=== PATIENT | female | born 1960 | race Caucasian/White ===

== ENCOUNTER → 2018-01-30 | Outpatient (CLI) | payer OTHER ==
--- NOTE | 2018-01-30 14:47 | US ---
EXAMINATION TYPE: US abdomen complete DATE OF EXAM: 01/30/2018 COMPARISON: NONE CLINICAL HISTORY: R10.84 Abd pain. Abdominal pain for 2 days EXAM MEASUREMENTS: Liver Length: 19.5 cm Gallbladder Wall: 0.2 cm CBD: 0.3 cm Spleen: 8.2 cm Right Kidney: 10.9 x 3.8 x 4.0 cm Left Kidney: 10.7 x 5.8 x 4.1 cm Technical limitations due to large amount of overlying bowel content Pancreas: Obscured by bowel gas Liver: enlarged, attenuating Gallbladder: no evidence of stones Evidence for sonographic Fermin's sign: no CBD: appears wnl as visualized Spleen: wnl Right Kidney: no evidence of hydronephrosis Left Kidney: no evidence of hydronephrosis Upper IVC: limited evaluation Abd Aorta: limited evaluation due to overlying bowel content, portions obscured, calcifications note d IMPRESSION: 1. No acute ultrasound abnormality abdomen ultrasound. 2. Hepatomegaly with mild fatty infiltration.
== END | disposition home or self-care (01) ==
LOC: RADUSWWP 14:00
PROVIDERS: ATTEND Family Medicine
DX: K76.0 Fatty (change of) liver, not elsewhere classified (principal)
CPT/HCPCS: 76700

== ENCOUNTER 2018-02-03 07:55 | Inpatient (IN) | payer OTHER ==
[2018-02-03 08:56] LABS: Appearance,Urine Turbid (Clear); Bacteria,Urine Rare /hpf; Bilirubin,Urine Negative (Negative); Blood,Urine Negative (Negative); Color,Urine Yellow; Glucose,Urine (UA) Negative (Negative); Ketones,Urine Negative (Negative); Leukocyte Esterase,Urine Negative (Negative); Nitrite,Urine Negative (Negative); PH, Urine 5.5 (5.0-8.0); Protein,Urine Trace (Negative); RBC,Urine 1 /hpf (0-5); Specific Gravity,Urine 1.021 (1.001-1.035); Squamous Epithelial Cell,Urine 2 /hpf (0-4); Uric Acid Crystals,Urine Occasional /hpf; WBC,Urine 2 /hpf (0-5)
[2018-02-03] MEDS ORDERED: ONDANSETRON 4 MG/2 ML VIAL IVP STA (09:18)
[2018-02-03] MEDS ORDERED: SODIUM CHLORIDE 0.9% 1,000 ML IV STA ×2 (09:18)
[2018-02-03] MEDS ORDERED: ACETAMINOPHEN IV (For NPO) 1,000 MG in EMPTY BAG 1 BAG IVPB STA (09:19)
[2018-02-03] MEDS ORDERED: RX INFO: IV CONTRAST WAS GIVEN 1 EACH MISC MISCELLANE PRN (09:20)
--- NOTE | 2018-02-03 09:20 | ED ---
General Adult HPI <Lei Christiansen - Last Filed: 02/03/18 11:33> - General Source: patient, EMS, RN notes reviewed Mode of arrival: EMS Limitations: no limitations <Enoch Restrepo - Last Filed: 02/03/18 11:36> - General Chief complaint: Abdominal Pain Stated complaint: Abdominal pain Time Seen by Provider: 02/03/18 08:49 - History of Present Illness Initial comments: Patient's a 57-year-old female presents into the emergency room today by EMS, the chief complaint of lower abdominal pain over the last week. She doesn't that she's felt nauseated as well. She states that she was diagnosed with urinary tract infection currently on antibiotics. She does admit that she has had pain with urination. She states that pain is in the left side wrapping around to the right. Patient describes it as a constant pain currently rating at 10/10. Denies any other complaints currently. Patient denies any recent shortness of breath, chest pain, numbness or tingling, dysuria or hematuria, constipation or diarrhea, headaches or visual changes, or any other complaints. (Enoch Restrepo) - Related Data Home Medications Medication Instructions Recorded Confirmed Venlafaxine HCl [Venlafaxine HCl 150 mg PO DAILY 08/26/14 02/03/18 ER] Albuterol Inhaler [Ventolin Hfa 1 - 2 puff INHALATION RT-Q4H PRN 02/03/18 Inhaler] Fluticasone Nasal [place] [Flonase 1 spray EA NOSTRIL BID 02/03/18 02/03/18 Nasal [place]] Sulfamethox-Tmp 800-160Mg [Bactrim 1 tab PO Q12HR 02/03/18 02/03/18 DS 800-160 mg] Venlafaxine HCl ER [Effexor Xr] 75 mg PO DAILY 02/03/18 02/03/18 Allergies Allergy/AdvReac Type Severity Reaction Status Date / Time No Known Allergies Allergy Verified 02/03/18 09:07 Review of Systems ROS Other: All systems not noted in ROS Statement are negative. <Lei Christiansen - Last Filed: 02/03/18 11:33> ROS Other: All systems not noted in ROS Statement are negative. <Enoch Restrepo - Last Filed: 02/03/18 11:36> ROS Statement: Those systems with pertinent positive or pertinent negative responses have been documented in the HPI. Past Medical History Past Medical History: COPD Additional Past Medical History / Comment(s): seasonal allergies History of Any Multi-Drug Resistant Organisms: None Reported Additional Past Surgical History / Comment(s): biopsy on left breast, laser eye surgery liz Past Psychological History: Depression Smoking Status: Current every day smoker Past Alcohol Use History: None Reported, Daily Past Drug Use History: None Reported, Marijuana <Enoch Restrepo - Last Filed: 02/03/18 11:36> General Exam <Lei Christiansen - Last Filed: 02/03/18 11:33> Limitations: no limitations <Enoch Restrepo - Last Filed: 02/03/18 11:36> - General Exam Comments Initial Comments: General: The patient is awake and alert, in moderate distress. Eye: Pupils are equal, round and reactive to light, extra-ocular movements are intact. No nystagmus. There is normal conjunctiva bilaterally. No signs of icterus. Ears, nose, mouth and throat: There are moist mucous membranes and no oral lesions. Neck: The neck is supple, there is no tenderness or JVD. Cardiovascular: There is a regular rate and rhythm. No murmur, rub or gallop is appreciated. Respiratory: Lungs are clear to auscultation, respirations are non-labored, breath sounds are equal. No wheezes, stridor, rales, or rhonchi. Gastrointestinal: Abdomen soft on palpation. Patient does have tenderness both left and right lower quadrants. Mildly tender in the upper quadrants. No rebound, guarding, CVA tenderness. Musculoskeletal: Normal ROM, no tenderness. Strength 5/5. Sensation intact. Pulses equal bilaterally 2+. Neurological: A&O x 3. CN II-XII intact, There are no obvious motor or sensory deficits. Coordination appears grossly intact. Speech is normal. Skin: Skin is warm and dry and no rashes or lesions are noted. Psychiatric: Cooperative, appropriate mood & affect, normal judgment. (Enoch Restrepo) Course <Lei Christiansen - Last Filed: 02/03/18 11:33> <Enoch Restrepo - Last Filed: 02/03/18 11:36> Vital Signs 02/03/18 02/03/18 08:05 10:31 Temperature 100.7 F H Pulse Rate 107 H 98 Respiratory 18 18 Rate Blood Pressure 149/67 142/65 O2 Sat by Pulse 93 L 97 Oximetry - Reevaluation(s) Reevaluation #1: 02/03/18 11:33 The patient was examined by me and [id number] evaluation she still has abdominal pain and tenderness palpation. I did discuss the findings with her including the fact she had a ruptured diverticula. I did discuss the case with Dr. Goldsmith. The patient will be admitted. Antibiotics will be started. (Lei Christiansen) Medical Decision Making - Lab Data Result diagrams: 02/03/18 08:50 02/03/18 08:50 <Lei Christiansen - Last Filed: 02/03/18 11:33> - Lab Data Result diagrams: 02/03/18 08:50 02/03/18 08:50 <Enoch Restrepo - Last Filed: 02/03/18 11:36> - Lab Data Lab Results 02/03/18 02/03/18 02/03/18 Range/Units 08:39 08:50 08:50 WBC (3.8-10.6) k/uL RBC (3.80-5.40) m/uL Hgb (11.4-16.0) gm/dL Hct (34.0-46.0) % MCV (80.0-100.0) fL MCH (25.0-35.0) pg MCHC (31.0-37.0) g/dL RDW (11.5-15.5) % Plt Count (150-450) k/uL Neutrophils % % Lymphocytes % % Monocytes % % Eosinophils % % Basophils % % Neutrophils # (1.3-7.7) k/uL Lymphocytes # (1.0-4.8) k/uL Monocytes # (0-1.0) k/uL Eosinophils # (0-0.7) k/uL Basophils # (0-0.2) k/uL Sodium 138 (137-145) mmol/L Potassium 4.1 (3.5-5.1) mmol/L Chloride 103 (98-107) mmol/L Carbon Dioxide 20 L (22-30) mmol/L Anion Gap 15 mmol/L BUN 13 (7-17) mg/dL Creatinine 0.72 (0.52-1.04) mg/dL Est GFR (CKD-EPI)AfAm >90 (>60 ml/min/1.73 sqM) Est GFR (CKD-EPI)NonAf >90 (>60 ml/min/1.73 sqM) Glucose 155 H (74-99) mg/dL Plasma Lactic Acid Miguel (0.7-2.0) mmol/L Calcium 9.9 (8.4-10.2) mg/dL Total Bilirubin 1.1 (0.2-1.3) mg/dL AST 36 (14-36) U/L ALT 47 (9-52) U/L Alkaline Phosphatase 97 (38-126) U/L Total Creatine Kinase 71 (30-135) U/L CK-MB (CK-2) 0.8 (0.0-2.4) ng/mL CK-MB (CK-2) Rel Index 1.1 Total Protein 6.6 (6.3-8.2) g/dL Albumin 4.1 (3.5-5.0) g/dL Amylase 42 (30-110) U/L Lipase 31 (23-300) U/L Urine Color Yellow Urine Appearance Turbid H (Clear) Urine pH 5.5 (5.0-8.0) Ur Specific [place] 1.021 (1.001-1.035) Urine Protein Trace H (Negative) Urine Glucose (UA) Negative (Negative) Urine Ketones Negative (Negative) Urine Blood Negative (Negative) Urine Nitrite Negative (Negative) Urine Bilirubin Negative (Negative) Urine Urobilinogen 2.0 (<2.0) mg/dL Ur Leukocyte Esterase Negative (Negative) Urine RBC 1 (0-5) /hpf Urine WBC 2 (0-5) /hpf Ur Squamous Epith Cells 2 (0-4) /hpf Uric Acid Crystals Occasional H (None) /hpf Urine Bacteria Rare H (None) /hpf 02/03/18 02/03/18 Range/Units 08:50 08:50 WBC 13.5 H (3.8-10.6) k/uL RBC 4.42 (3.80-5.40) m/uL Hgb 14.4 (11.4-16.0) gm/dL Hct 41.5 (34.0-46.0) % MCV 93.8 (80.0-100.0) fL MCH 32.7 (25.0-35.0) pg MCHC 34.8 (31.0-37.0) g/dL RDW 13.0 (11.5-15.5) % Plt Count 242 (150-450) k/uL Neutrophils % 89 % Lymphocytes % 5 % Monocytes % 5 % Eosinophils % 1 % Basophils % 0 % Neutrophils # 11.9 H (1.3-7.7) k/uL Lymphocytes # 0.7 L (1.0-4.8) k/uL Monocytes # 0.6 (0-1.0) k/uL Eosinophils # 0.1 (0-0.7) k/uL Basophils # 0.0 (0-0.2) k/uL Sodium (137-145) mmol/L Potassium (3.5-5.1) mmol/L Chloride (98-107) mmol/L Carbon Dioxide (22-30) mmol/L Anion Gap mmol/L BUN (7-17) mg/dL Creatinine (0.52-1.04) mg/dL Est GFR (CKD-EPI)AfAm (>60 ml/min/1.73 sqM) Est GFR (CKD-EPI)NonAf (>60 ml/min/1.73 sqM) Glucose (74-99) mg/dL Plasma Lactic Acid Miguel 1.4 (0.7-2.0) mmol/L Calcium (8.4-10.2) mg/dL Total Bilirubin (0.2-1.3) mg/dL AST (14-36) U/L ALT (9-52) U/L Alkaline Phosphatase (38-126) U/L Total Creatine Kinase (30-135) U/L CK-MB (CK-2) (0.0-2.4) ng/mL CK-MB (CK-2) Rel Index Total Protein (6.3-8.2) g/dL Albumin (3.5-5.0) g/dL Amylase (30-110) U/L Lipase (23-300) U/L Urine Color Urine Appearance (Clear) Urine pH (5.0-8.0) Ur Specific [place] (1.001-1.035) Urine Protein (Negative) Urine Glucose (UA) (Negative) Urine Ketones (Negative) Urine Blood (Negative) Urine Nitrite (Negative) Urine Bilirubin (Negative) Urine Urobilinogen (<2.0) mg/dL Ur Leukocyte Esterase (Negative) Urine RBC (0-5) /hpf Urine WBC (0-5) /hpf Ur Squamous Epith Cells (0-4) /hpf Uric Acid Crystals (None) /hpf Urine Bacteria (None) /hpf Disposition <Lei Christiansen - Last Filed: 02/03/18 11:33> Is patient prescribed a controlled substance at d/c from ED?: No Time of Disposition: 11:36 <Enoch Restrepo - Last Filed: 02/03/18 11:36> Clinical Impression: Diverticulitis of intestine with perforation Disposition: ADMITTED IP TO THIS HOSP Condition: Stable Referrals: Sarah Mendez MD [Primary Care Provider] - 1-2 days
[2018-02-03 09:21] LABS: ALT 47 U/L (9-52); AST 36 U/L (14-36); Albumin 4.1 g/dL (3.5-5.0); Alkaline Phosphatase 97 U/L (38-126); Amylase 42 U/L (30-110); Anion Gap 15 mmol/L; Blood Urea Nitrogen 13 mg/dL (7-17); Calcium 9.9 mg/dL (8.4-10.2); Carbon Dioxide 20 mmol/L (22-30); Chloride 103 mmol/L (98-107); Glucose 155 mg/dL (74-99); Lipase 31 U/L (23-300); Potassium 4.1 mmol/L (3.5-5.1); Sodium 138 mmol/L (137-145); Total Bilirubin 1.1 mg/dL (0.2-1.3); Total Protein 6.6 g/dL (6.3-8.2)
[2018-02-03 09:24] LABS: Basophils % (A) 0 %; Eosinophils # (A) 0.1 k/uL (0-0.7); Eosinophils % (A) 1 %; HCT 41.5 % (34.0-46.0); HGB 14.4 gm/dL (11.4-16.0); Lymphocytes # (A) 0.7 k/uL (1.0-4.8); Lymphocytes % (A) 5 %; MCH 32.7 pg (25.0-35.0); MCHC 34.8 g/dL (31.0-37.0); MCV 93.8 fL (80.0-100.0); Mean Platelet Volume 7.5; Monocytes # (A) 0.6 k/uL (0-1.0); Monocytes % (A) 5 %; Neutrophils # (A) 11.9 k/uL (1.3-7.7); Neutrophils % (A) 89 %; Platelet Count 242 k/uL (150-450); RBC 4.42 m/uL (3.80-5.40); WBC 13.5 k/uL (3.8-10.6)
[2018-02-03 09:51] LABS: Creatine Kinase MB 0.8 ng/mL (0.0-2.4)
[2018-02-03] MEDS ORDERED: MORPHINE SULFATE 4 MG/ML SYRINGE IVP STA (11:03)
[2018-02-03] MEDS ORDERED: PIPERACILLIN-TAZOBACTAM 3.375 GM in DEXTROSE/WATER 1 50ML.BAG IVPB STA (11:03)
--- NOTE | 2018-02-03 11:06 | CT ---
EXAMINATION TYPE: CT abdomen pelvis w con DATE OF EXAM: 02/03/2018 COMPARISON: Ultrasound abdomen 01/30/2018 HISTORY: Patient complains of epigastric to periumbilical pain. CT DLP: 888.5 mGycm Automated exposure control for dose reduction was used. TECHNIQUE: Helical acquisition of images from the lung bases through the pelvis have been completed. CONTRAST: Performed without Oral Contrast and with IV Contrast, patient injected with 100 mL of Isovue 300. FINDINGS: There is a small hiatal hernia present. LUNG BASES: No significant abnormality is appreciated. AORTA: No significant abnormality is appreciated. LIVER/GB: Liver is enlarged and shows low attenuation compatible with hepatic steatosis. PANCREAS: No significant abnormality is seen. SPLEEN: No significant abnormality is seen. ADRENALS: Small adrenal nodule on the left shows low attenuation and may represent adenoma KIDNEYS: No significant abnormality is seen. REPRODUCTIVE ORGANS: Calcified exophytic left adnexal mass is suspected, could be exophytic fibroid o r ovarian mass measuring 4.4 cm. Uterus and right ovary otherwise normal. BOWEL: There is extensive diverticular change in the sigmoid colon. Small foci of extraluminal air ar e present within the abdomen. Inflammatory changes are present adjacent to the sigmoid colon and with in the pelvis. Fluid-filled loops of bowel are present, some inflammatory change is suspected about t he ascending colon. The appendix does not show inflammatory change but is slightly dilated. FREE AIR: There is free air present. ASCITES: None visible. PELVIC ADENOPATHY: None visualized. RETROPERITONEAL ADENOPATHY: No Retroperitoneal Adenopathy visible. URINARY BLADDER: No significant abnormality is seen. OSSEOUS STRUCTURES: Degenerative disc changes are noted in the visualized spine. There is some assoc iated facet arthropathy IMPRESSION: DIVERTICULITIS WITH BOWEL PERFORATION, EXTRALUMINAL AIR AND INFLAMMATORY CHANGES, REPORT RELAYED TO Jayy CHRISTIANSEN TELEPHONICALLY AT THE TIME OF INTERPRETATION. APPENDIX IS DILATED BUT SHOWS NO INFLAMMATORY C HANGE. THERE IS LIKELY AN ASSOCIATED ILEUS. CALCIFIED PELVIC MASS DESCRIBED, CONSIDER FOLLOW-UP. A Document Only message has been documented for Lei Christiansen in the [employer] Critical Result system on 02/03/2018 11:03 AM, Message ID [id number].
[2018-02-03] MEDS ORDERED: SODIUM CHLORIDE 0.9% 1,000 ML IV ONE (11:33)
[2018-02-03] MEDS ORDERED: NALOXONE 0.4 MG/ML 1 ML VIAL IV PRN ×2 (11:33→15:32)
[2018-02-03] MEDS ORDERED: MORPHINE SULFATE 4 MG/ML SYRINGE IV PRN (11:33)
[2018-02-03] MEDS ORDERED: ONDANSETRON 4 MG/2 ML VIAL IVP PRN (11:33)
--- NOTE | 2018-02-03 12:42 | P.GSHP ---
History of Present Illness H&P Date: 02/03/18 Chief Complaint: Abdominal pain This a 57-year-old female who presented to the emergency room with complaints of acute abdominal pain. She was worked up and found have evidence of free air with possible perforated sigmoid diverticulum. Past Medical History Past Medical History: COPD, Eye Disorder Additional Past Medical History / Comment(s): Current UTI on antibiotics, glaucoma bilaterally, enlarged liver, frequent bronchitis, seasonal allergies History of Any Multi-Drug Resistant Organisms: None Reported Past Surgical History: Tonsillectomy Additional Past Surgical History / Comment(s): benign biopsy on left breast, laser R eye surgery for glaucomal Past Anesthesia/Blood Transfusion Reactions: No Reported Reaction Smoking Status: Current every day smoker - Past Family History Father Family Medical History: Coronary Artery Disease (CAD), Diabetes Mellitus Additional Family Medical History / Comment(s): Father in his 60s from diabetic complications. Mother Family Medical History: Coronary Artery Disease (CAD), Myocardial Infarction ([place] ) Additional Family Medical History / Comment(s): Mother from a [place] at the age of 62 yrs. Medications and Allergies Home Medications Medication Instructions Recorded Confirmed Type Venlafaxine HCl [Venlafaxine HCl 150 mg PO DAILY 08/26/14 02/03/18 History ER] Albuterol Inhaler [Ventolin Hfa 1 - 2 puff INHALATION RT-Q4H PRN 02/03/18 History Inhaler] Fluticasone Nasal [place] [Flonase 1 spray EA NOSTRIL BID 02/03/18 02/03/18 History Nasal [place]] Sulfamethox-Tmp 800-160Mg [Bactrim 1 tab PO Q12HR 02/03/18 02/03/18 History DS 800-160 mg] Venlafaxine HCl ER [Effexor Xr] 75 mg PO DAILY 02/03/18 02/03/18 History Allergies Allergy/AdvReac Type Severity Reaction Status Date / Time No Known Allergies Allergy Verified 02/03/18 09:07 Surgical - Exam Vital Signs Temp Pulse Resp BP Pulse Ox 100.7 F H 107 H 18 149/67 93 L 02/03/18 08:05 02/03/18 08:05 02/03/18 08:05 02/03/18 08:05 02/03/18 08:05 - General well developed, moderate distress - Eyes PERRL - ENT normal pinna - Neck no masses - Respiratory normal expansion - Cardiovascular Rhythm: regular - Abdomen Moderate diffuse abdominal pain with significant left lower quadrant pain Abdomen: soft Results - Labs 02/03/18 08:50 02/03/18 08:50 Abnormal Lab Results - Last 24 Hours (Table) 02/03/18 02/03/18 02/03/18 Range/Units 08:39 08:50 08:50 WBC 13.5 H (3.8-10.6) k/uL Neutrophils # 11.9 H (1.3-7.7) k/uL Lymphocytes # 0.7 L (1.0-4.8) k/uL Carbon Dioxide 20 L (22-30) mmol/L Glucose 155 H (74-99) mg/dL Urine Appearance Turbid H (Clear) Urine Protein Trace H (Negative) Uric Acid Crystals Occasional H (None) /hpf Urine Bacteria Rare H (None) /hpf Diabetes panel 02/03/18 Range/Units 08:50 Sodium 138 (137-145) mmol/L Potassium 4.1 (3.5-5.1) mmol/L Chloride 103 (98-107) mmol/L Carbon Dioxide 20 L (22-30) mmol/L BUN 13 (7-17) mg/dL Creatinine 0.72 (0.52-1.04) mg/dL Glucose 155 H (74-99) mg/dL Calcium 9.9 (8.4-10.2) mg/dL AST 36 (14-36) U/L ALT 47 (9-52) U/L Alkaline Phosphatase 97 (38-126) U/L Total Protein 6.6 (6.3-8.2) g/dL Albumin 4.1 (3.5-5.0) g/dL Calcium panel 02/03/18 Range/Units 08:50 Calcium 9.9 (8.4-10.2) mg/dL Albumin 4.1 (3.5-5.0) g/dL Pituitary panel 02/03/18 Range/Units 08:50 Sodium 138 (137-145) mmol/L Potassium 4.1 (3.5-5.1) mmol/L Chloride 103 (98-107) mmol/L Carbon Dioxide 20 L (22-30) mmol/L BUN 13 (7-17) mg/dL Creatinine 0.72 (0.52-1.04) mg/dL Glucose 155 H (74-99) mg/dL Calcium 9.9 (8.4-10.2) mg/dL Adrenal panel 02/03/18 Range/Units 08:50 Sodium 138 (137-145) mmol/L Potassium 4.1 (3.5-5.1) mmol/L Chloride 103 (98-107) mmol/L Carbon Dioxide 20 L (22-30) mmol/L BUN 13 (7-17) mg/dL Creatinine 0.72 (0.52-1.04) mg/dL Glucose 155 H (74-99) mg/dL Calcium 9.9 (8.4-10.2) mg/dL Total Bilirubin 1.1 (0.2-1.3) mg/dL AST 36 (14-36) U/L ALT 47 (9-52) U/L Alkaline Phosphatase 97 (38-126) U/L Total Protein 6.6 (6.3-8.2) g/dL Albumin 4.1 (3.5-5.0) g/dL Assessment and Plan Assessment: Perforated diverticulitis. Patient will undergo exploratory laparotomy and end colostomy today.
[2018-02-03] MEDS ORDERED: IV FLUID CONTINUATION 1,000 ML IV ONE (13:07)
[2018-02-03] MEDS ORDERED: ROCURONIUM BROMIDE 10 MG/ML 10 ML VIAL IV ONE (13:18)
[2018-02-03] MEDS ORDERED: MIDAZOLAM 2 MG/2 ML VIAL ONE (13:18)
[2018-02-03] MEDS ORDERED: NEOSTIGMINE 1 MG/ML 10 ML VIAL ONE (13:18)
[2018-02-03] MEDS ORDERED: MORPHINE SULFATE 10 MG/ML SYRINGE ONE (13:18)
[2018-02-03] MEDS ORDERED: fentaNYL (PF) 50 MCG/ML 2 ML AMP ONE (13:18)
[2018-02-03] MEDS ORDERED: GLYCOPYRROLATE 0.2 MG/ML 2 ML VIAL ONE (13:18)
[2018-02-03] MEDS ORDERED: SUCCINYLCHOLINE CHLORIDE 100 MG/5 ML SYR IV ONE (13:18)
[2018-02-03] MEDS ORDERED: PROPOFOL 10 MG/ML 20 ML VIAL IV ONE (13:18)
[2018-02-03] MEDS ORDERED: LIDOCAINE 1% INJ 10MG/ML (20 ML MDV) ONE (13:18)
[2018-02-03] MEDS ORDERED: LACTATED RINGERS 1,000 ML IV ONE ×2 (13:18→15:05)
[2018-02-03] MEDS ORDERED: fentaNYL (PF) 50 MCG/ML 2 ML AMP IVP ONE (15:04)
[2018-02-03] MEDS ORDERED: NALBUPHINE 10 MG/ML AMPUL IV PRN (15:32)
[2018-02-03 16:28] LABS: Anion Gap 13 mmol/L; Blood Urea Nitrogen 12 mg/dL (7-17); Calcium 8.6 mg/dL (8.4-10.2); Carbon Dioxide 19 mmol/L (22-30); Chloride 106 mmol/L (98-107); Glucose 110 mg/dL (74-99); Sodium 138 mmol/L (137-145)
[2018-02-03] MEDS: ROPIVACAINE 250 MG, HYDROMORPHONE (PF) 5 MG in SODIUM CHLORIDE 0.9% 200 ML EPIDURAL PRN (16:35)
[2018-02-03 16:42] LABS: HCT 39.3 % (34.0-46.0); HGB 13.1 gm/dL (11.4-16.0); MCH 32.3 pg (25.0-35.0); MCHC 33.2 g/dL (31.0-37.0); MCV 97.1 fL (80.0-100.0); Mean Platelet Volume 7.4; Platelet Count 241 k/uL (150-450); RBC 4.05 m/uL (3.80-5.40); RDW 13.2 % (11.5-15.5); WBC 7.2 k/uL (3.8-10.6)
[2018-02-03 17:26] LABS: Band Neutrophils % 25 %; Lymphocytes # (M) 0.65 k/uL (1.0-4.8); Monocytes # (M) 0.43 k/uL (0-1.0); Neutrophils % (M) 61 %; Nucleated Red Blood Cells 0 /100 WBC (0-0); Total Cells Counted 200
[2018-02-03] MEDS: D5-0.45% NACL WITH KCL 20MEQ/L 1,000 ML IV SCH (17:46)
[2018-02-03] MEDS: HEPARIN SODIUM,PORCINE 5,000 UNIT/ML 1 ML VIAL SQ SCH (17:49)
[2018-02-03] MEDS: IPRATROPIUM-ALBUTEROL 3 ML NEB INHALATION PRN (19:14)
[2018-02-03] MEDS: PIPERACILLIN-TAZOBACTAM 3.375 GM in DEXTROSE/WATER 1 50ML.BAG IVPB SCH (22:11)
[2018-02-04] MEDS: D5-0.45% NACL WITH KCL 20MEQ/L 1,000 ML IV SCH ×2 (00:10→07:53)
[2018-02-04] MEDS: ONDANSETRON 4 MG/2 ML VIAL IVP PRN ×2 (00:10→06:02)
[2018-02-04] MEDS: HEPARIN SODIUM,PORCINE 5,000 UNIT/ML 1 ML VIAL SQ SCH ×4 (00:12→23:53)
[2018-02-04] MEDS: diphenhydrAMINE 50 MG/ML 1 ML VIAL IVP PRN (00:18)
[2018-02-04] MEDS: PIPERACILLIN-TAZOBACTAM 3.375 GM in DEXTROSE/WATER 1 50ML.BAG IVPB SCH ×3 (04:19→21:02)
--- NOTE | 2018-02-04 05:52 | P.PN ---
Progress Note - Text Progress Note Date: 02/04/18 57 yo female s/p Sigmoid colectomy. Post-op day #1. Patient received thoracic epidural in PACU for post-op pain control. Ropivacaine 0.1% + Dilaudid 20 mcg/ cc at a rate of 8 cc/hr. Patient was seen today, sitting up in bed no complaints , pain VAS score 2/10, no headache, no itching, no motor or sensory deficit, no nausea and vomiting. Dressing intact. No redness. Assessment and plan: Doing well in general no complications from anesthesia. Keep epidural at same rate.
[2018-02-04] MEDS: HYDROmorphone 0.5 MG/0.5 ML SYRINGE IVP PRN (06:02)
[2018-02-04] MEDS: IPRATROPIUM-ALBUTEROL 3 ML NEB INHALATION PRN ×4 (06:50→19:12)
[2018-02-04] MEDS ORDERED: SODIUM CHLORIDE 0.9% 1,000 ML IV ONE (09:30)
[2018-02-04 09:44] LABS: Basophils % (A) 0 %; Eosinophils # (A) 0.1 k/uL (0-0.7); Eosinophils % (A) 1 %; HCT 39.5 % (34.0-46.0); HGB 12.5 gm/dL (11.4-16.0); Lymphocytes # (A) 1.3 k/uL (1.0-4.8); Lymphocytes % (A) 11 %; MCH 31.4 pg (25.0-35.0); MCHC 31.6 g/dL (31.0-37.0); MCV 99.3 fL (80.0-100.0); Mean Platelet Volume 7.3; Monocytes # (A) 0.5 k/uL (0-1.0); Monocytes % (A) 4 %; Neutrophils # (A) 9.2 k/uL (1.3-7.7); Neutrophils % (A) 82 %; Platelet Count 254 k/uL (150-450); RBC 3.97 m/uL (3.80-5.40); RDW 13.4 % (11.5-15.5); WBC 11.2 k/uL (3.8-10.6)
[2018-02-04] MEDS: VENLAFAXINE HCL ER 150 MG CAP PO SCH (09:44)
[2018-02-04 09:52] LABS: ALT 37 U/L (9-52); AST 26 U/L (14-36); Albumin 3.3 g/dL (3.5-5.0); Alkaline Phosphatase 74 U/L (38-126); Anion Gap 9 mmol/L; Blood Urea Nitrogen 14 mg/dL (7-17); Calcium 8.8 mg/dL (8.4-10.2); Carbon Dioxide 27 mmol/L (22-30); Chloride 103 mmol/L (98-107); Glucose 159 mg/dL (74-99); Potassium 4.3 mmol/L (3.5-5.1); Sodium 139 mmol/L (137-145); Total Bilirubin 1.4 mg/dL (0.2-1.3); Total Protein 5.5 g/dL (6.3-8.2)
[2018-02-04] MEDS: PANTOPRAZOLE 40 MG/10 ML VIAL IVP SCH ×2 (10:33→22:34)
--- NOTE | 2018-02-04 15:36 | P.CONS ---
History of Present Illness - Reason for Consult Consult date: 02/04/18 Medical management - Chief Complaint Abdominal pain - History of Present Illness This is a 57-year-old female with past medical history noted below who presented to the emergency room with worsening abdominal pain. Patient said that her pain started initially few days ago and is being getting progressively worse. She described her pain as generalized. She rates her pain as 10 out of 10. She was evaluated in the emergency room and computed tomography scan of the abdomen showed evidence of acute diverticulitis with bowel perforation. Patient was seen and evaluated by general surgery and was taken to the OR and underwent urgent exploratory laparotomy with partial colectomy and colostomy placement. She is postoperative day #1. Her pain is relatively well- controlled. She still has an NG tube in place. No output in the ostomy bag as of yet. Review of Systems Review of system: 14 points review of systems were obtained and were negative except to what were mentioned in the HPI. Past Medical History Past Medical History: COPD, Eye Disorder Additional Past Medical History / Comment(s): Current UTI on antibiotics, glaucoma bilaterally, enlarged liver, frequent bronchitis, seasonal allergies History of Any Multi-Drug Resistant Organisms: None Reported Past Surgical History: Tonsillectomy Additional Past Surgical History / Comment(s): benign biopsy on left breast, laser R eye surgery for glaucomal Past Anesthesia/Blood Transfusion Reactions: No Reported Reaction Smoking Status: Current every day smoker - Past Family History Father Family Medical History: Coronary Artery Disease (CAD), Diabetes Mellitus Additional Family Medical History / Comment(s): Father in his 60s from diabetic complications. Mother Family Medical History: Coronary Artery Disease (CAD), Myocardial Infarction ([place] ) Additional Family Medical History / Comment(s): Mother from a [place] at the age of 62 yrs. Medications and Allergies Home Medications Medication Instructions Recorded Confirmed Type Venlafaxine HCl [Venlafaxine HCl 150 mg PO DAILY 08/26/14 02/03/18 History ER] Albuterol Inhaler [Ventolin Hfa 1 - 2 puff INHALATION RT-Q4H PRN 02/03/18 History Inhaler] Fluticasone Nasal [place] [Flonase 1 spray EA NOSTRIL BID 02/03/18 02/03/18 History Nasal [place]] Sulfamethox-Tmp 800-160Mg [Bactrim 1 tab PO Q12HR 02/03/18 02/03/18 History DS 800-160 mg] Venlafaxine HCl ER [Effexor Xr] 75 mg PO DAILY 02/03/18 02/03/18 History Allergies Allergy/AdvReac Type Severity Reaction Status Date / Time No Known Allergies Allergy Verified 02/03/18 09:07 Physical Exam Vitals: Vital Signs Temp Pulse Pulse Pulse Resp BP BP 02/04/18 14:52 96 116/67 02/04/18 14:48 96 116/67 02/04/18 13:49 97.7 F 103 H 18 118/95 02/04/18 11:07 92 02/04/18 10:57 90 02/04/18 07:00 94 02/04/18 06:50 92 02/04/18 06:00 99.4 F 101 H 20 133/67 02/04/18 02:20 98.2 F 02/04/18 00:40 100 F H 97 20 112/70 02/03/18 19:25 100 02/03/18 19:18 100 02/03/18 18:15 93 02/03/18 18:05 91 02/03/18 18:00 92 02/03/18 17:50 88 02/03/18 17:35 91 02/03/18 17:20 87 02/03/18 17:15 98.2 F 88 18 02/03/18 16:15 90 18 02/03/18 16:00 93 16 02/03/18 15:45 92 18 BP Pulse Ox 02/04/18 14:52 02/04/18 14:48 02/04/18 13:49 90 L 02/04/18 11:07 02/04/18 10:57 02/04/18 07:00 02/04/18 06:50 02/04/18 06:00 91 L 02/04/18 02:20 02/04/18 00:40 96 02/03/18 19:25 02/03/18 19:18 02/03/18 18:15 116/57 93 L 02/03/18 18:05 112/63 94 L 02/03/18 18:00 105/56 95 02/03/18 17:50 112/62 95 02/03/18 17:35 113/63 95 05/29/18 17:20 106/59 96 02/03/18 17:15 107/55 95 02/03/18 16:15 97/53 99 02/03/18 16:00 102/52 98 02/03/18 15:45 99/54 97 Intake and Output 02/04/18 02/04/18 02/04/18 06:59 14:59 22:59 Output Total 1115 130 Balance -1115 -130 Output: Gastric Drainage 20 Drainage 95 5 Abdomen 20 5 Right NARES 75 0 Urine 1000 125 Uretheral (Sheikh) 500 Other: Voiding Method Indwelling Catheter General: The patient is awake and alert, in no distress. NG tube in place. Eye: there is normal conjunctiva bilaterally. Neck: The neck is supple, there is no JVD. Cardiovascular: Normal S1-S2, no S3-S4, no murmurs. Respiratory: Lungs clear to auscultation bilaterally Gastrointestinal: Abdomen is soft, there is moderate tenderness to palpation throughout the abdomen. Colostomy bag in place. Musculoskeletal: There is no pedal edema. Neurological:. Speech is normal. Skin: Skin is warm and dry Results CBC & Chem 7: 02/04/18 09:23 02/04/18 09:23 Labs: Abnormal Lab Results - Last 24 Hours (Table) 02/03/18 02/03/18 02/04/18 Range/Units 15:51 15:51 09:23 WBC 11.2 H (3.8-10.6) k/uL Neutrophils # 9.2 H (1.3-7.7) k/uL Lymphocytes # (Manual) 0.65 L (1.0-4.8) k/uL Carbon Dioxide 19 L (22-30) mmol/L Glucose 110 H (74-99) mg/dL Total Bilirubin (0.2-1.3) mg/dL Total Protein (6.3-8.2) g/dL Albumin (3.5-5.0) g/dL 02/04/18 Range/Units 09:23 WBC (3.8-10.6) k/uL Neutrophils # (1.3-7.7) k/uL Lymphocytes # (Manual) (1.0-4.8) k/uL Carbon Dioxide (22-30) mmol/L Glucose 159 H (74-99) mg/dL Total Bilirubin 1.4 H (0.2-1.3) mg/dL Total Protein 5.5 L (6.3-8.2) g/dL Albumin 3.3 L (3.5-5.0) g/dL Microbiology - Last 24 Hours (Table) 02/03/18 08:50 Blood Culture - Preliminary Blood No Growth after 24 hours Assessment and Plan Assessment: 1. Acute diverticulitis with bowel perforation status post exploratory laparotomy with colostomy placement. Continue postoperative care. Gen. surgery following closely. Pain control and antiemetic as needed. NG tube in place. 2. Peritonitis secondary to bowel perforation, currently on Zosyn. May finish antibiotic course with Augmentin for total of 7 days. Blood culture negative to date. 3. Generalized anxiety disorder on Effexor 4. DVT prophylaxis with subcu heparin Today, I reviewed her medication list and lab work results. Continue current regimen. Thank you very much for the consultation. I will continue to follow up on the patient closely.
[2018-02-04] MEDS: LACTATED RINGERS 1,000 ML IV SCH ×7 (15:49→23:53)
[2018-02-04] MEDS: ROPIVACAINE 250 MG, HYDROMORPHONE (PF) 5 MG in SODIUM CHLORIDE 0.9% 200 ML EPIDURAL PRN (23:29)
[2018-02-05] MEDS: IPRATROPIUM-ALBUTEROL 3 ML NEB INHALATION PRN ×3 (06:12→20:47)
[2018-02-05] MEDS: LACTATED RINGERS 1,000 ML IV SCH ×12 (06:16→16:59)
[2018-02-05] MEDS ORDERED: FUROSEMIDE 10 MG/ML 2 ML VIAL IV ONE (06:47)
[2018-02-05] MEDS ORDERED: ACETAMINOPHEN IV (For NPO) 1,000 MG in EMPTY BAG 1 BAG IVPB ONE (06:50)
--- NOTE | 2018-02-05 07:22 | XR ---
EXAMINATION TYPE: XR chest 1V portable DATE OF EXAM: 02/05/2018 COMPARISON: 08/26/2014 HISTORY: Shortness of breath TECHNIQUE: Single frontal view of the chest is obtained. FINDINGS: There is no focal air space opacity, pleural effusion, or pulmonary vascular congestion se en. Trace pleural effusions are noted at the costophrenic angles. The cardiac silhouette size is with in normal limits. The osseous structures are intact. Enteric tube courses beyond the distal field-o f-view and appears appropriately placed. IMPRESSION: Trace pleural effusions otherwise no acute cardiopulmonary process. Partially visualized enteric tube appears appropriately placed.
[2018-02-05 07:49] LABS: Basophils % (A) 0 %; Eosinophils # (A) 0.1 k/uL (0-0.7); Eosinophils % (A) 1 %; HGB 11.8 gm/dL (11.4-16.0); Lymphocytes % (A) 9 %; MCH 32.3 pg (25.0-35.0); MCHC 32.8 g/dL (31.0-37.0); MCV 98.3 fL (80.0-100.0); Mean Platelet Volume 7.7; Monocytes # (A) 0.4 k/uL (0-1.0); Monocytes % (A) 4 %; Neutrophils # (A) 9.8 k/uL (1.3-7.7); Neutrophils % (A) 86 %; Platelet Count 256 k/uL (150-450); RBC 3.67 m/uL (3.80-5.40); RDW 13.4 % (11.5-15.5); WBC 11.4 k/uL (3.8-10.6)
[2018-02-05 08:05] LABS: ALT 36 U/L (9-52); AST 30 U/L (14-36); Albumin 3.1 g/dL (3.5-5.0); Alkaline Phosphatase 78 U/L (38-126); Anion Gap 11 mmol/L; Blood Urea Nitrogen 11 mg/dL (7-17); Calcium 8.9 mg/dL (8.4-10.2); Carbon Dioxide 23 mmol/L (22-30); Chloride 104 mmol/L (98-107); Glucose 118 mg/dL (74-99); Potassium 3.9 mmol/L (3.5-5.1); Sodium 138 mmol/L (137-145); Total Bilirubin 0.9 mg/dL (0.2-1.3); Total Protein 5.4 g/dL (6.3-8.2)
[2018-02-05] MEDS: PIPERACILLIN-TAZOBACTAM 3.375 GM in DEXTROSE/WATER 1 50ML.BAG IVPB SCH ×2 (09:29→12:01)
[2018-02-05] MEDS: VENLAFAXINE HCL ER 150 MG CAP PO SCH (09:33)
[2018-02-05] MEDS: HEPARIN SODIUM,PORCINE 5,000 UNIT/ML 1 ML VIAL SQ SCH ×2 (09:43→16:58)
[2018-02-05] MEDS: PANTOPRAZOLE 40 MG/10 ML VIAL IVP SCH ×2 (09:44→19:59)
[2018-02-05] MEDS: HYDROmorphone 0.5 MG/0.5 ML SYRINGE IVP PRN ×4 (10:02→22:42)
[2018-02-05] MEDS: ONDANSETRON 4 MG/2 ML VIAL IVP PRN (10:36)
[2018-02-05] MEDS: diphenhydrAMINE 50 MG/ML 1 ML VIAL IVP PRN (10:36)
[2018-02-05] MEDS: METOCLOPRAMIDE 5 MG/ML 2 ML VIAL IVP PRN (14:39)
--- NOTE | 2018-02-05 15:10 | P.PN ---
Subjective Progress Note Date: 02/05/18 This is a 57-year-old female with past medical history noted below who presented to the emergency room with worsening abdominal pain. Patient said that her pain started initially few days ago and is being getting progressively worse. She described her pain as generalized. She rates her pain as 10 out of 10. She was evaluated in the emergency room and computed tomography scan of the abdomen showed evidence of acute diverticulitis with bowel perforation. Patient was seen and evaluated by general surgery and was taken to the OR and underwent urgent exploratory laparotomy with partial colectomy and colostomy placement. She is postoperative day #1. Her pain is relatively well- controlled. She still has an NG tube in place. No output in the ostomy bag as of yet. 02/05/2018 patient had low urine output yesterday she received IV fluid boluses and Lasix. Urine output has shown some improvement. She remains on lactated Ringer's at 150 mL an hour. She has NG tube in place. She has not passed gas or had bowel movement yet. Denies any nausea. Pain is controlled. She had a low-grade temp of 100.5 and white count 11.4 she is on IV Zosyn. Objective - Vital Signs Vital signs: Vital Signs Temp 100.5 F H 02/05/18 06:05 Pulse 104 H 02/05/18 11:43 Resp 2 L 02/05/18 07:26 BP 130/62 02/05/18 06:05 Pulse Ox 93 L 02/05/18 07:26 Intake & Output 02/04/18 02/05/18 02/05/18 18:59 06:59 18:59 Intake Total 20 Output Total 330 1140 30 Balance -330 -1140 -10 Weight 78.018 kg Intake: Oral 20 Output: Gastric Drainage 450 Drainage 5 240 30 Abdomen 5 40 30 Right NARES 0 200 Urine 325 450 Other: Voiding Method Indwelling Catheter Indwelling Catheter Indwelling Catheter # Voids 125 - Exam Head normocephalic Neck supple Lungs clear to auscultation bilaterally no wheezing or crackles Heart regular rate and rhythm S1-S2, no rub or gallop Abdomen is soft nontender nondistended positive bowel sounds no hepatosplenomegaly Extremities no edema Neuro alert and orientated to 3 - Labs CBC & Chem 7: 02/05/18 07:37 02/05/18 07:37 Labs: Abnormal Lab Results - Last 24 Hours (Table) 02/05/18 02/05/18 Range/Units 07:37 07:37 WBC 11.4 H (3.8-10.6) k/uL RBC 3.67 L (3.80-5.40) m/uL Neutrophils # 9.8 H (1.3-7.7) k/uL Glucose 118 H (74-99) mg/dL Total Protein 5.4 L (6.3-8.2) g/dL Albumin 3.1 L (3.5-5.0) g/dL Microbiology - Last 24 Hours (Table) 02/03/18 08:50 Blood Culture - Preliminary Blood No Growth after 48 hours Assessment and Plan Assessment: 1. Acute diverticulitis with bowel perforation status post exploratory laparotomy with colostomy placement. Continue postoperative care. Gen. surgery following closely. Pain control and antiemetic as needed. NG tube in place. 2. Peritonitis secondary to bowel perforation, currently on Zosyn. May finish antibiotic course with Augmentin for total of 7 days. Blood culture negative to date. 3. Generalized anxiety disorder on Effexor 4. DVT prophylaxis with subcu heparin 5. Low urine output: Slowly improving. Continue with IV fluid hydration 6. Low-grade temp and white count. Check urinalysis with culture. Chest x- ray no acute cardiopulmonary process. Trace pleural effusions bilaterally I performed an examination of the patient and discussed their management with the physician [employer] Manager. I have reviewed the Physician [employer] Manager's notes and agree with the documented findings and plan of care
--- NOTE | 2018-02-05 15:45 | P.PN ---
Subjective Progress Note Date: 02/05/18 57-year-old female sitting up on the edge of the bed states pain medication effective for pain control. Apparently the epidural was removed yesterday patient continues to have a nasal gastric tube down states is not passing gas no stool with an indwelling Sheikh catheter in place. Surgical dressing site dry old bloody drainage noted. Vitals were reviewed temp 100.5 white count 11.4 J-P drain in place Postop 04 of February sigmoid colectomy with colostomy for perforated diverticulitis Objective - Vital Signs Vital signs: Vital Signs Temp 99.2 F 02/05/18 14:50 Pulse 85 02/05/18 14:55 Resp 16 02/05/18 14:50 BP 120/62 02/05/18 14:50 Pulse Ox 95 02/05/18 14:55 Intake & Output 02/04/18 02/05/18 02/05/18 18:59 06:59 18:59 Intake Total 20 Output Total 330 1140 30 Balance -330 -1140 -10 Weight 78.018 kg Intake: Oral 20 Output: Gastric Drainage 450 Drainage 5 240 30 Abdomen 5 40 30 Right NARES 0 200 Urine 325 450 Other: Voiding Method Indwelling Catheter Indwelling Catheter Indwelling Catheter # Voids 125 - Exam Physical exam 57-year-old female sitting up on the edge of the bed pleasant oriented 3 Lungs diminished at the bases poor air entry no wheezing no cough no shortness of breath Heart S1-S2 audible regular denying chest pain heart rate 100 slightly tachycardic Abdomen few hypoactive bowel tones. Nasal gastric tube to suction 500 out for the last 12 hours MILO drain in place serous drainage indwelling Sheikh catheter in place urine output improving states passing gas no stool no nausea no vomiting Extremities Venodyne's on to the bilateral lower extremities - Labs CBC & Chem 7: 02/05/18 07:37 02/05/18 07:37 Labs: Abnormal Lab Results - Last 24 Hours (Table) 02/05/18 02/05/18 Range/Units 07:37 07:37 WBC 11.4 H (3.8-10.6) k/uL RBC 3.67 L (3.80-5.40) m/uL Neutrophils # 9.8 H (1.3-7.7) k/uL Glucose 118 H (74-99) mg/dL Total Protein 5.4 L (6.3-8.2) g/dL Albumin 3.1 L (3.5-5.0) g/dL Microbiology - Last 24 Hours (Table) 02/03/18 08:50 Blood Culture - Preliminary Blood No Growth after 48 hours Assessment and Plan Assessment: Impression Present on admission abdominal pain with nausea vomiting suspect due to acute diverticulitis Status post exploratory laparotomy with colostomy for acute diverticulitis with bowel perforation Peritonitis secondary to bowel perforation Anxiety depressive disorder Postop tachycardia Present on admission febrile tachycardic hypotensive sepsis suspect due to acute diverticulitis with perforation with peritonitis Current every day smoker Plan Continue postop surgical care Monitor intake and output Increase activity Respiratory treatments as ordered Titrate the O2 keep sats greater than 90 DVT and GI prophylaxis Repeat labs in the morning IV antibiotics as ordered The above impression and plan of care have been discussed and directed by signing physician. Romelia Dominguez nurse practitioner acting as scribe for signing physician.
[2018-02-05] MEDS: AMPICILLIN-SULBACTAM 3 GM in SODIUM CHLORIDE 0.9% 100 ML IVPB SCH (16:59)
[2018-02-05] MEDS ORDERED: ACETAMINOPHEN TAB 325 MG TAB PO PRN (21:59)
[2018-02-05] MEDS ORDERED: FUROSEMIDE 10 MG/ML 2 ML VIAL IV STA (21:59)
[2018-02-05] MEDS ORDERED: ACETAMINOPHEN IV (For NPO) 1,000 MG in EMPTY BAG 1 BAG IVPB STA (22:32)
--- NOTE | 2018-02-06 00:01 | XR ---
EXAMINATION TYPE: XR chest 1V portable DATE OF EXAM: 02/05/2018 COMPARISON: Today HISTORY: Short of breath TECHNIQUE: Single frontal view of the chest is obtained. FINDINGS: There is blunting of costophrenic angles. There is mild pulmonary congestion. There is fran ogastric tube. Mediastinum appears normal. Bony thorax appears intact. IMPRESSION: There is evidence for mild heart failure that is worse than exam earlier today at 7:00 A M. Increased pleural effusions.
[2018-02-06] MEDS: AMPICILLIN-SULBACTAM 3 GM in SODIUM CHLORIDE 0.9% 100 ML IVPB SCH ×3 (00:03→12:44)
[2018-02-06] MEDS: HEPARIN SODIUM,PORCINE 5,000 UNIT/ML 1 ML VIAL SQ SCH ×4 (00:04→23:11)
--- NOTE | 2018-02-06 03:52 | CONS ---
CONSULTATION DATE OF SERVICE: 02/05/2018. REASON FOR CONSULTATION: Secondary peritonitis. HISTORY OF PRESENT ILLNESS: The patient is a 57-year-old female presenting to the ER at [facility] with chief complaints of abdominal pain. Apparently pain has been going off and on for almost a month and has been treated in outpatient setting for possible UTI with 2 different antibiotics. Last one has been Bactrim DS. The patient continued to have worsening pain for the last 3-4 days prior to being admitted to the hospital. Pain has been mostly in the lower abdominal area, described to be more of a sharp in nature, almost 10/10, and difficulty for her to walk because of the pain. The patient has felt nauseated but no vomiting. Did have constipation. No diarrhea. With these symptoms, the patient presented to the hospital. The patient was evaluated by the ER physician. The patient did have a CT of abdomen and pelvis which did show diverticulitis with bowel perforation. The patient subsequently has been evaluated by General surgery, Dr. Goldsmith. The patient has been taken to the OR and is status post laparotomy. She was noticed to have a purulent secondary peritonitis. Unfortunately no culture. The patient is status post diverting colostomy. She has been treated with Zosyn. Infectious Disease was consulted for further recommendation regarding antibiotic therapy. The patient did have fever of 100.7 on admission with 100.5 this morning. The patient did have a white count of 13.5 on admission down to 11.4 and urine has been negative. Blood culture so far negative. REVIEW OF SYSTEMS: CONSTITUTIONAL: Positive for weakness along with the fever. Eyes no complaint. ENT no complaint. Respiratory no complaint. Cardiovascular no complaint. Genitourinary as per HPI. GASTROINTESTINAL: As per HPI. Musculoskeletal no complaint. Integumentary: No complaint. PSYCHOLOGICAL: No complaint. Endocrine: No complaint. Neurologic no complaint. PAST MEDICAL HISTORY: Significant for COPD, urinary tract infection, bronchitis and seasonal allergies. PAST SURGICAL HISTORY: Tonsillectomy, left breast biopsy, laser surgery on the right eye for glaucoma. SOCIAL HISTORY: Current everyday smoker. No drinking or drug use. FAMILY HISTORY: Father has history of coronary artery disease and diabetes. Mother with history of coronary artery disease and MO. Mother from an MO at age of 62. ALLERGIES: No known drug allergies. MEDICATION: Medications include the patient is currently on Tylenol, DuoNeb, Zosyn, Benadryl, heparin, Dilaudid, lactated Ringer's, Reglan, morphine sulfate, Nubain, Narcan, Zofran, Protonix, Effexor. EXAMINATION: Blood pressure is 120/52 with a pulse of 92, temperature 99.2, . She is 95% on 3 L nasal cannula. General description is a middle-aged female up in the bed in no distress. No tachypnea or accessory muscles of respiration use. HEENT examination: No pallor or scleral icterus. Oral mucosa is dry. No pharyngeal erythema or thrush. Neck: Trachea central. No thyromegaly. Lungs unlabored breathing. Clear to auscultation anteriorly. No wheeze or crackles. Heart S1, S2. Regular rate and rhythm. ABDOMEN: Soft, mild tenderness to touch. No guarding or rigidity. No organomegaly. EXTREMITIES: No edema of feet. Skin examination: No rash or mass palpable. Neurological: Patient is awake, alert, oriented times three. Mood and affect normal. LABS: Hemoglobin is 11.8, white count 11.4, BUN of 11, creatinine 0.52, Electrolytes have been normal. Liver enzymes are normal. Blood cultures remain to be negative. DIAGNOSTIC IMPRESSION AND PLAN: Patient admitted to the hospital with sepsis in a patient who did have fever, tachycardia, elevated white count, source is abdominal. Patient did have a perforated diverticulitis with purulent peritonitis status post laparotomy with diverting colostomy. The likely organism to cover with enteric gram-negative both aerobes and anaerobes. PLAN: 1. Discontinue the Zosyn. 2. Start the patient on Unasyn 3 g every 6 hours. 3. Gentle IV fluids. 4. Incentive spirometry. 5. Depending upon the clinical response, we will adjust her medications further if needed and determine discharge antibiotic. Thank you for this consultation. Will follow this patient along with you. MMODL / IJN: [id number] /
[2018-02-06] MEDS: HYDROmorphone 0.5 MG/0.5 ML SYRINGE IVP PRN ×3 (04:34→23:33)
[2018-02-06] MEDS ORDERED: FUROSEMIDE 10 MG/ML 4 ML VIAL ONE (04:36)
[2018-02-06] MEDS: IPRATROPIUM-ALBUTEROL 3 ML NEB INHALATION PRN ×2 (04:50→08:17)
[2018-02-06 05:07] LABS: ALT 37 U/L (9-52); AST 28 U/L (14-36); Albumin 3.3 g/dL (3.5-5.0); Alkaline Phosphatase 88 U/L (38-126); Anion Gap 12 mmol/L; Blood Urea Nitrogen 9 mg/dL (7-17); Calcium 9.2 mg/dL (8.4-10.2); Carbon Dioxide 28 mmol/L (22-30); Chloride 100 mmol/L (98-107); Glucose 109 mg/dL (74-99); Magnesium 1.8 mg/dL (1.6-2.3); Potassium 3.5 mmol/L (3.5-5.1); Sodium 140 mmol/L (137-145); Total Bilirubin 0.8 mg/dL (0.2-1.3); Total Protein 5.7 g/dL (6.3-8.2)
[2018-02-06 05:13] LABS: Basophils % (A) 0 %; Eosinophils # (A) 0.1 k/uL (0-0.7); Eosinophils % (A) 1 %; HCT 35.9 % (34.0-46.0); HGB 11.9 gm/dL (11.4-16.0); Lymphocytes # (A) 1.5 k/uL (1.0-4.8); Lymphocytes % (A) 13 %; MCHC 33.1 g/dL (31.0-37.0); MCV 96.8 fL (80.0-100.0); Mean Platelet Volume 7.1; Monocytes # (A) 0.5 k/uL (0-1.0); Monocytes % (A) 5 %; Neutrophils # (A) 9.7 k/uL (1.3-7.7); Neutrophils % (A) 80 %; Platelet Count 350 k/uL (150-450); RDW 13.5 % (11.5-15.5); WBC 12.1 k/uL (3.8-10.6)
--- NOTE | 2018-02-06 05:22 | XR ---
EXAM: XR Chest, 1 View CLINICAL HISTORY: fluid overload TECHNIQUE: Frontal view of the chest. COMPARISON: 02/05/18 FINDINGS: NG tube remains in good position. Persistent prominence of interstitial markings and pulmonary vascular markings bilaterally. No real change from prior study. IMPRESSION: Persistent prominence of pulmonary vascular markings and interstitial markings with no significant interval change compared to prior study
[2018-02-06] MEDS: LACTATED RINGERS 1,000 ML IV SCH ×2 (07:06→08:01)
[2018-02-06] MEDS: VENLAFAXINE HCL ER 75 MG CAP PO SCH (08:50)
[2018-02-06] MEDS: PANTOPRAZOLE 40 MG/10 ML VIAL IVP SCH ×2 (08:51→20:26)
--- NOTE | 2018-02-06 09:21 | P.PN ---
Subjective Progress Note Date: 02/06/18 57-year-old female seen and examined events noted during the night at 4 AM A team was called for increased shortness of breath patient was given Lasix and transferred to [facility] for closer observation currently this morning patient is sitting upright in bed is able to cough up clear secretions. Nasal gastric tube to suction brown secretions noted patient reports no nausea sensation. Indwelling Sheikh catheter in place heart rate 90-100. Hemoglobin 11. MILO drain serous drainage. Surgical dressing site dry. A few hypoactive bowel tones noted. Patient will use the incentive spirometer with coaching can achieve 1000 no movement from the ostomy brownish liquid noted in the bag Postop 04 of February sigmoid colectomy with colostomy for perforated diverticulitis Objective - Vital Signs Vital signs: Vital Signs Temp 98.1 F 02/06/18 05:25 Pulse 106 H 02/06/18 08:30 Resp 18 02/06/18 05:25 BP 150/79 02/06/18 05:25 Pulse Ox 92 L 02/06/18 05:25 Intake & Output 02/05/18 02/06/18 02/06/18 18:59 06:59 18:59 Intake Total 20 20 Output Total 450 1450 Balance -430 -1430 Weight 78.018 kg Intake: Oral 20 20 Output: Drainage 200 Abdomen 50 Right NARES 150 Urine 250 1450 Other: Voiding Method Indwelling Catheter Indwelling Catheter # Voids 0 # Bowel Movements 0 - Exam Physical exam 57-year-old female sitting up in bed alert oriented 3 stated "got short of breath last night started coughing couldn't catch my breath Lungs diminished at the bases upper airways no wheezing nasal cannula at 4 L sats 92% coughed up clear secretions incentive spirometer can achieve thousand Heart S1-S2 audible regular monitor sinus tach heart rate 100 no murmur denying chest pain Abdomen few hypoactive bowel tones MILO drain in place serous drainage noted surgical dressing distal dry old bloody drainage nasal gastric tube to suction brownish secretions reports no nausea sensation no emesis indwelling Sheikh catheter in place dark artie urine Extremities Venodyne's on to the bilateral lower extremities. - Labs CBC & Chem 7: 02/06/18 04:43 02/06/18 04:43 Labs: Abnormal Lab Results - Last 24 Hours (Table) 02/06/18 02/06/18 Range/Units 04:43 04:43 WBC 12.1 H (3.8-10.6) k/uL RBC 3.70 L (3.80-5.40) m/uL Neutrophils # 9.7 H (1.3-7.7) k/uL Glucose 109 H (74-99) mg/dL Total Protein 5.7 L (6.3-8.2) g/dL Albumin 3.3 L (3.5-5.0) g/dL Microbiology - Last 24 Hours (Table) 02/05/18 10:45 Urine Culture - Preliminary Urine,Clean Catch 02/03/18 08:50 Blood Culture - Preliminary Blood No Growth after 48 hours Assessment and Plan Assessment: Impression Present on admission abdominal pain with nausea vomiting suspect due to acute diverticulitis Status post exploratory laparotomy with colostomy for acute diverticulitis with bowel perforation Peritonitis secondary to bowel perforation Anxiety depressive disorder Postop tachycardia Present on admission febrile tachycardic hypotensive sepsis suspect due to acute diverticulitis with perforation with peritonitis Current every day smoker COPD Leukocytosis Chest x-ray obtained on February 05 possible early heart failure atelectasis Plan Order an echocardiogram Consult cardiology service Continue postop surgical care Monitor intake and output Increase activity Respiratory treatments as ordered Titrate the O2 keep sats greater than 90 DVT and GI prophylaxis Repeat labs in the morning IV antibiotics as ordered Unasyn The above impression and plan of care have been discussed and directed by signing physician. Romelia Dominguez nurse practitioner acting as scribe for signing physician.
[2018-02-06] MEDS: MORPHINE SULFATE 2 MG/ML SYRINGE IV PRN ×2 (11:21→15:09)
[2018-02-06] MEDS: ONDANSETRON 4 MG/2 ML VIAL IVP PRN (11:26)
[2018-02-06] MEDS: IPRATROPIUM-ALBUTEROL 3 ML NEB INHALATION SCH ×3 (11:42→21:05)
--- NOTE | 2018-02-06 12:37 | ECHOF ---
Referral Reason:Evaluate LV function MEASUREMENTS -------- HEIGHT: 167.6 cm WEIGHT: 78.0 kg BP: 150/79 RVIDd: 1.8 cm (< 3.3) IVSd: 0.9 cm (0.6 - 1.1) LVIDd: 4.2 cm (3.9 - 5.3) LVPWd: 0.9 cm (0.6 - 1.1) IVSs: 1.2 cm LVIDs: 2.3 cm LVPWs: 1.2 cm LAESV Index (A-L): 16.10 ml/m Ao Diam: 3.0 cm (2.0 - 3.7) AV Cusp: 1.3 cm (1.5 - 2.6) LA Diam: 3.9 cm (2.7 - 3.8) MV E Marquez: 1.21 m/s MV DecT: 319 ms MV A Marquez: 1.25 m/s MV E/A Ratio: 0.97 RAP: 5.00 mmHg RVSP: 12.30 mmHg FINDINGS -------- Sinus rhythm. This was a technically adequate study. No subcostals due to surgery The left ventricular size is normal. Left ventricular wall thickness is normal. Overall left vent ricular systolic function is normal with, an EF between 65 - 70 %. The right ventricle is normal in size and function. Normal LA size by volume 22+/-6 ml/m2. The right atrium is normal in size. There is mild aortic valve sclerosis. There is no evidence of aortic regurgitation. There is no e vidence of aortic stenosis. The mitral valve leaflets are mildly thickened. There is trace to mild mitral regurgitation. Trace tricuspid regurgitation present. Right ventricular systolic pressure is normal at < 35 mmHg. There is no evidence of pulmonary hypertension. The pulmonic valve was not well visualized. The aortic root size is normal. IVC Not well visulized. There is no pericardial effusion. CONCLUSIONS -------- 1. Sinus rhythm. 2. This was a technically adequate study. 3. No subcostals due to surgery 4. The left ventricular size is normal. 5. Left ventricular wall thickness is normal. 6. Overall left ventricular systolic function is normal with, an EF between 65 - 70 %. 7. Normal LA size by volume 22+/-6 ml/m2. 8. There is mild aortic valve sclerosis. 9. The mitral valve leaflets are mildly thickened. 10. There is trace to mild mitral regurgitation. 11. Trace tricuspid regurgitation present. 12. Right ventricular systolic pressure is normal at < 35 mmHg. 13. There is no evidence of pulmonary hypertension. 14. The pulmonic valve was not well visualized. 15. The aortic root size is normal. 16. IVC Not well visulized. 17. There is no pericardial effusion. HAIR OR BEAUTY SALON ASSISTANT: Israel Eduardo RDCS
[2018-02-06] MEDS ORDERED: ACETAMINOPHEN IV (For NPO) 1,000 MG in EMPTY BAG 1 BAG IVPB ONE (13:00)
--- NOTE | 2018-02-06 13:57 | PN ---
PROGRESS NOTE DATE OF SERVICE: 02/06/2018 REASON FOR FOLLOWUP: Perforated diverticulitis with abdominal abscess. INTERVAL HISTORY: The patient has been transferred to the cardiac unit because of the patient complaining of feeling short of breath and she though she was almost drawn out. Chest x-ray has been suggestive of features of congestive heart failure. Patient complaining of shortness of breath. She did have a cough and bringing up some dark sputum. Pain in the left lower abdominal area but no worsening, no nausea, no vomiting. She is still has the NG in. PHYSICAL EXAMINATION: Blood pressure 150/79 with a pulse of 107, temperature of 98.1. She is 92% on 5 L nasal cannula. General description is a middle-aged female up in the bed, in no distress. RESPIRATORY SYSTEM: Unlabored breathing, clear to auscultation anteriorly. HEART: S1, S2. Regular rate and rhythm. ABDOMEN: Soft, minimally tenderness. No guarding, no rigidity. LABS: Hemoglobin 11.1, white count is 12.1 with a BUN of 9, creatinine 0.53. DIAGNOSTIC IMPRESSION AND PLAN: Patient with secondary peritonitis from perforated sigmoid diverticulitis, status post diverting colostomy in a patient with features of congestive heart failure. The patient did spike a low-grade fever of 100.7 this afternoon. Noted white count is slightly elevated from yesterday. We will repeat blood cultures and adjust antibiotics to Zosyn 3.75 g q.8. Discontinue Unasyn, watching her clinical course closely. Continue supportive care. MMODL / IJN: [id number] /
[2018-02-06] MEDS ORDERED: THIAMINE 100 MG/ML 2 ML VIAL IM STA (14:03)
[2018-02-06] MEDS ORDERED: LORazepam 2 MG/ML INJ IV PRN ×3 (14:03)
--- NOTE | 2018-02-06 14:13 | P.PN ---
Subjective Progress Note Date: 02/06/18 This is a 57-year-old female with past medical history noted below who presented to the emergency room with worsening abdominal pain. Patient said that her pain started initially few days ago and is being getting progressively worse. She described her pain as generalized. She rates her pain as 10 out of 10. She was evaluated in the emergency room and computed tomography scan of the abdomen showed evidence of acute diverticulitis with bowel perforation. Patient was seen and evaluated by general surgery and was taken to the OR and underwent urgent exploratory laparotomy with partial colectomy and colostomy placement. She is postoperative day #1. Her pain is relatively well- controlled. She still has an NG tube in place. No output in the ostomy bag as of yet. 02/05/2018 patient had low urine output yesterday she received IV fluid boluses and Lasix. Urine output has shown some improvement. She remains on lactated Ringer's at 150 mL an hour. She has NG tube in place. She has not passed gas or had bowel movement yet. Denies any nausea. Pain is controlled. She had a low-grade temp of 100.5 and white count 11.4 she is on IV Zosyn. 02/06/2018 patient was sent up to the sixth floor early this morning due to fluid overload. Chest x-ray had shown evidence of congestive heart failure she was given 2 doses of IV Lasix. She stills been having some low-grade temps and white count was 12.1 she is on IV Zosyn and has been seen by infectious disease. Pulmonary service has been consulted as well. Patient reports improvement in her shortness of breath. She also reports heavy alcohol use she states her last alcoholic beverage was 2 weeks ago. She will be placed on the CIWA protocol. She still has not passed gas or had bowel movement yet. Objective - Vital Signs Vital signs: Vital Signs Temp 98.1 F 02/06/18 05:25 Pulse 103 H 02/06/18 11:55 Resp 18 02/06/18 05:25 BP 150/79 02/06/18 05:25 Pulse Ox 92 L 02/06/18 05:25 Intake & Output 02/05/18 02/06/18 02/06/18 18:59 06:59 18:59 Intake Total 20 20 100 Output Total 450 1450 650 Balance -430 -1430 -550 Weight 78.018 kg Intake: Oral 20 20 100 Output: Drainage 200 Abdomen 50 Right NARES 150 Urine 250 1450 650 Other: Voiding Method Indwelling Catheter Indwelling Catheter # Voids 0 # Bowel Movements 0 - Exam Head normocephalic Neck supple Lungs clear to auscultation bilaterally no wheezing or crackles Heart regular rate and rhythm S1-S2, no rub or gallop Abdomen is soft nontender nondistended positive bowel sounds no hepatosplenomegaly Extremities no edema Neuro alert and orientated to 3 - Labs CBC & Chem 7: 02/06/18 04:43 02/06/18 04:43 Labs: Abnormal Lab Results - Last 24 Hours (Table) 02/06/18 02/06/18 Range/Units 04:43 04:43 WBC 12.1 H (3.8-10.6) k/uL RBC 3.70 L (3.80-5.40) m/uL Neutrophils # 9.7 H (1.3-7.7) k/uL Glucose 109 H (74-99) mg/dL Total Protein 5.7 L (6.3-8.2) g/dL Albumin 3.3 L (3.5-5.0) g/dL Microbiology - Last 24 Hours (Table) 02/05/18 10:45 Urine Culture - Final Urine,Clean Catch 02/03/18 08:50 Blood Culture - Preliminary Blood No Growth after 72 hours Assessment and Plan Assessment: 1. Acute diverticulitis with bowel perforation status post exploratory laparotomy with colostomy placement. Continue postoperative care. Gen. surgery following closely. Pain control and antiemetic as needed. NG tube in place. 2. Peritonitis secondary to bowel perforation, currently on Zosyn. Infectious disease is following. Patient still having some low-grade temps and white count 12. Awaiting repeat blood cultures. Urine culture pending. Continue with IV Tylenol 3. Generalized anxiety disorder on Effexor 4. DVT prophylaxis with subcu heparin 5. Low urine output: Slowly improving. Continue with IV fluid hydration 6. History of alcohol abuse: Patient's last alcoholic beverage [address] patient on the CIWA protocol. Add thiamine and folic acid and multivitamin 7. Fluid overload: Patient receiving IV Lasix. Cardiology consult pending. Echocardiogram ordered. I performed an examination of the patient and discussed their management with the physician Credit Risk Modeler. I have reviewed the Physician Credit Risk Modeler's notes and agree with the documented findings and plan of care
--- NOTE | 2018-02-06 14:27 | P.CNPUL ---
History of Present Illness Consult date: 02/06/18 Reason for consult: dyspnea History of present illness: A pleasant 57-year-old female patient, who developed acute respiratory distress and acute hypoxic respiratory failure yesterday on a medical surgical floor and for that reason the pulmonary consultation was requested. This patient is a chronic smoker in she has COPD and she is smoking around 2 pack of cigarettes a day. She also has excessive alcohol ingestion, alcoholism. The patient came into the hospital because of abdominal pain and the patient was progressively getting worse and further CAT scan imaging of the abdomen and pelvis showed that the patient an acute diverticulitis with bowel perforation. She was started on antibiotics and further surgical consultation was obtained and the patient was taken to the operating room for urgent expose laparotomy and she underwent partial colectomy and colostomy placement. Today she is postop day # 3. Immediately postop, an NG tube was placed and the patient was sent to the medical floor. Over the next day, the patient was doing well till yesterday evening when she started getting increased shortness of breath. I was informed that the patient was hypoxic and at one point she was placed up to 10 L of oxygen nasal cannula. She was receiving IV fluids and she was in a positive fluid balance. Immediately, chest x-ray was done that showed prominence of the pulmonary vascular marking and interstitial marking suggestive of pulmonary vessel congestion. She is not known to have any history of cardiac disease or congestion heart failure. No reported aspiration. NG tube was still in place. Colostomy site is not showing any significant output yet. Bowel sounds remain hypoactive. The patient is a MILO drain in the right lower quadrant area. There was concern that she may be going into delirium tremens. She reported heavy alcohol ingestion and are lasting was more than 2 weeks ago. She was placed on the CIWA protocol yet there was no indication that the patient was going into delirium tremens and the patient remains alert and awake. Overnight , the patient received 2 doses of Lasix and she put out a good amount of urine output. The follow-up chest x-ray from early this morning at 5:00 showed persistent pulmonary vascular congestion unchanged compared to the last chest x- ray. She remains chest pain-free. The white cell count is not elevated at 12.1. Renal function is stable with a creatinine of 0.5. The patient is on DuoNeb the [facility] treatments around the clock. The patient is also on IV Zosyn as antibiotic coverage for complicated diverticulitis with bowel perforation. No previous history of DVT and pulmonary embolism. The patient has been maintained on subcu heparin for DVT prophylaxis. Review of Systems Constitutional: Reports fatigue, Reports poor appetite, Reports weakness Eyes: denies blurred vision, denies bulging eye, denies decreased vision Ears: deny: decreased hearing, ear discharge, earache Ears, nose, mouth and throat: Denies headache, Denies sore throat Cardiovascular: Reports shortness of breath Respiratory: Reports dyspnea Gastrointestinal: Reports abdominal pain, Reports change in bowel habits Genitourinary: Denies dysuria, Denies hematuria Musculoskeletal: Denies myalgias Musculoskeletal: absent: ankle pain, ankle stiffness, ankle swelling Integumentary: Denies pruritus, Denies rash Neurological: Denies numbness, Denies weakness Psychiatric: Reports as per HPI Endocrine: Denies fatigue, Denies weight change Hematologic/Lymphatic: Reports as per HPI Allergic/Immunologic: Reports as per HPI Past Medical History Past Medical History: COPD, Eye Disorder Additional Past Medical History / Comment(s): COPD, smoker, alcoholism, glaucoma , hepatomegaly, seasonal rhinitis History of Any Multi-Drug Resistant Organisms: None Reported Past Surgical History: Tonsillectomy Additional Past Surgical History / Comment(s): benign biopsy on left breast, laser R eye surgery for glaucomal Past Anesthesia/Blood Transfusion Reactions: No Reported Reaction Smoking Status: Current every day smoker - Past Family History Father Family Medical History: Coronary Artery Disease (CAD), Diabetes Mellitus Additional Family Medical History / Comment(s): Father in his 60s from diabetic complications. Mother Family Medical History: Coronary Artery Disease (CAD), Myocardial Infarction ([place] ) Additional Family Medical History / Comment(s): Mother from a [place] at the age of 62 yrs. Medications and Allergies Home Medications Medication Instructions Recorded Confirmed Type Venlafaxine HCl [Venlafaxine HCl 150 mg PO DAILY 08/26/14 02/03/18 History ER] Albuterol Inhaler [Ventolin Hfa 1 - 2 puff INHALATION RT-Q4H PRN 02/03/18 History Inhaler] Fluticasone Nasal [place] [Flonase 1 spray EA NOSTRIL BID 02/03/18 02/03/18 History Nasal [place]] Sulfamethox-Tmp 800-160Mg [Bactrim 1 tab PO Q12HR 02/03/18 02/03/18 History DS 800-160 mg] Venlafaxine HCl ER [Effexor Xr] 75 mg PO DAILY 02/03/18 02/03/18 History Allergies Allergy/AdvReac Type Severity Reaction Status Date / Time No Known Allergies Allergy Verified 02/03/18 09:07 Physical Exam Vitals: Vital Signs Temp Pulse Pulse Pulse Resp BP Pulse Ox 02/06/18 12:50 100.6 F H 95 18 155/80 94 L 02/06/18 11:55 103 H 02/06/18 11:42 104 H 02/06/18 08:30 106 H 02/06/18 08:18 105 H 02/06/18 08:15 98.4 F 104 H 18 153/72 96 02/06/18 05:25 98.1 F 107 H 18 150/79 92 L 02/06/18 04:58 95 02/06/18 04:51 96 02/05/18 22:45 99.1 F 103 H 20 134/90 92 L 02/05/18 21:19 95 02/05/18 21:14 100 02/05/18 20:50 100 02/05/18 14:55 85 95 02/05/18 14:50 99.2 F 92 16 120/62 87 L Intake and Output 02/05/18 02/06/18 02/06/18 22:59 06:59 14:59 Intake Total 20 100 Output Total 420 1450 650 Balance -400 -1450 -550 Intake: Oral 20 100 Output: Drainage 170 Abdomen 20 Right NARES 150 Urine 250 1450 650 Other: Voiding Method Indwelling Catheter Indwelling Catheter Indwelling Catheter # Voids 0 # Bowel Movements 0 0 Gen. appearance the patient is calm comfortable likely distress. The patient has an NG tube in place. No labored breathing. No use of accessory muscles of breathing at this point in time. Head exam was generally normal. There was no scleral icterus or corneal arcus. Mucous membranes were moist. Neck was supple and without jugular venous distension, thyromegaly, or carotid bruits. Carotids were easily palpable bilaterally. There was no adenopathy. NG tube is in place Lung sounds are diminished bilaterally along with some few bibasilar crackles. No wheezes or rhonchi. Cardiac exam revealed the PMI to be normally situated and sized. The rhythm was regular and no extrasystoles were noted during several minutes of auscultation. The first and second heart sounds were normal and physiologic splitting of the second heart sound was noted. There were no murmurs, rubs, clicks, or gallops. Abdominal exam revealed diminished bowel sounds and the patient has a MILO drain in the right lower quadrant area. The mid incision was dry clean and intact. No direct tenderness rebound tensile guarding. Colostomy site is viable and there is no output in the colostomy bag. Organs cannot be accurately evaluated and palpated on today's evaluation. Examination of the extremities revealed easily palpable radial, femoral and pedal pulses. There was no cyanosis, clubbing or edema. Examination of the skin revealed no evidence of significant rashes, suspicious appearing nevi or other concerning lesions. Neurologically the patient is awake and alert and there is no focal neurological deficits. Results - Laboratory Findings CBC and BMP: 02/06/18 04:43 02/06/18 04:43 Abnormal lab findings: Abnormal Labs 02/03/18 02/03/18 02/03/18 08:39 08:50 08:50 WBC 13.5 H RBC Neutrophils # 11.9 H Lymphocytes # 0.7 L Lymphocytes # (Manual) Carbon Dioxide 20 L Glucose 155 H Total Bilirubin Total Protein Albumin Urine Appearance Turbid H Urine Protein Trace H Uric Acid Crystals Occasional H Urine Bacteria Rare H 02/03/18 02/03/18 02/04/18 15:51 15:51 09:23 WBC 11.2 H RBC Neutrophils # 9.2 H Lymphocytes # Lymphocytes # (Manual) 0.65 L Carbon Dioxide 19 L Glucose 110 H Total Bilirubin Total Protein Albumin Urine Appearance Urine Protein Uric Acid Crystals Urine Bacteria 02/04/18 02/05/18 02/05/18 09:23 07:37 07:37 WBC 11.4 H RBC 3.67 L Neutrophils # 9.8 H Lymphocytes # Lymphocytes # (Manual) Carbon Dioxide Glucose 159 H 118 H Total Bilirubin 1.4 H Total Protein 5.5 L 5.4 L Albumin 3.3 L 3.1 L Urine Appearance Urine Protein Uric Acid Crystals Urine Bacteria 02/06/18 02/06/18 04:43 04:43 WBC 12.1 H RBC 3.70 L Neutrophils # 9.7 H Lymphocytes # Lymphocytes # (Manual) Carbon Dioxide Glucose 109 H Total Bilirubin Total Protein 5.7 L Albumin 3.3 L Urine Appearance Urine Protein Uric Acid Crystals Urine Bacteria - Diagnostic Findings Chest x-ray: image reviewed Assessment and Plan Plan: Assessment 1 acute hypoxic history failure. The patient is known to have COPD. The patient postop developed a component of fluid overload with increased pulmonary vascular markings and she had high oxygen requirements overnight which was as high as 10 L/m nasal cannula along with that she had increased bronchospasm and wheezing. She was treated with accommodation bronchodilators and diuretics. She improved and she is currently down to 40s about 2 by nasal cannula. Chest x -ray shows prominent interstitial pulmonary markings bilaterally consistent with CHF. Echocardiogram will be needed to assess his LV function. IV fluids have been cut down to KVO. Patient remains nothing by mouth. NG tube is in place. 2 acute perforated diverticulitis, post expected laparotomy, and diverting colostomy and the patient is postop day #3. NG tube remains in place 3 peritonitis secondary to above perforation, currently on IV Zosyn. 4 COPD 5 smoker 6 alcoholism 7 glaucoma Plan Cut down the IV fluids to KVO. Wean down the FiO2 as tolerated to maintain a saturation above 90%. Continue using incentive spirometer and the DuoNeb the last treatment [id number]. Patient is unable to be adequate pain control with a combination of epidural bupivacaine with Dilaudid. Heparin subcu for DVT prophylaxis. Echocardiogram. IV Zosyn regarding perforated diverticulitis and peritonitis. Increased mobility as tolerated. We'll continue to follow and make further recommendations based on her progress. For now there is no itch output in the colostomy bag an NG tube will be kept in place. Surgeries on the case. We'll follow.
[2018-02-06] MEDS ORDERED: SODIUM CHLORIDE 0.9% 1,000 ML with MVI, ADULT NO.4 WITH VIT K 10 ML, THIAMINE 100 MG, F... IV ONE ×4 (14:30)
[2018-02-06] MEDS: PIPERACILLIN-TAZOBACTAM 3.375 GM in DEXTROSE/WATER 1 50ML.BAG IVPB SCH ×2 (16:18→23:11)
[2018-02-06] MEDS: MULTIVITAMINS, THERA 1 EACH TAB PO SCH (16:19)
[2018-02-06] MEDS: THIAMINE 100 MG TAB PO SCH (16:19)
[2018-02-06] MEDS: FOLIC ACID 1 MG TAB PO SCH (16:19)
[2018-02-06] MEDS: METOCLOPRAMIDE 5 MG/ML 2 ML VIAL IVP PRN (20:26)
[2018-02-07] MEDS: MORPHINE SULFATE 2 MG/ML SYRINGE IV PRN ×3 (03:53→21:05)
[2018-02-07 06:32] LABS: Basophils % (A) 0 %; Eosinophils # (A) 0.1 k/uL (0-0.7); Eosinophils % (A) 1 %; HCT 38.7 % (34.0-46.0); HGB 12.6 gm/dL (11.4-16.0); Lymphocytes # (A) 1.3 k/uL (1.0-4.8); Lymphocytes % (A) 14 %; MCH 31.3 pg (25.0-35.0); MCHC 32.5 g/dL (31.0-37.0); MCV 96.3 fL (80.0-100.0); Mean Platelet Volume 7.3; Monocytes # (A) 0.6 k/uL (0-1.0); Monocytes % (A) 6 %; Neutrophils # (A) 7.4 k/uL (1.3-7.7); Neutrophils % (A) 76 %; Platelet Count 406 k/uL (150-450); RBC 4.01 m/uL (3.80-5.40); RDW 13.6 % (11.5-15.5); WBC 9.8 k/uL (3.8-10.6)
[2018-02-07 06:45] LABS: ALT 28 U/L (9-52); AST 20 U/L (14-36); Albumin 2.8 g/dL (3.5-5.0); Alkaline Phosphatase 74 U/L (38-126); Anion Gap 12 mmol/L; Blood Urea Nitrogen 12 mg/dL (7-17); Carbon Dioxide 29 mmol/L (22-30); Chloride 99 mmol/L (98-107); Glucose 101 mg/dL (74-99); Potassium 3.3 mmol/L (3.5-5.1); Sodium 140 mmol/L (137-145); Total Bilirubin 0.6 mg/dL (0.2-1.3); Total Protein 4.8 g/dL (6.3-8.2)
[2018-02-07] MEDS: IPRATROPIUM-ALBUTEROL 3 ML NEB INHALATION SCH ×5 (08:31→21:01)
[2018-02-07] MEDS: HEPARIN SODIUM,PORCINE 5,000 UNIT/ML 1 ML VIAL SQ SCH ×3 (08:58→23:33)
[2018-02-07] MEDS: PANTOPRAZOLE 40 MG/10 ML VIAL IVP SCH ×2 (08:58→20:27)
[2018-02-07] MEDS: PIPERACILLIN-TAZOBACTAM 3.375 GM in DEXTROSE/WATER 1 50ML.BAG IVPB SCH ×3 (08:58→23:33)
[2018-02-07] MEDS: VENLAFAXINE HCL ER 75 MG CAP PO SCH (09:41)
[2018-02-07] MEDS ORDERED: Potassium Replacement Protocol 1 EACH MISC MISCELLANE PRN (09:47)
--- NOTE | 2018-02-07 10:12 | P.PN ---
Subjective Progress Note Date: 02/07/18 Patient is status post exploratory laparotomy and Soler's procedure. Family is at bedside. Patient reports feeling fairly bloated. No output through her ostomy. No fevers. Patient has a recent echocardiogram. Results are pending. Objective - Vital Signs Vital signs: Vital Signs Temp 97.8 F 02/07/18 08:00 Pulse 88 02/07/18 08:00 Resp 16 02/07/18 08:00 BP 155/72 02/07/18 08:00 Pulse Ox 94 L 02/07/18 08:31 Intake & Output 02/06/18 02/07/18 02/07/18 18:59 06:59 18:59 Intake Total 350 50 Output Total 650 440 80 Balance -300 -390 -80 Weight 94 kg Intake: IV 50 Piperacillin-Tazobactam 3 50 .375 gm In Dextrose/Water 1 50ml.bag @ 12.5 mls/hr IVPB Q8HR [facility] Rx#: [id number] Oral 350 Output: Drainage 90 80 Abdomen 90 80 Urine 650 350 Uretheral (Sheikh) 200 Other: Voiding Method Indwelling Catheter Indwelling Catheter Indwelling Catheter - Exam GENERAL: Well developed and appears lethargic. HEENT: No sclera icterus. Extraocular movements grossly intact. Moist buccal mucosa. Head is atraumatic, normocephalic. Hears conversational speech. No nasal drainage. Nasogastric tube plugged and was flushed at bedside by me. NECK: Supple without lymphadenopathy. CHEST: Non-labored respirations and equal bilateral excursions. CARDIOVASCULAR: Regular rate and rhythm. Palpable 2+ radial pulses. ABDOMEN: Soft, distended. Serosanguineous drainage lower midline. MUSCULOSKELETAL: No clubbing, cyanosis. Extremities warm. NEUROLOGIC: No focal or lateralizing signs. PSYCH: Appropriate affect. Alert and oriented to person, place and time. SKIN: Good skin turgor. Well perfused. - Labs CBC & Chem 7: 02/07/18 05:51 02/07/18 05:51 Labs: Abnormal Lab Results - Last 24 Hours (Table) 02/07/18 Range/Units 05:51 Potassium 3.3 L (3.5-5.1) mmol/L Creatinine 0.50 L (0.52-1.04) mg/dL Glucose 101 H (74-99) mg/dL Total Protein 4.8 L (6.3-8.2) g/dL Albumin 2.8 L (3.5-5.0) g/dL Microbiology - Last 24 Hours (Table) 02/05/18 10:45 Urine Culture - Final Urine,Clean Catch 02/03/18 08:50 Blood Culture - Preliminary Blood No Growth after 72 hours Assessment and Plan (1) Colostomy status Current Visit: Yes Status: Acute Code(s): Z93.3 - COLOSTOMY STATUS SNOMED Code(s): 294436179 (2) Hypertensive cardiomyopathy Current Visit: Yes Status: Acute Code(s): I11.9 - HYPERTENSIVE HEART DISEASE WITHOUT HEART FAILURE; I43 - CARDIOMYOPATHY IN DISEASES CLASSIFIED ELSEWHERE SNOMED Code(s): 942857655688702 (3) Diverticulitis of intestine with perforation Current Visit: Yes Status: Acute Code(s): K57.80 - DVTRCLI OF INTEST, PART UNSP, W PERF AND ABSCESS W/O BLEED SNOMED Code(s): 670217088 Plan: 1. Recommend nasogastric tube flushings every shift. 2. Abdominal x-ray to check positioning of the nasogastric tube. 3. Change dressings with antibacterial surgical dressing. 4. Cardiology for ischemic cardiomyopathy
--- NOTE | 2018-02-07 10:46 | XR ---
EXAMINATION TYPE: XR abdomen 1V DATE OF EXAM: 02/07/2018 COMPARISON: NONE HISTORY: Pain TECHNIQUE: Single supine KUB image of the abdomen is obtained FINDINGS: NG tube is seen coursing into the stomach. Small bowel demonstrates no evidence for dilatation or air fluid levels. Gas and fecal material is seen in non-distended colon. No convincing evidence for pneumoperitoneum. No unusual calcifications. The lung bases are clear. The osseous structures are intact. IMPRESSION: 1. Overall nonobstructive bowel gas pattern.
[2018-02-07] MEDS: HYDROmorphone 0.5 MG/0.5 ML SYRINGE IVP PRN ×2 (10:48→17:25)
[2018-02-07] MEDS ORDERED: METOPROLOL TARTRATE 5 MG/5 ML VIAL IVP PRN (11:12)
--- NOTE | 2018-02-07 11:57 | P.PN ---
Subjective Progress Note Date: 02/07/18 Principal diagnosis: Acute hypoxic respiratory failure secondary to fluid volume overload A pleasant 57-year-old female patient, who developed acute respiratory distress and acute hypoxic respiratory failure yesterday on a medical surgical floor and for that reason the pulmonary consultation was requested. This patient is a chronic smoker in she has COPD and she is smoking around 2 pack of cigarettes a day. She also has excessive alcohol ingestion, alcoholism. The patient came into the hospital because of abdominal pain and the patient was progressively getting worse and further CAT scan imaging of the abdomen and pelvis showed that the patient an acute diverticulitis with bowel perforation. She was started on antibiotics and further surgical consultation was obtained and the patient was taken to the operating room for urgent expose laparotomy and she underwent partial colectomy and colostomy placement. Today she is postop day # 3. Immediately postop, an NG tube was placed and the patient was sent to the medical floor. Over the next day, the patient was doing well till yesterday evening when she started getting increased shortness of breath. I was informed that the patient was hypoxic and at one point she was placed up to 10 L of oxygen nasal cannula. She was receiving IV fluids and she was in a positive fluid balance. Immediately, chest x-ray was done that showed prominence of the pulmonary vascular marking and interstitial marking suggestive of pulmonary vessel congestion. She is not known to have any history of cardiac disease or congestion heart failure. No reported aspiration. NG tube was still in place. Colostomy site is not showing any significant output yet. Bowel sounds remain hypoactive. The patient is a MILO drain in the right lower quadrant area. There was concern that she may be going into delirium tremens. She reported heavy alcohol ingestion and are lasting was more than 2 weeks ago. She was placed on the CIWA protocol yet there was no indication that the patient was going into delirium tremens and the patient remains alert and awake. Overnight , the patient received 2 doses of Lasix and she put out a good amount of urine output. The follow-up chest x-ray from early this morning at 5:00 showed persistent pulmonary vascular congestion unchanged compared to the last chest x- ray. She remains chest pain-free. The white cell count is not elevated at 12.1. Renal function is stable with a creatinine of 0.5. The patient is on DuoNeb the [facility] treatments around the clock. The patient is also on IV Zosyn as antibiotic coverage for complicated diverticulitis with bowel perforation. No previous history of DVT and pulmonary embolism. The patient has been maintained on subcu heparin for DVT prophylaxis. The patient is seen again today 02/07/2018 in follow-up on the selective care unit. She is currently resting comfortably in bed. She is awake and alert in no acute distress. He is having ongoing abdominal discomfort. Abdominal x-ray reveals nonobstructive bowel gas pattern. Pain control with Dilaudid. She denies any worsening shortness of breath, cough or congestion. She is working with the incentive spirometer. She is maintaining good O2 saturations in the 90s on 2 L/m per nasal cannula. She's currently afebrile. Hemodynamically stable. Blood and urine cultures reveal no growth. White count 9.8. Hemoglobin 12.6. Creatinine 0.50. Objective - Vital Signs Vital signs: Vital Signs Temp 98.1 F 02/07/18 11:29 Pulse 89 02/07/18 11:29 Resp 18 02/07/18 11:29 BP 151/80 02/07/18 11:29 Pulse Ox 94 L 02/07/18 11:29 Intake & Output 02/06/18 02/07/18 02/07/18 18:59 06:59 18:59 Intake Total 350 50 Output Total 650 440 80 Balance -300 -390 -80 Weight 94 kg Intake: IV 50 Piperacillin-Tazobactam 3 50 .375 gm In Dextrose/Water 1 50ml.bag @ 12.5 mls/hr IVPB Q8HR [facility] Rx#: [id number] Oral 350 Output: Drainage 90 80 Abdomen 90 80 Urine 650 350 Uretheral (Sheikh) 200 Other: Voiding Method Indwelling Catheter Indwelling Catheter Indwelling Catheter - Exam Gen. appearance the patient is calm comfortable likely distress. No labored breathing. No use of accessory muscles of breathing at this point in time. Head exam was generally normal. There was no scleral icterus or corneal arcus. Mucous membranes were moist. Neck was supple and without jugular venous distension, thyromegaly, or carotid bruits. Carotids were easily palpable bilaterally. There was no adenopathy. Lung sounds are diminished bilaterally along with some few bibasilar crackles. No wheezes or rhonchi. Cardiac exam revealed the PMI to be normally situated and sized. The rhythm was regular and no extrasystoles were noted during several minutes of auscultation. The first and second heart sounds were normal and physiologic splitting of the second heart sound was noted. There were no murmurs, rubs, clicks, or gallops. Abdominal exam revealed diminished bowel sounds and the patient has a MILO drain in the right lower quadrant area. The mid incision was dry clean and intact. No direct tenderness rebound tensile guarding. Colostomy site is viable and there is no output in the colostomy bag. Organs cannot be accurately evaluated and palpated on today's evaluation. Examination of the extremities revealed easily palpable radial, femoral and pedal pulses. There was no cyanosis, clubbing or edema. Examination of the skin revealed no evidence of significant rashes, suspicious appearing nevi or other concerning lesions. Neurologically the patient is awake and alert and there is no focal neurological deficits. - Labs CBC & Chem 7: 02/07/18 05:51 02/07/18 05:51 Labs: Abnormal Lab Results - Last 24 Hours (Table) 02/07/18 Range/Units 05:51 Potassium 3.3 L (3.5-5.1) mmol/L Creatinine 0.50 L (0.52-1.04) mg/dL Glucose 101 H (74-99) mg/dL Total Protein 4.8 L (6.3-8.2) g/dL Albumin 2.8 L (3.5-5.0) g/dL Microbiology - Last 24 Hours (Table) 02/03/18 08:50 Blood Culture - Preliminary Blood No Growth after 96 hours 02/05/18 10:45 Urine Culture - Final Urine,Clean Catch Assessment and Plan Assessment: Assessment 1 acute hypoxic respiratory failure. The patient is known to have COPD. The patient postop developed a component of fluid overload with increased pulmonary vascular markings and she had high oxygen requirements overnight which was as high as 10 L/m nasal cannula along with that she had increased bronchospasm and wheezing. She was treated with a combination of bronchodilators and diuretics. She improved and she is currently down to 2L by nasal cannula. Chest x-ray shows prominent interstitial pulmonary markings bilaterally consistent with volume overload. Echocardiogram revealed preserved left ventricular systolic function. IV fluids have been cut down to KVO. Patient remains nothing by mouth. 2 acute perforated diverticulitis, post expected laparotomy, and diverting colostomy and the patient is postop day #4. 3 peritonitis secondary to above perforation, currently on IV Zosyn. 4 COPD 5 smoker 6 alcoholism 7 glaucoma Plan The patient was seen and evaluated by Dr. Buchanan. Abdominal x-ray reviewed. No obstruction noted. Lung bases are clear. She remains in a negative balance. Her oxygen requirements have improved and she is down to 2 L/m per nasal cannula. Continue bronchodilators. She remains on Zosyn. Echocardiogram revealed preserved left ventricular systolic function. She remains on heparin for DVT prophylaxis. Adequate pain control. CIWA protocol is in place. Continue the to encourage increased use of incentive spirometer and cough and deep aching exercises. Increase her activity as tolerated. We' ll continue to follow. I, the cosigning physician, performed a history & physical examination of the patient. Lungs sounds are clear. Diminished. Maintaining good O2 saturations in the 90s on 2 L/m per nasal cannula. I discussed the assessment and plan of care with my nurse practitioner, Kristyn Palacios. I attest to the above note as dictated by her.
[2018-02-07] MEDS: POTASSIUM CHLORIDE 10 MEQ in WATER FOR INJECTION 1 100ML.BAG IVPB SCH ×2 (12:44→14:02)
--- NOTE | 2018-02-07 13:36 | P.PN ---
Subjective Progress Note Date: 02/07/18 This is a 57-year-old female with past medical history noted below who presented to the emergency room with worsening abdominal pain. Patient said that her pain started initially few days ago and is being getting progressively worse. She described her pain as generalized. She rates her pain as 10 out of 10. She was evaluated in the emergency room and computed tomography scan of the abdomen showed evidence of acute diverticulitis with bowel perforation. Patient was seen and evaluated by general surgery and was taken to the OR and underwent urgent exploratory laparotomy with partial colectomy and colostomy placement. She is postoperative day #1. Her pain is relatively well- controlled. She still has an NG tube in place. No output in the ostomy bag as of yet. 02/05/2018 patient had low urine output yesterday she received IV fluid boluses and Lasix. Urine output has shown some improvement. She remains on lactated Ringer's at 150 mL an hour. She has NG tube in place. She has not passed gas or had bowel movement yet. Denies any nausea. Pain is controlled. She had a low-grade temp of 100.5 and white count 11.4 she is on IV Zosyn. 02/06/2018 patient was sent up to the sixth floor early this morning due to fluid overload. Chest x-ray had shown evidence of congestive heart failure she was given 2 doses of IV Lasix. She stills been having some low-grade temps and white count was 12.1 she is on IV Zosyn and has been seen by infectious disease. Pulmonary service has been consulted as well. Patient reports improvement in her shortness of breath. She also reports heavy alcohol use she states her last alcoholic beverage was 2 weeks ago. She will be placed on the CIWA protocol. She still has not passed gas or had bowel movement yet. 02/07/2018 patient was seen and examined on the sixth floor telemetry she is alert and oriented 3 she has an NG tube in which was not functioning earlier but was adjusted and is functioning well now. Patient is afebrile temperature is 98.1 there is no chills no headache or dizziness no chest pain or shortness of breath no cough no nausea or vomiting no abdominal pain and no urinary symptoms, white blood count is down from 12.1 to 9.8 Objective - Vital Signs Vital signs: Vital Signs Temp 98.1 F 02/07/18 11:29 Pulse 84 02/07/18 12:03 Resp 18 02/07/18 11:29 BP 151/80 02/07/18 11:29 Pulse Ox 94 L 02/07/18 11:29 Intake & Output 02/06/18 02/07/18 02/07/18 18:59 06:59 18:59 Intake Total 350 50 Output Total 650 440 80 Balance -300 -390 -80 Weight 94 kg Intake: IV 50 Piperacillin-Tazobactam 3 50 .375 gm In Dextrose/Water 1 50ml.bag @ 12.5 mls/hr IVPB Q8HR [facility] Rx#: [id number] Oral 350 Output: Drainage 90 80 Abdomen 90 80 Urine 650 350 Uretheral (Sheikh) 200 Other: Voiding Method Indwelling Catheter Indwelling Catheter Indwelling Catheter - Exam Head normocephalic and atraumatic Neck supple no JVD no goiter Lungs clear to auscultation bilaterally no wheezing or crackles Heart regular rate and rhythm S1-S2, no rub or gallop Abdomen is soft nontender nondistended positive bowel sounds no hepatosplenomegaly Extremities no edema no cyanosis or clubbing Neuro alert and orientated to 3 - Labs CBC & Chem 7: 02/07/18 05:51 02/07/18 05:51 Labs: Abnormal Lab Results - Last 24 Hours (Table) 02/07/18 Range/Units 05:51 Potassium 3.3 L (3.5-5.1) mmol/L Creatinine 0.50 L (0.52-1.04) mg/dL Glucose 101 H (74-99) mg/dL Total Protein 4.8 L (6.3-8.2) g/dL Albumin 2.8 L (3.5-5.0) g/dL Microbiology - Last 24 Hours (Table) 02/03/18 08:50 Blood Culture - Preliminary Blood No Growth after 96 hours 02/05/18 10:45 Urine Culture - Final Urine,Clean Catch Assessment and Plan Plan: 1. Acute diverticulitis with bowel perforation status post exploratory laparotomy with colostomy placement. Continue postoperative care. Gen. surgery following closely. Pain control and antiemetic as needed. NG tube in place. 2. Peritonitis secondary to bowel perforation, currently on Zosyn. Infectious disease is following. Patient still having some low-grade temps and white count 12. Awaiting repeat blood cultures. Urine culture pending. Continue with IV Tylenol 3. Generalized anxiety disorder on Effexor 4. DVT prophylaxis with subcu heparin 5. Low urine output: Slowly improving. Continue with IV fluid hydration 6. History of alcohol abuse: Patient's last alcoholic beverage [address] patient on the CIWA protocol. Add thiamine and folic acid and multivitamin 7. Fluid overload: Patient receiving IV Lasix. Cardiology consult pending. Echocardiogram ordered. Patient is improving gradually she will be transferred to medical floor will continue to monitor closely
[2018-02-07] MEDS: THIAMINE 100 MG TAB PO SCH (14:05)
[2018-02-07] MEDS: FOLIC ACID 1 MG TAB PO SCH (14:05)
[2018-02-07] MEDS: MULTIVITAMINS, THERA 1 EACH TAB PO SCH (14:06)
[2018-02-07] MEDS: VENLAFAXINE HCL 37.5 MG TAB PO SCH (20:27)
[2018-02-07] MEDS: METOCLOPRAMIDE 5 MG/ML 2 ML VIAL IVP PRN (21:05)
--- NOTE | 2018-02-07 21:23 | CONS ---
CONSULTATION Mrs. Velasquez is a 57-year-old lady who came in with what seems to be a perforation of her bowel and underwent surgery with a colostomy that was performed by Dr. Dumont. This morning she had some tachycardia and I was asked to see her in this regard. Her tachycardia appears to be mostly sinus tachycardia. On reviewing the rhythm strips, there is no evidence of any abnormal arrhythmia. Tachycardia may be as a result of multiple comorbid conditions including recent surgery probably some dehydration and pain. This lady has multiple comorbid conditions including smoking more than 2 packs a day and also chronic and acute alcoholism. Please refer to the detailed notes by other consultants. She has a hypoxic respiratory failure. Postoperatively, had some fluid overload that was also addressed. She is doing much better at this time. On examination, her blood pressure is 140/70. Pulse rate today is about 96 per minute. HEENT: Unremarkable. Fundus was not examined by me. Neck is supple. There is no JVD. I do not hear a carotid bruit. Heart exam reveals S1, S2 with tachycardia. No significant murmurs. Lungs reveal diminished air entry. Abdomen exam was deferred. Lower extremities revealed diminished pulses. Central nervous system grossly no focal deficits. EKG from February 03 revealed sinus mechanism without significant changes. Rhythm strip review revealed sinus tachycardia. IMPRESSION: 1. Sinus tachycardia as a result of recent surgery, pain and also probably some dehydration type issues, and even this tachycardia has improved. 2. History of alcoholism. 3. Status post bowel perforation and peritonitis and surgery and colostomy. 4. Alcoholism. 5. Smoking and chronic obstructive pulmonary disease. RECOMMENDATIONS: From a cardiac standpoint, I would recommend that since patient cannot take oral medications, use IV Lopressor 5 mg q.6 hours p.r.n. for heart rate of more than 110. After that, we can give her Lopressor 25 mg b.i.d. Her echocardiogram from 02/06/2018 revealed that her left ventricular size and systolic function was normal with ejection fraction in the 65% range without any significant valvular disease or pulmonary hypertension. I would recommend IV beta blockers and oral if necessary and also check some thyroid function tests. I discussed my thoughts in detail with the patient. MMODL / IJN: [id number] /
[2018-02-08] MEDS: HYDROmorphone 0.5 MG/0.5 ML SYRINGE IVP PRN ×5 (04:10→19:51)
[2018-02-08 07:27] LABS: Basophils % (A) 0 %; Eosinophils # (A) 0.1 k/uL (0-0.7); Eosinophils % (A) 1 %; HCT 36.8 % (34.0-46.0); Lymphocytes # (A) 1.4 k/uL (1.0-4.8); Lymphocytes % (A) 11 %; MCH 31.4 pg (25.0-35.0); MCHC 32.7 g/dL (31.0-37.0); Monocytes # (A) 0.7 k/uL (0-1.0); Monocytes % (A) 5 %; Neutrophils % (A) 80 %; Platelet Count 503 k/uL (150-450); RBC 3.83 m/uL (3.80-5.40); RDW 13.6 % (11.5-15.5); WBC 12.5 k/uL (3.8-10.6)
[2018-02-08] MEDS: IPRATROPIUM-ALBUTEROL 3 ML NEB INHALATION SCH ×5 (07:33→21:55)
[2018-02-08 07:43] LABS: Anion Gap 11 mmol/L; Blood Urea Nitrogen 17 mg/dL (7-17); Calcium 8.9 mg/dL (8.4-10.2); Carbon Dioxide 32 mmol/L (22-30); Chloride 98 mmol/L (98-107); Glucose 125 mg/dL (74-99); Potassium 3.4 mmol/L (3.5-5.1); Sodium 141 mmol/L (137-145)
[2018-02-08] MEDS: PIPERACILLIN-TAZOBACTAM 3.375 GM in DEXTROSE/WATER 1 50ML.BAG IVPB SCH ×2 (07:46→16:34)
[2018-02-08] MEDS: HEPARIN SODIUM,PORCINE 5,000 UNIT/ML 1 ML VIAL SQ SCH ×2 (08:12→16:38)
[2018-02-08] MEDS: METOPROLOL TARTRATE 25 MG TAB PO SCH ×2 (08:12→21:11)
[2018-02-08] MEDS: FOLIC ACID 1 MG TAB PO SCH (08:12)
[2018-02-08] MEDS: VENLAFAXINE HCL 37.5 MG TAB PO SCH ×2 (08:12→21:10)
[2018-02-08] MEDS: PANTOPRAZOLE 40 MG/10 ML VIAL IVP SCH ×2 (08:12→21:11)
[2018-02-08] MEDS: METOCLOPRAMIDE 5 MG/ML 2 ML VIAL IVP PRN (12:22)
--- NOTE | 2018-02-08 12:39 | P.PN ---
Subjective Progress Note Date: 02/08/18 A pleasant 57-year-old female patient, who developed acute respiratory distress and acute hypoxic respiratory failure yesterday on a medical surgical floor and for that reason the pulmonary consultation was requested. This patient is a chronic smoker in she has COPD and she is smoking around 2 pack of cigarettes a day. She also has excessive alcohol ingestion, alcoholism. The patient came into the hospital because of abdominal pain and the patient was progressively getting worse and further CAT scan imaging of the abdomen and pelvis showed that the patient an acute diverticulitis with bowel perforation. She was started on antibiotics and further surgical consultation was obtained and the patient was taken to the operating room for urgent expose laparotomy and she underwent partial colectomy and colostomy placement. Today she is postop day # 3. Immediately postop, an NG tube was placed and the patient was sent to the medical floor. Over the next day, the patient was doing well till yesterday evening when she started getting increased shortness of breath. I was informed that the patient was hypoxic and at one point she was placed up to 10 L of oxygen nasal cannula. She was receiving IV fluids and she was in a positive fluid balance. Immediately, chest x-ray was done that showed prominence of the pulmonary vascular marking and interstitial marking suggestive of pulmonary vessel congestion. She is not known to have any history of cardiac disease or congestion heart failure. No reported aspiration. NG tube was still in place. Colostomy site is not showing any significant output yet. Bowel sounds remain hypoactive. The patient is a MILO drain in the right lower quadrant area. There was concern that she may be going into delirium tremens. She reported heavy alcohol ingestion and are lasting was more than 2 weeks ago. She was placed on the CIWA protocol yet there was no indication that the patient was going into delirium tremens and the patient remains alert and awake. Overnight , the patient received 2 doses of Lasix and she put out a good amount of urine output. The follow-up chest x-ray from early this morning at 5:00 showed persistent pulmonary vascular congestion unchanged compared to the last chest x- ray. She remains chest pain-free. The white cell count is not elevated at 12.1. Renal function is stable with a creatinine of 0.5. The patient is on DuoNeb the rise treatments around the clock. The patient is also on IV Zosyn as antibiotic coverage for complicated diverticulitis with bowel perforation. No previous history of DVT and pulmonary embolism. The patient has been maintained on subcu heparin for DVT prophylaxis. The patient is seen again today 02/07/2018 in follow-up on the selective care unit. She is currently resting comfortably in bed. She is awake and alert in no acute distress. He is having ongoing abdominal discomfort. Abdominal x-ray reveals nonobstructive bowel gas pattern. Pain control with Dilaudid. She denies any worsening shortness of breath, cough or congestion. She is working with the incentive spirometer. She is maintaining good O2 saturations in the 90s on 2 L/m per nasal cannula. She's currently afebrile. Hemodynamically stable. Blood and urine cultures reveal no growth. White count 9.8. Hemoglobin 12.6. Creatinine 0.50. On 02/08/2018, the patient has awake and alert. She remains nothing by mouth. NG tube is in place. The drainage from the NG tube has slowed down although it selective. No significant output in the colostomy bag. Abdomen is nondistended. Bowel sounds are hypoactive. No respiratory distress. The patient is ambulating. No cough sputum production chest tightness or wheezing. No other significant events otherwise. The white cell count is at 4.5. Potassium level is at 3.4 and needs to be replaced. Renal function is also stable. Objective - Vital Signs Vital signs: Vital Signs Temp 98.5 F 02/08/18 05:15 Pulse 104 H 02/08/18 07:44 Resp 18 02/08/18 05:15 BP 143/69 02/08/18 05:15 Pulse Ox 92 L 02/08/18 05:15 Intake & Output 02/07/18 02/08/18 02/08/18 18:59 06:59 18:59 Intake Total 150 Output Total 1300 790 Balance -1300 -640 Intake: IV 150 Piperacillin-Tazobactam 3 150 .375 gm In Dextrose/Water 1 50ml.bag @ 12.5 mls/hr IVPB Q8HR [facility] Rx#: [id number] Output: Drainage 1000 190 Abdomen 400 140 Right NARES 600 50 Urine 300 600 Uretheral (Sheikh) 300 Other: Voiding Method Indwelling Catheter Indwelling Catheter Indwelling Catheter # Voids 0 - Exam Gen. appearance the patient is calm comfortable likely distress. No labored breathing. No use of accessory muscles of breathing at this point in time. Head exam was generally normal. There was no scleral icterus or corneal arcus. Mucous membranes were moist. Neck was supple and without jugular venous distension, thyromegaly, or carotid bruits. Carotids were easily palpable bilaterally. There was no adenopathy. Lung sounds are diminished bilaterally along with some few bibasilar crackles. No wheezes or rhonchi. Cardiac exam revealed the PMI to be normally situated and sized. The rhythm was regular and no extrasystoles were noted during several minutes of auscultation. The first and second heart sounds were normal and physiologic splitting of the second heart sound was noted. There were no murmurs, rubs, clicks, or gallops. Abdominal exam revealed diminished bowel sounds and the patient has a MILO drain in the right lower quadrant area. The mid incision was dry clean and intact. No direct tenderness rebound tensile guarding. Colostomy site is viable and there is no output in the colostomy bag. Organs cannot be accurately evaluated and palpated on today's evaluation. Examination of the extremities revealed easily palpable radial, femoral and pedal pulses. There was no cyanosis, clubbing or edema. Examination of the skin revealed no evidence of significant rashes, suspicious appearing nevi or other concerning lesions. Neurologically the patient is awake and alert and there is no focal neurological deficits. - Labs CBC & Chem 7: 02/08/18 06:56 02/08/18 06:56 Labs: Abnormal Lab Results - Last 24 Hours (Table) 02/08/18 02/08/18 Range/Units 06:56 06:56 WBC 12.5 H (3.8-10.6) k/uL Plt Count 503 H (150-450) k/uL Neutrophils # 10.0 H (1.3-7.7) k/uL Potassium 3.4 L (3.5-5.1) mmol/L Carbon Dioxide 32 H (22-30) mmol/L Creatinine 0.49 L (0.52-1.04) mg/dL Glucose 125 H (74-99) mg/dL Microbiology - Last 24 Hours (Table) 02/03/18 08:50 Blood Culture - Preliminary Blood No Growth after 120 hours 02/06/18 04:40 Blood Culture - Preliminary Blood No Growth after 24 hours Assessment and Plan Plan: Assessment 1 acute hypoxic history failure. The patient is known to have COPD. The patient postop developed a component of fluid overload with increased pulmonary vascular markings and she had high oxygen requirements overnight which was as high as 10 L/m nasal cannula along with that she had increased bronchospasm and wheezing. She was treated with accommodation bronchodilators and diuretics. She improved and she is currently down to 40s about 2 by nasal cannula. Chest x -ray shows prominent interstitial pulmonary markings bilaterally consistent with CHF. Echocardiogram will be needed to assess his LV function. IV fluids have been cut down to KVO. Patient remains nothing by mouth. NG tube is in place. On 02/08/2018, pulmonary status is stable. No worsening in the oxygenation. She is ambulating. No cough sputum production chest tightness or wheezing. No signs of any respiratory distress. 2 acute perforated diverticulitis, post expected laparotomy, and diverting colostomy and the patient is postop day #5. NG tube remains in place 3 peritonitis secondary to above perforation, currently on IV Zosyn. 4 COPD 5 smoker 6 alcoholism 7 glaucoma Plan Keep NG tube in place. Monitor any output from the colostomy bag. Surgical site is clean. Embolus patient already. Continue Zosyn. Cultures of been negative. We'll follow. General surgeries on the case.
--- NOTE | 2018-02-08 12:45 | P.PN ---
Subjective Progress Note Date: 02/08/18 Patient is status post exploratory laparotomy and Soler's procedure. She is more comfortable today. No flatus in her colostomy bag. She has barely ambulated all weekend. In fact, she reports finally getting up today. She reports soreness from her nasogastric tube. Objective - Vital Signs Vital signs: Vital Signs Temp 98.5 F 02/08/18 05:15 Pulse 104 H 02/08/18 07:44 Resp 18 02/08/18 05:15 BP 143/69 02/08/18 05:15 Pulse Ox 92 L 02/08/18 05:15 Intake & Output 02/07/18 02/08/18 02/08/18 18:59 06:59 18:59 Intake Total 150 Output Total 1300 790 Balance -1300 -640 Intake: IV 150 Piperacillin-Tazobactam 3 150 .375 gm In Dextrose/Water 1 50ml.bag @ 12.5 mls/hr IVPB Q8HR [facility] Rx#: [id number] Output: Drainage 1000 190 Abdomen 400 140 Right NARES 600 50 Urine 300 600 Uretheral (Sheikh) 300 Other: Voiding Method Indwelling Catheter Indwelling Catheter Indwelling Catheter # Voids 0 - Exam GENERAL: Well developed and appears lethargic. HEENT: No sclera icterus. Extraocular movements grossly intact. Moist buccal mucosa. Head is atraumatic, normocephalic. Hears conversational speech. No nasal drainage. NGT patent. NECK: Supple without lymphadenopathy. CHEST: Non-labored respirations and equal bilateral excursions. CARDIOVASCULAR: Regular rate and rhythm. Palpable 2+ radial pulses. ABDOMEN: Soft, less distended than yesterday. Dressing clean and intact. Ostomy without flatus or stool. MUSCULOSKELETAL: No clubbing, cyanosis. Extremities warm. NEUROLOGIC: No focal or lateralizing signs. PSYCH: Appropriate affect. Alert and oriented to person, place and time. SKIN: Good skin turgor. Well perfused. - Labs CBC & Chem 7: 02/08/18 06:56 02/08/18 06:56 Labs: Abnormal Lab Results - Last 24 Hours (Table) 02/08/18 02/08/18 Range/Units 06:56 06:56 WBC 12.5 H (3.8-10.6) k/uL Plt Count 503 H (150-450) k/uL Neutrophils # 10.0 H (1.3-7.7) k/uL Potassium 3.4 L (3.5-5.1) mmol/L Carbon Dioxide 32 H (22-30) mmol/L Creatinine 0.49 L (0.52-1.04) mg/dL Glucose 125 H (74-99) mg/dL Microbiology - Last 24 Hours (Table) 02/03/18 08:50 Blood Culture - Preliminary Blood No Growth after 120 hours 02/06/18 04:40 Blood Culture - Preliminary Blood No Growth after 24 hours - Imaging and Cardiology Abdominal x-ray: report reviewed (NG tube in appropriate position. Nonspecific gas pattern.), image reviewed Assessment and Plan (1) Colostomy status Current Visit: Yes Status: Acute Code(s): Z93.3 - COLOSTOMY STATUS SNOMED Code(s): 061678823 (2) Hypertensive cardiomyopathy Current Visit: Yes Status: Acute Code(s): I11.9 - HYPERTENSIVE HEART DISEASE WITHOUT HEART FAILURE; I43 - CARDIOMYOPATHY IN DISEASES CLASSIFIED ELSEWHERE SNOMED Code(s): 540028737034879 (3) Diverticulitis of intestine with perforation Current Visit: Yes Status: Acute Code(s): K57.80 - DVTRCLI OF INTEST, PART UNSP, W PERF AND ABSCESS W/O BLEED SNOMED Code(s): 038683852 Plan: 1. PTOT regarding ambulation and recovery. 2. Physical therapy assessment advised. 3. Ambulation encouraged. 4. Leukocytosis today however recommend reevaluation.
[2018-02-08] MEDS ORDERED: POTASSIUM CHLORIDE 20 MEQ in WATER FOR INJECTION 1 100ML.BAG IVPB STA (12:48)
--- NOTE | 2018-02-08 13:15 | P.PN ---
Subjective This is a 57-year-old female with past medical history noted below who presented to the emergency room with worsening abdominal pain. Patient said that her pain started initially few days ago and is being getting progressively worse. She described her pain as generalized. She rates her pain as 10 out of 10. She was evaluated in the emergency room and computed tomography scan of the abdomen showed evidence of acute diverticulitis with bowel perforation. Patient was seen and evaluated by general surgery and was taken to the OR and underwent urgent exploratory laparotomy with partial colectomy and colostomy placement. She is postoperative day #1. Her pain is relatively well- controlled. She still has an NG tube in place. No output in the ostomy bag as of yet. 02/05/2018 patient had low urine output yesterday she received IV fluid boluses and Lasix. Urine output has shown some improvement. She remains on lactated Ringer's at 150 mL an hour. She has NG tube in place. She has not passed gas or had bowel movement yet. Denies any nausea. Pain is controlled. She had a low-grade temp of 100.5 and white count 11.4 she is on IV Zosyn. 02/06/2018 patient was sent up to the sixth floor early this morning due to fluid overload. Chest x-ray had shown evidence of congestive heart failure she was given 2 doses of IV Lasix. She stills been having some low-grade temps and white count was 12.1 she is on IV Zosyn and has been seen by infectious disease. Pulmonary service has been consulted as well. Patient reports improvement in her shortness of breath. She also reports heavy alcohol use she states her last alcoholic beverage was 2 weeks ago. She will be placed on the CIWA protocol. She still has not passed gas or had bowel movement yet. 02/07/2018 patient was seen and examined on the sixth floor telemetry she is alert and oriented 3 she has an NG tube in which was not functioning earlier but was adjusted and is functioning well now. Patient is afebrile temperature is 98.1 there is no chills no headache or dizziness no chest pain or shortness of breath no cough no nausea or vomiting no abdominal pain and no urinary symptoms, white blood count is down from 12.1 to 9.8 02/08/2018 patient was seen and examined on the medical floor she is alert and oriented 3 she has an NG tube is in . Patient is afebrile temperature is 98.1 there is no chills no headache or dizziness no chest pain or shortness of breath no cough no nausea or vomiting no abdominal pain and no urinary symptoms , white blood count is up to 12.5 Objective - Vital Signs Vital signs: Vital Signs Temp 98.5 F 02/08/18 05:15 Pulse 84 02/08/18 13:05 Resp 18 02/08/18 05:15 BP 143/69 02/08/18 05:15 Pulse Ox 92 L 02/08/18 05:15 Intake & Output 02/07/18 02/08/18 02/08/18 18:59 06:59 18:59 Intake Total 150 Output Total 1300 790 Balance -1300 -640 Intake: IV 150 Piperacillin-Tazobactam 3 150 .375 gm In Dextrose/Water 1 50ml.bag @ 12.5 mls/hr IVPB Q8HR [facility] Rx#: [id number] Output: Drainage 1000 190 Abdomen 400 140 Right NARES 600 50 Urine 300 600 Uretheral (Sheikh) 300 Other: Voiding Method Indwelling Catheter Indwelling Catheter Indwelling Catheter # Voids 0 - Exam Head normocephalic and atraumatic Neck supple no JVD no goiter Lungs clear to auscultation bilaterally no wheezing or crackles Heart regular rate and rhythm S1-S2, no rub or gallop Abdomen is soft nontender nondistended positive bowel sounds no hepatosplenomegaly Extremities no edema no cyanosis or clubbing Neuro alert and orientated to 3 - Labs CBC & Chem 7: 02/08/18 06:56 02/08/18 06:56 Labs: Abnormal Lab Results - Last 24 Hours (Table) 02/08/18 02/08/18 Range/Units 06:56 06:56 WBC 12.5 H (3.8-10.6) k/uL Plt Count 503 H (150-450) k/uL Neutrophils # 10.0 H (1.3-7.7) k/uL Potassium 3.4 L (3.5-5.1) mmol/L Carbon Dioxide 32 H (22-30) mmol/L Creatinine 0.49 L (0.52-1.04) mg/dL Glucose 125 H (74-99) mg/dL Microbiology - Last 24 Hours (Table) 02/03/18 08:50 Blood Culture - Preliminary Blood No Growth after 120 hours 02/06/18 04:40 Blood Culture - Preliminary Blood No Growth after 24 hours Assessment and Plan Plan: 1. Acute diverticulitis with bowel perforation status post exploratory laparotomy with colostomy placement. Continue postoperative care. Gen. surgery following closely. Pain control and antiemetic as needed. NG tube in place. 2. Peritonitis secondary to bowel perforation, currently on Zosyn. Infectious disease is following. Patient still having some low-grade temps and white count 12. Awaiting repeat blood cultures. Urine culture pending. Continue with IV Tylenol 3. Generalized anxiety disorder on Effexor 4. DVT prophylaxis with subcu heparin 5. Low urine output: Slowly improving. Continue with IV fluid hydration 6. History of alcohol abuse: Patient's last alcoholic beverage [address] patient on the CIWA protocol. Add thiamine and folic acid and multivitamin 7. Fluid overload: Patient receiving IV Lasix. Patient is improving gradually she will be transferred to medical floor will continue to monitor closely Patient improving gradually, she was encouraged to ambulate
[2018-02-08] MEDS: THIAMINE 100 MG TAB PO SCH (14:56)
[2018-02-08] MEDS: MULTIVITAMINS, THERA 1 EACH TAB PO SCH (14:56)
[2018-02-08] MEDS: METOCLOPRAMIDE 5 MG/ML 2 ML VIAL IVP SCH (18:33)
[2018-02-08] MEDS ORDERED: BENZOCAINE/MENTHOL LOZENG 1 EACH LOZENGE MUCOUS MEM PRN (20:19)
--- NOTE | 2018-02-08 23:04 | PN ---
PROGRESS NOTE DATE OF SERVICE: 02/08/2018. REASON FOR FOLLOWUP: Secondary peritonitis from perforated diverticulitis. INTERVAL HISTORY: The patient is currently afebrile. She is feeling slightly better. Abdominal pain is currently controlled. Denies having any chest pain or shortness of breath. Occasional cough. No output in the colostomy bag. Still complaining of the NG. EXAMINATION: Blood pressure is 153/74, pulse of 76, temperature of 97.9. He is 95% on 2 L nasal cannula. GENERAL DESCRIPTION: A middle-aged female up in the bed in no distress. RESPIRATORY SYSTEM: Unlabored breathing, decreased to the bases. No wheeze. HEART: S1, S2. Regular rate. ABDOMEN: Soft. No output in the colostomy bag. LABS: Hemoglobin is 12, white count 1.5. BUN of 17, creatinine 0.49. DIAGNOSTIC IMPRESSION AND PLAN: Patient with secondary peritonitis from a perforated sigmoid diverticulitis, status post laparotomy and diverting colostomy. Currently controlled with Zosyn. Waiting for oral intake to improve and clinical condition to stabilize before adjusting her antibiotics. Continue supportive care. MMODL / IJN: [id number] /
[2018-02-09] MEDS: HEPARIN SODIUM,PORCINE 5,000 UNIT/ML 1 ML VIAL SQ SCH ×3 (00:40→16:53)
[2018-02-09] MEDS: METOCLOPRAMIDE 5 MG/ML 2 ML VIAL IVP SCH ×4 (00:40→17:05)
[2018-02-09] MEDS: PIPERACILLIN-TAZOBACTAM 3.375 GM in DEXTROSE/WATER 1 50ML.BAG IVPB SCH ×3 (00:40→16:51)
[2018-02-09] MEDS: HYDROmorphone 0.5 MG/0.5 ML SYRINGE IVP PRN ×2 (00:47→10:14)
[2018-02-09] MEDS: MORPHINE SULFATE 2 MG/ML SYRINGE IV PRN (03:26)
[2018-02-09] MEDS: IPRATROPIUM-ALBUTEROL 3 ML NEB INHALATION SCH ×4 (06:57→20:42)
[2018-02-09 07:34] LABS: Basophils # (A) 0.1 k/uL (0-0.2); Basophils % (A) 1 %; Eosinophils # (A) 0.2 k/uL (0-0.7); Eosinophils % (A) 2 %; HCT 40.2 % (34.0-46.0); HGB 13.2 gm/dL (11.4-16.0); Lymphocytes # (A) 1.6 k/uL (1.0-4.8); Lymphocytes % (A) 16 %; MCH 31.6 pg (25.0-35.0); MCHC 32.7 g/dL (31.0-37.0); MCV 96.5 fL (80.0-100.0); Mean Platelet Volume 6.9; Monocytes # (A) 0.6 k/uL (0-1.0); Monocytes % (A) 6 %; Neutrophils # (A) 7.5 k/uL (1.3-7.7); Neutrophils % (A) 74 %; Platelet Count 489 k/uL (150-450); RBC 4.17 m/uL (3.80-5.40); RDW 13.8 % (11.5-15.5); WBC 10.2 k/uL (3.8-10.6)
[2018-02-09 07:51] LABS: ALT 40 U/L (9-52); AST 44 U/L (14-36); Albumin 3.1 g/dL (3.5-5.0); Alkaline Phosphatase 105 U/L (38-126); Anion Gap 12 mmol/L; Blood Urea Nitrogen 18 mg/dL (7-17); Calcium 9.3 mg/dL (8.4-10.2); Carbon Dioxide 33 mmol/L (22-30); Chloride 96 mmol/L (98-107); Glucose 103 mg/dL (74-99); Potassium 3.5 mmol/L (3.5-5.1); Sodium 141 mmol/L (137-145); Total Bilirubin 0.6 mg/dL (0.2-1.3); Total Protein 5.5 g/dL (6.3-8.2)
[2018-02-09] MEDS: PANTOPRAZOLE 40 MG/10 ML VIAL IVP SCH (10:07)
[2018-02-09] MEDS ORDERED: MORPHINE SULFATE 2 MG/ML SYRINGE IV PRN (12:56)
[2018-02-09] MEDS: VENLAFAXINE HCL 37.5 MG TAB PO SCH ×2 (13:25→20:25)
[2018-02-09] MEDS: METOPROLOL TARTRATE 25 MG TAB PO SCH ×2 (13:25→20:24)
--- NOTE | 2018-02-09 13:50 | P.PN ---
Subjective Progress Note Date: 02/09/18 Patient is doing well today. No events overnight. NG tube was discontinued. She is only allowed ice chips for now. Objective - Vital Signs Vital signs: Vital Signs Temp 98.6 F 02/09/18 05:00 Pulse 76 02/09/18 07:09 Resp 18 02/09/18 05:00 BP 157/72 02/09/18 05:00 Pulse Ox 94 L 02/09/18 05:00 Intake & Output 02/08/18 02/09/18 02/09/18 18:59 06:59 18:59 Intake Total 300 Output Total 1300 410 Balance -1300 -110 Weight 94 kg Intake: Intake, IV Titration 100 Amount Potassium Chloride 20 meq 100 In Water For Injection 1 100ml.bag @ 50 mls/hr IVPB ONCE STA Rx#: [id number] Oral 200 Output: Gastric Drainage 350 Drainage 700 60 Abdomen 30 Right NARES 700 30 Urine 600 Other: Voiding Method Toilet Toilet Toilet # Voids 0 1 1 - Exam General: The patient is awake and alert, in no distress Eye: there is normal conjunctiva bilaterally. Neck: The neck is supple, there is no JVD. Cardiovascular: Normal S1-S2, no S3-S4, no murmurs. Respiratory: Lungs clear to auscultation bilaterally Gastrointestinal: Abdomen is soft, nontender Musculoskeletal: There is no pedal edema. Neurological:. Speech is normal. Skin: Skin is warm and dry - Labs CBC & Chem 7: 02/09/18 06:59 02/09/18 06:59 Labs: Abnormal Lab Results - Last 24 Hours (Table) 02/09/18 02/09/18 Range/Units 06:59 06:59 Plt Count 489 H (150-450) k/uL Chloride 96 L (98-107) mmol/L Carbon Dioxide 33 H (22-30) mmol/L BUN 18 H (7-17) mg/dL Glucose 103 H (74-99) mg/dL AST 44 H (14-36) U/L Total Protein 5.5 L (6.3-8.2) g/dL Albumin 3.1 L (3.5-5.0) g/dL Microbiology - Last 24 Hours (Table) 02/03/18 08:50 Blood Culture - Final Blood No Growth after 144 hours 02/06/18 04:40 Blood Culture - Preliminary Blood No Growth after 48 hours Assessment and Plan Assessment: 1. Acute diverticulitis with bowel perforation status post exploratory laparotomy with colostomy placement. Continue postoperative care. Gen. surgery following closely. Pain control and antiemetic as needed. NG tube discontinued. Advance diet as directed by general surgery. 2. Peritonitis secondary to bowel perforation, currently on Zosyn. Infectious disease is following. 3. Generalized anxiety disorder on Effexor 4. DVT prophylaxis with subcu heparin 5. History of alcohol abuse: Now in remission
--- NOTE | 2018-02-09 14:09 | P.PN ---
Subjective Progress Note Date: 02/09/18 57-year-old female seen examined sitting up in a chair states concerned about going home provides care for her spouse feels that rehab for a week or 2 would be beneficial. Nasal gastric tube was removed today patient is afebrile. Patient states abdominal pain less discomfort. No movement out of the ostomy no nausea no vomiting. MILO drain in place with serous drainage. Ostomy stoma pink Postop 04 of February sigmoid colectomy with colostomy for perforated diverticulitis Objective - Vital Signs Vital signs: Vital Signs Temp 98.6 F 02/09/18 05:00 Pulse 76 02/09/18 07:09 Resp 18 02/09/18 05:00 BP 157/72 02/09/18 05:00 Pulse Ox 94 L 02/09/18 05:00 Intake & Output 02/08/18 02/09/18 02/09/18 18:59 06:59 18:59 Intake Total 300 Output Total 1300 410 Balance -1300 -110 Weight 94 kg Intake: Intake, IV Titration 100 Amount Potassium Chloride 20 meq 100 In Water For Injection 1 100ml.bag @ 50 mls/hr IVPB ONCE STA Rx#: [id number] Oral 200 Output: Gastric Drainage 350 Drainage 700 60 Abdomen 30 Right NARES 700 30 Urine 600 Other: Voiding Method Toilet Toilet Toilet # Voids 0 1 1 - Exam Physical exam 57-year-old female sitting up in a chair alert oriented 3 Lungs posterior decreased at the bases. Use of the incentive spirometer can achieve thousand 1500 Heart S1-S2 audible regular monitor sinus tach heart rate 100 no murmur denying chest pain Abdomen few hypoactive bowel tones MILO drain in place serous drainage noted surgical dressing distal dry old bloody drainage reports no nausea sensation no emesis tolerating ice chips nasal gastric tube removed this morning Extremities Venodyne's on to the bilateral lower extremities. - Labs CBC & Chem 7: 02/09/18 06:59 02/09/18 06:59 Labs: Abnormal Lab Results - Last 24 Hours (Table) 02/09/18 02/09/18 Range/Units 06:59 06:59 Plt Count 489 H (150-450) k/uL Chloride 96 L (98-107) mmol/L Carbon Dioxide 33 H (22-30) mmol/L BUN 18 H (7-17) mg/dL Glucose 103 H (74-99) mg/dL AST 44 H (14-36) U/L Total Protein 5.5 L (6.3-8.2) g/dL Albumin 3.1 L (3.5-5.0) g/dL Microbiology - Last 24 Hours (Table) 02/03/18 08:50 Blood Culture - Final Blood No Growth after 144 hours 02/06/18 04:40 Blood Culture - Preliminary Blood No Growth after 48 hours Assessment and Plan Assessment: Impression Present on admission abdominal pain with nausea vomiting suspect due to acute diverticulitis Status post exploratory laparotomy with colostomy for acute diverticulitis with bowel perforation Peritonitis secondary to bowel perforation Anxiety depressive disorder Postop tachycardia expected likely due to surgical pain improved Present on admission febrile tachycardic hypotensive sepsis suspect due to acute diverticulitis with perforation with peritonitis Current every day smoker COPD Leukocytosis Chest x-ray obtained on February 05 possible early heart failure atelectasis Hypokalemia corrected resolved History of alcohol abuse with no evidence of DTs in remission Echocardiogram February 06 left ventricular systolic function EF 65-70% no evidence of pulmonary hypertension 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 Romelia Dominguez nurse practitioner acting as scribe for signing physician.
--- NOTE | 2018-02-09 14:28 | P.PN ---
Subjective Progress Note Date: 02/09/18 Principal diagnosis: Acute hypoxic respiratory failure secondary to fluid overload and mild bronchospasm secondary to COPD exacerbation A pleasant 57-year-old female patient, who developed acute respiratory distress and acute hypoxic respiratory failure yesterday on a medical surgical floor and for that reason the pulmonary consultation was requested. This patient is a chronic smoker in she has COPD and she is smoking around 2 pack of cigarettes a day. She also has excessive alcohol ingestion, alcoholism. The patient came into the hospital because of abdominal pain and the patient was progressively getting worse and further CAT scan imaging of the abdomen and pelvis showed that the patient an acute diverticulitis with bowel perforation. She was started on antibiotics and further surgical consultation was obtained and the patient was taken to the operating room for urgent expose laparotomy and she underwent partial colectomy and colostomy placement. Today she is postop day # 3. Immediately postop, an NG tube was placed and the patient was sent to the medical floor. Over the next day, the patient was doing well till yesterday evening when she started getting increased shortness of breath. I was informed that the patient was hypoxic and at one point she was placed up to 10 L of oxygen nasal cannula. She was receiving IV fluids and she was in a positive fluid balance. Immediately, chest x-ray was done that showed prominence of the pulmonary vascular marking and interstitial marking suggestive of pulmonary vessel congestion. She is not known to have any history of cardiac disease or congestion heart failure. No reported aspiration. NG tube was still in place. Colostomy site is not showing any significant output yet. Bowel sounds remain hypoactive. The patient is a MILO drain in the right lower quadrant area. There was concern that she may be going into delirium tremens. She reported heavy alcohol ingestion and are lasting was more than 2 weeks ago. She was placed on the CIWA protocol yet there was no indication that the patient was going into delirium tremens and the patient remains alert and awake. Overnight , the patient received 2 doses of Lasix and she put out a good amount of urine output. The follow-up chest x-ray from early this morning at 5:00 showed persistent pulmonary vascular congestion unchanged compared to the last chest x- ray. She remains chest pain-free. The white cell count is not elevated at 12.1. Renal function is stable with a creatinine of 0.5. The patient is on DuoNeb the rise treatments around the clock. The patient is also on IV Zosyn as antibiotic coverage for complicated diverticulitis with bowel perforation. No previous history of DVT and pulmonary embolism. The patient has been maintained on subcu heparin for DVT prophylaxis. The patient is seen again today 02/07/2018 in follow-up on the selective care unit. She is currently resting comfortably in bed. She is awake and alert in no acute distress. He is having ongoing abdominal discomfort. Abdominal x-ray reveals nonobstructive bowel gas pattern. Pain control with Dilaudid. She denies any worsening shortness of breath, cough or congestion. She is working with the incentive spirometer. She is maintaining good O2 saturations in the 90s on 2 L/m per nasal cannula. She's currently afebrile. Hemodynamically stable. Blood and urine cultures reveal no growth. White count 9.8. Hemoglobin 12.6. Creatinine 0.50. On 02/08/2018, the patient has awake and alert. She remains nothing by mouth. NG tube is in place. The drainage from the NG tube has slowed down although it selective. No significant output in the colostomy bag. Abdomen is nondistended. Bowel sounds are hypoactive. No respiratory distress. The patient is ambulating. No cough sputum production chest tightness or wheezing. No other significant events otherwise. The white cell count is at 4.5. Potassium level is at 3.4 and needs to be replaced. Renal function is also stable. On 02/09/2018 patient seen in follow-up on medical surgical floor. She is awake , alert, oriented 3, denies any acute distress, NG tube has been discontinued, her colostomy is producing dark liquid output, and gas, no nausea or vomiting. From pulmonary standpoint her breathing denies to improve, lung sounds are clear to auscultation, no wheezing, no rhonchi no rales. Patient has been diuresed, and she continues on nebulized bronchodilators, in addition to Zosyn. Blood, and urine cultures show no growth, today's lab work shows no evidence of leukocytosis, sodium is 141, potassium is 3.5, chloride is 96, CO2 of 33, BUN of 18, creatinine of 0.58. No fever or chills. Patient is on 1 L per nasal cannula with O2 sat 94%, respirations are even and nonlabored, he needs encouragement with her incentive spirometry, but she is able to achieve 1250- 1500 on it today. Objective - Vital Signs Vital signs: Vital Signs Temp 98.6 F 02/09/18 05:00 Pulse 76 02/09/18 07:09 Resp 18 02/09/18 05:00 BP 157/72 02/09/18 05:00 Pulse Ox 94 L 02/09/18 05:00 Intake & Output 02/08/18 02/09/18 02/09/18 18:59 06:59 18:59 Intake Total 300 Output Total 1300 410 Balance -1300 -110 Weight 94 kg Intake: Intake, IV Titration 100 Amount Potassium Chloride 20 meq 100 In Water For Injection 1 100ml.bag @ 50 mls/hr IVPB ONCE STA Rx#: [id number] Oral 200 Output: Gastric Drainage 350 Drainage 700 60 Abdomen 30 Right NARES 700 30 Urine 600 Other: Voiding Method Toilet Toilet Toilet # Voids 0 1 1 - Exam Gen. appearance the patient is calm comfortable likely distress. No labored breathing. No use of accessory muscles of breathing at this point in time. Head exam was generally normal. There was no scleral icterus or corneal arcus. Mucous membranes were moist. Neck was supple and without jugular venous distension, thyromegaly, or carotid bruits. Carotids were easily palpable bilaterally. There was no adenopathy. Lung sounds are diminished bilaterally. No wheezes, rales or rhonchi. Cardiac exam revealed the PMI to be normally situated and sized. The rhythm was regular and no extrasystoles were noted during several minutes of auscultation. The first and second heart sounds were normal and physiologic splitting of the second heart sound was noted. There were no murmurs, rubs, clicks, or gallops. Abdominal exam revealed diminished bowel sounds and the patient has a MILO drain in the right lower quadrant area. The mid incision was dry clean and intact. No direct tenderness rebound tensile guarding. Colostomy site is viable and there is liquid dark output. Organs cannot be accurately evaluated and palpated on today's evaluation. NG tube has been discontinued, patient has not had any nausea, or vomiting Examination of the extremities revealed easily palpable radial, femoral and pedal pulses. There was no cyanosis, clubbing or edema. Examination of the skin revealed no evidence of significant rashes, suspicious appearing nevi or other concerning lesions. Neurologically the patient is awake and alert and there is no focal neurological deficits. - Labs CBC & Chem 7: 02/09/18 06:59 02/09/18 06:59 Labs: Abnormal Lab Results - Last 24 Hours (Table) 02/09/18 02/09/18 Range/Units 06:59 06:59 Plt Count 489 H (150-450) k/uL Chloride 96 L (98-107) mmol/L Carbon Dioxide 33 H (22-30) mmol/L BUN 18 H (7-17) mg/dL Glucose 103 H (74-99) mg/dL AST 44 H (14-36) U/L Total Protein 5.5 L (6.3-8.2) g/dL Albumin 3.1 L (3.5-5.0) g/dL Microbiology - Last 24 Hours (Table) 02/03/18 08:50 Blood Culture - Final Blood No Growth after 144 hours 02/06/18 04:40 Blood Culture - Preliminary Blood No Growth after 48 hours Assessment and Plan Plan: Assessment: 1 acute hypoxic respiratory failure secondary to a component of fluid overload with increased pulmonary vascular markings and she had high oxygen requirements overnight which was as high as 10 L/m nasal cannula along with that she had increased bronchospasm and wheezing. She was treated with a combination bronchodilators and diuretics. She improved and she is currently down to 2 by nasal cannula. Chest x-ray shows prominent interstitial pulmonary markings bilaterally consistent with CHF. Echocardiogram showed preserved left ventricular systolic function with an EF between 65-70%. IV fluids have been cut down to KVO. Patient remains nothing by mouth. NG tube is in place. On 02/08/2018, pulmonary status is stable. No worsening in the oxygenation. She is ambulating. No cough sputum production chest tightness or wheezing. No signs of any respiratory distress. On 02/09/2018, patient continues to improve, pulmonary status is stable, lung sounds are clear to auscultation, no wheezing, no rhonchi, no rales. FiO2 is down to 1 L, and the patient's pulse ox is 94%. Incentive spirometry effort is [id number] today. No fever no chills, no chest wall tenderness, no sputum production. 2 acute perforated diverticulitis, post expected laparotomy, and diverting colostomy and the patient is postop day #6. The NG tube has been discontinued 3 peritonitis secondary to above perforation, currently on IV Zosyn. 4 COPD 5 smoker 6 alcoholism 7 glaucoma Plan Continue encouraging incentive spirometry, lung sounds are clear on today's exam , no fever or chills. Continue current antibiotic coverage, continue nebulized bronchodilators. She remains stable, no acute events overnight. No signs of DTs. Continue to follow I performed a history & physical examination of the patient and discussed their management with my nurse practitioner, Amalia Hernadez. I reviewed the nurse practitioner's note and agree with the documented findings and plan of care. Lung sounds are clear. The findings and the impression was discussed with the patient. I attest to the documentation by the nurse practitioner. Time with Patient: Less than 30
[2018-02-09] MEDS: POTASSIUM CHLORIDE ER 20 MEQ TAB.ER PO SCH ×2 (14:29→16:53)
[2018-02-09] MEDS: HYDROcodone/APAP 5-325MG 1 EACH TAB PO PRN ×2 (14:38→20:24)
[2018-02-09] MEDS: MULTIVITAMINS, THERA 1 EACH TAB PO SCH (16:53)
[2018-02-09] MEDS: FOLIC ACID 1 MG TAB PO SCH (16:53)
[2018-02-09] MEDS: THIAMINE 100 MG TAB PO SCH (16:53)
--- NOTE | 2018-02-09 16:56 | PN ---
PROGRESS NOTE DATE OF SERVICE: 02/09/2018. REASON FOR FOLLOWUP: Secondary peritonitis from perforated diverticulitis. INTERVAL HISTORY: The patient is afebrile. Her IJ has been discontinued. The patient overall feeling much better. Denies having any chest pain or shortness of breath or cough or any abdominal pain. No nausea, no vomiting. EXAMINATION: Blood pressure 155/74 with a pulse of 81, temperature 98.4. She is 93% on room air. General description is a middle aged female up in the chair in no distress. RESPIRATORY SYSTEM: Unlabored breathing, clear to auscultation anteriorly. HEART : S1, S2. Regular rate and rhythm. ABDOMEN: Soft, no tenderness. LABS: Hemoglobin is 13.2, white count 10.2 with a BUN of 18, creatinine 0.58. DIAGNOSTIC IMPRESSION AND PLAN: Patient with secondary peritonitis from perforated sigmoid diverticulitis, status post diverting colostomy. The patient is currently on Zosyn. We will continue waiting for the resumption of before antibiotic further. Continue supportive care. MMODL / IJN: [id number] /
[2018-02-10] MEDS: HEPARIN SODIUM,PORCINE 5,000 UNIT/ML 1 ML VIAL SQ SCH ×4 (01:08→23:13)
[2018-02-10] MEDS: PIPERACILLIN-TAZOBACTAM 3.375 GM in DEXTROSE/WATER 1 50ML.BAG IVPB SCH ×4 (01:08→23:13)
[2018-02-10] MEDS: METOCLOPRAMIDE 5 MG/ML 2 ML VIAL IVP SCH ×5 (01:11→23:13)
[2018-02-10] MEDS: HYDROcodone/APAP 5-325MG 1 EACH TAB PO PRN ×5 (01:21→20:56)
[2018-02-10] MEDS: VENLAFAXINE HCL 37.5 MG TAB PO SCH ×2 (07:10→20:56)
[2018-02-10] MEDS: PANTOPRAZOLE 40 MG TABLET PO SCH (07:10)
[2018-02-10] MEDS: METOPROLOL TARTRATE 25 MG TAB PO SCH ×2 (07:10→20:56)
[2018-02-10 07:26] LABS: Basophils # (A) 0.1 k/uL (0-0.2); Basophils % (A) 1 %; Eosinophils # (A) 0.2 k/uL (0-0.7); Eosinophils % (A) 3 %; HCT 36.9 % (34.0-46.0); HGB 11.8 gm/dL (11.4-16.0); Lymphocytes % (A) 23 %; MCH 30.9 pg (25.0-35.0); MCHC 31.9 g/dL (31.0-37.0); MCV 96.6 fL (80.0-100.0); Mean Platelet Volume 6.7; Monocytes # (A) 0.6 k/uL (0-1.0); Monocytes % (A) 7 %; Neutrophils # (A) 5.5 k/uL (1.3-7.7); Neutrophils % (A) 64 %; Platelet Count 546 k/uL (150-450); RBC 3.82 m/uL (3.80-5.40); RDW 13.8 % (11.5-15.5); WBC 8.5 k/uL (3.8-10.6)
[2018-02-10 07:45] VITALS: RESP 16
[2018-02-10 07:53] LABS: Anion Gap 10 mmol/L; Blood Urea Nitrogen 15 mg/dL (7-17); Calcium 9.3 mg/dL (8.4-10.2); Carbon Dioxide 31 mmol/L (22-30); Chloride 100 mmol/L (98-107); Glucose 104 mg/dL (74-99); Potassium 3.9 mmol/L (3.5-5.1); Sodium 141 mmol/L (137-145)
[2018-02-10] MEDS: IPRATROPIUM-ALBUTEROL 3 ML NEB INHALATION SCH ×4 (08:17→20:56)
[2018-02-10 10:38] VITALS: BMI 33.5
--- NOTE | 2018-02-10 11:23 | P.PN ---
Subjective Progress Note Date: 02/10/18 Principal diagnosis: Acute hypoxic respiratory failure secondary to fluid overload and mild bronchospasm secondary to COPD exacerbation A pleasant 57-year-old female patient, who developed acute respiratory distress and acute hypoxic respiratory failure yesterday on a medical surgical floor and for that reason the pulmonary consultation was requested. This patient is a chronic smoker in she has COPD and she is smoking around 2 pack of cigarettes a day. She also has excessive alcohol ingestion, alcoholism. The patient came into the hospital because of abdominal pain and the patient was progressively getting worse and further CAT scan imaging of the abdomen and pelvis showed that the patient an acute diverticulitis with bowel perforation. She was started on antibiotics and further surgical consultation was obtained and the patient was taken to the operating room for urgent expose laparotomy and she underwent partial colectomy and colostomy placement. Today she is postop day # 3. Immediately postop, an NG tube was placed and the patient was sent to the medical floor. Over the next day, the patient was doing well till yesterday evening when she started getting increased shortness of breath. I was informed that the patient was hypoxic and at one point she was placed up to 10 L of oxygen nasal cannula. She was receiving IV fluids and she was in a positive fluid balance. Immediately, chest x-ray was done that showed prominence of the pulmonary vascular marking and interstitial marking suggestive of pulmonary vessel congestion. She is not known to have any history of cardiac disease or congestion heart failure. No reported aspiration. NG tube was still in place. Colostomy site is not showing any significant output yet. Bowel sounds remain hypoactive. The patient is a MILO drain in the right lower quadrant area. There was concern that she may be going into delirium tremens. She reported heavy alcohol ingestion and are lasting was more than 2 weeks ago. She was placed on the CIWA protocol yet there was no indication that the patient was going into delirium tremens and the patient remains alert and awake. Overnight , the patient received 2 doses of Lasix and she put out a good amount of urine output. The follow-up chest x-ray from early this morning at 5:00 showed persistent pulmonary vascular congestion unchanged compared to the last chest x- ray. She remains chest pain-free. The white cell count is not elevated at 12.1. Renal function is stable with a creatinine of 0.5. The patient is on DuoNeb the rise treatments around the clock. The patient is also on IV Zosyn as antibiotic coverage for complicated diverticulitis with bowel perforation. No previous history of DVT and pulmonary embolism. The patient has been maintained on subcu heparin for DVT prophylaxis. The patient is seen again today 02/07/2018 in follow-up on the selective care unit. She is currently resting comfortably in bed. She is awake and alert in no acute distress. He is having ongoing abdominal discomfort. Abdominal x-ray reveals nonobstructive bowel gas pattern. Pain control with Dilaudid. She denies any worsening shortness of breath, cough or congestion. She is working with the incentive spirometer. She is maintaining good O2 saturations in the 90s on 2 L/m per nasal cannula. She's currently afebrile. Hemodynamically stable. Blood and urine cultures reveal no growth. White count 9.8. Hemoglobin 12.6. Creatinine 0.50. On 02/08/2018, the patient has awake and alert. She remains nothing by mouth. NG tube is in place. The drainage from the NG tube has slowed down although it selective. No significant output in the colostomy bag. Abdomen is nondistended. Bowel sounds are hypoactive. No respiratory distress. The patient is ambulating. No cough sputum production chest tightness or wheezing. No other significant events otherwise. The white cell count is at 4.5. Potassium level is at 3.4 and needs to be replaced. Renal function is also stable. On 02/09/2018 patient seen in follow-up on medical surgical floor. She is awake , alert, oriented 3, denies any acute distress, NG tube has been discontinued, her colostomy is producing dark liquid output, and gas, no nausea or vomiting. From pulmonary standpoint her breathing denies to improve, lung sounds are clear to auscultation, no wheezing, no rhonchi no rales. Patient has been diuresed, and she continues on nebulized bronchodilators, in addition to Zosyn. Blood, and urine cultures show no growth, today's lab work shows no evidence of leukocytosis, sodium is 141, potassium is 3.5, chloride is 96, CO2 of 33, BUN of 18, creatinine of 0.58. No fever or chills. Patient is on 1 L per nasal cannula with O2 sat 94%, respirations are even and nonlabored, he needs encouragement with her incentive spirometry, but she is able to achieve 1250- 1500 on it today. On 02/10/2018 patient seen in follow-up. Denies any dyspnea, currently on 2 L per nasal cannula, and her pulse ox is 91-92%, her room air pulse ox was 87%, she is compliant with her incentive spirometry, and is able which to achieve 1500 on the today. Lung sounds are clear, the patient has an occasional congested cough, and is able to bring up small amount of light haas sputum. Patient is tolerating full liquid diet, no nausea or vomiting, her colostomy functioning, and there is soft brown stool in its. Today's labs were reviewed, CBC is within normal limits with the exception of platelet count is up to 546, sodium is 141, potassium is 3.9, CO2 is 31, BUN is 15, creatinine 0.56. Patient denies any fever or chills, discharge is in progress for possible discharge to subacute rehab today. Objective - Vital Signs Vital signs: Vital Signs Temp 97.9 F 02/10/18 07:02 Pulse 84 02/10/18 08:29 Resp 16 02/10/18 07:02 BP 139/69 02/10/18 07:02 Pulse Ox 87 L 02/10/18 07:05 Intake & Output 02/09/18 02/10/18 02/10/18 18:59 06:59 18:59 Intake Total 350 Output Total 70 200 90 Balance -70 150 -90 Weight 94 kg 94.2 kg 94.2 kg Intake: Oral 350 Output: Drainage 70 50 90 Abdomen 50 50 90 Right NARES 20 Stool 150 Other: Voiding Method Toilet Toilet Toilet # Voids 3 1 - Exam Gen. appearance the patient is calm comfortable likely distress. No labored breathing. No use of accessory muscles of breathing at this point in time. Head exam was generally normal. There was no scleral icterus or corneal arcus. Mucous membranes were moist. Neck was supple and without jugular venous distension, thyromegaly, or carotid bruits. Carotids were easily palpable bilaterally. There was no adenopathy. Lung sounds are clear bilaterally. No wheezes, rales or rhonchi. Cardiac exam revealed the PMI to be normally situated and sized. The rhythm was regular and no extrasystoles were noted during several minutes of auscultation. The first and second heart sounds were normal and physiologic splitting of the second heart sound was noted. There were no murmurs, rubs, clicks, or gallops. Abdominal exam revealed diminished bowel sounds and the patient has a MILO drain in the right lower quadrant area. The mid incision was dry clean and intact. No direct tenderness rebound tensile guarding. Colostomy site is viable and there is soft brown stool in it. Organs cannot be accurately evaluated and palpated on today's evaluation. NG tube has been discontinued, patient has not had any nausea, or vomiting Examination of the extremities revealed easily palpable radial, femoral and pedal pulses. There was no cyanosis, clubbing or edema. Examination of the skin revealed no evidence of significant rashes, suspicious appearing nevi or other concerning lesions. Neurologically the patient is awake and alert and there is no focal neurological deficits. - Labs CBC & Chem 7: 02/10/18 06:27 02/10/18 06:27 Labs: Abnormal Lab Results - Last 24 Hours (Table) 02/10/18 02/10/18 Range/Units 06:27 06:27 Plt Count 546 H (150-450) k/uL Carbon Dioxide 31 H (22-30) mmol/L Glucose 104 H (74-99) mg/dL Microbiology - Last 24 Hours (Table) 02/06/18 04:40 Blood Culture - Preliminary Blood No Growth after 72 hours 02/03/18 08:50 Blood Culture - Final Blood No Growth after 144 hours Assessment and Plan Plan: Assessment: 1 acute hypoxic respiratory failure secondary to a component of fluid overload with increased pulmonary vascular markings and she had high oxygen requirements overnight which was as high as 10 L/m nasal cannula along with that she had increased bronchospasm and wheezing. She was treated with a combination bronchodilators and diuretics. She improved and she is currently down to 2 by nasal cannula. Chest x-ray shows prominent interstitial pulmonary markings bilaterally consistent with CHF. Echocardiogram showed preserved left ventricular systolic function with an EF between 65-70%. IV fluids have been cut down to KVO. NG tube has been discontinued, and the patient is tolerating full liquid diet, and colostomy is functioning On 02/08/2018, pulmonary status is stable. No worsening in the oxygenation. She is ambulating. No cough sputum production chest tightness or wheezing. No signs of any respiratory distress. On 02/09/2018, patient continues to improve, pulmonary status is stable, lung sounds are clear to auscultation, no wheezing, no rhonchi, no rales. FiO2 is down to 1 L, and the patient's pulse ox is 94%. Incentive spirometry effort is [id number] today. No fever no chills, no chest wall tenderness, no sputum production. On 02/10/2018, patient continues to improve, compliant with her incentive spirometry, lung sounds are clear to auscultation, room air pulse ox is 87%, and the patient may need home oxygen. No wheezes, no rhonchi, no rales. No fever no chills, discharge is pending to a subacute rehab possibly today. Microbiology results remain negative, NG tube has been discontinued, and the patient is tolerating full liquid diet 2 acute perforated diverticulitis, post expected laparotomy, and diverting colostomy and the patient is postop day #6. The NG tube has been discontinued 3 peritonitis secondary to above perforation, currently on IV Zosyn. 4 COPD 5 smoker 6 alcoholism 7 glaucoma Plan Continue current plan of treatment, patient has been afebrile, denies any dyspnea. Continue encouraging incentive spirometry. Room air pulse ox was 87% , and the patient may need home oxygen arranged. Possible discharge to subacute rehab today. Patient is stable for discharge from pulmonary standpoint , follow-up with Dr. Buchanan in the office in 7-10 days. I performed a history & physical examination of the patient and discussed their management with my nurse practitioner, Amalia Hernadez. I reviewed the nurse practitioner's note and agree with the documented findings and plan of care. Lung sounds are clear. The findings and the impression was discussed with the patient. I attest to the documentation by the nurse practitioner. Time with Patient: Less than 30
[2018-02-10] MEDS: FOLIC ACID 1 MG TAB PO SCH (12:45)
[2018-02-10] MEDS: MULTIVITAMINS, THERA 1 EACH TAB PO SCH (12:46)
[2018-02-10] MEDS: THIAMINE 100 MG TAB PO SCH (12:46)
--- NOTE | 2018-02-10 13:42 | P.PN ---
Subjective Progress Note Date: 02/10/18 Patient is doing well today. She does not have any complaints. She is looking forward to be discharged to rehab today. Objective - Vital Signs Vital signs: Vital Signs Temp 97.9 F 02/10/18 07:02 Pulse 80 02/10/18 13:14 Resp 16 02/10/18 07:02 BP 139/69 02/10/18 07:02 Pulse Ox 87 L 02/10/18 07:05 Intake & Output 02/09/18 02/10/18 02/10/18 18:59 06:59 18:59 Intake Total 350 Output Total 70 200 90 Balance -70 150 -90 Weight 94 kg 94.2 kg 94.2 kg Intake: Oral 350 Output: Drainage 70 50 90 Abdomen 50 50 90 Right NARES 20 Stool 150 Other: Voiding Method Toilet Toilet Toilet # Voids 3 1 - Exam General: The patient is awake and alert, in no distress Eye: there is normal conjunctiva bilaterally. Neck: The neck is supple, there is no JVD. Cardiovascular: Normal S1-S2, no S3-S4, no murmurs. Respiratory: Lungs clear to auscultation bilaterally Gastrointestinal: Abdomen is soft, nontender Musculoskeletal: There is no pedal edema. Neurological:. Speech is normal. Skin: Skin is warm and dry - Labs CBC & Chem 7: 02/10/18 06:27 02/10/18 06:27 Labs: Abnormal Lab Results - Last 24 Hours (Table) 02/10/18 02/10/18 Range/Units 06:27 06:27 Plt Count 546 H (150-450) k/uL Carbon Dioxide 31 H (22-30) mmol/L Glucose 104 H (74-99) mg/dL Microbiology - Last 24 Hours (Table) 02/06/18 04:40 Blood Culture - Preliminary Blood No Growth after 72 hours 02/03/18 08:50 Blood Culture - Final Blood No Growth after 144 hours Assessment and Plan Assessment: 1. Acute diverticulitis with bowel perforation status post exploratory laparotomy with colostomy placement. Continue postoperative care. Gen. surgery following closely. Pain control and antiemetic as needed. NG tube discontinued. Advance diet as directed by general surgery. 2. Peritonitis secondary to bowel perforation, currently on Zosyn. Infectious disease is following. 3. Generalized anxiety disorder on Effexor 4. DVT prophylaxis with subcu heparin 5. History of alcohol abuse: Now in remission
--- NOTE | 2018-02-10 13:55 | P.DS ---
Providers Date of admission: 02/03/18 11:34 Expected date of discharge: 02/10/18 Attending physician: Heath Rivera Consults: 02/03/18 14:19 Consult Physician Routine Consulting Provider: Sukhwinder Randolph Consult Reason/Comments: Medical management Do you want consulting provider notified?: Yes 02/05/18 13:11 Consult Physician Routine Consulting Provider: Michelle Kruger Consult Reason/Comments: peritonitis Do you want consulting provider notified?: Already Contacted 02/05/18 22:00 Consult Physician Urgent Consulting Provider: Kianna Buchanan Consult Reason/Comments: Compromised respiratory status Do you want consulting provider notified?: Yes 02/06/18 09:21 Consult Physician Urgent Consulting Provider: Adwoa Dubose Consult Reason/Comments: Sinus tach possible heart failure Do you want consulting provider notified?: Yes Primary care physician: Sarah Mendez [facility] Course: 57-year-old female presented on the day of admission to the emergency room after developing abdominal pain that had gotten progressively worse. Patient had a CAT scan of the abdomen pelvis in the emergency room it showed evidence of an acute diverticulitis with a bowel perforation. Patient was seen by Dr. rivera. taken to the operating room February 03 and underwent urgent exploratory laparotomy with partial colectomy and colostomy placement postop nasal gastric tube was placed IV fluid for hydration and bowel rest obtained. Patient did develop postoperatively an episode of shortness of breath necessitating the patient to be transferred to cardiac unit additionally patient reported having heavy alcohol use stated her last alcohol beverage was 2 weeks prior. Was placed on CIWA protocol echocardiogram was obtained the report indicated left ventricular systolic function normal with an EF between 65 and 70 no evidence of pulmonary hypertension patient was stabilized symptoms improved pulmonary did participate in the plan of care O2 was titrated down to 2 L. Patient was transferred from the cardiac unit to surgical unit. Patient was seen by physical and occupational therapy. Patient was requesting to go to subacute rehab at the time of discharge. Ostomy teaching was initiated as well. Patient was followed by case management rn and felt to be appropriate to be transferred to an [facility] facility for subacute rehab. On the day of discharge was tolerating a liquid diet no nausea vomiting and the ostomy was functioning. MILO drain was in place with serous drainage. Patient was treated for acute perforated diverticulitis with peritonitis due to the perforation. Patient had been started on IV Zosyn per recommendations of infectious disease and at the time of discharge Augmentin was felt to be appropriate coverage. Impression discharge diagnosis Present on admission abdominal pain with nausea vomiting suspect due to acute diverticulitis Status post exploratory laparotomy with colostomy for acute diverticulitis with bowel perforation done on January 04 Peritonitis secondary to bowel perforation Anxiety depressive disorder Postop tachycardia expected likely due to surgical pain improved Present on admission febrile tachycardic hypotensive sepsis suspect due to acute diverticulitis with perforation with peritonitis Current every day smoker COPD Leukocytosis Chest x-ray obtained on February 05 possible early heart failure atelectasis Hypokalemia corrected resolved History of alcohol abuse with no evidence of DTs in remission Echocardiogram February 06 left ventricular systolic function EF 65-70% no evidence of pulmonary hypertension Acute hypoxic respiratory failure secondary to fluid overload and mild bronchospasm secondary to an acute exacerbation of COPD The above impression and plan of care have been discussed and directed by signing physician. Romelia Dominguez nurse practitioner acting as scribe for signing physician. Patient Condition at Discharge: Stable Plan - Discharge Summary Discharge Rx Participant: No New Discharge Prescriptions: New Amoxic-Pot Clav 500-125 mg [Augmentin 500-125 mg] 1 tab PO Q12HR #6 tab Folic Acid 1 mg PO DAILY@1200 tab Ipratropium-Albuterol Nebulize [Duoneb 0.5 mg-3 mg/3 ml Soln] 3 ml INHALATION RT-QID PRN ampul.neb PRN Reason: Shortness Of Breath Metoprolol Tartrate [Lopressor] 25 mg PO BID tab Thiamine [Vitamin B-1] 100 mg PO DAILY@1200 tab HYDROcodone/APAP 5-325MG [[place] 5-325] 1 each PO Q8H PRN #21 tab PRN Reason: Pain Continue Venlafaxine HCl [Venlafaxine HCl ER] 150 mg PO DAILY Fluticasone Nasal [place] [Flonase Nasal [place]] 1 spray EA NOSTRIL BID Albuterol Inhaler [Ventolin Hfa Inhaler] 1 - 2 puff INHALATION RT-Q4H PRN PRN Reason: Cough Discontinued Sulfamethox-Tmp 800-160Mg [Bactrim DS 800-160 mg] 1 tab PO Q12HR Venlafaxine HCl ER [Effexor Xr] 75 mg PO DAILY Discharge Medication List Venlafaxine HCl [Venlafaxine HCl ER] 150 mg PO DAILY 08/26/14 [History] Albuterol Inhaler [Ventolin Hfa Inhaler] 1 - 2 puff INHALATION RT-Q4H PRN [History] Fluticasone Nasal [place] [Flonase Nasal [place]] 1 spray EA NOSTRIL BID 02/03/18 [ History] Amoxic-Pot Clav 500-125 mg [Augmentin 500-125 mg] 1 tab PO Q12HR #6 tab [Rx] Folic Acid 1 mg PO DAILY@1200 tab 02/10/18 [Rx] HYDROcodone/APAP 5-325MG [[place] 5-325] 1 each PO Q8H PRN #21 tab 02/10/18 [Rx] Ipratropium-Albuterol Nebulize [Duoneb 0.5 mg-3 mg/3 ml Soln] 3 ml INHALATION RT -QID PRN ampul.neb 02/10/18 [Rx] Metoprolol Tartrate [Lopressor] 25 mg PO BID tab 02/10/18 [Rx] Thiamine [Vitamin B-1] 100 mg PO DAILY@1200 tab 02/10/18 [Rx] Follow up Appointment(s)/Referral(s): Sarah Mendez MD [Primary Care Provider] - 1-2 days [facility], [NON-STAFF] - 1 Week Kianna Buchanan MD [STAFF PHYSICIAN] - 10 Days Patient Instructions/Handouts: Colostomy Care (GEN) Activity/Diet/Wound Care/Special Instructions: LAst ostomy pouching system change: 02.10.2018 Colostomy Care Recommendations for Home: Patient will receive the following supplies for home as follows: Convatec Flanges (wafers) #[id number] (three) Convatec pouches with filter #[id number] (three) No sting skin prep (12) Peristomal skin irritation area Osotmy powder (1) Mrs Velasquez is to change the ostomy pouching system every 3- 5 days Mrs Velasquez is to empty the ostomy pouch when the pouch is 1/2 to 1/3 full Rehab please establish Mrs Velasquez with Durable Medical Equipment for disposable pouching system in 3 weeks from discharge. No tub bath for six weeks. Shower daily. No lifting over 10 pounds for the next 6 weeks. Monitor MILO drain and record. Every 8 hours May use ice packs to surgical site. No driving while taking narcotic for pain. MILO drain and irina from surgical site will be removed in a follow-up visit outpatient with Dr. rivera Smoking cessation information provided been advised to stop smoking cigarettes and drinking alcohol Use incentive spirometer every hour Continue with PT OT ambulate every hour while awake Liquid diet to slowly be advanced to a soft Titrate the O2 down keep the sats greater than 90% Discharge Disposition: TRANSFER TO SNF/ECF
--- NOTE | 2018-02-10 14:48 | PN ---
PROGRESS NOTE DATE OF SERVICE: 02/10/2018 REASON FOR FOLLOWUP: Secondary peritonitis from perforated diverticulitis. INTERVAL HISTORY: The patient is afebrile. Overall, the patient is feeling much better. She has been eating a soft diet and tolerating it so far without any nausea or vomiting. Denies any significant abdominal pain and she is to go to [facility] for rehab. PHYSICAL EXAMINATION: Blood pressure 139/69, pulse of 78, temperature 97.9. She is 92% on 2 L nasal cannula. General description is a middle-aged female up in the chair, in no distress. RESPIRATORY SYSTEM: Unlabored breathing, clear to auscultation anteriorly. HEART: S1, S2. Regular rate and rhythm. ABDOMEN: Soft, did have in her colostomy bag. LABS: Hemoglobin is 11.8, white count 8.5. BUN of 15, creatinine 0.56. DIAGNOSTIC IMPRESSION AND PLAN: Patient with secondary peritonitis from a perforated diverticulitis, status post diverting colostomy. Currently on Zosyn. Antibiotic can be switched to Augmentin 875 b.i.d. for another 10 days with close outpatient followup. Continue supportive care. MMODL / IJN: [id number] /
[2018-02-11] MEDS: HYDROcodone/APAP 5-325MG 1 EACH TAB PO PRN ×3 (01:11→10:53)
[2018-02-11] MEDS: METOCLOPRAMIDE 5 MG/ML 2 ML VIAL IVP SCH ×2 (05:24→10:54)
[2018-02-11 05:48] VITALS: BP 168/81; TEMP 98.2
[2018-02-11] MEDS: IPRATROPIUM-ALBUTEROL 3 ML NEB INHALATION SCH ×2 (07:53→11:50)
[2018-02-11] MEDS: METOPROLOL TARTRATE 25 MG TAB PO SCH (08:25)
[2018-02-11] MEDS: PIPERACILLIN-TAZOBACTAM 3.375 GM in DEXTROSE/WATER 1 50ML.BAG IVPB SCH (08:25)
[2018-02-11] MEDS: PANTOPRAZOLE 40 MG TABLET PO SCH (08:25)
[2018-02-11] MEDS: VENLAFAXINE HCL 37.5 MG TAB PO SCH (08:25)
[2018-02-11] MEDS: HEPARIN SODIUM,PORCINE 5,000 UNIT/ML 1 ML VIAL SQ SCH (08:25)
[2018-02-11 10:50] VITALS: PULSE 81
--- NOTE | 2018-02-11 12:00 | P.PN ---
Progress Note - Text Progress Note Date: 02/11/18 Decided that she is wanting to go home and does not want to be transferred to an ECF facility. The delay on February 10 was waiting for insurance coverage. benefits manager pursuing home discharge setting up for a hospital bed home equipment with home care to follow. Patient will be discharged today on February 11 to home The above impression and plan of care have been discussed and directed by signing physician. Romelia Dominguez nurse practitioner acting as scribe for signing physician.
--- NOTE | 2018-02-11 12:22 | P.PN ---
Subjective Progress Note Date: 02/11/18 Principal diagnosis: Acute hypoxic respiratory failure secondary to fluid overload and mild bronchospasm secondary to COPD exacerbation A pleasant 57-year-old female patient, who developed acute respiratory distress and acute hypoxic respiratory failure yesterday on a medical surgical floor and for that reason the pulmonary consultation was requested. This patient is a chronic smoker in she has COPD and she is smoking around 2 pack of cigarettes a day. She also has excessive alcohol ingestion, alcoholism. The patient came into the hospital because of abdominal pain and the patient was progressively getting worse and further CAT scan imaging of the abdomen and pelvis showed that the patient an acute diverticulitis with bowel perforation. She was started on antibiotics and further surgical consultation was obtained and the patient was taken to the operating room for urgent expose laparotomy and she underwent partial colectomy and colostomy placement. Today she is postop day # 3. Immediately postop, an NG tube was placed and the patient was sent to the medical floor. Over the next day, the patient was doing well till yesterday evening when she started getting increased shortness of breath. I was informed that the patient was hypoxic and at one point she was placed up to 10 L of oxygen nasal cannula. She was receiving IV fluids and she was in a positive fluid balance. Immediately, chest x-ray was done that showed prominence of the pulmonary vascular marking and interstitial marking suggestive of pulmonary vessel congestion. She is not known to have any history of cardiac disease or congestion heart failure. No reported aspiration. NG tube was still in place. Colostomy site is not showing any significant output yet. Bowel sounds remain hypoactive. The patient is a MILO drain in the right lower quadrant area. There was concern that she may be going into delirium tremens. She reported heavy alcohol ingestion and are lasting was more than 2 weeks ago. She was placed on the CIWA protocol yet there was no indication that the patient was going into delirium tremens and the patient remains alert and awake. Overnight , the patient received 2 doses of Lasix and she put out a good amount of urine output. The follow-up chest x-ray from early this morning at 5:00 showed persistent pulmonary vascular congestion unchanged compared to the last chest x- ray. She remains chest pain-free. The white cell count is not elevated at 12.1. Renal function is stable with a creatinine of 0.5. The patient is on DuoNeb the rise treatments around the clock. The patient is also on IV Zosyn as antibiotic coverage for complicated diverticulitis with bowel perforation. No previous history of DVT and pulmonary embolism. The patient has been maintained on subcu heparin for DVT prophylaxis. The patient is seen again today 02/07/2018 in follow-up on the selective care unit. She is currently resting comfortably in bed. She is awake and alert in no acute distress. He is having ongoing abdominal discomfort. Abdominal x-ray reveals nonobstructive bowel gas pattern. Pain control with Dilaudid. She denies any worsening shortness of breath, cough or congestion. She is working with the incentive spirometer. She is maintaining good O2 saturations in the 90s on 2 L/m per nasal cannula. She's currently afebrile. Hemodynamically stable. Blood and urine cultures reveal no growth. White count 9.8. Hemoglobin 12.6. Creatinine 0.50. On 02/08/2018, the patient has awake and alert. She remains nothing by mouth. NG tube is in place. The drainage from the NG tube has slowed down although it selective. No significant output in the colostomy bag. Abdomen is nondistended. Bowel sounds are hypoactive. No respiratory distress. The patient is ambulating. No cough sputum production chest tightness or wheezing. No other significant events otherwise. The white cell count is at 4.5. Potassium level is at 3.4 and needs to be replaced. Renal function is also stable. On 02/09/2018 patient seen in follow-up on medical surgical floor. She is awake , alert, oriented 3, denies any acute distress, NG tube has been discontinued, her colostomy is producing dark liquid output, and gas, no nausea or vomiting. From pulmonary standpoint her breathing denies to improve, lung sounds are clear to auscultation, no wheezing, no rhonchi no rales. Patient has been diuresed, and she continues on nebulized bronchodilators, in addition to Zosyn. Blood, and urine cultures show no growth, today's lab work shows no evidence of leukocytosis, sodium is 141, potassium is 3.5, chloride is 96, CO2 of 33, BUN of 18, creatinine of 0.58. No fever or chills. Patient is on 1 L per nasal cannula with O2 sat 94%, respirations are even and nonlabored, he needs encouragement with her incentive spirometry, but she is able to achieve 1250- 1500 on it today. On 02/10/2018 patient seen in follow-up. Denies any dyspnea, currently on 2 L per nasal cannula, and her pulse ox is 91-92%, her room air pulse ox was 87%, she is compliant with her incentive spirometry, and is able which to achieve 1500 on the today. Lung sounds are clear, the patient has an occasional congested cough, and is able to bring up small amount of light haas sputum. Patient is tolerating full liquid diet, no nausea or vomiting, her colostomy functioning, and there is soft brown stool in its. Today's labs were reviewed, CBC is within normal limits with the exception of platelet count is up to 546, sodium is 141, potassium is 3.9, CO2 is 31, BUN is 15, creatinine 0.56. Patient denies any fever or chills, discharge is in progress for possible discharge to subacute rehab today. On 02/11/2018 patient seen in follow-up on medical surgical floor. Denies any dyspnea, she is currently on room air, without any specific complaints, room air pulse ox is 93%, patient is afebrile, hemodynamically stable, lung sounds are clear to auscultation, today's labs were noted, and are essentially within normal limits, with the exception of platelets at 546. Patient has been tolerating a full liquid diet, no nausea or vomiting, her colostomy is with soft brown stool. Patient is being discharged home today, patient is stable for discharge home from pulmonary standpoint, smoking cessation was strongly advised, and patient will see Dr. Buchanan in follow-up Objective - Vital Signs Vital signs: Vital Signs Temp 98.2 F 02/11/18 05:00 Pulse 80 02/11/18 08:03 Resp 16 02/11/18 08:00 BP 168/81 02/11/18 05:00 Pulse Ox 93 L 02/11/18 05:00 Intake & Output 02/10/18 02/11/18 02/11/18 18:59 06:59 18:59 Intake Total 630 Output Total 130 100 Balance -130 530 Weight 94.2 kg 76.59 kg Intake: IV 50 Piperacillin-Tazobactam 3 50 .375 gm In Dextrose/Water 1 50ml.bag @ 12.5 mls/hr IVPB Q8HR [facility] Rx#: [id number] Oral 580 Output: Drainage 130 100 Abdomen 130 100 Other: Voiding Method Toilet Toilet Toilet # Voids 2 - Exam Gen. appearance the patient is calm comfortable likely distress. No labored breathing. No use of accessory muscles of breathing at this point in time. Head exam was generally normal. There was no scleral icterus or corneal arcus. Mucous membranes were moist. Neck was supple and without jugular venous distension, thyromegaly, or carotid bruits. Carotids were easily palpable bilaterally. There was no adenopathy. Lung sounds are clear bilaterally. No wheezes, rales or rhonchi. Cardiac exam revealed the PMI to be normally situated and sized. The rhythm was regular and no extrasystoles were noted during several minutes of auscultation. The first and second heart sounds were normal and physiologic splitting of the second heart sound was noted. There were no murmurs, rubs, clicks, or gallops. Abdominal exam revealed diminished bowel sounds and the patient has a MILO drain in the right lower quadrant area. The mid incision was dry clean and intact. No direct tenderness rebound tensile guarding. Colostomy site is viable and there is soft brown stool in it. Organs cannot be accurately evaluated and palpated on today's evaluation. NG tube has been discontinued, patient has not had any nausea, or vomiting Examination of the extremities revealed easily palpable radial, femoral and pedal pulses. There was no cyanosis, clubbing or edema. Examination of the skin revealed no evidence of significant rashes, suspicious appearing nevi or other concerning lesions. Neurologically the patient is awake and alert and there is no focal neurological deficits. - Labs CBC & Chem 7: 02/10/18 06:27 02/10/18 06:27 Labs: Microbiology - Last 24 Hours (Table) 02/06/18 04:40 Blood Culture - Preliminary Blood No Growth after 96 hours Assessment and Plan Plan: Assessment: 1 acute hypoxic respiratory failure secondary to a component of fluid overload with increased pulmonary vascular markings and she had high oxygen requirements overnight which was as high as 10 L/m nasal cannula along with that she had increased bronchospasm and wheezing. She was treated with a combination bronchodilators and diuretics. She improved and she is currently down to 2 by nasal cannula. Chest x-ray shows prominent interstitial pulmonary markings bilaterally consistent with CHF. Echocardiogram showed preserved left ventricular systolic function with an EF between 65-70%. IV fluids have been cut down to KVO. NG tube has been discontinued, and the patient is tolerating full liquid diet, and colostomy is functioning On 02/08/2018, pulmonary status is stable. No worsening in the oxygenation. She is ambulating. No cough sputum production chest tightness or wheezing. No signs of any respiratory distress. On 02/09/2018, patient continues to improve, pulmonary status is stable, lung sounds are clear to auscultation, no wheezing, no rhonchi, no rales. FiO2 is down to 1 L, and the patient's pulse ox is 94%. Incentive spirometry effort is [id number] today. No fever no chills, no chest wall tenderness, no sputum production. On 02/10/2018, patient continues to improve, compliant with her incentive spirometry, lung sounds are clear to auscultation, room air pulse ox is 87%, and the patient may need home oxygen. No wheezes, no rhonchi, no rales. No fever no chills, discharge is pending to a subacute rehab possibly today. Microbiology results remain negative, NG tube has been discontinued, and the patient is tolerating full liquid diet On 02/11/2018 patient is doing very well, no dyspnea, no chest congestion, no wheezing, she is tolerating full liquid diet, no acute events overnight, no specific complaints. She has been tolerating ambulation, vital signs are stable , patient is being discharged home today. 2 acute perforated diverticulitis, post expected laparotomy, and diverting colostomy and the patient is postop day #6. The NG tube has been discontinued 3 peritonitis secondary to above perforation, currently on IV Zosyn. 4 COPD 5 smoker 6 alcoholism 7 glaucoma Plan Patient is stable from pulmonary standpoint, no acute complaints, no dyspnea, no chest congestion, no wheezing. Smoking cessation was strongly encouraged, liver the patient states she is going to work on it gradually. Lung sounds are clear, vital signs are stable, patient will need outpatient follow-up on the outpatient basis with Dr. Buchanan I performed a history & physical examination of the patient and discussed their management with my nurse practitioner, Amalia Hernadez. I reviewed the nurse practitioner's note and agree with the documented findings and plan of care. Lung sounds are clear. The findings and the impression was discussed with the patient. I attest to the documentation by the nurse practitioner. Time with Patient: Less than 30
--- NOTE | 2018-02-11 13:02 | P.PN ---
Subjective Progress Note Date: 02/11/18 Patient discharged to half-way was canceled yesterday with issues with her insurance. Plan for her is to go home today. Objective - Vital Signs Vital signs: Vital Signs Temp 98.2 F 02/11/18 05:00 Pulse 80 02/11/18 08:03 Resp 16 02/11/18 08:00 BP 168/81 02/11/18 05:00 Pulse Ox 93 L 02/11/18 05:00 Intake & Output 02/10/18 02/11/18 02/11/18 18:59 06:59 18:59 Intake Total 630 Output Total 130 100 Balance -130 530 Weight 94.2 kg 76.59 kg Intake: IV 50 Piperacillin-Tazobactam 3 50 .375 gm In Dextrose/Water 1 50ml.bag @ 12.5 mls/hr IVPB Q8HR [facility] Rx#: [id number] Oral 580 Output: Drainage 130 100 Abdomen 130 100 Other: Voiding Method Toilet Toilet Toilet # Voids 2 - Exam General: The patient is awake and alert, in no distress Eye: there is normal conjunctiva bilaterally. Neck: The neck is supple, there is no JVD. Cardiovascular: Normal S1-S2, no S3-S4, no murmurs. Respiratory: Lungs clear to auscultation bilaterally Gastrointestinal: Abdomen is soft, nontender Musculoskeletal: There is no pedal edema. Neurological:. Speech is normal. Skin: Skin is warm and dry - Labs CBC & Chem 7: 02/10/18 06:27 02/10/18 06:27 Labs: Microbiology - Last 24 Hours (Table) 02/06/18 04:40 Blood Culture - Preliminary Blood No Growth after 96 hours Assessment and Plan Assessment: 1. Acute diverticulitis with bowel perforation status post exploratory laparotomy with colostomy placement. Continue postoperative care. Gen. surgery following closely. Pain control and antiemetic as needed. NG tube discontinued. Advance diet as directed by general surgery. 2. Peritonitis secondary to bowel perforation, currently on Zosyn. Infectious disease is following. 3. Generalized anxiety disorder on Effexor 4. DVT prophylaxis with subcu heparin 5. History of alcohol abuse: Now in remission Recent new prescriptions to her pharmacy today. Couple more days of Augmentin. Encouraged to stay away from alcohol. Continue thiamine and folic acid for couple weeks.
[2018-02-11] MEDS: MULTIVITAMINS, THERA 1 EACH TAB PO SCH (13:03)
[2018-02-11] MEDS: THIAMINE 100 MG TAB PO SCH (13:03)
[2018-02-11] MEDS: FOLIC ACID 1 MG TAB PO SCH (13:03)
--- NOTE | 2018-02-11 15:16 | PN ---
PROGRESS NOTE DATE OF SERVICE: 02/11/2018. REASON FOR FOLLOWUP: Secondary peritonitis from perforated diverticulitis. INTERVAL HISTORY: The patient was seen on rounds this morning. The patient overall is feeling better. She is breathing comfortably. Denies having significant chest pain. No cough. Abdominal pain has improved. Tolerating diet. No nausea, vomiting reported. EXAMINATION: Blood pressure is 168/81 with a pulse of 81, temperature 98.2. She is 93% on room air. General description is a middle-aged female up in the bed in no distress. RESPIRATORY SYSTEM: Unlabored breathing. Clear to auscultation. HEART: S1, S2. Regular rate and rhythm. ABDOMEN: Soft, no tenderness. LAB: White count normal 8.5, BUN of 15, creatinine 0.56. DIAGNOSTIC IMPRESSION AND PLAN: Patient with secondary peritonitis from perforated diverticulitis status post diverting colostomy. The patient did show overall clinical improvement. Antibiotic on discharge in the form of Augmentin 875 b.i.d. for 10 days. This was communicated to the nurse practitioner for the surgical team. Continue supportive care. MMODL / IJN: [id number] /
--- NOTE | 2018-02-12 11:20 | P.OP ---
Date of Procedure: 02/03/18 Preoperative Diagnosis: Perforated diverticulitis Postoperative Diagnosis: Perforated diverticulitis Procedure(s) Performed: Sangeeta procedure Anesthesia: RAYA Surgeon: Heath Goldsmith Estimated Blood Loss (ml): 50 Pathology: other (Sigmoid colon) Condition: stable Disposition: PACU Description of Procedure: The patient's placed on the operating table in the supine position. She received general anesthesia. Her abdomen was prepped and draped usual sterile fashion. A low midline skin incision was made. And then using electrocautery the abdominal wall was divided. The area was explored. 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 The sigmoid colon appeared to be inflamed. There is no feculent peritonitis. At this point the sigmoid colon was reflected medially. And then the proximal sigmoid colon was transected with a GI stapler. Using LigaSure device the mesentery of the bowel was divided. Using the contour stapler at the rectal stump was divided. The specimens of pathology. The pelvis was irrigated. There is no bleeding seen. A suitable spot for the colostomy was chosen left lower quadrant. And then using a [place] clamp the skin was incised and then the opening for the colostomy is made through the rectus sheath. The colostomy was brought up through the abdominal wall. The fascia was closed with looped #1 PDS suture. Skin was closed irina. The colostomy matured with 3-0 Vicryl suture. Patient top she will well and was sent to recovery in stable condition.
--- NOTE | 2018-02-13 13:34 | CDI ---
Documentation Clarification Form Date: 02/13/2018 12:00:00 AM From: PAKO Whitfield; Mandy [employer] Attendant Phone: If you have a question about this query, please contact Mandy [employer] Attendant at [phone] between 8am and 5pm. Admit Date: 02/03/2018 11:34:00 AM Patient Name: Roxana Velasquez Visit Number: [id number] Discharge Date: 02/11/2018 ATTENTION: The Clinical Documentation Specialists (CDI) and [facility] Coding Staff appreciate your assistance in clarifying documentation. Please respond to the clarification below the line at the bottom and electronically sign. The CDI & [facility] Coding staff will review the response and follow-up if needed. Please note: Queries are made part of the Legal Health Record. If you have any questions, please contact the author of this message via ITS. Dr. Heath Goldsmith There is conflicting documentation in the record that requires clarification for accurate coding. On 02/07, the patient developed fluid overload and respiratory failure. Chest x-ray was performed that showed features of congestive heart failure. Patient was given 2 doses of IV Lasix. The discharge summary documents both fluid overload and heart failure. In your professional opinion, can you please clarify which condition you were treating? Fluid Overload Congestive heart failure ruled out Congestive heart failure ruled in If yes, type and acuity? Systolic Heart Failure: Acute Chronic Acute on Chronic Diastolic Heart Failure: Acute Chronic Acute on Chronic Systolic & Diastolic Heart Failure: Acute Chronic Acute on Chronic Heart Failure Unable to Determine Other, please specify Unable to determine MTDD
== END 2018-02-11 13:10 | disposition home health service (06) | DRG 853 ==
LOC: EC 07:55 → 4MS4W 11:34 → 6SEL 02-06 05:10 → 5MS5E 02-07 17:12
PROVIDERS: ADMIT Surgery; ATTEND Surgery
PROC: 0DBN0ZZ Excision of Sigmoid Colon, Open Approach (ICD-10-PCS; principal; 2018-02-03 12:35)
PROC: 0D1N0Z4 Bypass Sigmoid Colon to Cutaneous, Open Approach (ICD-10-PCS; principal; 2018-02-03 12:35)
DX: A41.9 Sepsis, unspecified organism (principal); J96.01 Acute respiratory failure with hypoxia; F10.231 Alcohol dependence with withdrawal delirium; J44.1 Chronic obstructive pulmonary disease with (acute) exacerbation; K57.20 Diverticulitis of large intestine with perforation and abscess without bleeding; N39.0 Urinary tract infection, site not specified; F17.210 Nicotine dependence, cigarettes, uncomplicated; F32.9 Major depressive disorder, single episode, unspecified; F41.1 Generalized anxiety disorder; H40.9 Unspecified glaucoma; J31.0 Chronic rhinitis; J98.01 Acute bronchospasm; K59.00 Constipation, unspecified; Z82.49 Family history of ischemic heart disease and other diseases of the circulatory system; Z83.3 Family history of diabetes mellitus; Z90.49 Acquired absence of other specified parts of digestive tract; E86.0 Dehydration; E87.70 Fluid overload, unspecified; I50.9 Heart failure, unspecified
CPT/HCPCS: 36415; 71045; 74018; 74177; 80048; 80053; 81001; 82150; 82550; 82553; 83605; 83690; 83735; 84132; 84443; 85025; 87040; 87086; 88307; 93005; 93306; 94640; 94760; 96361; 96365; 96367; 96375; 99285

== ENCOUNTER 2018-02-16 15:20 | Emergency (ER) | payer OTHER ==
[2018-02-16 15:41] VITALS: BP 119/76; PULSE 96; RESP 16; TEMP 99
[2018-02-16] MEDS ORDERED: SODIUM CHLORIDE 0.9% 1,000 ML IV ONE (16:03)
--- NOTE | 2018-02-16 16:10 | ED ---
General Adult HPI - General Chief complaint: Recheck/Abnormal Lab/Rx Stated complaint: Infection Time Seen by Provider: 02/16/18 15:51 Source: patient Mode of arrival: ambulatory Limitations: no limitations - History of Present Illness Initial comments: 57-year-old female patient with recent history of perforated diverticulum with subsequent colectomy and ostomy placement on 02/03/2018 presents to the emergency department today for possible surgical site infection. Patient states that she was at a follow-up appointment with her farm labor contractor today when they evaluated the wound and felt that it may be infected. Patient states that she has been having drainage from inferior aspect of the incision for the last few days. Patient states that she has been having low-grade fevers as high as 99.8F at home. Patient does admit to taking Golden with additional Tylenol doses for pain control. States that she has had chills. She denies any nausea or vomiting. Denies any diarrhea, hematochezia, or melena output in her colostomy. Patient states that she does have a home care nurse that comes in to change the dressing. Patient states that she has been having minimal output in her MILO drain. States that she has not emptied the drain in a couple of days. States that she is eating and drinking without difficulty. Denies any shortness of breath, chest pain, significant abdominal pain, or difficulty with urination. Patient denies any recent rash, back pain, numbness, tingling , dizziness, weakness, hematuria, dysuria, urinary urgency, urinary frequency, headache, visual changes, or any other complaints. - Related Data Home Medications Medication Instructions Recorded Confirmed RX: Venlafaxine HCl [Venlafaxine 150 mg PO DAILY 08/26/14 02/16/18 HCl ER] RX: Albuterol Inhaler [Ventolin 1 - 2 puff INHALATION RT-Q4H PRN 02/03/18 Hfa Inhaler] RX: Fluticasone Nasal [place] 2 spray EA NOSTRIL BID PRN 02/03/18 02/16/18 [Flonase Nasal [place]] Furosemide [Lasix] 20 - 40 mg PO DAILY PRN 02/16/18 02/16/18 Ipratropium-Albuterol Nebulize 3 ml INHALATION RT-QID PRN 02/16/18 02/16/18 [Duoneb 0.5 mg-3 mg/3 ml Soln] Ondansetron HCl [Zofran] 4 mg PO Q8HR PRN 02/16/18 02/16/18 RX: HYDROcodone/APAP 5-325MG 1 tab PO Q8H PRN 02/16/18 02/16/18 [Golden 5-325] Venlafaxine HCl ER [Effexor Xr] 75 mg PO DAILY 02/16/18 02/16/18 Previous Rx's Medication Instructions Recorded Metoprolol Succinate (ER) [Toprol 25 mg PO DAILY #30 tab 02/11/18 Xl] RX: Folic Acid 1 mg PO DAILY #30 tablet 02/11/18 Thiamine [Vitamin B-1] 100 mg PO DAILY #30 tablet 02/11/18 Allergies Allergy/AdvReac Type Severity Reaction Status Date / Time No Known Allergies Allergy Verified 02/16/18 16:07 Review of Systems ROS Statement: Those systems with pertinent positive or pertinent negative responses have been documented in the HPI. ROS Other: All systems not noted in ROS Statement are negative. Past Medical History Past Medical History: COPD, Eye Disorder Additional Past Medical History / Comment(s): Current UTI on antibiotics, glaucoma bilaterally, enlarged liver, frequent bronchitis, seasonal allergies History of Any Multi-Drug Resistant Organisms: None Reported Past Surgical History: Bowel Resection, Tonsillectomy Additional Past Surgical History / Comment(s): benign biopsy on left breast, laser R eye surgery for glaucomal Past Anesthesia/Blood Transfusion Reactions: No Reported Reaction Past Psychological History: Depression Smoking Status: Current every day smoker Past Alcohol Use History: None Reported Past Drug Use History: None Reported - Past Family History Father Family Medical History: Coronary Artery Disease (CAD), Diabetes Mellitus Additional Family Medical History / Comment(s): Father in his 60s from diabetic complications. Mother Family Medical History: Coronary Artery Disease (CAD), Myocardial Infarction ([place] ) Additional Family Medical History / Comment(s): Mother from a [place] at the age of 62 yrs. General Exam Limitations: no limitations General appearance: alert, in no apparent distress, other (This is a well- developed, well-nourished adult female patient in no acute distress. Vital signs upon presentation are temperature 99.0F, pulse 96, respirations 16, blood pressure 119/76, pulse ox 93% on room air.) Eye exam: Present: normal appearance, PERRL, EOMI. Absent: scleral icterus, conjunctival injection, periorbital swelling ENT exam: Present: normal exam, normal oropharynx, mucous membranes moist Respiratory exam: Present: normal lung sounds bilaterally. Absent: respiratory distress, wheezes, rales, rhonchi, stridor Cardiovascular Exam: Present: regular rate, normal rhythm, normal heart sounds. Absent: systolic murmur, diastolic murmur, rubs, gallop, clicks GI/Abdominal exam: Present: soft, tenderness (Incisional tenderness), normal bowel sounds, other (Patient has a vertical midline incision well approximated with irina. Inferior aspect of the incision does have surrounding erythema, hot to touch, and exhibits purulent drainage. MILO drain is in place to the right mid abdomen, output appears to be serosanguineous in nature. There is approximately 20-30 mL present. Colostomy is present and exhibits light brown soft output.). Absent: distended, guarding, rebound, rigid Neurological exam: Present: alert, oriented X3, CN II-XII intact Psychiatric exam: Present: normal affect, normal mood Skin exam: Present: warm, dry, intact, normal color. Absent: rash Course Vital Signs 02/16/18 15:37 Temperature 99.0 F Pulse Rate 96 Respiratory 16 Rate Blood Pressure 119/76 O2 Sat by Pulse 93 L Oximetry Medical Decision Making - Medical Decision Making 57-year-old female patient presented to the emergency department today for evaluation of postoperative incision infection. Physical examination did reveal a vertical midline incision with surrounding erythema and drainage of pus at the inferior aspect of the incision. Patient did have temperature 99.0 upon arrival that is with taking Golden and Tylenol. Wound culture was sent. Blood cultures obtained. Did order CBC however lab had to be redrawn. Patient is refusing to have this test done and waiting for results. She wants to be discharged immediately. Patient is quite argumentative and inappropriate with staff. She does have a follow-up appointment with Dr. Goldsmith tomorrow. He did write her a prescription of Bactrim. I did discuss risks of leaving including worsening of her infection, improper treatment, and . Patient verbalizes understanding of these risks and will sign AMA form. - Lab Data Result diagrams: 02/16/18 16:03 Lab Results 02/16/18 02/16/18 Range/Units 16:03 16:03 Sodium 140 (137-145) mmol/L Potassium 4.9 (3.5-5.1) mmol/L Chloride 100 (98-107) mmol/L Carbon Dioxide 25 (22-30) mmol/L Anion Gap 15 mmol/L BUN 6 L (7-17) mg/dL Creatinine 0.60 (0.52-1.04) mg/dL Est GFR (CKD-EPI)AfAm >90 (>60 ml/min/1.73 sqM) Est GFR (CKD-EPI)NonAf >90 (>60 ml/min/1.73 sqM) Glucose 131 H (74-99) mg/dL Plasma Lactic Acid Miguel 1.3 (0.7-2.0) mmol/L Calcium 10.1 (8.4-10.2) mg/dL Total Bilirubin 0.3 (0.2-1.3) mg/dL AST 32 (14-36) U/L ALT 47 (9-52) U/L Alkaline Phosphatase 128 H (38-126) U/L Total Protein 6.7 (6.3-8.2) g/dL Albumin 3.9 (3.5-5.0) g/dL Disposition Clinical Impression: Postoperative wound infection Disposition: Left Against Medical Advice Condition: Undetermined Referrals: Sarah Mendez MD [Primary Care Provider] - 1-2 days Time of Disposition: 17:49
[2018-02-16 16:28] LABS: ALT 47 U/L (9-52); AST 32 U/L (14-36); Albumin 3.9 g/dL (3.5-5.0); Alkaline Phosphatase 128 U/L (38-126); Anion Gap 15 mmol/L; Blood Urea Nitrogen 6 mg/dL (7-17); Calcium 10.1 mg/dL (8.4-10.2); Carbon Dioxide 25 mmol/L (22-30); Chloride 100 mmol/L (98-107); Glucose 131 mg/dL (74-99); Potassium 4.9 mmol/L (3.5-5.1); Sodium 140 mmol/L (137-145); Total Bilirubin 0.3 mg/dL (0.2-1.3); Total Protein 6.7 g/dL (6.3-8.2)
--- NOTE | 2018-02-16 17:06 | P.PN ---
Progress Note - Text Progress Note Date: 02/16/18 The patient was sent to the emergency room from Dr. Buchanan's office. She had some drainage from her incision over the last 24 hours. On exam her vital signs are stable. Her abdomen soft. There is some mild cellulitis in the lower part of her incision. There is at she is stapler removing her MILO drain is visible. Cellulitis. Several irina were removed from the wound. There is no evidence of any drainage. The wound had sterile dressing applied. Patient was placed on Bactrim DS 1 tablet by mouth twice a day. She will see me in the office tomorrow.
== END 2018-02-16 17:50 | disposition left against medical advice (07) ==
LOC: EC 15:20
DX: T81.4XXA Infection following a procedure, initial encounter (principal); J44.9 Chronic obstructive pulmonary disease, unspecified; F32.9 Major depressive disorder, single episode, unspecified; F17.200 Nicotine dependence, unspecified, uncomplicated; Z53.29 Procedure and treatment not carried out because of patient's decision for other reasons; Z79.899 Other long term (current) drug therapy; Z90.49 Acquired absence of other specified parts of digestive tract
CPT/HCPCS: 80053; 83605; 87040; 87070; 87077; 87186; 87205; 96360; 99283

== ENCOUNTER → 2018-05-25 | Outpatient (CLI) | payer OTHER | END | disposition home or self-care (01) | LOC: LABPAT 16:50 | PROVIDERS: ATTEND Surgery | DX: Z53.9 Procedure and treatment not carried out, unspecified reason (principal) | CPT/HCPCS: 80051; 85027; 86850; 86900; 86901 ==

== ENCOUNTER 2018-05-28 09:23 | Day surgery (SDC) | payer OTHER ==
[2018-05-26 11:01] VITALS: BMI 28.8
[~2018-05-28 09:23] MED LIST: LACTATED RINGERS 1,000 ML IV SCH; LIDOCAINE 1% 20 ML VIAL (10MG/ML) FOR IV START INTRADERMA PRN; MIDAZOLAM 2 MG/2 ML VIAL IV PRN
[2018-05-28 09:55] VITALS: TEMP 96.8
[2018-05-28] MEDS ORDERED: PROPOFOL 10 MG/ML 20 ML VIAL IV ONE (10:13)
--- NOTE | 2018-05-28 10:21 | P.GSHP ---
History of Present Illness H&P Date: 05/28/18 Chief Complaint: History of perforated diverticulitis This a 57-year-old female who presents today for colonoscopy. Patient has history of perforated diverticulitis. She is scheduled for reversal of colostomy tomorrow. Past Medical History Past Medical History: COPD, Eye Disorder, Hypertension Additional Past Medical History / Comment(s): glaucoma bilaterally, enlarged liver, frequent bronchitis, seasonal allergies, ruptured diverticuli w/ colostomy January 2018 History of Any Multi-Drug Resistant Organisms: None Reported Past Surgical History: Bowel Resection, Tonsillectomy Additional Past Surgical History / Comment(s): benign biopsy on left breast, laser R eye surgery for glaucoma, colostomy Past Anesthesia/Blood Transfusion Reactions: No Reported Reaction Smoking Status: Current every day smoker - Past Family History Father Family Medical History: Coronary Artery Disease (CAD), Diabetes Mellitus Additional Family Medical History / Comment(s): Father in his 60s from diabetic complications. Mother Family Medical History: Coronary Artery Disease (CAD), Myocardial Infarction ([place] ) Additional Family Medical History / Comment(s): Mother from a [place] at the age of 62 yrs. Medications and Allergies Home Medications Medication Instructions Recorded Confirmed Type Albuterol Inhaler [Ventolin Hfa 1 - 2 puff INHALATION RT-Q4H PRN 02/03/18 History Inhaler] Fluticasone Nasal [place] [Flonase 2 spray EA NOSTRIL DAILY 02/03/18 05/26/18 History Nasal [place]] Folic Acid 1 mg PO DAILY #30 tablet 02/11/18 05/26/18 Rx Metoprolol Succinate (ER) [Toprol 25 mg PO DAILY #30 tab 02/11/18 05/28/18 Rx Xl] Thiamine [Vitamin B-1] 100 mg PO DAILY #30 tablet 02/11/18 05/26/18 Rx Furosemide [Lasix] 20 mg PO DAILY 02/16/18 05/26/18 History HYDROcodone/APAP 5-325MG [[place] 1 tab PO Q8H PRN 02/16/18 05/26/18 History 5-325] Ipratropium-Albuterol Nebulize 3 ml INHALATION RT-QID PRN 02/16/18 05/26/18 History [Duoneb 0.5 mg-3 mg/3 ml Soln] Ondansetron HCl [Zofran] 4 mg PO Q8HR PRN 02/16/18 05/26/18 History ALPRAZolam [Xanax] 0.25 mg PO BID PRN 05/26/18 05/26/18 History Budesonide-Formot 160-4.5 Mcg 2 puff INHALATION BID 05/26/18 05/26/18 History [Symbicort 160-4.5 Mcg Inhaler] Escitalopram [Lexapro] 20 mg PO DAILY 05/26/18 05/26/18 History Methocarbamol [Robaxin] 500 mg PO TID PRN 05/26/18 05/26/18 History Omeprazole [PriLOSEC] 20 mg PO AC-BID 05/26/18 05/26/18 History Varenicline [Chantix Continuing 1 mg PO BID 05/26/18 05/26/18 History Pack] Allergies Allergy/AdvReac Type Severity Reaction Status Date / Time No Known Allergies Allergy Verified 05/26/18 10:57 Surgical - Exam Vital Signs Temp Pulse Resp BP Pulse Ox 96.8 F L 103 H 16 133/89 98 05/28/18 09:48 05/28/18 09:48 05/28/18 09:48 05/28/18 09:48 05/28/18 09:48 - General well developed, no distress - Eyes PERRL - ENT normal pinna - Neck no masses - Respiratory normal expansion - Cardiovascular Rhythm: regular - Abdomen Abdomen: soft, non tender Assessment and Plan Assessment: She perforated exercise. We'll perform colonoscopy.
--- NOTE | 2018-05-28 10:34 | P.OP ---
Date of Procedure: 05/28/18 Preoperative Diagnosis: History of perforated diverticulitis Postoperative Diagnosis: Diverticulosis Procedure(s) Performed: Colonoscopy Anesthesia: MAC Surgeon: Heath Goldsmith Pathology: none sent Condition: stable Disposition: PACU Description of Procedure: The patient's placed on the endoscopy table in the lateral position. She received IV sedation. Digital rectal exam was performed which revealed no abnormalities. The possible colonoscope was then placed patient anus passed throughout the rectal stump. There was a large amount of mucus within the rectum. The scope was placed to the 20 cm sarita there is no evidence of any inflammatory changes. Scope was withdrawn. Next the patient was rotated on her back and the colonoscope was placed through the colostomy. The ileocecal valve was visually is. The cecum, ascending and transverse colon appeared normal. In the descending colon there were scattered diverticuli. Scope was then withdrawn. Patient top she will was sent to recovery in stable condition.
[2018-05-28 10:37] VITALS: RESP 18
[2018-05-28] MEDS ORDERED: NA PHOS,M-B/NA PHOS,DI-BA 133 ML ENEMA RECTAL STA (10:37)
[2018-05-28 10:52] VITALS: BP 135/83; PULSE 77
== END 2018-05-28 11:43 | disposition home or self-care (01) ==
LOC: ORWHC2ENDO 09:23
PROVIDERS: ATTEND Surgery
DX: K57.30 Diverticulosis of large intestine without perforation or abscess without bleeding (principal); Z93.3 Colostomy status; J44.9 Chronic obstructive pulmonary disease, unspecified; I10 Essential (primary) hypertension; H40.9 Unspecified glaucoma; R16.0 Hepatomegaly, not elsewhere classified; F17.200 Nicotine dependence, unspecified, uncomplicated; F39 Unspecified mood [affective] disorder; Z79.51 Long term (current) use of inhaled steroids; Z79.899 Other long term (current) drug therapy
CPT/HCPCS: 44388; J2704

== ENCOUNTER 2018-05-29 08:00 | Inpatient (IN) | payer OTHER ==
[2018-05-25 17:43] LABS: HCT 41.8 % (34.0-46.0); HGB 13.6 gm/dL (11.4-16.0); MCH 29.2 pg (25.0-35.0); MCHC 32.6 g/dL (31.0-37.0); MCV 89.5 fL (80.0-100.0); Mean Platelet Volume 7.1; Platelet Count 231 k/uL (150-450); RBC 4.67 m/uL (3.80-5.40); RDW 14.6 % (11.5-15.5); WBC 7.4 k/uL (3.8-10.6)
[2018-05-25 18:04] LABS: Potassium 4.3 mmol/L (3.5-5.1)
[2018-05-26 10:40] VITALS: BMI 28.8
[~2018-05-29 08:00] MED LIST changes: +DEXAMETHASONE SOD PHOSPHATE 10 MG/ML 1 ML VIAL IV ONE; +HEPARIN SODIUM,PORCINE 5,000 UNIT/ML 1 ML VIAL SQ ONE; -LACTATED RINGERS 1,000 ML IV SCH; -LIDOCAINE 1% 20 ML VIAL (10MG/ML) FOR IV START INTRADERMA PRN; +ONDANSETRON 4 MG/2 ML VIAL IVP ONE; +SCOPOLAMINE 1.5MG/72HR PATCH TRANSDERM ONE; +fentaNYL (PF) 50 MCG/ML 2 ML AMP IV PRN
[2018-05-29] MEDS ORDERED: LIDOCAINE 1% 20 ML VIAL (10MG/ML) FOR IV START INTRADERMA ONE (10:00)
[2018-05-29] MEDS: LACTATED RINGERS 1,000 ML IV SCH (10:05)
[2018-05-29] MEDS ORDERED: NALOXONE 0.4 MG/ML 1 ML VIAL IV PRN (10:52)
--- NOTE | 2018-05-29 11:16 | P.GSHP ---
History of Present Illness H&P Date: 05/29/18 Chief Complaint: History of perforated diverticulitis This a 48-year-old female who presents today for reversal colostomy. Patient is a previous history of perforated diverticulitis. Past Medical History Past Medical History: COPD, Eye Disorder, Hypertension Additional Past Medical History / Comment(s): glaucoma bilaterally, enlarged liver, frequent bronchitis, seasonal allergies, ruptured diverticuli w/ colostomy January 2018 History of Any Multi-Drug Resistant Organisms: None Reported Past Surgical History: Bowel Resection, Tonsillectomy Additional Past Surgical History / Comment(s): benign biopsy on left breast, laser R eye surgery for glaucoma, colostomy Past Anesthesia/Blood Transfusion Reactions: No Reported Reaction Smoking Status: Current every day smoker - Past Family History Father Family Medical History: Coronary Artery Disease (CAD), Diabetes Mellitus Additional Family Medical History / Comment(s): Father in his 60s from diabetic complications. Mother Family Medical History: Coronary Artery Disease (CAD), Myocardial Infarction ([place] ) Additional Family Medical History / Comment(s): Mother from a [place] at the age of 62 yrs. Medications and Allergies Home Medications Medication Instructions Recorded Confirmed Type Albuterol Inhaler [Ventolin Hfa 1 - 2 puff INHALATION RT-Q4H PRN 02/03/18 History Inhaler] Fluticasone Nasal [place] [Flonase 2 spray EA NOSTRIL DAILY 02/03/18 05/29/18 History Nasal [place]] Folic Acid 1 mg PO DAILY #30 tablet 02/11/18 05/29/18 Rx Metoprolol Succinate (ER) [Toprol 25 mg PO DAILY #30 tab 02/11/18 05/29/18 Rx Xl] Thiamine [Vitamin B-1] 100 mg PO DAILY #30 tablet 02/11/18 05/29/18 Rx Furosemide [Lasix] 20 mg PO DAILY 02/16/18 05/29/18 History HYDROcodone/APAP 5-325MG [[place] 1 tab PO Q8H PRN 02/16/18 05/29/18 History 5-325] Ipratropium-Albuterol Nebulize 3 ml INHALATION RT-QID PRN 02/16/18 05/29/18 History [Duoneb 0.5 mg-3 mg/3 ml Soln] Ondansetron HCl [Zofran] 4 mg PO Q8HR PRN 02/16/18 05/29/18 History ALPRAZolam [Xanax] 0.25 mg PO BID PRN 05/26/18 05/29/18 History Budesonide-Formot 160-4.5 Mcg 2 puff INHALATION BID 05/26/18 05/29/18 History [Symbicort 160-4.5 Mcg Inhaler] Escitalopram [Lexapro] 20 mg PO DAILY 05/26/18 05/29/18 History Methocarbamol [Robaxin] 500 mg PO TID PRN 05/26/18 05/29/18 History Omeprazole [PriLOSEC] 20 mg PO AC-BID 05/26/18 05/29/18 History Varenicline [Chantix Continuing 1 mg PO BID 05/26/18 05/29/18 History Pack] Allergies Allergy/AdvReac Type Severity Reaction Status Date / Time No Known Allergies Allergy Verified 05/29/18 09:47 Surgical - Exam Vital Signs Temp Pulse Resp BP Pulse Ox 98.4 F 72 18 124/60 95 05/29/18 09:45 05/29/18 09:45 05/29/18 09:45 05/29/18 09:45 05/29/18 09:45 - General well developed, no distress - Eyes PERRL - ENT normal pinna - Neck no masses - Respiratory normal expansion - Cardiovascular Rhythm: regular - Abdomen Colostomy in left lower quadrant Abdomen: soft, non tender Results - Labs 05/25/18 17:05 05/25/18 17:05 Assessment and Plan Assessment: History of perforated diverticulitis. We'll perform reversal colostomy. Patient reversed surgery including possible anastomotic leak, wound infection and colostomy
[2018-05-29] MEDS ORDERED: ROCURONIUM BROMIDE 10 MG/ML 10 ML VIAL IV ONE (11:35)
[2018-05-29] MEDS ORDERED: fentaNYL (PF) 50 MCG/ML 2 ML AMP ONE (11:35)
[2018-05-29] MEDS ORDERED: MIDAZOLAM 2 MG/2 ML VIAL ONE (11:35)
[2018-05-29] MEDS ORDERED: PROPOFOL 10 MG/ML 20 ML VIAL IV ONE (11:35)
[2018-05-29] MEDS ORDERED: NEOSTIGMINE 1 MG/ML 10 ML VIAL ONE (11:35)
[2018-05-29] MEDS ORDERED: GLYCOPYRROLATE 0.2 MG/ML 2 ML VIAL ONE (11:35)
[2018-05-29] MEDS ORDERED: SUCCINYLCHOLINE CHLORIDE 100 MG/5 ML SYR IV ONE (11:35)
[2018-05-29] MEDS ORDERED: LIDOCAINE 1% INJ 10MG/ML (20 ML MDV) ONE (11:35)
[2018-05-29] MEDS: ceFAZolin IN SWFI 2 GM/20 ML SYRINGE IVP ONE ×2 (11:40→12:22)
[2018-05-29] MEDS: metroNIDAZOLE-NS PMX 500 MG in SALINE 1 100ML.BAG IVPB ONE ×2 (11:55→12:22)
[2018-05-29] MEDS ORDERED: LACTATED RINGERS 1,000 ML IV ONE ×2 (12:28→13:31)
[2018-05-29] MEDS: ROPIVACAINE 400 MG, HYDROMORPHONE (PF) 5 MG in SODIUM CHLORIDE 0.9% 170 ML EPIDURAL PRN ×2 (14:07→14:47)
--- NOTE | 2018-05-29 14:26 | P.OP ---
Date of Procedure: 05/29/18 Preoperative Diagnosis: Perforated diverticulitis Postoperative Diagnosis: History of perforated diverticulitis Left ovarian mass Incarcerated incisional hernia Procedure(s) Performed: Reversal colostomy Lysis of adhesions Small bowel resection Repair of incisional incarcerated hernia Appendectomy Left oophorectomy [ Anesthesia: GETA Surgeon: Heath Goldsmith Estimated Blood Loss (ml): 80 Pathology: other (Appendix, small bowel, left ovary) Description of Procedure: Patient's placed on the operating table in supine position. She received general anesthesia. She was placed in dorsal lithotomy position. Her abdomen was prepped and draped in sterile fashion. The abdomen was entered through a midline incision. The lower portion of the incision contain incarcerated incisional hernia with small bowel. Using sharp dissection the small bowel was dissected free. Due to the serosal tears was at a perform a limited small bowel resection. The small bowel was transected approximately distally with a GI stapler and then a set aside functional end-to-end staple anastomosis created using NIKOLAS and TA stapler. A 3-0 GI silk was placed as a crotch stitch. There were adhesions throughout the abdomen and these were lysed with sharp dissection. Approximately 10 minutes of operative time used to lyse adhesions. The colon was transected the fascial level using the linear stapler. And then the pursestring device was placed on the colon and fired. The colon was opened and then the anvil for the 25 mm stapler was placed into the colon and the pursestring was secured. In the pelvis the rectal stump was seen. There was a enlarged left ovary. The ovary is firm and calcified. Due to the position of the ovary over the rectum was decided to perform a left oophorectomy. Using the LigaSure device the fallopian tube was transected and ligated with 0 silk ties. And then the ovarian vessels were divided with the LigaSure device. The specimens of pathology. At this point the appendix was visualized. The peritoneal pedicle length. The mesentery the appendix was divided with the LigaSure device and then using the GI stapler the base the appendix was divided. Specimen sent to pathology. Next, the EEA stapler was placed patient anus the spike was driven through the anterior rectal wall. The anvil was connected to the stapler. The stapler closed and fired. 2 intact tissue rings were retrieved. The anastomosis was checked under air insufflation. A rigid sigmoid scope was placed patient anus and then a hydroureter clamp was placed across the descending colon distal to the anastomosis. The rectum was then insufflated air. There is no unsteady extravasation of air at the anastomosis. At this point the abdomen was irrigated. There is no bleeding seen. The fascia was closed with looped #1 PDS suture. The skin was closed irina. The colostomy was then excised from the abdominal wall using left cautery. The fascial defect closed with 0 Vicryl suture. Skin was closed irina. The prevena wound care system was applied. Patient sent to recovery in stable condition.
[2018-05-29] MEDS ORDERED: IPRATROPIUM-ALBUTEROL 3 ML NEB INHALATION PRN (15:17)
--- NOTE | 2018-05-29 15:46 | P.CNPUL ---
History of Present Illness Consult date: 05/29/18 Requesting physician: Heath Goldsmith Reason for consult: COPD Chief complaint: History of perforated diverticulitis, here for colostomy reversal History of present illness: This is a 57-year-old female, known history of COPD, recurrent episodes of bronchitis, patient was inpatient about 2 months ago with acute ruptured diverticulitis, underwent colostomy, seen by us on consultation for her COPD and postoperative respiratory failure at the time. Patient was eventually discharged home, and she is back here today for reversal of colostomy. This was done earlier today by Dr. Goldsmith, postoperatively patient was transferred to a regular medical floor, and we were asked to see her on consultation. Presently asymptomatic except for some shortness of breath, she has chronic obstructive lung disease, however she is not O2 dependent, and not prednisone dependent. No cough no wheezing no fever no chills no hemoptysis no chest pain. Patient even denies abdominal pain, she has epidural catheter, and the pain seems to be fairly well controlled. No headache no blurred vision no dizziness, no nausea no vomiting, no abdominal pain, no cough no wheezing, she does have chronic shortness of breath. No palpitations, no dysuria and no frequency no urgency. Patient is now back on updrafts in the form of DuoNeb, and she is also on Symbicort. Review of Systems 14 point review of systems obtained, please refer to pertinent positives in HPI , otherwise remaining systems are negative Past Medical History Past Medical History: COPD, Eye Disorder, Hypertension Additional Past Medical History / Comment(s): glaucoma bilaterally, enlarged liver, frequent bronchitis, seasonal allergies, ruptured diverticuli w/ colostomy January 2018 History of Any Multi-Drug Resistant Organisms: None Reported Past Surgical History: Bowel Resection, Tonsillectomy Additional Past Surgical History / Comment(s): benign biopsy on left breast, laser R eye surgery for glaucoma, colostomy Past Anesthesia/Blood Transfusion Reactions: No Reported Reaction Smoking Status: Current every day smoker - Past Family History Father Family Medical History: Coronary Artery Disease (CAD), Diabetes Mellitus Additional Family Medical History / Comment(s): Father in his 60s from diabetic complications. Mother Family Medical History: Coronary Artery Disease (CAD), Myocardial Infarction ([place] ) Additional Family Medical History / Comment(s): Mother from a [place] at the age of 62 yrs. Medications and Allergies Home Medications Medication Instructions Recorded Confirmed Type Albuterol Inhaler [Ventolin Hfa 1 - 2 puff INHALATION RT-Q4H PRN 02/03/18 History Inhaler] Fluticasone Nasal [place] [Flonase 2 spray EA NOSTRIL DAILY 02/03/18 05/29/18 History Nasal [place]] Folic Acid 1 mg PO DAILY #30 tablet 02/11/18 05/29/18 Rx Metoprolol Succinate (ER) [Toprol 25 mg PO DAILY #30 tab 02/11/18 05/29/18 Rx Xl] Thiamine [Vitamin B-1] 100 mg PO DAILY #30 tablet 02/11/18 05/29/18 Rx Furosemide [Lasix] 20 mg PO DAILY 02/16/18 05/29/18 History HYDROcodone/APAP 5-325MG [[place] 1 tab PO Q8H PRN 02/16/18 05/29/18 History 5-325] Ipratropium-Albuterol Nebulize 3 ml INHALATION RT-QID PRN 02/16/18 05/29/18 History [Duoneb 0.5 mg-3 mg/3 ml Soln] Ondansetron HCl [Zofran] 4 mg PO Q8HR PRN 02/16/18 05/29/18 History ALPRAZolam [Xanax] 0.25 mg PO BID PRN 05/26/18 05/29/18 History Budesonide-Formot 160-4.5 Mcg 2 puff INHALATION RT-BID 05/26/18 05/29/18 History [Symbicort 160-4.5 Mcg Inhaler] Escitalopram [Lexapro] 20 mg PO DAILY 05/26/18 05/29/18 History Methocarbamol [Robaxin] 500 mg PO TID PRN 05/26/18 05/29/18 History Omeprazole [PriLOSEC] 20 mg PO AC-BID 05/26/18 05/29/18 History Varenicline [Chantix Continuing 1 mg PO BID 05/26/18 05/29/18 History Pack] Allergies Allergy/AdvReac Type Severity Reaction Status Date / Time No Known Allergies Allergy Verified 05/29/18 14:10 Physical Exam Vitals: Vital Signs Temp Pulse Pulse Resp BP Pulse Ox 05/29/18 14:49 62 16 107/53 92 L 05/29/18 14:34 59 L 16 114/57 100 05/29/18 14:19 60 16 112/57 100 05/29/18 14:04 97.8 F 60 18 116/51 100 05/29/18 10:51 62 14 109/57 96 05/29/18 09:45 98.4 F 72 18 124/60 95 Intake and Output 05/29/18 05/29/18 05/29/18 06:59 14:59 22:59 Intake Total 2206 Output Total 175 Balance 2030 Intake: IV 2205 Output: Urine 75 Estimated Blood Loss 100 Physical Exam: Revealed a 51-year-old female in no distress. Head: Atraumatic, normocephalic. HEENT:[Neck is supple.] [No neck masses.] [No thyromegaly.] [No JVD.] Chest: [Diminished breath sounds at the bases, no crackles or rhonchi or wheezes.] Cardiac Exam: [Normal S1 and S2, no S3 gallop, no murmur.] Abdomen: [Postsurgical, wound vacs noted in the abdomen Soft, nontender, no megaly, no rebound, no guarding, diminished bowel sounds..] Extremities: [No clubbing, no edema, no cyanosis.] Neurological Exam: [No focal neurologic deficit.] Psychiatric: Normal mood affect and mental status examination. Lymphatics, no lymphadenopathy. Results - Laboratory Findings CBC and BMP: 05/25/18 17:05 05/25/18 17:05 Assessment and Plan Assessment: Impression: 1 status post reversal of colostomy, small bowel resection, repair of incisional incarcerated hernia, appendectomy, left oophorectomy, postoperative day #0. 2 severe underlying COPD, but presently stable and under control. 3 recent history of perforated diverticulitis and peritonitis. 4 chronic tobacco dependence. Recommendation: Continue incentive spirometry, continue pain control with epidural catheter, bronchodilators in the form of DuoNeb, and Symbicort. Early ambulation, we'll continue to follow. Time with Patient: Greater than 30
[2018-05-29] MEDS ORDERED: LORazepam 2 MG/ML INJ IV PRN ×3 (15:54)
--- NOTE | 2018-05-29 15:58 | P.CONS ---
History of Present Illness - Reason for Consult Consult date: 05/29/18 Medical management Requesting physician: Heath Goldsmith - Chief Complaint History of perforated diverticulitis. Here for colostomy reversal - History of Present Illness This is a 57-year-old patient of Dr. Mendez. Patient presented to the hospital for an elective colostomy reversal. Patient has a previous history of perforated diverticulitis. Patient Colostomy in January of this year due to a ruptured diverticuli. Patient's additional medical history includes COPD, I disorder, hypertension, glaucoma, enlarged liver, for bronchitis, seasonal ALLERGIES and bowel resection. Patient is currently resting in bed. At this time patient does complain of minimal pain. Patient does have a wound VAC in place. At this time patient denies chest pain or shortness breath. Denies nausea vomiting diarrhea. Patient denies any urinary burning. AM labs have been ordered Review of Systems please refer to HPI otherwise unremarkable Past Medical History Past Medical History: COPD, Eye Disorder, Hypertension Additional Past Medical History / Comment(s): glaucoma bilaterally, enlarged liver, frequent bronchitis, seasonal allergies, ruptured diverticuli w/ colostomy January 2018 History of Any Multi-Drug Resistant Organisms: None Reported Past Surgical History: Bowel Resection, Tonsillectomy Additional Past Surgical History / Comment(s): benign biopsy on left breast, laser R eye surgery for glaucoma, colostomy Past Anesthesia/Blood Transfusion Reactions: No Reported Reaction Smoking Status: Current every day smoker - Past Family History Father Family Medical History: Coronary Artery Disease (CAD), Diabetes Mellitus Additional Family Medical History / Comment(s): Father in his 60s from diabetic complications. Mother Family Medical History: Coronary Artery Disease (CAD), Myocardial Infarction ([place] ) Additional Family Medical History / Comment(s): Mother from a [place] at the age of 62 yrs. Medications and Allergies Home Medications Medication Instructions Recorded Confirmed Type Albuterol Inhaler [Ventolin Hfa 1 - 2 puff INHALATION RT-Q4H PRN 02/03/18 History Inhaler] Fluticasone Nasal [place] [Flonase 2 spray EA NOSTRIL DAILY 02/03/18 05/29/18 History Nasal [place]] Folic Acid 1 mg PO DAILY #30 tablet 02/11/18 05/29/18 Rx Metoprolol Succinate (ER) [Toprol 25 mg PO DAILY #30 tab 02/11/18 05/29/18 Rx Xl] Thiamine [Vitamin B-1] 100 mg PO DAILY #30 tablet 02/11/18 05/29/18 Rx Furosemide [Lasix] 20 mg PO DAILY 02/16/18 05/29/18 History HYDROcodone/APAP 5-325MG [[place] 1 tab PO Q8H PRN 02/16/18 05/29/18 History 5-325] Ipratropium-Albuterol Nebulize 3 ml INHALATION RT-QID PRN 02/16/18 05/29/18 History [Duoneb 0.5 mg-3 mg/3 ml Soln] Ondansetron HCl [Zofran] 4 mg PO Q8HR PRN 02/16/18 05/29/18 History ALPRAZolam [Xanax] 0.25 mg PO BID PRN 05/26/18 05/29/18 History Budesonide-Formot 160-4.5 Mcg 2 puff INHALATION RT-BID 05/26/18 05/29/18 History [Symbicort 160-4.5 Mcg Inhaler] Escitalopram [Lexapro] 20 mg PO DAILY 05/26/18 05/29/18 History Methocarbamol [Robaxin] 500 mg PO TID PRN 05/26/18 05/29/18 History Omeprazole [PriLOSEC] 20 mg PO AC-BID 05/26/18 05/29/18 History Varenicline [Chantix Continuing 1 mg PO BID 05/26/18 05/29/18 History Pack] Allergies Allergy/AdvReac Type Severity Reaction Status Date / Time No Known Allergies Allergy Verified 05/29/18 14:10 Physical Exam Vitals: Vital Signs Temp Pulse Pulse Resp BP Pulse Ox 05/29/18 14:49 62 16 107/53 92 L 05/29/18 14:34 59 L 16 114/57 100 05/29/18 14:19 60 16 112/57 100 05/29/18 14:04 97.8 F 60 18 116/51 100 05/29/18 10:51 62 14 109/57 96 05/29/18 09:45 98.4 F 72 18 124/60 95 Intake and Output 05/29/18 05/29/18 05/29/18 06:59 14:59 22:59 Intake Total 2206 Output Total 175 Balance 2031 Intake: IV 2205 Output: Urine 75 Estimated Blood Loss 100 Head normocephalic Neck supple Lungs clear to auscultation bilaterally no wheezing or crackles Heart regular rate and rhythm S1-S2, no rub or gallop Abdomen is soft midline incision with wound VAC in place. Left lower quadrant colostomy site with wound VAC in place. Site is clean dry and intact with no drainage. Extremities no edema Neuro alert and orientated to 3 Results CBC & Chem 7: 05/25/18 17:05 05/25/18 17:05 Assessment and Plan Assessment: 1. Status post reversal colostomy due to perforated diverticulitis. Pain medication per surgical services. Patient currently on clear liquid diet 2. History of COPD. Home medications resumed. Dr. Sommers are following for pulmonary services 3. Essential hypertension. Home medications resumed with parameters 4. Nicotine dependence. Chantix ordered resume. 5. Depression. Continue lexapro and xanax 6. EtOH. Patient drank 1/5 of vodka a day. Patient states she quit 2 weeks ago. CIWA protocol has been ordered. patient currently on folic acid and thiamine DVT prophylaxis heparin. Thank you for this consultation. We will continue to follow patient closely throughout stay. A.m. labs ordered Time with Patient: Greater than 30 (I performed an examination of the patient and discussed their management with the Nurse Practitioner. I have reviewed the Nurse Practitioner's notes and agree with the documented findings and plan of care.Greater than 60% of the total time spent in counseling and coordination of care)
[2018-05-29] MEDS: IPRATROPIUM-ALBUTEROL 3 ML NEB INHALATION SCH ×3 (16:00→23:05)
[2018-05-29 16:29] LABS: Basophils % (A) 0 %; Eosinophils # (A) 0.1 k/uL (0-0.7); Eosinophils % (A) 1 %; HCT 44.8 % (34.0-46.0); HGB 14.7 gm/dL (11.4-16.0); Lymphocytes # (A) 1.2 k/uL (1.0-4.8); Lymphocytes % (A) 10 %; MCHC 32.8 g/dL (31.0-37.0); MCV 88.4 fL (80.0-100.0); Mean Platelet Volume 7.5; Monocytes # (A) 0.3 k/uL (0-1.0); Monocytes % (A) 2 %; Neutrophils # (A) 11.4 k/uL (1.3-7.7); Neutrophils % (A) 87 %; Platelet Count 226 k/uL (150-450); RBC 5.06 m/uL (3.80-5.40); RDW 14.2 % (11.5-15.5)
[2018-05-29 16:44] LABS: Anion Gap 12 mmol/L; Blood Urea Nitrogen 13 mg/dL (7-17); Calcium 9.6 mg/dL (8.4-10.2); Carbon Dioxide 18 mmol/L (22-30); Chloride 108 mmol/L (98-107); Glucose 130 mg/dL (74-99); Potassium 4.5 mmol/L (3.5-5.1); Sodium 138 mmol/L (137-145)
[2018-05-29] MEDS: D5-0.45% NACL WITH KCL 20MEQ/L 1,000 ML IV SCH (17:32)
[2018-05-29] MEDS: diphenhydrAMINE 50 MG/ML 1 ML VIAL IVP PRN ×2 (17:43→20:56)
[2018-05-29] MEDS: SYMBICORT 160-4.5 MCG INHALER INHALATION SCH (19:32)
[2018-05-29] MEDS: VARENICLINE 1 MG TAB PO SCH (20:27)
[2018-05-29] MEDS: ALPRAZolam 0.25 MG TAB PO PRN (20:59)
[2018-05-29] MEDS: HEPARIN SODIUM,PORCINE 5,000 UNIT/ML 1 ML VIAL SQ SCH (23:50)
[2018-05-30] MEDS: diphenhydrAMINE 50 MG/ML 1 ML VIAL IVP PRN ×5 (00:01→17:08)
[2018-05-30] MEDS: HYDROmorphone 1 MG/ML 1 ML SYRINGE IVP PRN ×4 (00:02→23:08)
[2018-05-30] MEDS: IPRATROPIUM-ALBUTEROL 3 ML NEB INHALATION SCH ×6 (03:49→23:15)
[2018-05-30] MEDS: D5-0.45% NACL WITH KCL 20MEQ/L 1,000 ML IV SCH ×4 (06:56→17:07)
[2018-05-30] MEDS: SYMBICORT 160-4.5 MCG INHALER INHALATION SCH ×2 (07:43→19:17)
[2018-05-30 08:19] LABS: Albumin 3.3 g/dL (3.5-5.0); Anion Gap 9 mmol/L; Calcium 9.1 mg/dL (8.4-10.2); Carbon Dioxide 23 mmol/L (22-30); Chloride 103 mmol/L (98-107); Glucose 122 mg/dL (74-99); Sodium 135 mmol/L (137-145); Total Bilirubin 0.7 mg/dL (0.2-1.3); Total Protein 5.7 g/dL (6.3-8.2)
[2018-05-30 08:28] LABS: AST 21 U/L (14-36); Blood Urea Nitrogen 11 mg/dL (7-17); Potassium 4.6 mmol/L (3.5-5.1)
[2018-05-30 08:29] LABS: ALT 18 U/L (9-52); Alkaline Phosphatase 38 U/L (38-126)
[2018-05-30] MEDS: FOLIC ACID 1 MG TAB PO SCH (08:39)
[2018-05-30] MEDS: VARENICLINE 1 MG TAB PO SCH ×2 (08:39→19:54)
[2018-05-30] MEDS: FUROSEMIDE 20 MG TAB PO SCH (08:39)
[2018-05-30] MEDS: PANTOPRAZOLE 40 MG TABLET PO SCH (08:40)
[2018-05-30] MEDS: THIAMINE 100 MG TAB PO SCH (08:40)
[2018-05-30] MEDS: METOPROLOL SUCCINATE (ER) 25 MG TAB.ER.24H PO SCH (08:40)
[2018-05-30] MEDS: ALVIMOPAN 12 MG CAPSULE PO SCH ×2 (08:40→19:54)
[2018-05-30] MEDS: ESCITALOPRAM 20 MG TAB PO SCH (08:40)
[2018-05-30] MEDS: HEPARIN SODIUM,PORCINE 5,000 UNIT/ML 1 ML VIAL SQ SCH ×3 (08:41→23:08)
[2018-05-30] MEDS: FLUTICASONE 50MCG/SPRAY NASAL 16GM EA NOSTRIL SCH (08:42)
[2018-05-30 08:53] LABS: Basophils % (A) 0 %; Eosinophils % (A) 0 %; HCT 40.9 % (34.0-46.0); Lymphocytes # (A) 2.4 k/uL (1.0-4.8); Lymphocytes % (A) 22 %; MCH 28.6 pg (25.0-35.0); MCHC 31.8 g/dL (31.0-37.0); MCV 89.8 fL (80.0-100.0); Mean Platelet Volume 7.9; Monocytes # (A) 0.8 k/uL (0-1.0); Monocytes % (A) 7 %; Neutrophils # (A) 7.7 k/uL (1.3-7.7); Neutrophils % (A) 70 %; Platelet Count 232 k/uL (150-450); RBC 4.55 m/uL (3.80-5.40); RDW 14.1 % (11.5-15.5); WBC 11.1 k/uL (3.8-10.6)
--- NOTE | 2018-05-30 10:12 | P.PN ---
Progress Note - Text Progress Note Date: 05/30/18 The patient resting comfortably in her bed. She has minimal complaints of pain. On exam her vital signs are stable. Her abdomen soft. Her dressing is clean dry and intact. Status post reversal of colostomy. Patient is doing fairly well. She'll remain on clear liquids.
[2018-05-30] MEDS: LACTATED RINGERS 1,000 ML IV SCH ×2 (12:21→23:07)
--- NOTE | 2018-05-30 14:00 | P.PN ---
Subjective Progress Note Date: 05/30/18 Principal diagnosis: History of perforated diverticuli requiring colostomy. Here for elective reversal. This is a 57-year-old female, known history of COPD, recurrent episodes of bronchitis, patient was inpatient about 2 months ago with acute ruptured diverticulitis, underwent colostomy, seen by us on consultation for her COPD and postoperative respiratory failure at the time. Patient was eventually discharged home, and she is back here today for reversal of colostomy. This was done earlier today by Dr. Goldsmith, postoperatively patient was transferred to a regular medical floor, and we were asked to see her on consultation. Presently asymptomatic except for some shortness of breath, she has chronic obstructive lung disease, however she is not O2 dependent, and not prednisone dependent. No cough no wheezing no fever no chills no hemoptysis no chest pain. Patient even denies abdominal pain, she has epidural catheter, and the pain seems to be fairly well controlled. No headache no blurred vision no dizziness, no nausea no vomiting, no abdominal pain, no cough no wheezing, she does have chronic shortness of breath. No palpitations, no dysuria and no frequency no urgency. Patient is now back on updrafts in the form of DuoNeb, and she is also on Symbicort. The patient is seen again today 05/30/2018 in follow-up on the surgical floor. She is awake and alert in no acute distress. She denies any worsening shortness of breath, cough or congestion. She is working well with the incentive spirometer. She is maintaining good O2 saturations in the 90s on room air. She's afebrile. Hemodynamically stable. Objective - Vital Signs Vital signs: Vital Signs Temp 98.5 F 05/30/18 07:15 Pulse 72 05/30/18 11:58 Resp 16 05/30/18 07:15 BP 104/63 05/30/18 07:15 Pulse Ox 91 L 05/30/18 07:15 Intake & Output 05/29/18 05/30/18 05/30/18 18:59 06:59 18:59 Intake Total 2856 1960 580 Output Total 275 1050 Balance 2581 910 580 Weight 76.204 kg Intake: IV 2206 Intake, IV Titration 1000 Amount D5-0.45% NaCl with KCl 1000 20Meq/l 1,000 ml @ 125 mls/hr IV .Q8H [facility] Rx#: [id number] Oral 650 960 580 Output: Urine 175 1050 Estimated Blood Loss 100 Other: Voiding Method Indwelling Catheter Indwelling Catheter Indwelling Catheter - Exam Physical Exam: Revealed a 51-year-old female in no distress. Head: Atraumatic, normocephalic. HEENT:[Neck is supple.] [No neck masses.] [No thyromegaly.] [No JVD.] Chest: [Diminished breath sounds at the bases, no crackles or rhonchi or wheezes.] Cardiac Exam: [Normal S1 and S2, no S3 gallop, no murmur.] Abdomen: [Postsurgical, wound vacs noted in the abdomen Soft, nontender, no megaly, no rebound, no guarding, diminished bowel sounds..] Extremities: [No clubbing, no edema, no cyanosis.] Neurological Exam: [No focal neurologic deficit.] Psychiatric: Normal mood affect and mental status examination. Lymphatics, no lymphadenopathy. - Labs CBC & Chem 7: 05/30/18 07:11 05/30/18 07:11 Labs: Abnormal Lab Results - Last 24 Hours (Table) 05/29/18 05/29/18 05/30/18 Range/Units 16:18 16:18 07:11 WBC 13.0 H 11.1 H (3.8-10.6) k/uL Neutrophils # 11.4 H (1.3-7.7) k/uL Sodium (137-145) mmol/L Chloride 108 H (98-107) mmol/L Carbon Dioxide 18 L (22-30) mmol/L Glucose 130 H (74-99) mg/dL Total Protein (6.3-8.2) g/dL Albumin (3.5-5.0) g/dL 05/30/18 Range/Units 07:11 WBC (3.8-10.6) k/uL Neutrophils # (1.3-7.7) k/uL Sodium 135 L (137-145) mmol/L Chloride (98-107) mmol/L Carbon Dioxide (22-30) mmol/L Glucose 122 H (74-99) mg/dL Total Protein 5.7 L (6.3-8.2) g/dL Albumin 3.3 L (3.5-5.0) g/dL Assessment and Plan Assessment: Impression: 1 status post reversal of colostomy, small bowel resection, repair of incisional incarcerated hernia, appendectomy, left oophorectomy, postoperative day #1. 2 severe underlying COPD, but presently stable and under control. 3 recent history of perforated diverticulitis and peritonitis. 4 chronic tobacco dependence. Recommendation: The patient was seen and evaluated by Dr. Sommers. She is doing well from the pulmonary standpoint. She is encouraged regarding the increased use the incentive spirometer and cough and deep breathing exercises. She remains on DuoNeb inhalations and Symbicort. We'll increase her activity as tolerated. We 'll continue to follow. I, the cosigning physician, performed a history & physical examination of the patient. Lungs sounds are clear. Maintaining good O2 saturations in the 90s on room air. I discussed the assessment and plan of care with my nurse practitioner, Kristyn Palacios. I attest to the above note as dictated by her.
[2018-05-30] MEDS: METOCLOPRAMIDE 5 MG/ML 2 ML VIAL IVP PRN (14:02)
[2018-05-30] MEDS: ROPIVACAINE 400 MG, HYDROMORPHONE (PF) 5 MG in SODIUM CHLORIDE 0.9% 170 ML EPIDURAL PRN (14:39)
--- NOTE | 2018-05-30 17:51 | P.PN ---
Subjective Progress Note Date: 05/30/18 This is a 57-year-old patient of Dr. Mendez. Patient presented to the hospital for an elective colostomy reversal. Patient has a previous history of perforated diverticulitis. Patient Colostomy in January of this year due to a ruptured diverticuli. Patient's additional medical history includes COPD, I disorder, hypertension, glaucoma, enlarged liver, for bronchitis, seasonal ALLERGIES and bowel resection. Patient is currently resting in bed. At this time patient does complain of minimal pain. Patient does have a wound VAC in place. At this time patient denies chest pain or shortness breath. Denies nausea vomiting diarrhea. Patient denies any urinary burning. AM labs have been ordered On 05/30/2018, patient was seen and examined, she is alert and oriented 3 in no apparent distress, she denies any chest pain or shortness of breath no nausea or vomiting, she has not had any bowel movement or passed any gas yet. Objective - Vital Signs Vital signs: Vital Signs Temp 98.3 F 05/30/18 15:58 Pulse 84 05/30/18 15:58 Resp 16 05/30/18 15:58 BP 111/64 05/30/18 15:58 Pulse Ox 92 L 05/30/18 15:58 Intake & Output 05/29/18 05/30/18 05/30/18 18:59 06:59 18:59 Intake Total 2856 1960 580 Output Total 275 1050 Balance 2581 910 580 Weight 76.204 kg Intake: IV 2206 Intake, IV Titration 1000 Amount D5-0.45% NaCl with KCl 1000 20Meq/l 1,000 ml @ 125 mls/hr IV .Q8H [facility] Rx#: [id number] Oral 650 960 580 Output: Urine 175 1050 Estimated Blood Loss 100 Other: Voiding Method Indwelling Catheter Indwelling Catheter Indwelling Catheter - Exam Head normocephalic and atraumatic Neck supple no JVD no goiter Lungs clear to auscultation bilaterally no wheezing or crackles Heart regular rate and rhythm S1-S2, no rub or gallop Abdomen is soft midline incision with wound VAC in place. Left lower quadrant colostomy site with wound VAC in place. Site is clean dry and intact with no drainage. Extremities no edema no cyanosis or clubbing Neuro alert and orientated to 3 - Labs CBC & Chem 7: 05/30/18 07:11 05/30/18 07:11 Labs: Abnormal Lab Results - Last 24 Hours (Table) 05/30/18 05/30/18 Range/Units 07:11 07:11 WBC 11.1 H (3.8-10.6) k/uL Sodium 135 L (137-145) mmol/L Glucose 122 H (74-99) mg/dL Total Protein 5.7 L (6.3-8.2) g/dL Albumin 3.3 L (3.5-5.0) g/dL Assessment and Plan Plan: 1. Status post reversal colostomy due to perforated diverticulitis. Pain medication per surgical services. Patient currently on clear liquid diet 2. History of COPD. Home medications resumed. Dr. Sommers are following for pulmonary services 3. Essential hypertension. Home medications resumed with parameters 4. Nicotine dependence. Chantix ordered resume. 5. Depression. Continue lexapro and xanax 6. EtOH. Patient drank 1/5 of vodka a day. Patient states she quit 2 weeks ago. CIWA protocol has been ordered. patient currently on folic acid and thiamine DVT prophylaxis heparin. Patient seen and examined medication and labs were reviewed continue with current regimen increase ambulation Will follow in a.m.
--- NOTE | 2018-05-30 20:23 | P.PN ---
Progress Note - Text Progress Note Date: 05/30/18 Postoperative day # 1 status post colostomy reversal ,epidural catheter placed for postoperative analgesia, patient doing well epidural site okay, patient currently on combination of epidural infusion solution of Ropivacaine 0.0625% and Dilaudid 20 g per mL the infusion rate at 8 ml per hour , patient had no motor deficit epidural site okay , vital signs stable ,VAS 3 /10 , Getting IV Dilaudid for breakthrough pain ,every 3 hours when necessary. Assessment and plan= post operative day # 1 patient doing well ,pain well controlled , there is no anesthesia related complications
[2018-05-31] MEDS: D5-0.45% NACL WITH KCL 20MEQ/L 1,000 ML IV SCH ×2 (00:32→13:46)
[2018-05-31] MEDS: IPRATROPIUM-ALBUTEROL 3 ML NEB INHALATION SCH ×5 (04:37→19:31)
[2018-05-31] MEDS: diphenhydrAMINE 50 MG/ML 1 ML VIAL IVP PRN (05:30)
[2018-05-31] MEDS: HYDROmorphone 1 MG/ML 1 ML SYRINGE IVP PRN ×5 (05:30→21:13)
[2018-05-31] MEDS: SYMBICORT 160-4.5 MCG INHALER INHALATION SCH ×2 (07:48→19:31)
[2018-05-31 08:27] LABS: Basophils # (A) 0.1 k/uL (0-0.2); Basophils % (A) 1 %; Eosinophils # (A) 0.1 k/uL (0-0.7); Eosinophils % (A) 1 %; HCT 34.9 % (34.0-46.0); HGB 11.6 gm/dL (11.4-16.0); Lymphocytes % (A) 19 %; MCHC 33.4 g/dL (31.0-37.0); MCV 89.8 fL (80.0-100.0); Mean Platelet Volume 7.2; Monocytes # (A) 0.8 k/uL (0-1.0); Monocytes % (A) 8 %; Neutrophils % (A) 70 %; Platelet Count 174 k/uL (150-450); RBC 3.88 m/uL (3.80-5.40); RDW 14.2 % (11.5-15.5); WBC 10.1 k/uL (3.8-10.6)
[2018-05-31 08:51] LABS: ALT 20 U/L (9-52); AST 21 U/L (14-36); Albumin 2.9 g/dL (3.5-5.0); Alkaline Phosphatase 44 U/L (38-126); Anion Gap 7 mmol/L; Blood Urea Nitrogen 7 mg/dL (7-17); Calcium 8.9 mg/dL (8.4-10.2); Carbon Dioxide 21 mmol/L (22-30); Chloride 105 mmol/L (98-107); Glucose 125 mg/dL (74-99); Potassium 4.4 mmol/L (3.5-5.1); Sodium 133 mmol/L (137-145); Total Bilirubin 0.5 mg/dL (0.2-1.3); Total Protein 5.3 g/dL (6.3-8.2)
[2018-05-31] MEDS: ALVIMOPAN 12 MG CAPSULE PO SCH ×2 (09:23→21:12)
[2018-05-31] MEDS: ESCITALOPRAM 20 MG TAB PO SCH (09:24)
[2018-05-31] MEDS: FLUTICASONE 50MCG/SPRAY NASAL 16GM EA NOSTRIL SCH (09:24)
[2018-05-31] MEDS: FUROSEMIDE 20 MG TAB PO SCH (09:24)
[2018-05-31] MEDS: HEPARIN SODIUM,PORCINE 5,000 UNIT/ML 1 ML VIAL SQ SCH ×3 (09:24→23:45)
[2018-05-31] MEDS: METOPROLOL SUCCINATE (ER) 25 MG TAB.ER.24H PO SCH (09:24)
[2018-05-31] MEDS: FOLIC ACID 1 MG TAB PO SCH (09:24)
[2018-05-31] MEDS: PANTOPRAZOLE 40 MG TABLET PO SCH (09:24)
[2018-05-31] MEDS: THIAMINE 100 MG TAB PO SCH (09:24)
[2018-05-31] MEDS: VARENICLINE 1 MG TAB PO SCH ×2 (09:25→21:13)
--- NOTE | 2018-05-31 11:50 | P.PN ---
Progress Note - Text Progress Note Date: 05/31/18 Patient's postoperative day 2 from reversal of colostomy. She is doing quite well. She hasn't had no bowel function yet. On exam her vital signs are stable. Her abdomen soft. Dressing is clear. Status post reversal colostomy. Patient to to receive supportive care. She'll remain on clear liquid diet.
--- NOTE | 2018-05-31 12:58 | P.PN ---
Subjective Progress Note Date: 05/31/18 Principal diagnosis: History of perforated diverticuli, requiring colostomy, status post elective reversal This is a 57-year-old female, known history of COPD, recurrent episodes of bronchitis, patient was inpatient about 2 months ago with acute ruptured diverticulitis, underwent colostomy, seen by us on consultation for her COPD and postoperative respiratory failure at the time. Patient was eventually discharged home, and she is back here today for reversal of colostomy. This was done earlier today by Dr. Goldsmith, postoperatively patient was transferred to a regular medical floor, and we were asked to see her on consultation. Presently asymptomatic except for some shortness of breath, she has chronic obstructive lung disease, however she is not O2 dependent, and not prednisone dependent. No cough no wheezing no fever no chills no hemoptysis no chest pain. Patient even denies abdominal pain, she has epidural catheter, and the pain seems to be fairly well controlled. No headache no blurred vision no dizziness, no nausea no vomiting, no abdominal pain, no cough no wheezing, she does have chronic shortness of breath. No palpitations, no dysuria and no frequency no urgency. Patient is now back on updrafts in the form of DuoNeb, and she is also on Symbicort. The patient is seen again today 05/30/2018 in follow-up on the surgical floor. She is awake and alert in no acute distress. She denies any worsening shortness of breath, cough or congestion. She is working well with the incentive spirometer. She is maintaining good O2 saturations in the 90s on room air. She's afebrile. Hemodynamically stable.\ On 05/31/2018 patient seen in follow-up on surgical floor. She is awake and alert, having some mild to moderate amount of incisional abdominal pain with coughing, and moving, remains on epidural, currently at a rate of 80 ML per hour. Incentive spirometry effort is 1500, lung sounds are diminished, patient has a congested cough, no wheezing, no rhonchi. Abdomen seems to be slightly distended, with positive bowel sounds, patient has not passed any gas, she is tolerating clear liquid diet. She has been afebrile, hemodynamically stable. Pulse ox on room air is 91%. She has not ambulated extensively yet, she did sit up in the chair. Her dressing is intact. Continue current plan of treatment. Objective - Vital Signs Vital signs: Vital Signs Temp 98.4 F 05/31/18 07:21 Pulse 86 05/31/18 11:46 Resp 16 05/31/18 07:22 BP 111/65 05/31/18 07:21 Pulse Ox 91 L 05/31/18 07:21 Intake & Output 05/30/18 05/31/18 05/31/18 18:59 06:59 18:59 Intake Total 940 540 Output Total 1300 Balance 940 -1300 540 Intake: Oral 940 540 Output: Urine 1300 Other: Voiding Method Indwelling Catheter Indwelling Catheter Indwelling Catheter - Exam Physical Exam: Revealed a 51-year-old female in no distress. Head: Atraumatic, normocephalic. HEENT:[Neck is supple.] [No neck masses.] [No thyromegaly.] [No JVD.] Chest: [Diminished breath sounds at the bases, no crackles or rhonchi or wheezes.] Cardiac Exam: [Normal S1 and S2, no S3 gallop, no murmur.] Abdomen: [Postsurgical, wound vacs noted in the abdomen Soft, nontender, no megaly, no rebound, no guarding, diminished bowel sounds..] Extremities: [No clubbing, no edema, no cyanosis.] Neurological Exam: [No focal neurologic deficit.] Psychiatric: Normal mood affect and mental status examination. Lymphatics, no lymphadenopathy. - Labs CBC & Chem 7: 05/31/18 07:27 05/31/18 07:27 Labs: Abnormal Lab Results - Last 24 Hours (Table) 05/31/18 Range/Units 07:27 Sodium 133 L (137-145) mmol/L Carbon Dioxide 21 L (22-30) mmol/L Glucose 125 H (74-99) mg/dL Total Protein 5.3 L (6.3-8.2) g/dL Albumin 2.9 L (3.5-5.0) g/dL Assessment and Plan Plan: Assessment: 1 status post reversal of colostomy, small bowel resection, repair of incisional incarcerated hernia, appendectomy, left oophorectomy, postoperative day #2. 2 severe underlying COPD, but presently stable and under control. 3 recent history of perforated diverticulitis and peritonitis. 4 chronic tobacco dependence. Recommendation: Continue encouraging deep breathing and coughing, incentive spirometry use, encouraged patient to sit up in the chair. Pain control, continue nebulized bronchodilators and Symbicort. we'll follow I performed a history & physical examination of the patient and discussed their management with my nurse practitioner, Amalia Hernadez. I reviewed the nurse practitioner's note and agree with the documented findings and plan of care. Lung sounds are diminished. The findings and the impression was discussed with the patient. I attest to the documentation by the nurse practitioner. Time with Patient: Less than 30
--- NOTE | 2018-05-31 13:34 | P.PN ---
Subjective Progress Note Date: 05/31/18 This is a 57-year-old patient of Dr. Mendez. Patient presented to the hospital for an elective colostomy reversal. Patient has a previous history of perforated diverticulitis. Patient Colostomy in January of this year due to a ruptured diverticuli. Patient's additional medical history includes COPD, I disorder, hypertension, glaucoma, enlarged liver, for bronchitis, seasonal ALLERGIES and bowel resection. Patient is currently resting in bed. At this time patient does complain of minimal pain. Patient does have a wound VAC in place. At this time patient denies chest pain or shortness breath. Denies nausea vomiting diarrhea. Patient denies any urinary burning. AM labs have been ordered On 05/30/2018, patient was seen and examined, she is alert and oriented 3 in no apparent distress, she denies any chest pain or shortness of breath no nausea or vomiting, she has not had any bowel movement or passed any gas yet. On 05/31/2018 patient was seen and examined she is alert and oriented 3 she is complaining of abdominal pain she is not passing any gas or having any bowel movements yet otherwise she denies any symptoms there is no fever or chills no headache or dizziness no chest pain no shortness of breath no cough no nausea or vomiting and no urinary symptoms. Objective - Vital Signs Vital signs: Vital Signs Temp 98.4 F 05/31/18 07:21 Pulse 86 05/31/18 11:46 Resp 16 05/31/18 07:22 BP 111/65 05/31/18 07:21 Pulse Ox 91 L 05/31/18 07:21 Intake & Output 05/30/18 05/31/18 05/31/18 18:59 06:59 18:59 Intake Total 940 540 Output Total 1300 Balance 940 -1300 540 Intake: Oral 940 540 Output: Urine 1300 Other: Voiding Method Indwelling Catheter Indwelling Catheter Indwelling Catheter - Exam Head normocephalic and atraumatic Neck supple no JVD no goiter Lungs clear to auscultation bilaterally no wheezing or crackles Heart regular rate and rhythm S1-S2, no rub or gallop Abdomen is soft midline incision with wound VAC in place. Left lower quadrant colostomy site with wound VAC in place. Site is clean dry and intact with no drainage. Extremities no edema no cyanosis or clubbing Neuro alert and orientated to 3 - Labs CBC & Chem 7: 09/23/18 07:27 05/31/18 07:27 Labs: Abnormal Lab Results - Last 24 Hours (Table) 05/31/18 Range/Units 07:27 Sodium 133 L (137-145) mmol/L Carbon Dioxide 21 L (22-30) mmol/L Glucose 125 H (74-99) mg/dL Total Protein 5.3 L (6.3-8.2) g/dL Albumin 2.9 L (3.5-5.0) g/dL Assessment and Plan Plan: 1. Status post reversal colostomy due to perforated diverticulitis. Pain medication per surgical services. Patient currently on clear liquid diet 2. History of COPD. Home medications resumed. Dr. Sommers are following for pulmonary services 3. Essential hypertension. Home medications resumed with parameters 4. Nicotine dependence. Chantix ordered resume. 5. Depression. Continue lexapro and xanax 6. EtOH. Patient drank 1/5 of vodka a day. Patient states she quit 2 weeks ago. CIWA protocol has been ordered. patient currently on folic acid and thiamine DVT prophylaxis heparin. Patient seen and examined medication and labs were reviewed continue with current regimen increase ambulation Will follow in a.m.
[2018-05-31] MEDS: ROPIVACAINE 400 MG, HYDROMORPHONE (PF) 5 MG in SODIUM CHLORIDE 0.9% 170 ML EPIDURAL PRN (16:47)
--- NOTE | 2018-05-31 17:42 | P.PN ---
Progress Note - Text Progress Note Date: 05/31/18 Postoperative day # 2 status post colostomy reversal ,epidural catheter placed for postoperative analgesia, patient doing well epidural site okay, patient currently on combination of epidural infusion solution of Ropivacaine 0.0625% and Dilaudid 20 g per mL the infusion rate at 8 ml per hour , patient had no motor deficit epidural site okay , vital signs stable ,VAS 3 /10 , Getting IV Dilaudid for breakthrough pain ,every 3 hours when necessary. Assessment and plan= post operative day # 1 patient doing well ,pain well controlled , there is no anesthesia related complications
[2018-06-01] MEDS: IPRATROPIUM-ALBUTEROL 3 ML NEB INHALATION SCH ×7 (00:04→20:04)
[2018-06-01] MEDS: D5-0.45% NACL WITH KCL 20MEQ/L 1,000 ML IV SCH ×2 (00:55→07:45)
[2018-06-01] MEDS: diphenhydrAMINE 50 MG/ML 1 ML VIAL IVP PRN (02:35)
[2018-06-01] MEDS: HYDROmorphone 1 MG/ML 1 ML SYRINGE IVP PRN ×6 (02:35→23:47)
--- NOTE | 2018-06-01 06:51 | P.PN ---
Progress Note - Text Progress Note Date: 06/01/18 Postoperative day # 3 status post colostomy reversal ,epidural catheter placed for postoperative analgesia, patient doing well epidural site okay, patient currently on combination of epidural infusion solution of Ropivacaine 0.0625% and Dilaudid 20 g per mL the infusion rate at 8 ml per hour , patient had no motor deficit epidural site okay , vital signs stable ,VAS 3 /10 , Getting IV Dilaudid for breakthrough pain ,every 3 hours when necessary. Assessment and plan= post operative day # 3 patient doing well ,pain well controlled , there is no anesthesia related complications
[2018-06-01] MEDS: LACTATED RINGERS 1,000 ML IV SCH (06:58)
[2018-06-01] MEDS: SYMBICORT 160-4.5 MCG INHALER INHALATION SCH ×2 (07:03→19:20)
[2018-06-01 07:36] LABS: Basophils % (A) 0 %; Eosinophils # (A) 0.3 k/uL (0-0.7); Eosinophils % (A) 4 %; HCT 33.8 % (34.0-46.0); HGB 11.1 gm/dL (11.4-16.0); Lymphocytes % (A) 26 %; MCH 28.6 pg (25.0-35.0); MCHC 32.8 g/dL (31.0-37.0); MCV 87.3 fL (80.0-100.0); Mean Platelet Volume 7.7; Monocytes # (A) 0.6 k/uL (0-1.0); Monocytes % (A) 8 %; Neutrophils # (A) 4.8 k/uL (1.3-7.7); Neutrophils % (A) 61 %; Platelet Count 202 k/uL (150-450); RBC 3.88 m/uL (3.80-5.40); WBC 7.9 k/uL (3.8-10.6)
[2018-06-01] MEDS: HEPARIN SODIUM,PORCINE 5,000 UNIT/ML 1 ML VIAL SQ SCH ×3 (07:42→23:46)
[2018-06-01] MEDS: PANTOPRAZOLE 40 MG TABLET PO SCH (07:42)
[2018-06-01 08:11] LABS: ALT 17 U/L (9-52); AST 30 U/L (14-36); Albumin 2.8 g/dL (3.5-5.0); Alkaline Phosphatase 42 U/L (38-126); Anion Gap 8 mmol/L; Blood Urea Nitrogen 3 mg/dL (7-17); Calcium 8.6 mg/dL (8.4-10.2); Carbon Dioxide 21 mmol/L (22-30); Chloride 107 mmol/L (98-107); Glucose 109 mg/dL (74-99); Sodium 136 mmol/L (137-145); Total Bilirubin 0.7 mg/dL (0.2-1.3); Total Protein 5.3 g/dL (6.3-8.2)
[2018-06-01 08:20] LABS: Potassium 5.2 mmol/L (3.5-5.1)
--- NOTE | 2018-06-01 08:20 | P.PN ---
Subjective Progress Note Date: 06/01/18 57-year-old female seen at the bedside this morning. Epidural in place. Anesthesia for pain control which patient states is effective patient states is passing gas rectally no stool surgical dressing site dry with prevena immune system in place indwelling Sheikh catheter in place surgical tenderness appropriate the white count down to 7.9 hemoglobin 11.1 Postop May 29 reversal of colostomy, small bowel resection, appendectomy, left oophorectomy, repair of incisional incarcerated hernia lysis of adhesions Objective - Vital Signs Vital signs: Vital Signs Temp 99.5 F 06/01/18 07:38 Pulse 92 06/01/18 07:38 Resp 20 06/01/18 07:38 BP 104/57 06/01/18 07:38 Pulse Ox 92 L 06/01/18 02:43 Intake & Output 05/31/18 06/01/18 06/01/18 18:59 06:59 18:59 Intake Total 749.067 240 222 Output Total 3600 Balance 749.067 -3360 222 Intake: Intake, IV Titration 209.067 Amount Ropivacaine 400 mg 209.067 Hydromorphone (Pf) 5 mg In Sodium Chloride 0.9% 170 ml @ Per Protocol EPIDURAL .Q0M PRN Rx#: [id number] Oral 540 240 222 Output: Urine 3600 Uretheral (Sheikh) 1800 Other: Voiding Method Indwelling Catheter Toilet Indwelling Catheter - Exam Physical exam Pleasant 57-year-old female resting in bed appears in no acute distress Lungs adequate air movement bilaterally on room air Heart S1-S2 audible regular denying chest pain Abdomen surgical dressing site dry with prevena wound system in place surgical tenderness appropriate few hypoactive bowel tones no nausea no vomiting no stool indwelling Sheikh catheter in place passing gas Extremities no edema noted bilaterally - Labs CBC & Chem 7: 06/01/18 06:16 05/31/18 07:27 Labs: Abnormal Lab Results - Last 24 Hours (Table) 05/31/18 06/01/18 Range/Units 07:27 06:16 Hgb 11.1 L (11.4-16.0) gm/dL Hct 33.8 L (34.0-46.0) % Sodium 133 L (137-145) mmol/L Carbon Dioxide 21 L (22-30) mmol/L Glucose 125 H (74-99) mg/dL Total Protein 5.3 L (6.3-8.2) g/dL Albumin 2.9 L (3.5-5.0) g/dL Assessment and Plan Assessment: Impression History of perforated diverticulitis History of left ovarian mass Incarcerated incisional hernia Postop May 29 reversal colostomy, repair of incisional incarcerated hernia, appendectomy, left oophorectomy COPD was no evidence of an exacerbation Colostomy in January due to a ruptured diverticuli Nicotine dependency Essential hypertension Depression History of EtOH drink fifth of vodka quit 2 weeks prior Plan Continue postop surgical care Epidural per anesthesia for pain control Increase activity Defer to medicine to address medical issues Clear liquid diet DVT and GI prophylaxis Continue recommendations by pulmonary service defer to The above impression and plan of care have been discussed and directed by signing physician. Romelia Dominguez nurse practitioner acting as scribe for signing physician.
[2018-06-01] MEDS: DEXTROSE 5%-0.45% NACL 1,000 ML IV SCH ×2 (08:44→23:47)
[2018-06-01] MEDS: FLUTICASONE 50MCG/SPRAY NASAL 16GM EA NOSTRIL SCH (08:45)
[2018-06-01] MEDS: ALVIMOPAN 12 MG CAPSULE PO SCH ×2 (08:46→20:54)
[2018-06-01] MEDS: FUROSEMIDE 20 MG TAB PO SCH (08:46)
[2018-06-01] MEDS: THIAMINE 100 MG TAB PO SCH (08:46)
[2018-06-01] MEDS: ESCITALOPRAM 20 MG TAB PO SCH (08:46)
[2018-06-01] MEDS: FOLIC ACID 1 MG TAB PO SCH (08:46)
[2018-06-01] MEDS: METOPROLOL SUCCINATE (ER) 25 MG TAB.ER.24H PO SCH (08:46)
[2018-06-01] MEDS: VARENICLINE 1 MG TAB PO SCH ×2 (08:52→20:54)
[2018-06-01 09:53] LABS: Appearance,Urine Clear (Clear); Bilirubin,Urine Negative (Negative); Blood,Urine Negative (Negative); Color,Urine Yellow; Glucose,Urine (UA) Negative (Negative); Ketones,Urine Negative (Negative); Leukocyte Esterase,Urine Negative (Negative); Nitrite,Urine Negative (Negative); Protein,Urine Negative (Negative); Specific Gravity,Urine 1.008 (1.001-1.035); Urobilinogen,Urine <2.0 mg/dL (<2.0)
--- NOTE | 2018-06-01 10:26 | P.PN ---
Subjective Progress Note Date: 06/01/18 This is a 57-year-old patient of Dr. Mendez. Patient presented to the hospital for an elective colostomy reversal. Patient has a previous history of perforated diverticulitis. Patient Colostomy in January of this year due to a ruptured diverticuli. Patient's additional medical history includes COPD, I disorder, hypertension, glaucoma, enlarged liver, for bronchitis, seasonal ALLERGIES and bowel resection. Patient is currently resting in bed. At this time patient does complain of minimal pain. Patient does have a wound VAC in place. At this time patient denies chest pain or shortness breath. Denies nausea vomiting diarrhea. Patient denies any urinary burning. AM labs have been ordered On 05/30/2018, patient was seen and examined, she is alert and oriented 3 in no apparent distress, she denies any chest pain or shortness of breath no nausea or vomiting, she has not had any bowel movement or passed any gas yet. On 05/31/2018 patient was seen and examined she is alert and oriented 3 she is complaining of abdominal pain she is not passing any gas or having any bowel movements yet otherwise she denies any symptoms there is no fever or chills no headache or dizziness no chest pain no shortness of breath no cough no nausea or vomiting and no urinary symptoms. On 06/01/2018 patient is alert and oriented times. patient is currently up and walking with physical therapy. Patient states she is passing gas but yet to have a bowel movement. Patient having low-grade temps 99.8 urinary analysis has been ordered. Patient denies any upper respiratory symptoms. Denies cough , denies nausea vomiting or diarrhea. denies any urinary burning or frequency Objective - Vital Signs Vital signs: Vital Signs Temp 99.5 F 06/01/18 07:38 Pulse 92 06/01/18 07:38 Resp 20 06/01/18 07:38 BP 104/57 06/01/18 07:38 Pulse Ox 92 L 06/01/18 02:43 Intake & Output 05/31/18 06/01/18 06/01/18 18:59 06:59 18:59 Intake Total 749.067 240 222 Output Total 3600 Balance 749.067 -3360 222 Intake: Intake, IV Titration 209.067 Amount Ropivacaine 400 mg 209.067 Hydromorphone (Pf) 5 mg In Sodium Chloride 0.9% 170 ml @ Per Protocol EPIDURAL .Q0M PRN Rx#: [id number] Oral 540 240 222 Output: Urine 3600 Uretheral (Sheikh) 1800 Other: Voiding Method Indwelling Catheter Toilet Indwelling Catheter - Exam Head normocephalic and atraumatic Neck supple no JVD no goiter Lungs clear to auscultation bilaterally no wheezing or crackles Heart regular rate and rhythm S1-S2, no rub or gallop Abdomen is soft midline incision with wound VAC in place. Left lower quadrant colostomy site with wound VAC in place. Site is clean dry and intact with no drainage. Extremities no edema no cyanosis or clubbing Neuro alert and orientated to 3 - Labs CBC & Chem 7: 06/01/18 06:16 06/01/18 06:16 Labs: Abnormal Lab Results - Last 24 Hours (Table) 06/01/18 06/01/18 Range/Units 06:16 06:16 Hgb 11.1 L (11.4-16.0) gm/dL Hct 33.8 L (34.0-46.0) % Sodium 136 L (137-145) mmol/L Potassium 5.2 H (3.5-5.1) mmol/L Carbon Dioxide 21 L (22-30) mmol/L BUN 3 L (7-17) mg/dL Glucose 109 H (74-99) mg/dL Total Protein 5.3 L (6.3-8.2) g/dL Albumin 2.8 L (3.5-5.0) g/dL Assessment and Plan Assessment: 1. Status post reversal colostomy due to perforated diverticulitis. Pain medication per surgical services. Patient currently on clear liquid diet. 2. History of COPD. Home medications resumed. Dr. Sommers are following for pulmonary services 3. Essential hypertension. Home medications resumed with parameters 4. Nicotine dependence. Chantix ordered resume. 5. Depression. Continue lexapro and xanax 6. EtOH. Patient drank 1/5 of vodka a day. Patient states she quit 2 weeks ago. CIWA protocol has been ordered. patient currently on folic acid and thiamine 7. low-grade elevated temp. Patient having temp 99.8. Urinary analysis has been ordered I performed an examination of the patient and discussed their management with the Nurse Practitioner. I have reviewed the Nurse Practitioner's notes and agree with the documented findings and plan of care
--- NOTE | 2018-06-01 12:40 | P.PN ---
Subjective Progress Note Date: 06/01/18 Principal diagnosis: History of perforated diverticuli, requiring colostomy, status post elective reversal This is a 57-year-old female, known history of COPD, recurrent episodes of bronchitis, patient was inpatient about 2 months ago with acute ruptured diverticulitis, underwent colostomy, seen by us on consultation for her COPD and postoperative respiratory failure at the time. Patient was eventually discharged home, and she is back here today for reversal of colostomy. This was done earlier today by Dr. Goldsmith, postoperatively patient was transferred to a regular medical floor, and we were asked to see her on consultation. Presently asymptomatic except for some shortness of breath, she has chronic obstructive lung disease, however she is not O2 dependent, and not prednisone dependent. No cough no wheezing no fever no chills no hemoptysis no chest pain. Patient even denies abdominal pain, she has epidural catheter, and the pain seems to be fairly well controlled. No headache no blurred vision no dizziness, no nausea no vomiting, no abdominal pain, no cough no wheezing, she does have chronic shortness of breath. No palpitations, no dysuria and no frequency no urgency. Patient is now back on updrafts in the form of DuoNeb, and she is also on Symbicort. The patient is seen again today 05/30/2018 in follow-up on the surgical floor. She is awake and alert in no acute distress. She denies any worsening shortness of breath, cough or congestion. She is working well with the incentive spirometer. She is maintaining good O2 saturations in the 90s on room air. She's afebrile. Hemodynamically stable.\ On 05/31/2018 patient seen in follow-up on surgical floor. She is awake and alert, having some mild to moderate amount of incisional abdominal pain with coughing, and moving, remains on epidural, currently at a rate of 80 ML per hour. Incentive spirometry effort is 1500, lung sounds are diminished, patient has a congested cough, no wheezing, no rhonchi. Abdomen seems to be slightly distended, with positive bowel sounds, patient has not passed any gas, she is tolerating clear liquid diet. She has been afebrile, hemodynamically stable. Pulse ox on room air is 91%. She has not ambulated extensively yet, she did sit up in the chair. Her dressing is intact. Continue current plan of treatment. On 06/01/2018 patient seen again in follow-up on surgical floor. She is resting in bed, in no acute distress. Remains on epidural for postop incisional discomfort currently infusing at a rate of 80 ML per hour. Working on her incentive spirometry, still has the upper airway congestion, but no distress, room air pulse ox is 92%, lung sounds are clear, diminished at the bases. Continue encouraging incentive spirometry, encourage patient to sit up in the chair, and ambulate, continue with nebulized bronchodilators. Incisions are clean dry and intact, bowel sounds are hypoactive, patient remains on clear liquid diet. Objective - Vital Signs Vital signs: Vital Signs Temp 99.5 F 06/01/18 07:38 Pulse 84 06/01/18 11:19 Resp 20 06/01/18 07:38 BP 104/57 06/01/18 07:38 Pulse Ox 92 L 06/01/18 02:43 Intake & Output 05/31/18 06/01/18 06/01/18 18:59 06:59 18:59 Intake Total 749.067 240 222 Output Total 3600 Balance 749.067 -3360 222 Weight 76.204 kg Intake: Intake, IV Titration 209.067 Amount Ropivacaine 400 mg 209.067 Hydromorphone (Pf) 5 mg In Sodium Chloride 0.9% 170 ml @ Per Protocol EPIDURAL .Q0M PRN Rx#: [id number] Oral 540 240 222 Output: Urine 3600 Uretheral (Sheikh) 1800 Other: Voiding Method Indwelling Catheter Toilet Indwelling Catheter - Exam Physical Exam: Revealed a 51-year-old female in no distress. Head: Atraumatic, normocephalic. HEENT:[Neck is supple.] [No neck masses.] [No thyromegaly.] [No JVD.] Chest: [Diminished breath sounds at the bases, no crackles or rhonchi or wheezes.] Cardiac Exam: [Normal S1 and S2, no S3 gallop, no murmur.] Abdomen: [Postsurgical, wound vacs noted in the abdomen Soft, nontender, no megaly, no rebound, no guarding, diminished bowel sounds..] Extremities: [No clubbing, no edema, no cyanosis.] Neurological Exam: [No focal neurologic deficit.] Psychiatric: Normal mood affect and mental status examination. Lymphatics, no lymphadenopathy. - Labs CBC & Chem 7: 06/01/18 06:16 18 06:16 Labs: Abnormal Lab Results - Last 24 Hours (Table) 06/01/18 06/01/18 Range/Units 06:16 06:16 Hgb 11.1 L (11.4-16.0) gm/dL Hct 33.8 L (34.0-46.0) % Sodium 136 L (137-145) mmol/L Potassium 5.2 H (3.5-5.1) mmol/L Carbon Dioxide 21 L (22-30) mmol/L BUN 3 L (7-17) mg/dL Glucose 109 H (74-99) mg/dL Total Protein 5.3 L (6.3-8.2) g/dL Albumin 2.8 L (3.5-5.0) g/dL Assessment and Plan Plan: Assessment: 1 status post reversal of colostomy, small bowel resection, repair of incisional incarcerated hernia, appendectomy, left oophorectomy, postoperative day #3. 2 severe underlying COPD, but presently stable and under control. 3 recent history of perforated diverticulitis and peritonitis. 4 chronic tobacco dependence. Recommendation: Continue encouraging deep breathing and coughing, incentive spirometry, encourage patient to set up in the chair, ambulate. Remains stable from pulmonary standpoint, nebulized bronchodilators. I performed a history & physical examination of the patient and discussed their management with my nurse practitioner, Amalia Hernadez. I reviewed the nurse practitioner's note and agree with the documented findings and plan of care. Lung sounds are diminished. The findings and the impression was discussed with the patient. I attest to the documentation by the nurse practitioner. Time with Patient: Less than 30
[2018-06-01] MEDS: ALPRAZolam 0.25 MG TAB PO PRN (21:02)
[2018-06-02] MEDS: HYDROmorphone 1 MG/ML 1 ML SYRINGE IVP PRN (06:28)
[2018-06-02] MEDS: LACTATED RINGERS 1,000 ML IV SCH (06:57)
[2018-06-02] MEDS: DEXTROSE 5%-0.45% NACL 1,000 ML IV SCH ×3 (06:57→15:04)
[2018-06-02] MEDS: HEPARIN SODIUM,PORCINE 5,000 UNIT/ML 1 ML VIAL SQ SCH ×2 (07:36→15:04)
[2018-06-02] MEDS: PANTOPRAZOLE 40 MG TABLET PO SCH (07:36)
[2018-06-02 07:56] LABS: Basophils % (A) 1 %; Eosinophils # (A) 0.3 k/uL (0-0.7); Eosinophils % (A) 5 %; HCT 34.2 % (34.0-46.0); HGB 11.3 gm/dL (11.4-16.0); Lymphocytes # (A) 1.2 k/uL (1.0-4.8); Lymphocytes % (A) 17 %; MCH 28.7 pg (25.0-35.0); MCHC 33.1 g/dL (31.0-37.0); MCV 86.7 fL (80.0-100.0); Mean Platelet Volume 7.9; Monocytes # (A) 0.6 k/uL (0-1.0); Monocytes % (A) 8 %; Neutrophils # (A) 4.5 k/uL (1.3-7.7); Neutrophils % (A) 66 %; Platelet Count 235 k/uL (150-450); RBC 3.95 m/uL (3.80-5.40); WBC 6.7 k/uL (3.8-10.6)
[2018-06-02 08:00] LABS: ALT 21 U/L (9-52); AST 14 U/L (14-36); Albumin 2.8 g/dL (3.5-5.0); Alkaline Phosphatase 65 U/L (38-126); Anion Gap 8 mmol/L; Blood Urea Nitrogen <2 mg/dL (7-17); Calcium 8.9 mg/dL (8.4-10.2); Carbon Dioxide 26 mmol/L (22-30); Chloride 104 mmol/L (98-107); Glucose 130 mg/dL (74-99); Potassium 3.9 mmol/L (3.5-5.1); Sodium 138 mmol/L (137-145); Total Bilirubin 0.4 mg/dL (0.2-1.3); Total Protein 5.2 g/dL (6.3-8.2)
[2018-06-02] MEDS: SYMBICORT 160-4.5 MCG INHALER INHALATION SCH ×2 (08:22→20:36)
[2018-06-02] MEDS: IPRATROPIUM-ALBUTEROL 3 ML NEB INHALATION SCH ×4 (08:22→20:36)
[2018-06-02] MEDS: FOLIC ACID 1 MG TAB PO SCH (08:42)
[2018-06-02] MEDS: METOPROLOL SUCCINATE (ER) 25 MG TAB.ER.24H PO SCH (08:42)
[2018-06-02] MEDS: THIAMINE 100 MG TAB PO SCH (08:42)
[2018-06-02] MEDS: ALVIMOPAN 12 MG CAPSULE PO SCH ×2 (08:42→21:52)
[2018-06-02] MEDS: ESCITALOPRAM 20 MG TAB PO SCH (08:42)
[2018-06-02] MEDS: FLUTICASONE 50MCG/SPRAY NASAL 16GM EA NOSTRIL SCH (08:42)
[2018-06-02] MEDS: FUROSEMIDE 20 MG TAB PO SCH (08:42)
[2018-06-02] MEDS: VARENICLINE 1 MG TAB PO SCH ×2 (08:42→21:52)
[2018-06-02] MEDS: ONDANSETRON 4 MG/2 ML VIAL IVP PRN ×2 (09:19→16:45)
--- NOTE | 2018-06-02 09:58 | P.PN ---
Subjective Progress Note Date: 06/02/18 57-year-old female seen at the bedside patient stated that she had been up ambulating twice yesterday. Additionally patient stated that she did have a loose stool this morning reports no nausea vomiting. Chief complaint tired out this morning" tolerating diet states hungry surgical dressing site dry with prevena wound system in place white count on 6.7 hemoglobin 11.3 electrolytes within normal limits Postop May 29 reversal of colostomy, small bowel resection, appendectomy, left oophorectomy, repair of incisional incarcerated hernia lysis of adhesions Objective - Vital Signs Vital signs: Vital Signs Temp 98.5 F 06/02/18 07:18 Pulse 80 06/02/18 08:41 Resp 16 06/02/18 07:18 BP 116/66 06/02/18 07:18 Pulse Ox 87 L 06/02/18 07:18 Intake & Output 06/01/18 06/02/18 06/02/18 18:59 06:59 18:59 Intake Total 844 2110 Output Total 600 2425 Balance 244 -315 Weight 76.204 kg Intake: Intake, IV Titration 1000 Amount Dextrose 5%-0.45% NaCl 1, 1000 000 ml @ 125 mls/hr IV . Q8H [facility] Rx#:[id number] Oral 844 1110 Output: Urine 600 2425 Uretheral (Sheikh) 625 Other: Voiding Method Indwelling Catheter Indwelling Catheter - Exam Physical exam 57-year-old female resting comfortably in bed appears in no acute distress Lungs adequate air movement bilaterally on room air Heart S1-S2 audible regular denying chest pain heart rate in the 80s Abdomen few hypoactive bowel tones soft surgical tenderness appropriate nondistended surgical dressings dry. 2 Provera wound systems in place tolerating diet no nausea no vomiting Extremities no edema noted - Labs CBC & Chem 7: 06/02/18 06:37 06/02/18 06:37 Labs: Abnormal Lab Results - Last 24 Hours (Table) 06/02/18 06/02/18 Range/Units 06:37 06:37 Hgb 11.3 L (11.4-16.0) gm/dL BUN <2 L (7-17) mg/dL Glucose 130 H (74-99) mg/dL Total Protein 5.2 L (6.3-8.2) g/dL Albumin 2.8 L (3.5-5.0) g/dL Assessment and Plan Assessment: Impression History of perforated diverticulitis History of left ovarian mass Incarcerated incisional hernia Postop May 29 reversal colostomy, repair of incisional incarcerated hernia, appendectomy, left oophorectomy COPD was no evidence of an exacerbation Colostomy in January due to a ruptured diverticuli Nicotine dependency Essential hypertension Depression History of EtOH drink fifth of vodka quit 2 weeks prior Plan Continue postop surgical care Pain control Increase activity Defer to medicine to address medical issues Full Liquid diet DVT and GI prophylaxis Continue recommendations by pulmonary service defer to Encourage use of incentive spirometer The above impression and plan of care have been discussed and directed by signing physician. Romelia Dominguez nurse practitioner acting as scribe for signing physician.
--- NOTE | 2018-06-02 10:47 | P.PN ---
Subjective Progress Note Date: 06/02/18 This is a 57-year-old patient of Dr. Mendez. Patient presented to the hospital for an elective colostomy reversal. Patient has a previous history of perforated diverticulitis. Patient Colostomy in January of this year due to a ruptured diverticuli. Patient's additional medical history includes COPD, I disorder, hypertension, glaucoma, enlarged liver, for bronchitis, seasonal ALLERGIES and bowel resection. Patient is currently resting in bed. At this time patient does complain of minimal pain. Patient does have a wound VAC in place. At this time patient denies chest pain or shortness breath. Denies nausea vomiting diarrhea. Patient denies any urinary burning. AM labs have been ordered On 05/30/2018, patient was seen and examined, she is alert and oriented 3 in no apparent distress, she denies any chest pain or shortness of breath no nausea or vomiting, she has not had any bowel movement or passed any gas yet. On 05/31/2018 patient was seen and examined she is alert and oriented 3 she is complaining of abdominal pain she is not passing any gas or having any bowel movements yet otherwise she denies any symptoms there is no fever or chills no headache or dizziness no chest pain no shortness of breath no cough no nausea or vomiting and no urinary symptoms. On 06/01/2018 patient is alert and oriented times x3. patient is currently up and walking with physical therapy. Patient states she is passing gas but yet to have a bowel movement. Patient having low-grade temps 99.8 urinary analysis has been ordered. Patient denies any upper respiratory symptoms. Denies cough , denies nausea vomiting or diarrhea. denies any urinary burning or frequency 06/02/2018 patient remains alert and oriented 3. Per nursing staff patient did have bowel movement this a.m. Patient also had a epidural. Patient is complaining of increased abdominal pain. Pain meds per surgical services. Patient has been afebrile. Patient denies chest pain or shortness of breath. Patient denies nausea vomiting or diarrhea. Patient denies any urinary burning or frequency Objective - Vital Signs Vital signs: Vital Signs Temp 98.5 F 06/02/18 07:18 Pulse 80 06/02/18 08:41 Resp 16 06/02/18 07:18 BP 116/66 06/02/18 07:18 Pulse Ox 87 L 06/02/18 07:18 Intake & Output 06/01/18 06/02/18 06/02/18 18:59 06:59 18:59 Intake Total 844 2110 Output Total 600 2425 Balance 244 -315 Weight 76.204 kg Intake: Intake, IV Titration 1000 Amount Dextrose 5%-0.45% NaCl 1, 1000 000 ml @ 125 mls/hr IV . Q8H [facility] Rx#:[id number] Oral 844 1110 Output: Urine 600 2425 Uretheral (Sheikh) 625 Other: Voiding Method Indwelling Catheter Indwelling Catheter - Exam Head normocephalic and atraumatic Neck supple no JVD no goiter Lungs clear to auscultation bilaterally no wheezing or crackles Heart regular rate and rhythm S1-S2, no rub or gallop Abdomen is soft midline incision with wound VAC in place. Left lower quadrant colostomy site with wound VAC in place. Site is clean dry and intact with no drainage. Extremities no edema no cyanosis or clubbing Neuro alert and orientated to 3 - Labs CBC & Chem 7: 06/02/18 06:37 06/02/18 06:37 Labs: Abnormal Lab Results - Last 24 Hours (Table) 06/02/18 06/02/18 Range/Units 06:37 06:37 Hgb 11.3 L (11.4-16.0) gm/dL BUN <2 L (7-17) mg/dL Glucose 130 H (74-99) mg/dL Total Protein 5.2 L (6.3-8.2) g/dL Albumin 2.8 L (3.5-5.0) g/dL Assessment and Plan Assessment: 1. Status post reversal colostomy due to perforated diverticulitis. Pain medication per surgical services. Patient currently on full liquid diet. Per nursing staff patient did have bowel this AM 2. History of COPD. Home medications resumed. Dr. Matthieu braga for pulmonary services 3. Essential hypertension. Home medications resumed with parameters 4. Nicotine dependence. Chantix ordered resume. 5. Depression. Continue lexapro and xanax 6. EtOH. Patient drank 1/5 of vodka a day. Patient states she quit 2 weeks ago. CIWA protocol has been ordered. patient currently on folic acid and thiamine 7. low-grade elevated temp. Patient having temp 99.8. Urinary analysis has been ordered. Urinalysis negative. I performed an examination of the patient and discussed their management with the Nurse Practitioner. I have reviewed the Nurse Practitioner's notes and agree with the documented findings and plan of care
--- NOTE | 2018-06-02 11:06 | P.PN ---
Subjective Progress Note Date: 06/02/18 Principal diagnosis: History of perforated diverticuli, requiring colostomy, status post elective reversal This is a 57-year-old female, known history of COPD, recurrent episodes of bronchitis, patient was inpatient about 2 months ago with acute ruptured diverticulitis, underwent colostomy, seen by us on consultation for her COPD and postoperative respiratory failure at the time. Patient was eventually discharged home, and she is back here today for reversal of colostomy. This was done earlier today by Dr. Goldsmith, postoperatively patient was transferred to a regular medical floor, and we were asked to see her on consultation. Presently asymptomatic except for some shortness of breath, she has chronic obstructive lung disease, however she is not O2 dependent, and not prednisone dependent. No cough no wheezing no fever no chills no hemoptysis no chest pain. Patient even denies abdominal pain, she has epidural catheter, and the pain seems to be fairly well controlled. No headache no blurred vision no dizziness, no nausea no vomiting, no abdominal pain, no cough no wheezing, she does have chronic shortness of breath. No palpitations, no dysuria and no frequency no urgency. Patient is now back on updrafts in the form of DuoNeb, and she is also on Symbicort. The patient is seen again today 05/30/2018 in follow-up on the surgical floor. She is awake and alert in no acute distress. She denies any worsening shortness of breath, cough or congestion. She is working well with the incentive spirometer. She is maintaining good O2 saturations in the 90s on room air. She's afebrile. Hemodynamically stable.\ On 05/31/2018 patient seen in follow-up on surgical floor. She is awake and alert, having some mild to moderate amount of incisional abdominal pain with coughing, and moving, remains on epidural, currently at a rate of 80 ML per hour. Incentive spirometry effort is 1500, lung sounds are diminished, patient has a congested cough, no wheezing, no rhonchi. Abdomen seems to be slightly distended, with positive bowel sounds, patient has not passed any gas, she is tolerating clear liquid diet. She has been afebrile, hemodynamically stable. Pulse ox on room air is 91%. She has not ambulated extensively yet, she did sit up in the chair. Her dressing is intact. Continue current plan of treatment. On 06/01/2018 patient seen again in follow-up on surgical floor. She is resting in bed, in no acute distress. Remains on epidural for postop incisional discomfort currently infusing at a rate of 80 ML per hour. Working on her incentive spirometry, still has the upper airway congestion, but no distress, room air pulse ox is 92%, lung sounds are clear, diminished at the bases. Continue encouraging incentive spirometry, encourage patient to sit up in the chair, and ambulate, continue with nebulized bronchodilators. Incisions are clean dry and intact, bowel sounds are hypoactive, patient remains on clear liquid diet. On 06/02/2017 patient seen in follow-up on the surgical floor. She is ambulating to the bathroom with assistance, she was able to wash up this morning. No acute distress, some mild incisional discomfort, her epidural has been discontinued, room air pulse ox is 87%-94%. A bit dyspneic with exertion, but no acute distress, lung sounds are diminished, no rhonchi. She is compliant with her incentive spirometer, and she is bringing up some sputum occasionally. Vitals are stable, respirations are nonlabored. Patient is on full liquid diet, no nausea or vomiting. Positive bowel sounds. Objective - Vital Signs Vital signs: Vital Signs Temp 98.5 F 06/02/18 07:18 Pulse 80 06/02/18 08:41 Resp 16 06/02/18 07:18 BP 116/66 06/02/18 07:18 Pulse Ox 87 L 06/02/18 07:18 Intake & Output 06/01/18 06/02/18 06/02/18 18:59 06:59 18:59 Intake Total 844 2110 Output Total 600 2425 Balance 244 -315 Weight 76.204 kg Intake: Intake, IV Titration 1000 Amount Dextrose 5%-0.45% NaCl 1, 1000 000 ml @ 125 mls/hr IV . Q8H [facility] Rx#:[id number] Oral 844 1110 Output: Urine 600 2425 Uretheral (Sheikh) 625 Other: Voiding Method Indwelling Catheter Indwelling Catheter - Exam Physical Exam: Revealed a 51-year-old female in no distress. Head: Atraumatic, normocephalic. HEENT:[Neck is supple.] [No neck masses.] [No thyromegaly.] [No JVD.] Chest: [Diminished breath sounds at the bases, no crackles or rhonchi or wheezes.] Cardiac Exam: [Normal S1 and S2, no S3 gallop, no murmur.] Abdomen: [Postsurgical, wound vacs noted in the abdomen Soft, nontender, no megaly, no rebound, no guarding, diminished bowel sounds..] Extremities: [No clubbing, no edema, no cyanosis.] Neurological Exam: [No focal neurologic deficit.] Psychiatric: Normal mood affect and mental status examination. Lymphatics, no lymphadenopathy. - Labs CBC & Chem 7: 06/02/18 06:37 06/02/18 06:37 Labs: Abnormal Lab Results - Last 24 Hours (Table) 06/02/18 06/02/18 Range/Units 06:37 06:37 Hgb 11.3 L (11.4-16.0) gm/dL BUN <2 L (7-17) mg/dL Glucose 130 H (74-99) mg/dL Total Protein 5.2 L (6.3-8.2) g/dL Albumin 2.8 L (3.5-5.0) g/dL Assessment and Plan Plan: Assessment: 1 status post reversal of colostomy, small bowel resection, repair of incisional incarcerated hernia, appendectomy, left oophorectomy, postoperative day #3. 2 severe underlying COPD, but presently stable and under control. 3 recent history of perforated diverticulitis and peritonitis. 4 chronic tobacco dependence. Recommendation: Continue deep breathing and coughing, incentive spirometry use, continue nebulized bronchodilators. Pain control, patient is stable from pulmonary perspective. Discharge planning is in progress for discharge to subacute rehab today. I performed a history & physical examination of the patient and discussed their management with my nurse practitioner, Amalia Hernadez. I reviewed the nurse practitioner's note and agree with the documented findings and plan of care. Lung sounds are diminished. The findings and the impression was discussed with the patient. I attest to the documentation by the nurse practitioner. Time with Patient: Less than 30
[2018-06-02] MEDS ORDERED: PROCHLORPERAZINE 10 MG TAB PO PRN (18:30)
[2018-06-02] MEDS ORDERED: ALBUTEROL INHALER 60 PUFF/8 GM INHALER INHALATION PRN (18:31)
[2018-06-02] MEDS: METOCLOPRAMIDE 5 MG/ML 2 ML VIAL IVP PRN (19:41)
[2018-06-02] MEDS ORDERED: SODIUM CHLORIDE 0.9% 500 ML IV ONE (20:38)
[2018-06-02] MEDS: ALPRAZolam 0.25 MG TAB PO PRN (21:52)
[2018-06-03] MEDS: HEPARIN SODIUM,PORCINE 5,000 UNIT/ML 1 ML VIAL SQ SCH ×4 (00:06→23:17)
[2018-06-03] MEDS: IPRATROPIUM-ALBUTEROL 3 ML NEB INHALATION SCH ×4 (07:01→19:22)
[2018-06-03] MEDS: SYMBICORT 160-4.5 MCG INHALER INHALATION SCH ×2 (07:01→19:22)
[2018-06-03] MEDS: LACTATED RINGERS 1,000 ML IV SCH (07:13)
[2018-06-03] MEDS: PANTOPRAZOLE 40 MG TABLET PO SCH (09:10)
[2018-06-03] MEDS: FUROSEMIDE 20 MG TAB PO SCH (09:10)
[2018-06-03] MEDS: METOPROLOL SUCCINATE (ER) 25 MG TAB.ER.24H PO SCH (09:10)
[2018-06-03] MEDS: THIAMINE 100 MG TAB PO SCH (09:10)
[2018-06-03] MEDS: ALVIMOPAN 12 MG CAPSULE PO SCH ×2 (09:10→19:39)
--- NOTE | 2018-06-03 09:10 | P.PN ---
Subjective Progress Note Date: 06/03/18 57-year-old female seen at the bedside. Patient states she does not feel ready to go home. Walked in the lazo once yesterday states had a bowel movement yesterday reports having heartburn. Tolerating a diet no nausea no vomiting surgical dressing to surgical site dry with prevena wound system in place. Few hypoactive bowel tones noted abdomen soft mildly distended surgical tenderness appropriate Postop May 29 reversal of colostomy, small bowel resection, appendectomy, left oophorectomy, repair of incisional incarcerated hernia lysis of adhesions Objective - Vital Signs Vital signs: Vital Signs Temp 98.4 F 06/03/18 07:00 Pulse 88 06/03/18 07:13 Resp 12 06/03/18 07:00 BP 137/75 06/03/18 07:00 Pulse Ox 93 L 06/03/18 07:00 Intake & Output 06/02/18 06/03/18 06/03/18 18:59 06:59 18:59 Intake Total 2110 100 Output Total 2425 Balance -315 100 Intake: Intake, IV Titration 1000 Amount Dextrose 5%-0.45% NaCl 1, 1000 000 ml @ 50 mls/hr IV . Q20H [facility] Rx#:[id number] Oral 1110 100 Output: Urine 2425 Uretheral (Sheikh) 625 Other: Voiding Method Toilet # Voids 10 2 - Exam Physical exam 57-year-old female resting comfortably in bed appears in no acute distress Lungs adequate air movement bilaterally on room air Heart S1-S2 audible regular denying chest pain heart rate in the 80s Abdomen few hypoactive bowel tones soft surgical tenderness appropriate nondistended surgical dressings dry. 2 Provera wound systems in place tolerating diet no nausea no vomiting Extremities no edema noted - Labs CBC & Chem 7: 06/02/18 06:37 06/02/18 06:37 Assessment and Plan Assessment: Impression History of perforated diverticulitis History of left ovarian mass Incarcerated incisional hernia Postop May 29 reversal colostomy, repair of incisional incarcerated hernia, appendectomy, left oophorectomy COPD was no evidence of an exacerbation Colostomy in January due to a ruptured diverticuli Nicotine dependency Essential hypertension Depression History of EtOH drink fifth of vodka quit 2 weeks prior Plan Follow-up on pending lab Continue postop surgical care Pain control Increase activity Defer to medicine to address medical issues Full Liquid diet DVT and GI prophylaxis Continue recommendations by pulmonary service defer to Encourage use of incentive spirometer The above impression and plan of care have been discussed and directed by signing physician. Romelia Dominguez nurse practitioner acting as scribe for signing physician.
[2018-06-03] MEDS: ESCITALOPRAM 20 MG TAB PO SCH (09:11)
[2018-06-03] MEDS: FLUTICASONE 50MCG/SPRAY NASAL 16GM EA NOSTRIL SCH (09:11)
[2018-06-03] MEDS: FOLIC ACID 1 MG TAB PO SCH (09:11)
[2018-06-03] MEDS: VARENICLINE 1 MG TAB PO SCH ×2 (09:15→19:40)
[2018-06-03 09:18] LABS: Basophils % (A) 0 %; Eosinophils # (A) 0.1 k/uL (0-0.7); Eosinophils % (A) 2 %; HCT 36.7 % (34.0-46.0); HGB 11.8 gm/dL (11.4-16.0); Lymphocytes # (A) 1.5 k/uL (1.0-4.8); Lymphocytes % (A) 20 %; MCH 28.6 pg (25.0-35.0); MCHC 32.3 g/dL (31.0-37.0); MCV 88.7 fL (80.0-100.0); Mean Platelet Volume 6.9; Monocytes # (A) 0.5 k/uL (0-1.0); Monocytes % (A) 7 %; Neutrophils # (A) 5.2 k/uL (1.3-7.7); Neutrophils % (A) 70 %; Platelet Count 284 k/uL (150-450); RBC 4.13 m/uL (3.80-5.40); RDW 14.1 % (11.5-15.5); WBC 7.4 k/uL (3.8-10.6)
[2018-06-03] MEDS: METOCLOPRAMIDE 5 MG/ML 2 ML VIAL IVP PRN (09:21)
[2018-06-03 09:50] LABS: ALT 18 U/L (9-52); AST 14 U/L (14-36); Albumin 3.2 g/dL (3.5-5.0); Alkaline Phosphatase 61 U/L (38-126); Anion Gap 8 mmol/L; Blood Urea Nitrogen <2 mg/dL (7-17); Calcium 9.3 mg/dL (8.4-10.2); Carbon Dioxide 26 mmol/L (22-30); Chloride 107 mmol/L (98-107); Glucose 136 mg/dL (74-99); Potassium 3.5 mmol/L (3.5-5.1); Sodium 141 mmol/L (137-145); Total Bilirubin 0.4 mg/dL (0.2-1.3); Total Protein 5.8 g/dL (6.3-8.2)
[2018-06-03] MEDS: HYDROcodone/APAP 5-325MG 1 EACH TAB PO PRN ×3 (10:26→21:57)
--- NOTE | 2018-06-03 11:28 | P.PN ---
Subjective Progress Note Date: 06/03/18 Principal diagnosis: History of perforated diverticuli, requiring colostomy, status post elective reversal This is a 57-year-old female, known history of COPD, recurrent episodes of bronchitis, patient was inpatient about 2 months ago with acute ruptured diverticulitis, underwent colostomy, seen by us on consultation for her COPD and postoperative respiratory failure at the time. Patient was eventually discharged home, and she is back here today for reversal of colostomy. This was done earlier today by Dr. Goldsmith, postoperatively patient was transferred to a regular medical floor, and we were asked to see her on consultation. Presently asymptomatic except for some shortness of breath, she has chronic obstructive lung disease, however she is not O2 dependent, and not prednisone dependent. No cough no wheezing no fever no chills no hemoptysis no chest pain. Patient even denies abdominal pain, she has epidural catheter, and the pain seems to be fairly well controlled. No headache no blurred vision no dizziness, no nausea no vomiting, no abdominal pain, no cough no wheezing, she does have chronic shortness of breath. No palpitations, no dysuria and no frequency no urgency. Patient is now back on updrafts in the form of DuoNeb, and she is also on Symbicort. The patient is seen again today 05/30/2018 in follow-up on the surgical floor. She is awake and alert in no acute distress. She denies any worsening shortness of breath, cough or congestion. She is working well with the incentive spirometer. She is maintaining good O2 saturations in the 90s on room air. She's afebrile. Hemodynamically stable.\ On 05/31/2018 patient seen in follow-up on surgical floor. She is awake and alert, having some mild to moderate amount of incisional abdominal pain with coughing, and moving, remains on epidural, currently at a rate of 80 ML per hour. Incentive spirometry effort is 1500, lung sounds are diminished, patient has a congested cough, no wheezing, no rhonchi. Abdomen seems to be slightly distended, with positive bowel sounds, patient has not passed any gas, she is tolerating clear liquid diet. She has been afebrile, hemodynamically stable. Pulse ox on room air is 91%. She has not ambulated extensively yet, she did sit up in the chair. Her dressing is intact. Continue current plan of treatment. On 06/01/2018 patient seen again in follow-up on surgical floor. She is resting in bed, in no acute distress. Remains on epidural for postop incisional discomfort currently infusing at a rate of 80 ML per hour. Working on her incentive spirometry, still has the upper airway congestion, but no distress, room air pulse ox is 92%, lung sounds are clear, diminished at the bases. Continue encouraging incentive spirometry, encourage patient to sit up in the chair, and ambulate, continue with nebulized bronchodilators. Incisions are clean dry and intact, bowel sounds are hypoactive, patient remains on clear liquid diet. On 06/02/2017 patient seen in follow-up on the surgical floor. She is ambulating to the bathroom with assistance, she was able to wash up this morning. No acute distress, some mild incisional discomfort, her epidural has been discontinued, room air pulse ox is 87%-94%. A bit dyspneic with exertion, but no acute distress, lung sounds are diminished, no rhonchi. She is compliant with her incentive spirometer, and she is bringing up some sputum occasionally. Vitals are stable, respirations are nonlabored. Patient is on full liquid diet, no nausea or vomiting. Positive bowel sounds. On 06/03/2018 patient seen in follow-up on 3 surgical floor. She has had some episode of nausea, and vomiting yesterday and her discharge was held. She is walked in the lazo, she has had a bowel movement yesterday. She is tolerating a diet. Denies any shortness of breath, she is working. Incentive spirometry. She is a wound VAC in place. Abdomen is soft, mildly distended, with positive bowel sounds. Pulse ox is 93%, she is afebrile. Objective - Vital Signs Vital signs: Vital Signs Temp 98.4 F 06/03/18 07:00 Pulse 88 06/03/18 07:13 Resp 12 06/03/18 07:00 BP 137/75 06/03/18 07:00 Pulse Ox 93 L 06/03/18 07:00 Intake & Output 06/02/18 06/03/18 06/03/18 18:59 06:59 18:59 Intake Total 2110 100 Output Total 2425 Balance -315 100 Intake: Intake, IV Titration 1000 Amount Dextrose 5%-0.45% NaCl 1, 1000 000 ml @ 50 mls/hr IV . Q20H [facility] Rx#:[id number] Oral 1110 100 Output: Urine 2425 Uretheral (Sheikh) 625 Other: Voiding Method Toilet # Voids 10 2 - Exam Physical Exam: Revealed a 51-year-old female in no distress. Head: Atraumatic, normocephalic. HEENT:[Neck is supple.] [No neck masses.] [No thyromegaly.] [No JVD.] Chest: [Diminished breath sounds at the bases, few bibasilar crackles.] Cardiac Exam: [Normal S1 and S2, no S3 gallop, no murmur.] Abdomen: [Postsurgical, wound vacs noted in the abdomen Soft, nontender, no megaly, no rebound, no guarding, diminished bowel sounds..] Extremities: [No clubbing, no edema, no cyanosis.] Neurological Exam: [No focal neurologic deficit.] Psychiatric: Normal mood affect and mental status examination. Lymphatics, no lymphadenopathy. - Labs CBC & Chem 7: 06/03/18 09:06 18 09:06 Labs: Abnormal Lab Results - Last 24 Hours (Table) 06/03/18 Range/Units 09:06 BUN <2 L (7-17) mg/dL Glucose 136 H (74-99) mg/dL Total Protein 5.8 L (6.3-8.2) g/dL Albumin 3.2 L (3.5-5.0) g/dL Assessment and Plan Plan: Assessment: 1 status post reversal of colostomy, small bowel resection, repair of incisional incarcerated hernia, appendectomy, left oophorectomy, postoperative day #5. 2 severe underlying COPD, but presently stable and under control. 3 recent history of perforated diverticulitis and peritonitis. 4 chronic tobacco dependence. Recommendation: Continue current medical treatment, encourage deep breathing and coughing, ambulation. Continue nebulized bronchodilators. Maintain pain control. Anticipate discharge home possibly today. I performed a history & physical examination of the patient and discussed their management with my nurse practitioner, Amalia Hernadez. I reviewed the nurse practitioner's note and agree with the documented findings and plan of care. Lung sounds are diminished. The findings and the impression was discussed with the patient. I attest to the documentation by the nurse practitioner. Time with Patient: Less than 30
--- NOTE | 2018-06-03 13:30 | P.PN ---
Subjective Progress Note Date: 06/03/18 This is a 57-year-old patient of Dr. Mendez. Patient presented to the hospital for an elective colostomy reversal. Patient has a previous history of perforated diverticulitis. Patient Colostomy in January of this year due to a ruptured diverticuli. Patient's additional medical history includes COPD, I disorder, hypertension, glaucoma, enlarged liver, for bronchitis, seasonal ALLERGIES and bowel resection. Patient is currently resting in bed. At this time patient does complain of minimal pain. Patient does have a wound VAC in place. At this time patient denies chest pain or shortness breath. Denies nausea vomiting diarrhea. Patient denies any urinary burning. AM labs have been ordered On 05/30/2018, patient was seen and examined, she is alert and oriented 3 in no apparent distress, she denies any chest pain or shortness of breath no nausea or vomiting, she has not had any bowel movement or passed any gas yet. On 05/31/2018 patient was seen and examined she is alert and oriented 3 she is complaining of abdominal pain she is not passing any gas or having any bowel movements yet otherwise she denies any symptoms there is no fever or chills no headache or dizziness no chest pain no shortness of breath no cough no nausea or vomiting and no urinary symptoms. On 06/01/2018 patient is alert and oriented times x3. patient is currently up and walking with physical therapy. Patient states she is passing gas but yet to have a bowel movement. Patient having low-grade temps 99.8 urinary analysis has been ordered. Patient denies any upper respiratory symptoms. Denies cough , denies nausea vomiting or diarrhea. denies any urinary burning or frequency 06/02/2018 patient remains alert and oriented 3. Per nursing staff patient did have bowel movement this a.m. Patient also had a epidural. Patient is complaining of increased abdominal pain. Pain meds per surgical services. Patient has been afebrile. Patient denies chest pain or shortness of breath. Patient denies nausea vomiting or diarrhea. Patient denies any urinary burning or frequency On 06/03/2018 patient is alert and oriented 3. Per nursing staff patient has had not multiple bowel movements. Patient is still complaining of abdominal pain. Patient denies chest pain or shortness breath. She denies nausea vomiting or diarrhea. Patient denies any urinary burning or frequency. Incentive spirometer and ambulation encouraged Objective - Vital Signs Vital signs: Vital Signs Temp 98.4 F 06/03/18 07:00 Pulse 88 06/03/18 07:13 Resp 12 06/03/18 07:00 BP 137/75 06/03/18 07:00 Pulse Ox 93 L 06/03/18 07:00 Intake & Output 06/02/18 06/03/18 06/03/18 18:59 06:59 18:59 Intake Total 2110 100 Output Total 2425 Balance -315 100 Intake: Intake, IV Titration 1000 Amount Dextrose 5%-0.45% NaCl 1, 1000 000 ml @ 50 mls/hr IV . Q20H [facility] Rx#:[id number] Oral 1110 100 Output: Urine 2425 Uretheral (Sheikh) 625 Other: Voiding Method Toilet # Voids 10 2 - Exam Head normocephalic and atraumatic Neck supple no JVD no goiter Lungs clear to auscultation bilaterally no wheezing or crackles Heart regular rate and rhythm S1-S2, no rub or gallop Abdomen is soft midline incision with wound VAC in place. Left lower quadrant colostomy site with wound VAC in place. Site is clean dry and intact with no drainage. Extremities no edema no cyanosis or clubbing Neuro alert and orientated to 3 - Labs CBC & Chem 7: 06/03/18 09:06 06/03/18 09:06 Labs: Abnormal Lab Results - Last 24 Hours (Table) 06/03/18 Range/Units 09:06 BUN <2 L (7-17) mg/dL Glucose 136 H (74-99) mg/dL Total Protein 5.8 L (6.3-8.2) g/dL Albumin 3.2 L (3.5-5.0) g/dL Assessment and Plan Assessment: 1. Status post reversal colostomy due to perforated diverticulitis. Pain medication per surgical services. Patient currently on full liquid diet. Per nursing staff patient did have bowel this AM 2. History of COPD. Home medications resumed. Dr. Matthieu braga for pulmonary services 3. Essential hypertension. Home medications resumed with parameters 4. Nicotine dependence. Chantix ordered resume. 5. Depression. Continue lexapro and xanax 6. EtOH. Patient drank 1/5 of vodka a day. Patient states she quit 2 weeks ago. CIWA protocol has been ordered. patient currently on folic acid and thiamine 7. low-grade elevated temp. Patient having temp 99.8. Urinary analysis has been ordered. Urinalysis negative. Anticipate discharge in the next 24-48 hours Increase activity and encourage incentive spirometer. I performed an examination of the patient and discussed their management with the Nurse Practitioner. I have reviewed the Nurse Practitioner's notes and agree with the documented findings and plan of care
[2018-06-03] MEDS: DEXTROSE 5%-0.45% NACL 1,000 ML IV SCH (16:56)
[2018-06-04 01:16] VITALS: TEMP 98.5
[2018-06-04] MEDS: HYDROcodone/APAP 5-325MG 1 EACH TAB PO PRN ×3 (03:03→11:58)
[2018-06-04] MEDS: LACTATED RINGERS 1,000 ML IV SCH (04:12)
[2018-06-04] MEDS: IPRATROPIUM-ALBUTEROL 3 ML NEB INHALATION SCH (06:53)
[2018-06-04] MEDS: SYMBICORT 160-4.5 MCG INHALER INHALATION SCH (06:53)
[2018-06-04 07:11] VITALS: BP 155/73; PULSE 83; RESP 20
[2018-06-04 07:16] LABS: Basophils % (A) 1 %; Eosinophils # (A) 0.2 k/uL (0-0.7); Eosinophils % (A) 3 %; HCT 34.1 % (34.0-46.0); HGB 10.9 gm/dL (11.4-16.0); Lymphocytes # (A) 1.7 k/uL (1.0-4.8); Lymphocytes % (A) 24 %; MCH 28.2 pg (25.0-35.0); MCV 88.3 fL (80.0-100.0); Mean Platelet Volume 7.3; Monocytes # (A) 0.6 k/uL (0-1.0); Monocytes % (A) 8 %; Neutrophils # (A) 4.3 k/uL (1.3-7.7); Neutrophils % (A) 63 %; Platelet Count 266 k/uL (150-450); RBC 3.86 m/uL (3.80-5.40); RDW 14.2 % (11.5-15.5); WBC 6.9 k/uL (3.8-10.6)
[2018-06-04 07:47] LABS: ALT 20 U/L (9-52); AST 14 U/L (14-36); Alkaline Phosphatase 57 U/L (38-126); Anion Gap 8 mmol/L; Blood Urea Nitrogen <2 mg/dL (7-17); Calcium 8.9 mg/dL (8.4-10.2); Carbon Dioxide 25 mmol/L (22-30); Chloride 108 mmol/L (98-107); Glucose 140 mg/dL (74-99); Potassium 3.3 mmol/L (3.5-5.1); Sodium 141 mmol/L (137-145); Total Bilirubin 0.3 mg/dL (0.2-1.3); Total Protein 5.3 g/dL (6.3-8.2)
[2018-06-04] MEDS: DEXTROSE 5%-0.45% NACL 1,000 ML IV SCH (08:55)
[2018-06-04] MEDS: FUROSEMIDE 20 MG TAB PO SCH (09:03)
[2018-06-04] MEDS: FLUTICASONE 50MCG/SPRAY NASAL 16GM EA NOSTRIL SCH (09:04)
[2018-06-04] MEDS: HEPARIN SODIUM,PORCINE 5,000 UNIT/ML 1 ML VIAL SQ SCH (09:04)
[2018-06-04] MEDS: ESCITALOPRAM 20 MG TAB PO SCH (09:05)
[2018-06-04] MEDS: PANTOPRAZOLE 40 MG TABLET PO SCH (09:05)
[2018-06-04] MEDS: ALVIMOPAN 12 MG CAPSULE PO SCH (09:05)
[2018-06-04] MEDS: THIAMINE 100 MG TAB PO SCH (09:05)
[2018-06-04] MEDS: FOLIC ACID 1 MG TAB PO SCH (09:05)
[2018-06-04] MEDS: METOPROLOL SUCCINATE (ER) 25 MG TAB.ER.24H PO SCH (09:05)
[2018-06-04] MEDS: VARENICLINE 1 MG TAB PO SCH (09:13)
--- NOTE | 2018-06-04 10:10 | P.DS ---
Providers Date of admission: 05/29/18 09:13 Expected date of discharge: 06/04/18 Attending physician: Heath Goldsmith Consults: 05/29/18 14:26 Consult Physician Routine Consulting Provider: Kianna Buchanan Consult Reason/Comments: Pulmonary management Do you want consulting provider notified?: Yes 05/29/18 14:30 Consult Physician Routine Consulting Provider: Alicia Painter Consult Reason/Comments: Medical management Do you want consulting provider notified?: Yes Primary care physician: Sarah Mendez Hospital Course: 57-year-old female who presented to the hospital to undergo an elective colostomy reversal. Patient has undergone on January 04 exploratory laparotomy with colostomy for acute diverticulitis with bowel perforation. Patient did have a colonoscopy on May 28 before the procedure showed scattered diverticuli no acute findings May 29 patient underwent left oophorectomy, appendectomy, repair of incisional incarcerated hernia, lysis of adhesions, reversal of colostomy. Patient has a history of a left ovarian mass. Pathology report was reviewed show no evidence of a malignancy there were no postop events. On the day of discharge patient was tolerating a diet having bowel movements surgical dressing sites dry prevena wound system was removed the day before urinating no difficulty in ambulating with the use of a walker home care was set up for case management patient was felt to be hemodynamically stable and appropriate proceed with a discharge. Pulse ox sat on room air was 98% patient was able to use incentive spirometer and achieved 2000. Patient was followed by pulmonary medicine service throughout the hospitalization. The day of discharge the potassium was 3.4 and was corrected Impression History of perforated diverticulitis History of left ovarian mass Incarcerated incisional hernia Postop May 29 reversal colostomy, repair of incisional incarcerated hernia, appendectomy, left oophorectomy COPD was no evidence of an exacerbation Colostomy in January due to a ruptured diverticuli Nicotine dependency Essential hypertension Depression History of EtOH drink fifth of vodka quit 2 weeks prior Chronic tobacco dependency Severe underlying COPD but presently stable and under control The above impression and plan of care have been discussed and directed by signing physician. Romelia Dominguez nurse practitioner acting as scribe for signing physician. Plan - Discharge Summary Discharge Rx Participant: Yes New Discharge Prescriptions: New HYDROcodone/APAP 5-325MG [[place] 5-325] 1 each PO Q4HR PRN #18 tab PRN Reason: Pain Continue Fluticasone Nasal Goode [Flonase Nasal Goode] 2 spray EA NOSTRIL DAILY Albuterol Inhaler [Ventolin Hfa Inhaler] 1 - 2 puff INHALATION RT-Q4H PRN PRN Reason: Cough Folic Acid 1 mg PO DAILY #30 tablet Metoprolol Succinate (ER) [Toprol XL] 25 mg PO DAILY #30 tab Thiamine [Vitamin B-1] 100 mg PO DAILY #30 tablet Furosemide [Lasix] 20 mg PO DAILY HYDROcodone/APAP 5-325MG [[place] 5-325] 1 tab PO Q8H PRN PRN Reason: Pain Ipratropium-Albuterol Nebulize [Duoneb 0.5 mg-3 mg/3 ml Soln] 3 ml INHALATION RT-QID PRN PRN Reason: Shortness Of Breath Ondansetron HCl [Zofran] 4 mg PO Q8HR PRN PRN Reason: Nausea Omeprazole [PriLOSEC] 20 mg PO AC-BID Escitalopram [Lexapro] 20 mg PO DAILY Varenicline [Chantix Continuing Pack] 1 mg PO BID Methocarbamol [Robaxin] 500 mg PO TID PRN PRN Reason: Muscle Spasm ALPRAZolam [Xanax] 0.25 mg PO BID PRN PRN Reason: Anxiety Budesonide-Formot 160-4.5 Mcg [Symbicort 160-4.5 Mcg Inhaler] 2 puff INHALATION RT-BID Discharge Medication List Albuterol Inhaler [Ventolin Hfa Inhaler] 1 - 2 puff INHALATION RT-Q4H PRN [History] Fluticasone Nasal Goode [Flonase Nasal Goode] 2 spray EA NOSTRIL DAILY 02/03/18 [History] Folic Acid 1 mg PO DAILY #30 tablet 02/11/18 [Rx] Metoprolol Succinate (ER) [Toprol XL] 25 mg PO DAILY #30 tab 02/11/18 [Rx] Thiamine [Vitamin B-1] 100 mg PO DAILY #30 tablet 02/11/18 [Rx] Furosemide [Lasix] 20 mg PO DAILY 02/16/18 [History] HYDROcodone/APAP 5-325MG [[place] 5-325] 1 tab PO Q8H PRN 02/16/18 [History] Ipratropium-Albuterol Nebulize [Duoneb 0.5 mg-3 mg/3 ml Soln] 3 ml INHALATION RT -QID PRN 02/16/18 [History] Ondansetron HCl [Zofran] 4 mg PO Q8HR PRN 02/16/18 [History] ALPRAZolam [Xanax] 0.25 mg PO BID PRN 05/26/18 [History] Budesonide-Formot 160-4.5 Mcg [Symbicort 160-4.5 Mcg Inhaler] 2 puff INHALATION RT-BID 05/26/18 [History] Escitalopram [Lexapro] 20 mg PO DAILY 05/26/18 [History] Methocarbamol [Robaxin] 500 mg PO TID PRN 05/26/18 [History] Omeprazole [PriLOSEC] 20 mg PO AC-BID 05/26/18 [History] Varenicline [Chantix Continuing Pack] 1 mg PO BID 05/26/18 [History] HYDROcodone/APAP 5-325MG [[place] 5-325] 1 each PO Q4HR PRN #18 tab 06/04/18 [Rx] Follow up Appointment(s)/Referral(s): [facility]Nurse [NON-STAFF] - Heath Goldsmith MD [STAFF PHYSICIAN] - 1 Week Activity/Diet/Wound Care/Special Instructions: No tub bath for six weeks. Shower daily. No lifting over 10 pounds for the next 4 weeks. May use ice packs to surgical site. No driving while taking narcotic for pain. Eat small amounts frequently Discharge Disposition: HOME WITH HOME HEALTH SERVICES
--- NOTE | 2018-06-04 10:31 | P.PN ---
Subjective Progress Note Date: 06/04/18 This is a 57-year-old patient of Dr. Mendez. Patient presented to the hospital for an elective colostomy reversal. Patient has a previous history of perforated diverticulitis. Patient Colostomy in January of this year due to a ruptured diverticuli. Patient's additional medical history includes COPD, I disorder, hypertension, glaucoma, enlarged liver, for bronchitis, seasonal ALLERGIES and bowel resection. Patient is currently resting in bed. At this time patient does complain of minimal pain. Patient does have a wound VAC in place. At this time patient denies chest pain or shortness breath. Denies nausea vomiting diarrhea. Patient denies any urinary burning. AM labs have been ordered On 05/30/2018, patient was seen and examined, she is alert and oriented 3 in no apparent distress, she denies any chest pain or shortness of breath no nausea or vomiting, she has not had any bowel movement or passed any gas yet. On 05/31/2018 patient was seen and examined she is alert and oriented 3 she is complaining of abdominal pain she is not passing any gas or having any bowel movements yet otherwise she denies any symptoms there is no fever or chills no headache or dizziness no chest pain no shortness of breath no cough no nausea or vomiting and no urinary symptoms. On 06/01/2018 patient is alert and oriented times x3. patient is currently up and walking with physical therapy. Patient states she is passing gas but yet to have a bowel movement. Patient having low-grade temps 99.8 urinary analysis has been ordered. Patient denies any upper respiratory symptoms. Denies cough , denies nausea vomiting or diarrhea. denies any urinary burning or frequency 06/02/2018 patient remains alert and oriented 3. Per nursing staff patient did have bowel movement this a.m. Patient also had a epidural. Patient is complaining of increased abdominal pain. Pain meds per surgical services. Patient has been afebrile. Patient denies chest pain or shortness of breath. Patient denies nausea vomiting or diarrhea. Patient denies any urinary burning or frequency On 06/03/2018 patient is alert and oriented 3. Per nursing staff patient has had multiple bowel movements. Patient is still complaining of abdominal pain. Patient denies chest pain or shortness breath. She denies nausea vomiting or diarrhea. Patient denies any urinary burning or frequency. Incentive spirometer and ambulation encouraged 06/04/2018 patient is alert and oriented 3 patient has been cleared for discharge from surgical standpoint. Patient has had multiple bowel movements. Patient has been tolerating diet. Patient denies chest pain or shortness breath. Patient denies nausea vomiting or diarrhea. Patient denies any urinary burning or frequency. Patient has remained afebrile. Patient's white count within normal limits. Patient will be going home with home healthcare Objective - Vital Signs Vital signs: Vital Signs Temp 98.5 F 06/04/18 07:09 Pulse 83 06/04/18 07:09 Resp 20 06/04/18 09:18 BP 155/73 06/04/18 07:09 Pulse Ox 98 06/04/18 07:09 Intake & Output 06/03/18 06/04/18 06/04/18 18:59 06:59 18:59 Intake Total 600 Balance 600 Intake: Intake, IV Titration 400 Amount Dextrose 5%-0.45% NaCl 1, 400 000 ml @ 50 mls/hr IV . Q20H [facility] Rx#:[id number] Other 200 Other: Voiding Method Toilet # Voids 3 - Exam Head normocephalic and atraumatic Neck supple no JVD no goiter Lungs clear to auscultation bilaterally no wheezing or crackles Heart regular rate and rhythm S1-S2, no rub or gallop Abdomen is soft midline incision with wound VAC in place. Left lower quadrant colostomy site with wound VAC in place. Site is clean dry and intact with no drainage. Extremities no edema no cyanosis or clubbing Neuro alert and orientated to 3 - Labs CBC & Chem 7: 06/04/18 06:20 06/04/18 06:20 Labs: Abnormal Lab Results - Last 24 Hours (Table) 06/04/18 06/04/18 Range/Units 06:20 06:20 Hgb 10.9 L (11.4-16.0) gm/dL Potassium 3.3 L (3.5-5.1) mmol/L Chloride 108 H (98-107) mmol/L BUN <2 L (7-17) mg/dL Glucose 140 H (74-99) mg/dL Total Protein 5.3 L (6.3-8.2) g/dL Albumin 3.0 L (3.5-5.0) g/dL Assessment and Plan Assessment: 1. Status post reversal colostomy due to perforated diverticulitis. Pain medication per surgical services. Patient currently on full liquid diet. Per nursing staff patient did have bowel this AM. Eliseo has been tolerating diet. Patient to follow-up outpatient surgical services. Patient has been cleared for discharge from surgery standpoint. 2. History of COPD. Home medications resumed. Dr. Matthieu jean following for pulmonary services 3. Essential hypertension. Home medications resumed with parameters 4. Nicotine dependence. Chantix ordered resume. 5. Depression. Continue lexapro and xanax 6. EtOH. Patient drank 1/5 of vodka a day. Patient states she quit 2 weeks ago. CIWA protocol has been ordered. patient currently on folic acid and thiamine 7. low-grade elevated temp. Patient having temp 99.8. Urinary analysis has been ordered. Urinalysis negative.. Patient has remained afebrile. Patient has white blood cell count of 6.9 8. Hypokalemia. Potassium 3.3. Orders placed per protocol per surgical services I performed an examination of the patient and discussed their management with the Nurse Practitioner. I have reviewed the Nurse Practitioner's notes and agree with the documented findings and plan of care
[2018-06-04] MEDS: POTASSIUM CHLORIDE ER 20 MEQ TAB.ER PO SCH ×2 (10:32→11:59)
--- NOTE | 2018-06-04 10:39 | P.PN ---
Subjective Progress Note Date: 06/04/18 Principal diagnosis: History of perforated diverticuli, requiring colostomy, status post elective reversal This is a 57-year-old female, known history of COPD, recurrent episodes of bronchitis, patient was inpatient about 2 months ago with acute ruptured diverticulitis, underwent colostomy, seen by us on consultation for her COPD and postoperative respiratory failure at the time. Patient was eventually discharged home, and she is back here today for reversal of colostomy. This was done earlier today by Dr. Goldsmith, postoperatively patient was transferred to a regular medical floor, and we were asked to see her on consultation. Presently asymptomatic except for some shortness of breath, she has chronic obstructive lung disease, however she is not O2 dependent, and not prednisone dependent. No cough no wheezing no fever no chills no hemoptysis no chest pain. Patient even denies abdominal pain, she has epidural catheter, and the pain seems to be fairly well controlled. No headache no blurred vision no dizziness, no nausea no vomiting, no abdominal pain, no cough no wheezing, she does have chronic shortness of breath. No palpitations, no dysuria and no frequency no urgency. Patient is now back on updrafts in the form of DuoNeb, and she is also on Symbicort. The patient is seen again today 05/30/2018 in follow-up on the surgical floor. She is awake and alert in no acute distress. She denies any worsening shortness of breath, cough or congestion. She is working well with the incentive spirometer. She is maintaining good O2 saturations in the 90s on room air. She's afebrile. Hemodynamically stable.\ On 05/31/2018 patient seen in follow-up on surgical floor. She is awake and alert, having some mild to moderate amount of incisional abdominal pain with coughing, and moving, remains on epidural, currently at a rate of 80 ML per hour. Incentive spirometry effort is 1500, lung sounds are diminished, patient has a congested cough, no wheezing, no rhonchi. Abdomen seems to be slightly distended, with positive bowel sounds, patient has not passed any gas, she is tolerating clear liquid diet. She has been afebrile, hemodynamically stable. Pulse ox on room air is 91%. She has not ambulated extensively yet, she did sit up in the chair. Her dressing is intact. Continue current plan of treatment. On 06/01/2018 patient seen again in follow-up on surgical floor. She is resting in bed, in no acute distress. Remains on epidural for postop incisional discomfort currently infusing at a rate of 80 ML per hour. Working on her incentive spirometry, still has the upper airway congestion, but no distress, room air pulse ox is 92%, lung sounds are clear, diminished at the bases. Continue encouraging incentive spirometry, encourage patient to sit up in the chair, and ambulate, continue with nebulized bronchodilators. Incisions are clean dry and intact, bowel sounds are hypoactive, patient remains on clear liquid diet. On 06/02/2017 patient seen in follow-up on the surgical floor. She is ambulating to the bathroom with assistance, she was able to wash up this morning. No acute distress, some mild incisional discomfort, her epidural has been discontinued, room air pulse ox is 87%-94%. A bit dyspneic with exertion, but no acute distress, lung sounds are diminished, no rhonchi. She is compliant with her incentive spirometer, and she is bringing up some sputum occasionally. Vitals are stable, respirations are nonlabored. Patient is on full liquid diet, no nausea or vomiting. Positive bowel sounds. On 06/03/2018 patient seen in follow-up on 3 surgical floor. She has had some episode of nausea, and vomiting yesterday and her discharge was held. She is walked in the lazo, she has had a bowel movement yesterday. She is tolerating a diet. Denies any shortness of breath, she is working. Incentive spirometry. She is a wound VAC in place. Abdomen is soft, mildly distended, with positive bowel sounds. Pulse ox is 93%, she is afebrile. On 06/04/2018 patient is doing well. Denies any acute distress. Room air pulse ox is 98%, no shortness of breath, no chest pain, her pain is reasonably controlled, afebrile. Vital signs are stable, lung sounds are essentially clear. She is tolerating a diet, no nausea or vomiting or diarrhea. He said multiple bowel movements, denies any urinary complaints. She is afebrile. Patient is getting ready to be discharged home with home care. Objective - Vital Signs Vital signs: Vital Signs Temp 98.5 F 06/04/18 07:09 Pulse 83 06/04/18 07:09 Resp 20 06/04/18 09:18 BP 155/73 06/04/18 07:09 Pulse Ox 98 06/04/18 07:09 Intake & Output 06/03/18 06/04/18 06/04/18 18:59 06:59 18:59 Intake Total 600 Balance 600 Intake: Intake, IV Titration 400 Amount Dextrose 5%-0.45% NaCl 1, 400 000 ml @ 50 mls/hr IV . Q20H [facility] Rx#:[id number] Other 200 Other: Voiding Method Toilet # Voids 3 - Exam Physical Exam: Revealed a 51-year-old female in no distress. Head: Atraumatic, normocephalic. HEENT:[Neck is supple.] [No neck masses.] [No thyromegaly.] [No JVD.] Chest: [Diminished breath sounds at the bases] Cardiac Exam: [Normal S1 and S2, no S3 gallop, no murmur.] Abdomen: [Postsurgical, wound vacs noted in the abdomen Soft, nontender, no megaly, no rebound, no guarding, diminished bowel sounds..] Extremities: [No clubbing, no edema, no cyanosis.] Neurological Exam: [No focal neurologic deficit.] Psychiatric: Normal mood affect and mental status examination. Lymphatics, no lymphadenopathy. - Labs CBC & Chem 7: 06/04/18 06:20 06/04/18 06:20 Labs: Abnormal Lab Results - Last 24 Hours (Table) 06/04/18 06/04/18 Range/Units 06:20 06:20 Hgb 10.9 L (11.4-16.0) gm/dL Potassium 3.3 L (3.5-5.1) mmol/L Chloride 108 H (98-107) mmol/L BUN <2 L (7-17) mg/dL Glucose 140 H (74-99) mg/dL Total Protein 5.3 L (6.3-8.2) g/dL Albumin 3.0 L (3.5-5.0) g/dL Assessment and Plan Plan: Assessment: 1 status post reversal of colostomy, small bowel resection, repair of incisional incarcerated hernia, appendectomy, left oophorectomy, postoperative day #6. 2 severe underlying COPD, but presently stable and under control. 3 recent history of perforated diverticulitis and peritonitis. 4 chronic tobacco dependence. Recommendation: No acute issues overnight, she is doing well, has been cleared for discharge by surgery. No acute pulmonary issues at this time. Patient is stable for discharge home from pulmonary perspective. Follow-up with Dr. Buchanan in the office, continue maintenance inhalers and nebulized treatments at home. I performed a history & physical examination of the patient and discussed their management with my nurse practitioner, Amalia Hernadez. I reviewed the nurse practitioner's note and agree with the documented findings and plan of care. Lung sounds are diminished. The findings and the impression was discussed with the patient. I attest to the documentation by the nurse practitioner. Time with Patient: Less than 30
== END 2018-06-04 13:18 | disposition home health service (06) | DRG 330 ==
LOC: 2ORMAIN 09:13 → 3SUR 13:56
PROVIDERS: ADMIT Surgery; ATTEND Surgery
PROC: 0DQP0ZZ Repair Rectum, Open Approach (ICD-10-PCS; principal; 2018-05-29 11:15)
PROC: 0UT10ZZ Resection of Left Ovary, Open Approach (ICD-10-PCS; principal; 2018-05-29 11:15)
PROC: 0WQF0ZZ Repair Abdominal Wall, Open Approach (ICD-10-PCS; principal; 2018-05-29 11:15)
PROC: 0DB80ZZ Excision of Small Intestine, Open Approach (ICD-10-PCS; principal; 2018-05-29 11:15)
PROC: 0DTJ0ZZ Resection of Appendix, Open Approach (ICD-10-PCS; principal; 2018-05-29 11:15)
PROC: 0DQM0ZZ Repair Descending Colon, Open Approach (ICD-10-PCS; principal; 2018-05-29 11:15)
DX: Z43.3 Encounter for attention to colostomy (principal); K43.0 Incisional hernia with obstruction, without gangrene; E87.5 Hyperkalemia; E87.6 Hypokalemia; F17.200 Nicotine dependence, unspecified, uncomplicated; F32.9 Major depressive disorder, single episode, unspecified; H40.9 Unspecified glaucoma; I10 Essential (primary) hypertension; J44.9 Chronic obstructive pulmonary disease, unspecified; Z79.51 Long term (current) use of inhaled steroids; Z79.899 Other long term (current) drug therapy; Z82.49 Family history of ischemic heart disease and other diseases of the circulatory system; Z83.3 Family history of diabetes mellitus; Z79.02 Long term (current) use of antithrombotics/antiplatelets; Z79.891 Long term (current) use of opiate analgesic; N83.9 Noninflammatory disorder of ovary, fallopian tube and broad ligament, unspecified
CPT/HCPCS: 80048; 80051; 80053; 81003; 85025; 85027; 86850; 86900; 86901; 88302; 88305; 88307; 88311; 94640; 94760

== ENCOUNTER → 2018-07-08 | Outpatient (CLI) | payer OTHER ==
--- NOTE | 2018-07-08 14:06 | XR ---
EXAMINATION TYPE: XR lumbar spine 2 or 3V DATE OF EXAM: 07/08/2018 CLINICAL HISTORY: pain TECHNIQUE: Three views of the lumbar spine are submitted. COMPARISON: None. FINDINGS: There are 5 lumbar type vertebral bodies identified. The lumbar spine shows satisfactory alignment w ithout evidence of acute fracture or dislocation. Vertebral body heights are within normal limits. Vacuum disc with endplate sclerosis noted at L2-3. Lower lumbar facet joint arthropathy. Moderate deg enerative narrowing at L5-S1 as. The overlying soft tissue appears unremarkable. IMPRESSION: No acute fracture or dislocation is seen in the lumbar spine. ICD 10 NO FRACTURE, INITIAL EVALUATION
== END | disposition home or self-care (01) ==
LOC: RADXRMAIN 13:34
PROVIDERS: ATTEND Nurse Practitioner
DX: M54.5 Low back pain (principal)
CPT/HCPCS: 72100

== ENCOUNTER 2018-11-29 17:46 | Emergency (ER) | payer OTHER ==
[2018-11-29] MEDS ORDERED: SODIUM CHLORIDE 0.9% 1,000 ML IV STA (19:21)
[2018-11-29 20:44] LABS: Basophils # (A) 0.1 k/uL (0-0.2); Basophils % (A) 1 %; Eosinophils # (A) 0.2 k/uL (0-0.7); Eosinophils % (A) 2 %; HGB 15.2 gm/dL (11.4-16.0); Lymphocytes # (A) 2.8 k/uL (1.0-4.8); Lymphocytes % (A) 27 %; MCH 30.1 pg (25.0-35.0); MCHC 32.3 g/dL (31.0-37.0); MCV 93.3 fL (80.0-100.0); Mean Platelet Volume 7.4; Monocytes # (A) 0.7 k/uL (0-1.0); Monocytes % (A) 6 %; Neutrophils # (A) 6.3 k/uL (1.3-7.7); Neutrophils % (A) 62 %; Platelet Count 259 k/uL (150-450); RBC 5.03 m/uL (3.80-5.40); RDW 14.7 % (11.5-15.5); WBC 10.3 k/uL (3.8-10.6)
[2018-11-29 20:45] LABS: ALT 20 U/L (9-52); AST 21 U/L (14-36); Albumin 4.7 g/dL (3.5-5.0); Alkaline Phosphatase 69 U/L (38-126); Anion Gap 8 mmol/L; Blood Urea Nitrogen 12 mg/dL (7-17); Calcium 10.5 mg/dL (8.4-10.2); Carbon Dioxide 24 mmol/L (22-30); Chloride 106 mmol/L (98-107); Glucose 109 mg/dL (74-99); Lipase 82 U/L (23-300); Potassium 4.6 mmol/L (3.5-5.1); Sodium 138 mmol/L (137-145); Total Bilirubin 0.6 mg/dL (0.2-1.3); Total Protein 7.4 g/dL (6.3-8.2)
[2018-11-29 21:08] LABS: Appearance,Urine Clear (Clear); Bilirubin,Urine Negative (Negative); Blood,Urine Negative (Negative); Color,Urine Yellow; Glucose,Urine (UA) Negative (Negative); Ketones,Urine Negative (Negative); Leukocyte Esterase,Urine Negative (Negative); Nitrite,Urine Negative (Negative); PH, Urine 5.5 (5.0-8.0); Protein,Urine Negative (Negative); Specific Gravity,Urine 1.016 (1.001-1.035); Urobilinogen,Urine <2.0 mg/dL (<2.0)
--- NOTE | 2018-11-29 21:22 | ED ---
General Adult HPI - General Source: patient, RN notes reviewed, old records reviewed Mode of arrival: ambulatory Limitations: no limitations <Obinna Rudolph - Last Filed: 11/29/18 22:41> <Jhoana Martinez - Last Filed: 12/02/18 01:19> - General Chief complaint: Abdominal Pain Stated complaint: Abd pain Time Seen by Provider: 11/29/18 19:20 - History of Present Illness Initial comments: 58-year-old female patient with past medical history of COPD, hypertension, glaucoma, diverticulitis with perforation approximately one year ago, patient had colostomy which was reversed approximately 6 months ago. Patient reports 3 days of right lower quadrant pain. Patient states that this does feel somewhat similar to the diverticulitis she had in the past. Patient reports nausea without emesis. Patient reports some waxing and waning diarrhea, nonbloody. Patient denies any chest pain, shortness of breath, dysuria. Systemic: Pt denies fatigue, myalgia, fever/chills, rash. Pt denies weakness, night sweats, weight loss. Neuro: Pt denies headache, visual disturbances, syncope or pre-syncope. HEENT: Pt denies ocular discharge or irritation, otalgia, rhinorrhea, pharyngitis or notable lymphadenopathy. Cardiopulmonary: Pt denies chest pain, SOB, heart palpitations, dyspnea on exertion. Abdominal/GI: Pt denies abdominal pain, n/v/d. : Pt denies dysuria, burning w/ urination, frequency/urgency. Denies new onset urinary or bowel incontinence. MSK: Pt denies myalgia, loss of strength or function in extremities. Neuro: Pt denies new onset weakness, paresthesias. (Obinna Rudolph) - Related Data Home Medications Medication Instructions Recorded Confirmed Albuterol Inhaler [Ventolin Hfa 1 - 2 puff INHALATION RT-Q4H PRN 02/03/1805/29 Inhaler] Fluticasone Nasal [place] [Flonase 2 spray EA NOSTRIL DAILY 02/03/18 05/29/18 Nasal [place]] Furosemide [Lasix] 20 mg PO DAILY 02/16/18 05/29/18 HYDROcodone/APAP 5-325MG [[place] 1 tab PO Q8H PRN 02/16/18 05/29/18 5-325] Ipratropium-Albuterol Nebulize 3 ml INHALATION RT-QID PRN 02/16/18 05/29/18 [Duoneb 0.5 mg-3 mg/3 ml Soln] Ondansetron HCl [Zofran] 4 mg PO Q8HR PRN 02/16/18 05/29/18 ALPRAZolam [Xanax] 0.25 mg PO BID PRN 05/26/18 05/29/18 Budesonide-Formot 160-4.5 Mcg 2 puff INHALATION RT-BID 05/26/18 05/29/18 [Symbicort 160-4.5 Mcg Inhaler] Escitalopram [Lexapro] 20 mg PO DAILY 05/26/18 05/29/18 Methocarbamol [Robaxin] 500 mg PO TID PRN 05/26/18 05/29/18 Omeprazole [PriLOSEC] 20 mg PO AC-BID 05/26/18 05/29/18 Varenicline [Chantix Continuing 1 mg PO BID 05/26/18 05/29/18 Pack] Previous Rx's Medication Instructions Recorded Folic Acid 1 mg PO DAILY #30 tablet 02/11/18 Metoprolol Succinate (ER) [Toprol 25 mg PO DAILY #30 tab 02/11/18 XL] Thiamine [Vitamin B-1] 100 mg PO DAILY #30 tablet 02/11/18 HYDROcodone/APAP 5-325MG [[place] 1 each PO Q4HR PRN #18 tab 06/04/18 5-325] Allergies Allergy/AdvReac Type Severity Reaction Status Date / Time No Known Allergies Allergy Verified 11/29/18 18:15 Review of Systems ROS Other: All systems not noted in ROS Statement are negative. <Obinna Rudolph - Last Filed: 11/29/18 22:41> ROS Other: All systems not noted in ROS Statement are negative. <Jhoana Martinez - Last Filed: 12/02/18 01:19> ROS Statement: Those systems with pertinent positive or pertinent negative responses have been documented in the HPI. Past Medical History Past Medical History: COPD, Eye Disorder, Hypertension Additional Past Medical History / Comment(s): glaucoma bilaterally, enlarged liver, frequent bronchitis, seasonal allergies, ruptured diverticuli w/colostomy January 2018 History of Any Multi-Drug Resistant Organisms: None Reported Past Surgical History: Bowel Resection, Tonsillectomy Additional Past Surgical History / Comment(s): benign biopsy on left breast, laser R eye surgery for glaucomal Past Anesthesia/Blood Transfusion Reactions: No Reported Reaction Past Psychological History: Depression Past Drug Use History: None Reported - Past Family History Father Family Medical History: Coronary Artery Disease (CAD), Diabetes Mellitus Additional Family Medical History / Comment(s): Father in his 60s from diabetic complications. Mother Family Medical History: Coronary Artery Disease (CAD), Myocardial Infarction (HI) Additional Family Medical History / Comment(s): Mother from a HI at the age of 62 yrs. <Obinna Rudolph - Last Filed: 11/29/18 22:41> General Exam Limitations: no limitations <Obinna Rudolph - Last Filed: 11/29/18 22:41> - General Exam Comments Initial Comments: Constitutional: NAD, AOX3, Pt has pleasant affect. HEENT: NC/AT, trachea midline, neck supple, no lymphadenopathy. Posterior pharynx non erythematous, without exudates. External ears appear normal, without discharge. Mucous membranes moist. Eyes PERRLA, EOM intact. There is no scleral icterus. No pallor noted. Cardiopulmonary: RRR, no murmurs, rubs or gallops, no JVD noted. Lungs CTAB in anterior and posterior nice. No peripheral edema. Abdominal exam: Abdomen soft and non-distended. Abdomen mildly tender to palpation right lower quadrant, no guarding, no JVD, no rebound tenderness. Bowel sounds active in LLQ. No hepatosplenomegaly. No ecchymosis Neuro: CN II-XII grossly intact. No nuchal rigidity. MSK: No posterior calf tenderness bilaterally, homans sign negative bilaterally. Posterior tibialis and radial pulse +2 bilaterally. Sensation intact in upper and lower extremities. Full active ROM in upper and lower extremities, 5/5 stregnth. (Obinna Rudolph) Course Vital Signs 11/29/18 11/29/18 11/29/18 18:10 20:54 23:17 Temperature 98.7 F 99.4 F 99.3 F Pulse Rate 96 66 73 Respiratory 18 16 17 Rate Blood Pressure 149/88 155/79 O2 Sat by Pulse 97 95 94 L Oximetry Medical Decision Making - Lab Data Result diagrams: 11/29/18 19:34 11/29/18 19:34 <Obinna Rudolph - Last Filed: 11/29/18 22:41> - Lab Data Result diagrams: 11/29/18 19:34 11/29/18 19:34 <Jhoana Martinez - Last Filed: 12/02/18 01:19> - Medical Decision Making 58-year-old female patient with past medical history of COPD, hypertension, glaucoma, diverticulitis with perforation approximately one year ago, patient had colostomy which was reversed approximately 6 months ago. Patient reports 3 days of right lower quadrant pain. Patient states that this does feel somewhat similar to the diverticulitis she had in the past. Patient reports nausea without emesis. Patient reports some waxing and waning diarrhea, nonbloody. Patient denies any chest pain, shortness of breath, dysuria. Patient vital signs stable, afebrile. Physical exam displayed: Abdomen mildly tender to palpation right lower quadrant, no guarding, no JVD, no rebound tenderness. Bowel sounds active in LLQ. No hepatosplenomegaly. No ecchymosis. Laboratory investigations revealed nonpassive CBC, CMP. UA negative. CT of abdomen and pelvis displayed new inferior umbilical rectus diastasis. No acute diverticulitis. Stable left adrenal nodule. These findings were discussed with patient. Patient verbalized understanding. It is possible the patient is experiencing a viral gastroenteritis -like syndrome. She'll follow up with primary care provider as well as surgeon who performed surgery. Patient will continue to monitor symptoms. Patient return to ER if condition worsens in any way. Strict return precautions. Case discussed with Dr. Martinez. (Obinna Rudolph) I was available for consultation in the emergency department. The history and physical exam were done by the midlevel provider. I was consulted for this patient's care. I reviewed the case with the midlevel provider and based on their presentation of the patient, I agree with the assessment, medical decision making and plan of care as documented. (Jhoana Martinez) - Lab Data Lab Results 11/29/18 11/29/18 11/29/18 Range/Units 19:34 19:34 19:34 WBC 10.3 (3.8-10.6) k/uL RBC 5.03 (3.80-5.40) m/uL Hgb 15.2 (11.4-16.0) gm/dL Hct 47.0 H (34.0-46.0) % MCV 93.3 (80.0-100.0) fL MCH 30.1 (25.0-35.0) pg MCHC 32.3 (31.0-37.0) g/dL RDW 14.7 (11.5-15.5) % Plt Count 259 (150-450) k/uL Neutrophils % 62 % Lymphocytes % 27 % Monocytes % 6 % Eosinophils % 2 % Basophils % 1 % Neutrophils # 6.3 (1.3-7.7) k/uL Lymphocytes # 2.8 (1.0-4.8) k/uL Monocytes # 0.7 (0-1.0) k/uL Eosinophils # 0.2 (0-0.7) k/uL Basophils # 0.1 (0-0.2) k/uL Sodium 138 (137-145) mmol/L Potassium 4.6 (3.5-5.1) mmol/L Chloride 106 (98-107) mmol/L Carbon Dioxide 24 (22-30) mmol/L Anion Gap 8 mmol/L BUN 12 (7-17) mg/dL Creatinine 0.55 (0.52-1.04) mg/dL Est GFR (CKD-EPI)AfAm >90 (>60 ml/min/1.73 sqM) Est GFR (CKD-EPI)NonAf >90 (>60 ml/min/1.73 sqM) Glucose 109 H (74-99) mg/dL Plasma Lactic Acid Miguel 1.1 (0.7-2.0) mmol/L Calcium 10.5 H (8.4-10.2) mg/dL Total Bilirubin 0.6 (0.2-1.3) mg/dL AST 21 (14-36) U/L ALT 20 (9-52) U/L Alkaline Phosphatase 69 (38-126) U/L Total Protein 7.4 (6.3-8.2) g/dL Albumin 4.7 (3.5-5.0) g/dL Lipase 82 (23-300) U/L Urine Color Urine Appearance (Clear) Urine pH (5.0-8.0) Ur Specific [place] (1.001-1.035) Urine Protein (Negative) Urine Glucose (UA) (Negative) Urine Ketones (Negative) Urine Blood (Negative) Urine Nitrite (Negative) Urine Bilirubin (Negative) Urine Urobilinogen (<2.0) mg/dL Ur Leukocyte Esterase (Negative) 11/29/18 Range/Units 20:50 WBC (3.8-10.6) k/uL RBC (3.80-5.40) m/uL Hgb (11.4-16.0) gm/dL Hct (34.0-46.0) % MCV (80.0-100.0) fL MCH (25.0-35.0) pg MCHC (31.0-37.0) g/dL RDW (11.5-15.5) % Plt Count (150-450) k/uL Neutrophils % % Lymphocytes % % Monocytes % % Eosinophils % % Basophils % % Neutrophils # (1.3-7.7) k/uL Lymphocytes # (1.0-4.8) k/uL Monocytes # (0-1.0) k/uL Eosinophils # (0-0.7) k/uL Basophils # (0-0.2) k/uL Sodium (137-145) mmol/L Potassium (3.5-5.1) mmol/L Chloride (98-107) mmol/L Carbon Dioxide (22-30) mmol/L Anion Gap mmol/L BUN (7-17) mg/dL Creatinine (0.52-1.04) mg/dL Est GFR (CKD-EPI)AfAm (>60 ml/min/1.73 sqM) Est GFR (CKD-EPI)NonAf (>60 ml/min/1.73 sqM) Glucose (74-99) mg/dL Plasma Lactic Acid Miguel (0.7-2.0) mmol/L Calcium (8.4-10.2) mg/dL Total Bilirubin (0.2-1.3) mg/dL AST (14-36) U/L ALT (9-52) U/L Alkaline Phosphatase (38-126) U/L Total Protein (6.3-8.2) g/dL Albumin (3.5-5.0) g/dL Lipase (23-300) U/L Urine Color Yellow Urine Appearance Clear (Clear) Urine pH 5.5 (5.0-8.0) Ur Specific [place] 1.016 (1.001-1.035) Urine Protein Negative (Negative) Urine Glucose (UA) Negative (Negative) Urine Ketones Negative (Negative) Urine Blood Negative (Negative) Urine Nitrite Negative (Negative) Urine Bilirubin Negative (Negative) Urine Urobilinogen <2.0 (<2.0) mg/dL Ur Leukocyte Esterase Negative (Negative) Disposition Is patient prescribed a controlled substance at d/c from ED?: No <Obinna Rudolph - Last Filed: 11/29/18 22:41> <Jhoana Martinez - Last Filed: 12/02/18 01:19> Clinical Impression: Abdominal pain Disposition: HOME SELF-CARE Condition: Stable Instructions (If sedation given, give patient instructions): Abdominal Pain (ED) Additional Instructions: Patient to adhere to previously discussed treatment plan and will take medication(s) as directed. Patient to follow up with PCP in 1-2 days. Patient to return to ED if symptoms do not improve. Please follow-up with GI surgeon and primary care provider in 1-2 days. Return to ER if condition worsens in any way. Referrals: Sarah Mendez MD [Primary Care Provider] - 1-2 days Heath Goldsmith MD [STAFF PHYSICIAN] - 1-2 days
--- NOTE | 2018-11-29 21:38 | CT ---
EXAMINATION TYPE: CT abdomen pelvis wo con DATE OF EXAM: 11/29/2018 COMPARISON: 02/03/2018 HISTORY: 58-year-old female Right sided flank and RLQ pain with nausea CT DLP: 578.9 mGycm. Automated exposure control for dose reduction was used. TECHNIQUE: Contiguous axial scanning of the abdomen and pelvis without IV contrast. Coronal and sagit jeniffer reconstructions performed. FINDINGS: Heart normal size without pericardial effusion. Lung bases clear without pleural effusion. Noncontrast appearance of the liver, gallbladder, right adrenal gland, right kidney, left kidney, spl een, and pancreas show no gross abnormality. No nephrolithiasis or hydronephrosis. Stable 1.4 cm exophytic left adrenal nodule. Stability suggests a benign etiology, i.e., adrenal sam kika. No dilated small bowel, free fluid, or free air. Scattered mild to moderate atherosclerotic calcifications within the abdominal aorta and iliac arteri es. There is rectus diastases measuring up to 6.0 cm wide with bulging laxity especially along the infrau mbilical level which has increased in the interval. There is overhanging laxity spanning nearly 10 cm craniocaudal extending from below the umbilicus containing fat and nonobstructed small bowel loops. Refer to sagittal image 74. While the appendix is not discretely visualized, no secondary findings of acute appendicitis are iden tified. Cecum is redundant. Mild scattered colonic diverticular change mild to moderate stool in the right side of the colon. Prior distal sigmoid resection and re-anastomosis. Bladder not distended. Uterus is visualized. Neither ovary is well seen. No abnormal fluid collection in the pelvis or pelvic lymphadenopathy. Bones: Degenerative changes mid to lower lumbar spine. IMPRESSION: 1. New infraumbilical rectus diastases spanning 10 cm craniocaudal in measuring 6 cm wide with bulgi ng laxity of intra-abdominal fat and nonobstructed small bowel loops. 2. No nephrolithiasis or hydronephrosis. 3. Scattered mild diverticular change. Interval distal sigmoid resection and re-anastomosis. No acut e diverticulitis. 4. Stable 1.4 cm exophytic left adrenal nodule, likely benign adrenal adenoma.
[2018-11-29 23:18] VITALS: BP 155/79; PULSE 73; RESP 17; TEMP 99.3
== END 2018-11-29 22:59 | disposition home or self-care (01) ==
LOC: EC 17:46
DX: R10.31 Right lower quadrant pain (principal); R11.0 Nausea; R19.7 Diarrhea, unspecified; J44.9 Chronic obstructive pulmonary disease, unspecified; F32.9 Major depressive disorder, single episode, unspecified; I10 Essential (primary) hypertension; Z87.19 Personal history of other diseases of the digestive system; Z93.3 Colostomy status; Z98.890 Other specified postprocedural states; Z79.51 Long term (current) use of inhaled steroids; Z79.899 Other long term (current) drug therapy
CPT/HCPCS: 36415; 74176; 80053; 81003; 83605; 83690; 85025; 96360; 99284

== ENCOUNTER → 2019-02-10 | Outpatient (CLI) | payer OTHER ==
--- NOTE | 2019-02-11 09:04 | NM ---
EXAMINATION TYPE: NM hepatobiliary w CCK DATE OF EXAM: 02/10/2019 COMPARISON: NONE HISTORY: Chronic cholecystitis. TECHNIQUE: After the intravenous administration of 4.8 mCi Tc 99m Mebrofenin hepatobiliary scintigrap hy is performed. Immediate images post injection. FINDINGS: There is satisfactory initial accumulation of tracer by the liver. The gallbladder is visualized wit hin 36 minutes. The small bowel activity is noted within 16 minutes. At one hour CCK was administer ed, patient was injected with 1.63 mcg of Kinevac, and gallbladder ejection fraction is calculated at 14 %, abnormal. Therefore there is no scintigraphic evidence of cystic or common bile duct obstruct ion to suggest acute cholecystitis or gallbladder dyskinesia. IMPRESSION: Markedly low gallbladder ejection fraction of 14% compatible with biliary dyskinesia.
== END | disposition home or self-care (01) ==
LOC: RADNMMAIN 15:05
PROVIDERS: ATTEND Surgery
DX: K81.1 Chronic cholecystitis (principal)
CPT/HCPCS: 78227; A9537; J2805

== ENCOUNTER → 2019-02-18 | Day surgery (SDC) | payer OTHER ==
[2019-02-15 13:26] VITALS: BMI 30.7
[~2019-02-18] MED LIST changes: +BUPIVACAIN-EPI 0.25%-1:200,000 30 ML VIAL SQ ONE; +GLYCOPYRROLATE 0.2 MG/ML 2 ML VIAL ONE; +KETOROLAC 30 MG/ML 1 ML VIAL IVP ONE; +LACTATED RINGERS 1,000 ML IV SCH; +LIDOCAINE 1% 20 ML VIAL (10MG/ML) FOR IV START INTRADERMA PRN; +LIDOCAINE 1% INJ 10MG/ML (20 ML MDV) ONE; +METOPROLOL TARTRATE 5 MG/5 ML VIAL IVP ONE; +MIDAZOLAM 2 MG/2 ML VIAL ONE; +NEOSTIGMINE 1 MG/ML 10 ML VIAL ONE; -ONDANSETRON 4 MG/2 ML VIAL IVP ONE; +PROPOFOL 10 MG/ML 20 ML VIAL IV ONE; +ROCURONIUM BROMIDE 10 MG/ML 10 ML VIAL IV ONE; -SCOPOLAMINE 1.5MG/72HR PATCH TRANSDERM ONE; +SUCCINYLCHOLINE CHLORIDE 100 MG/5 ML SYR IV ONE; +ceFAZolin IN SWFI 2 GM/20 ML SYRINGE IVP ONE; -fentaNYL (PF) 50 MCG/ML 2 ML AMP IV PRN; +fentaNYL (PF) 50 MCG/ML 2 ML AMP ONE; +hydrALAZINE HCL 20 MG/ML 1 ML VIAL ONE
[2019-02-18 07:53] VITALS: TEMP 97.8
[2019-02-18] MEDS: ONDANSETRON 4 MG/2 ML VIAL IVP ONE ×2 (08:00→10:36)
--- NOTE | 2019-02-18 09:07 | P.GSHP ---
History of Present Illness H&P Date: 02/18/19 Chief Complaint: Right upper quadrant pain This is a 58-year-old female who's had complete her quadrant pain. Patient had a HIDA scan performed shows mL ejection fraction consistent with biliary dyskinesia and chronic cholecystitis. Past Medical History Past Medical History: COPD, Eye Disorder, GERD/Reflux, Hyperlipidemia, Hypertension, Liver Disease Additional Past Medical History / Comment(s): Bilateral glaucoma, enlarged liver, frequent bronchitis, seasonal allergies, ruptured diverticuli w/colostomy January 2018. Colostomy reversal May 2018. Chronic back pain. Hx Shingles. History of Any Multi-Drug Resistant Organisms: None Reported Past Surgical History: Bowel Resection, Tonsillectomy Additional Past Surgical History / Comment(s): Benign biopsy left breast, laser right eye surgery for glaucoma, hemorrhoidectomy. Reversal of colostomy. Past Anesthesia/Blood Transfusion Reactions: No Reported Reaction Past Psychological History: Anxiety, Depression Smoking Status: Current every day smoker Past Alcohol Use History: Daily Additional Past Alcohol Use History / Comment(s): Pt started smoking in 1972 2-3 PPD, currently down to 1 PPD. Drinks a glass of wine nightly. Past Drug Use History: None Reported - Past Family History Father Family Medical History: Coronary Artery Disease (CAD), Diabetes Mellitus Additional Family Medical History / Comment(s): Father in his 60s from diabetic complications. Mother Family Medical History: Coronary Artery Disease (CAD), Myocardial Infarction (RI) Additional Family Medical History / Comment(s): Mother from a [place] at the age of 62 yrs. Medications and Allergies Home Medications Medication Instructions Recorded Confirmed Type Albuterol Inhaler [Ventolin Hfa 1 - 2 puff INHALATION RT-Q4H PRN 02/03/18 02/15/19 History Inhaler] Fluticasone Nasal [place] [Flonase 2 spray EA NOSTRIL DAILY 02/03/18 02/15/19 History Nasal [place]] Folic Acid 1 mg PO DAILY #30 tablet 02/11/18 02/15/19 Rx Thiamine [Vitamin B-1] 100 mg PO DAILY #30 tablet 02/11/18 02/15/19 Rx Furosemide [Lasix] 20 mg PO DAILY 02/16/18 02/15/19 History Ipratropium-Albuterol Nebulize 3 ml INHALATION RT-QID PRN 02/16/18 02/15/19 History [Duoneb 0.5 mg-3 mg/3 ml Soln] Budesonide-Formot 160-4.5 Mcg 2 puff INHALATION RT-BID 05/26/18 02/15/19 History [Symbicort 160-4.5 Mcg Inhaler] Escitalopram [Lexapro] 20 mg PO QAM 05/26/18 02/15/19 History Methocarbamol [Robaxin] 500 mg PO HS 05/26/18 02/15/19 History Omeprazole [PriLOSEC] 20 mg PO BID 05/26/18 02/15/19 History Advair 2 puff PO BID 02/15/19 02/15/19 History Healthy Eyes Vitamin 1 tab PO DAILY 02/15/19 02/15/19 History Levofloxacin [Levaquin] 500 mg PO DAILY 02/15/19 02/15/19 History Metoprolol Succinate (ER) [Toprol 25 mg PO QAM 02/15/19 02/18/19 History XL] busPIRone HCL [Buspar] 7.5 mg PO HS 02/15/19 02/15/19 History Allergies Allergy/AdvReac Type Severity Reaction Status Date / Time No Known Allergies Allergy Verified 02/18/19 07:44 Surgical - Exam Vital Signs Temp Pulse Resp BP Pulse Ox 97.8 F 75 17 146/82 93 L 02/18/19 07:52 02/18/19 07:52 02/18/19 07:52 02/18/19 07:52 02/18/19 07:52 - General well developed, well nourished, no distress - Eyes PERRL - ENT normal pinna - Neck no masses - Respiratory normal expansion - Cardiovascular Rhythm: regular - Abdomen Abdomen: soft, non tender Assessment and Plan Assessment: Right upper quadrant pain Complete dyskinesia We'll perform laparoscopic cholecystectomy.
--- NOTE | 2019-02-18 10:10 | P.OP ---
Date of Procedure: 02/18/19 Preoperative Diagnosis: Cholecystitis Postoperative Diagnosis: Cholecystitis Procedure(s) Performed: Laparoscopic cholecystectomy Anesthesia: RAYA Surgeon: Heath Goldsmith Estimated Blood Loss (ml): 5 Pathology: other (Gallbladder) Condition: stable Disposition: PACU Description of Procedure: The patient was placed on the operating table. The patient received a general endotracheal tube anesthesia. The patients abdomen was prepped and draped in the usual sterile fashion. Through an infraumbilical stab incision, the fascia of the anterior abdominal wall was grasped with a pair of Kochers and then the Veress needle was placed in the peritoneal cavity. Position of the Veress needle was confirmed with positive drop test. The abdomen was then insufflated. After adequate insufflation, the 10 mm trocar was placed in the peritoneal cavity. Following this the laparoscope was placed in the peritoneal cavity. The patient was placed in the head-up, right side up position and then a 5 mm trocar was placed in the right lateral and right subcostal position under direct visualization. A 8 mm trocar was placed in the epigastric position. The gallbladder was grasped in the fundus and infundibulum. Traction on the gallbladder was placed in the lateral and the cephalad positions. The triangle of Calot was visualized.. The cystic duct was bluntly dissected until the union of the cystic duct and common bile duct was seen. A critical view of safety was achieved. The cystic duct was then divided and sealed with the Harmonic scissors. A PDS Endoloop was then placed throughout the cystic duct stump. The cystic artery divided and sealed with the Harmonic scissors. The gallbladder was then removed from the liver bed using Harmonic scissors. The gallbladder was then extracted through the epigastric port site. Operative field was checked for any bleeding spots and Harmonic scissors was used to coagulate the liver bed. The abdomen was irrigated. The trocars were removed. The skin was closed using interrupted 3-0 Vicryl suture. Dermabond dressing were applied. The patient tolerated the procedure well. The patient was noted to have an incisional hernia in the infra umbilical position.
[2019-02-18] MEDS: HYDROmorphone 0.5 MG/0.5 ML SYRINGE IVP PRN ×2 (10:36→10:44)
[2019-02-18 10:38] VITALS: RESP 16
[2019-02-18 12:03] VITALS: BP 128/73; PULSE 88
== END | disposition home or self-care (01) ==
LOC: OR 07:29
PROVIDERS: ATTEND Surgery
DX: K81.1 Chronic cholecystitis (principal); J44.9 Chronic obstructive pulmonary disease, unspecified; K21.9 Gastro-esophageal reflux disease without esophagitis; E78.5 Hyperlipidemia, unspecified; I10 Essential (primary) hypertension; R16.0 Hepatomegaly, not elsewhere classified; H40.9 Unspecified glaucoma; Z91.048 Other nonmedicinal substance allergy status; G89.29 Other chronic pain; M54.9 Dorsalgia, unspecified; Z82.49 Family history of ischemic heart disease and other diseases of the circulatory system; F17.210 Nicotine dependence, cigarettes, uncomplicated; Z79.51 Long term (current) use of inhaled steroids; Z79.899 Other long term (current) drug therapy
CPT/HCPCS: 88304; 47562; J2250; J0360; J1644; J1100; J2710; J2405; J2001; J3010; J1885; J0330; J2704; J1170; J0690

== ENCOUNTER → 2019-05-19 | Outpatient (CLI) | payer OTHER | END | disposition home or self-care (01) | LOC: CPPFTMAIN 12:33 | PROVIDERS: ATTEND Internal Medicine Critical Care Medicine | DX: J44.9 Chronic obstructive pulmonary disease, unspecified (principal) | CPT/HCPCS: 94060; 94726; 94729 ==

== ENCOUNTER → 2019-06-03 | Outpatient (CLI) | payer OTHER ==
--- NOTE | 2019-06-04 11:35 | XR ---
EXAMINATION TYPE: XR chest 2V DATE OF EXAM: 06/03/2019 COMPARISON: 02/06/2018 INDICATION: J 44.0 TECHNIQUE: Frontal and lateral views of the chest are obtained. FINDINGS: The heart size is normal. The pulmonary vasculature is normal. Some mild thickening is at the lung apices left more so than right.. IMPRESSION: 1. Mild apical thickening. 2. Acute pulmonary process not otherwise identified.
== END | disposition home or self-care (01) ==
LOC: RADXRMAIN 17:47
PROVIDERS: ATTEND Internal Medicine Critical Care Medicine
DX: J94.8 Other specified pleural conditions (principal)
CPT/HCPCS: 71046

== ENCOUNTER 2019-06-17 00:15 | Emergency (ER) | payer OTHER ==
[2019-06-17 00:29] VITALS: RESP 20; TEMP 98.8
[2019-06-17 00:44] LABS: Appearance,Urine Clear (Clear); Bilirubin,Urine Negative (Negative); Blood,Urine Negative (Negative); Color,Urine Light Yellow; Glucose,Urine (UA) Negative (Negative); Ketones,Urine Negative (Negative); Leukocyte Esterase,Urine Negative (Negative); Nitrite,Urine Negative (Negative); Protein,Urine Negative (Negative); Specific Gravity,Urine 1.003 (1.001-1.035); Urobilinogen,Urine <2.0 mg/dL (<2.0)
--- NOTE | 2019-06-17 01:03 | ED ---
Back Pain HPI - General Chief Complaint: Back Pain/Injury Stated Complaint: lower back pain Time Seen by Provider: 06/17/19 00:17 Source: patient Limitations: no limitations - History of Present Illness Initial Comments: This patient is a 58-year-old woman who presents to be evaluated for bilateral low back pain. This is been going on for 2-3 days now. She describes it as mod erate to severe, aching, constant, though it does get worse with bending and improves if she remains still. She has not had accompanying symptoms. There is no abdominal pain. No change in bladder or bowel function. No saddle anesthesia. No weakness of the extremities. Patient does not remember any inciting trauma or fall. MD Complaint: back pain Onset/Timin -: days(s) Similar Symptoms Previously: Yes Place: home Radiation: none Severity: severe Quality: aching Consistency: constant Improves With: immobilization Worsens With: movement Associated Symptoms: denies other symptoms - Related Data Home Medications Medication Instructions Recorded Confirmed Albuterol Inhaler [Ventolin Hfa 1 - 2 puff INHALATION RT-Q4H PRN 02/03/18 02/15/19 Inhaler] Fluticasone Nasal [place] [Flonase 2 spray EA NOSTRIL DAILY 02/03/18 02/15/19 Nasal [place]] Furosemide [Lasix] 20 mg PO DAILY 02/16/18 02/15/19 Ipratropium-Albuterol Nebulize 3 ml INHALATION RT-QID PRN 02/16/18 02/15/19 [Duoneb 0.5 mg-3 mg/3 ml Soln] Budesonide-Formot 160-4.5 Mcg 2 puff INHALATION RT-BID 05/26/18 02/15/19 [Symbicort 160-4.5 Mcg Inhaler] Escitalopram [Lexapro] 20 mg PO QAM 05/26/18 02/15/19 Methocarbamol [Robaxin] 500 mg PO HS 05/26/18 02/15/19 Omeprazole [PriLOSEC] 20 mg PO BID 05/26/18 02/15/19 Advair 2 puff PO BID 02/15/19 02/15/19 Healthy Eyes Vitamin 1 tab PO DAILY 02/15/19 02/15/19 Levofloxacin [Levaquin] 500 mg PO DAILY 02/15/19 02/15/19 Metoprolol Succinate (ER) [Toprol 25 mg PO QAM 02/15/19 02/18/19 XL] busPIRone HCL [Buspar] 7.5 mg PO HS 02/15/19 02/15/19 Previous Rx's Medication Instructions Recorded Folic Acid 1 mg PO DAILY #30 tablet 02/11/18 Thiamine [Vitamin B-1] 100 mg PO DAILY #30 tablet 02/11/18 Docusate [Colace] 100 mg PO BID #20 capsule 02/18/19 HYDROcodone/APAP 5-325MG [[place] 1 tab PO Q6HR PRN #10 tab 02/18/19 5-325] Methocarbamol [Robaxin-750] 750 mg PO TID PRN #30 tablet 06/17/19 predniSONE 60 mg PO DAILY #30 tab 06/17/19 Allergies Allergy/AdvReac Type Severity Reaction Status Date / Time No Known Allergies Allergy Verified 02/18/19 07:44 Review of Systems ROS Statement: Those systems with pertinent positive or pertinent negative responses have been documented in the HPI. ROS Other: All systems not noted in ROS Statement are negative. Constitutional: Denies: fever, chills, weakness Respiratory: Denies: cough, dyspnea Cardiovascular: Denies: chest pain, palpitations Gastrointestinal: Denies: abdominal pain, vomiting, diarrhea Genitourinary: Denies: dysuria, hematuria Musculoskeletal: Reports: as per HPI, back pain Skin: Denies: rash Neurological: Denies: headache, weakness, numbness Past Medical History Past Medical History: COPD, Eye Disorder, GERD/Reflux, Hyperlipidemia, Hypertension, Liver Disease Additional Past Medical History / Comment(s): Bilateral glaucoma, enlarged liver, frequent bronchitis, seasonal allergies, ruptured diverticuli w/colostomy January 2018. Colostomy reversal May 2018. Chronic back pain. Hx Shingles. History of Any Multi-Drug Resistant Organisms: None Reported Past Surgical History: Bowel Resection, Tonsillectomy Additional Past Surgical History / Comment(s): Benign biopsy left breast, laser right eye surgery for glaucoma, hemorrhoidectomy. Reversal of colostomy. Past Anesthesia/Blood Transfusion Reactions: No Reported Reaction Past Psychological History: Anxiety, Depression Smoking Status: Current every day smoker Past Alcohol Use History: Daily Past Drug Use History: None Reported - Past Family History Father Family Medical History: Coronary Artery Disease (CAD), Diabetes Mellitus Additional Family Medical History / Comment(s): Father in his 60s from diabetic complications. Mother Family Medical History: Coronary Artery Disease (CAD), Myocardial Infarction ([place]) Additional Family Medical History / Comment(s): Mother from a [place] at the age of 62 yrs. General Exam Limitations: no limitations General appearance: alert, in no apparent distress Head exam: Present: atraumatic, normocephalic Eye exam: Present: normal appearance. Absent: scleral icterus, conjunctival injection Neck exam: Present: normal inspection, full ROM. Absent: tenderness Respiratory exam: Present: normal lung sounds bilaterally. Absent: respiratory distress, wheezes, rales, rhonchi, stridor Cardiovascular Exam: Present: regular rate, normal rhythm, normal heart sounds. Absent: systolic murmur, diastolic murmur, rubs, gallop GI/Abdominal exam: Present: soft. Absent: distended, tenderness, guarding, rebound, rigid, mass, pulsatile mass Extremities exam: Present: normal inspection, normal capillary refill. Absent: pedal edema, calf tenderness Back exam: Present: normal inspection, paraspinal tenderness, vertebral tenderness. Absent: CVA tenderness (R), CVA tenderness (L) Neurological exam: Present: alert Skin exam: Present: warm, dry, intact, normal color. Absent: rash Course Vital Signs 06/17/19 06/17/19 00:24 02:33 Temperature 98.8 F Pulse Rate 87 80 Respiratory 20 20 Rate Blood Pressure 146/74 163/90 O2 Sat by Pulse 93 L Oximetry Medical Decision Making - Lab Data Lab Results 06/17/19 Range/Units 00:31 Urine Color Light Yellow Urine Appearance Clear (Clear) Urine pH 5.0 (5.0-8.0) Ur Specific [place] 1.003 (1.001-1.035) Urine Protein Negative (Negative) Urine Glucose (UA) Negative (Negative) Urine Ketones Negative (Negative) Urine Blood Negative (Negative) Urine Nitrite Negative (Negative) Urine Bilirubin Negative (Negative) Urine Urobilinogen <2.0 (<2.0) mg/dL Ur Leukocyte Esterase Negative (Negative) Disposition Clinical Impression: Low back pain Disposition: HOME SELF-CARE Condition: Good Instructions (If sedation given, give patient instructions): Acute Low Back Pain (ED) Prescriptions: predniSONE 60 mg PO DAILY #30 tab Methocarbamol [Robaxin-750] 750 mg PO TID PRN #30 tablet PRN Reason: pain Is patient prescribed a controlled substance at d/c from ED?: No Referrals: Sarah Mendez MD [Primary Care Provider] - 1-2 days Harinder Fraire DO [Doctor of Osteopathic Medicine] - 1-2 days
--- NOTE | 2019-06-17 01:21 | XR ---
EXAMINATION TYPE: XR lumbar spine 2 or 3V DATE OF EXAM: 06/17/2019 COMPARISON: 07/08/2018 HISTORY: Back pain TECHNIQUE: 3 views FINDINGS: Vertebra have fairly normal alignment. There is some degenerative disc space narrowing with spur formation. Posterior elements are intact. Sacroiliac joints appear intact. There is no compress ion fracture. Disc space narrowing is mainly at L2-3 and L4-5. IMPRESSION: Spondylotic changes. No fracture. No adverse change compared to old exam.
[2019-06-17] MEDS ORDERED: predniSONE 20 MG TAB PO STA (02:14)
[2019-06-17] MEDS ORDERED: ORPHENADRINE 30 MG/ML 2 ML VIAL IM STA (02:14)
[2019-06-17 02:34] VITALS: BP 163/90; PULSE 80
== END 2019-06-17 03:29 | disposition home or self-care (01) ==
LOC: EC 00:15
DX: M54.5 Low back pain (principal); J44.9 Chronic obstructive pulmonary disease, unspecified; K21.9 Gastro-esophageal reflux disease without esophagitis; I10 Essential (primary) hypertension; H40.9 Unspecified glaucoma; G89.29 Other chronic pain; F32.9 Major depressive disorder, single episode, unspecified; F41.9 Anxiety disorder, unspecified; F17.200 Nicotine dependence, unspecified, uncomplicated; Z79.51 Long term (current) use of inhaled steroids; Z79.899 Other long term (current) drug therapy
CPT/HCPCS: 81003; 72100; 99283; 96372; J2360; J7512

== ENCOUNTER → 2019-08-21 | Outpatient (CLI) | payer OTHER ==
--- NOTE | 2019-08-21 20:27 | MR ---
EXAMINATION TYPE: MR lumbar spine wo con DATE OF EXAM: 08/21/2019 COMPARISON: None HISTORY: Low Back Pain / Radiculopathy Multiplanar multiecho imaging of the lumbar spine was performed with no contrast. Lumbar vertebra have normal alignment. There is narrowing of disc spaces throughout the lumbar spine and more severe at L4-5 there is 10% depression superior endplate of L1 that is probably old. Posteri or elements are intact. There is no lumbar paraspinal mass. I see no significant spinal stenosis. The re is small posterior disc bulging from L2 to S1. The neuroforamina are fairly well-maintained. Visua lized sacroiliac joints appear intact. IMPRESSION: Multilevel spondylotic changes. No significant spinal stenosis. Old mild compression fracture of L1. Facet arthropathy and lateral recess stenosis at L5-S1 on the left side.
== END | disposition home or self-care (01) ==
LOC: RADMRIMAIN 13:51
PROVIDERS: ATTEND Physical Medicine & Rehabilitation
DX: M48.07 Spinal stenosis, lumbosacral region (principal); M47.26 Other spondylosis with radiculopathy, lumbar region; M46.97 Unspecified inflammatory spondylopathy, lumbosacral region; Z87.81 Personal history of (healed) traumatic fracture; S32.019G Unspecified fracture of first lumbar vertebra, subsequent encounter for fracture with delayed healing
CPT/HCPCS: 72148

== ENCOUNTER 2020-02-25 14:43 | Emergency (ER) | payer OTHER ==
[2020-02-25] MEDS ORDERED: ONDANSETRON 4 MG/2 ML VIAL IVP STA (15:20)
[2020-02-25] MEDS ORDERED: SODIUM CHLORIDE 0.9% 1,000 ML IV STA (15:20)
--- NOTE | 2020-02-25 15:33 | ED ---
General Adult HPI - General Chief complaint: Abdominal Pain Stated complaint: N/V/D Time Seen by Provider: 02/25/20 15:03 Source: patient, RN notes reviewed, old records reviewed Mode of arrival: ambulatory Limitations: no limitations - History of Present Illness Initial comments: 59-year-old female patient past history suffered for COPD, type 2 diabetes, hypertension and hyperlipidemia, status post bowel resection secondary to bowel obstruction 2018 had ostomy with reversal presents to ED for chief complaint of abdominal pain. Patient reports that for the last month she has been having abdominal pain as well as diarrhea. She reports that the abdominal pain is mostly in the left lower quadrant region where she has had diverticulitis in the past. She reports nausea without emesis. She denies any other complaints at this time. She was recently on antibiotics for a respiratory infection however she does not know which ones she was on. Systemic: Pt denies fatigue, fever/chills, rash. Pt denies weakness, night sweats, weight loss. Neuro: Pt denies headache, visual disturbances, syncope or pre-syncope. HEENT: Pt denies ocular discharge or irritation, otalgia, rhinorrhea, pharyngitis or notable lymphadenopathy. Cardiopulmonary: Pt denies chest pain, SOB, heart palpitations, dyspnea on exertion. Abdominal/GI: Pt denies emesis. : Pt denies dysuria, burning w/ urination, frequency/urgency. Denies new onset urinary or bowel incontinence. MSK: Pt denies myalgia, loss of strength or function in extremities. Neuro: Pt denies new onset weakness, paresthesias. - Related Data Home Medications Medication Instructions Recorded Confirmed Albuterol Inhaler (Mhu) [Ventolin 1 - 2 puff INHALATION RT-Q4H PRN 02/03/18 02/15/19 Hfa Inhaler (Mhu)] Fluticasone Nasal [place] [Flonase 2 spray EA NOSTRIL DAILY 02/03/18 02/15/19 Nasal [place]] Furosemide [Lasix] 20 mg PO DAILY 02/16/18 02/15/19 Ipratropium-Albuterol Nebulize 3 ml INHALATION RT-QID PRN 02/16/18 02/15/19 [Duoneb 0.5 mg-3 mg/3 ml Soln] Budesonide-Formot 160-4.5 Mcg 2 puff INHALATION RT-BID 05/26/18 02/15/19 [Symbicort 160-4.5 Mcg Inhaler] Escitalopram [Lexapro] 20 mg PO QAM 05/26/18 02/15/19 Methocarbamol [Robaxin] 500 mg PO HS 05/26/18 02/15/19 Omeprazole [PriLOSEC] 20 mg PO BID 05/26/18 02/15/19 Advair 2 puff PO BID 02/15/19 02/15/19 Healthy Eyes Vitamin 1 tab PO DAILY 02/15/19 02/15/19 Levofloxacin [Levaquin] 500 mg PO DAILY 02/15/19 02/15/19 Metoprolol Succinate (ER) [Toprol 25 mg PO QAM 02/15/19 02/18/19 XL] busPIRone HCL [Buspar] 7.5 mg PO HS 02/15/19 02/15/19 Previous Rx's Medication Instructions Recorded Folic Acid 1 mg PO DAILY #30 tablet 02/11/18 Thiamine [Vitamin B-1] 100 mg PO DAILY #30 tablet 02/11/18 Docusate [Colace] 100 mg PO BID #20 capsule 02/18/19 HYDROcodone/APAP 5-325MG [[place] 1 tab PO Q6HR PRN #10 tab 02/18/19 5-325] Methocarbamol [Robaxin-750] 750 mg PO TID PRN #30 tablet 06/17/19 predniSONE 60 mg PO DAILY #30 tab 06/17/19 Allergies Allergy/AdvReac Type Severity Reaction Status Date / Time No Known Allergies Allergy Verified 02/25/20 14:50 Review of Systems ROS Statement: Those systems with pertinent positive or pertinent negative responses have been documented in the HPI. ROS Other: All systems not noted in ROS Statement are negative. Past Medical History Past Medical History: COPD, Diabetes Mellitus, Eye Disorder, GERD/Reflux, Hyperlipidemia, Hypertension, Liver Disease Additional Past Medical History / Comment(s): Bilateral glaucoma, enlarged liver, ruptured diverticuli w/colostomy January 2018. Colostomy reversal May 2018. Chronic back pain. Hx Shingles. History of Any Multi-Drug Resistant Organisms: None Reported Past Surgical History: Bowel Resection, Tonsillectomy Additional Past Surgical History / Comment(s): Benign biopsy left breast, laser right eye surgery for glaucoma, hemorrhoidectomy. Reversal of colostomy. Past Anesthesia/Blood Transfusion Reactions: No Reported Reaction Past Psychological History: Anxiety, Depression Smoking Status: Current every day smoker Past Alcohol Use History: Daily Past Drug Use History: None Reported - Past Family History Father Family Medical History: Coronary Artery Disease (CAD), Diabetes Mellitus Additional Family Medical History / Comment(s): Father in his 60s from diabetic complications. Mother Family Medical History: Coronary Artery Disease (CAD), Myocardial Infarction ([place]) Additional Family Medical History / Comment(s): Mother from a [place] at the age of 62 yrs. General Exam - General Exam Comments Initial Comments: Constitutional: NAD, AOX3, Pt has pleasant affect. HEENT: NC/AT, trachea midline, neck supple, no lymphadenopathy. Posterior pharynx non erythematous, without exudates. External ears appear normal, without discharge. Mucous membranes moist. Eyes PERRLA, EOM intact. There is no scleral icterus. No pallor noted. Cardiopulmonary: RRR, no murmurs, rubs or gallops, no JVD noted. Mild wheezing noted in anterior lung nice, resolved after breathing treatment. No peripheral edema. Abdominal exam: Abdomen soft and non-distended. Abdomen mildly tender to palpation in periumbilical, left lower quadrant region. Bowel sounds active in LLQ. No hepatosplenomegaly. No ecchymosis Neuro: CN II-XII grossly intact. No nuchal rigidity. No raccon eyes, no ogden sign, no hemotympanum. No cervical spinal tenderness. MSK: No posterior calf tenderness bilaterally, homans sign negative bilaterally. Posterior tibialis and radial pulse +2 bilaterally. Sensation intact in upper and lower extremities. Full active ROM in upper and lower extremities, 5/5 stregnth. Limitations: no limitations Course Vital Signs 02/25/20 02/25/20 02/25/20 14:46 15:40 17:00 Temperature 98.1 F Pulse Rate 103 H 91 90 Respiratory 18 16 16 Rate Blood Pressure 168/80 152/89 152/91 O2 Sat by Pulse 94 L 91 L 93 L Oximetry 02/25/20 02/25/20 17:49 17:58 Temperature Pulse Rate 88 84 Respiratory Rate Blood Pressure O2 Sat by Pulse Oximetry Medical Decision Making - Medical Decision Making 59-year-old female patient past history suffered for COPD, type 2 diabetes, hypertension and hyperlipidemia, status post bowel resection secondary to bowel obstruction 2018 had ostomy with reversal presents to ED for chief complaint of abdominal pain. Patient reports that for the last month she has been having abdominal pain as well as diarrhea. She reports that the abdominal pain is mostly in the left lower quadrant region where she has had diverticulitis in the past. She reports nausea without emesis. She denies any other complaints at this time. She was recently on antibiotics for a respiratory infection however she does not know which ones she was on. Patient vital signs are stable, afebrile. Physical exam displayed some mild left lower quadrant periumbilical tenderness. Mild wheezing was also noted. Patient reports her breathing is around baseline. She normally uses a breathing treatment around this time. Laboratory investigations were obtained displayed very mild transaminitis. Otherwise non-impressive. UA negative for infection. CT abdomen and pelvis displayed mild distention of the small bowel wall thickening which may reflect enteritis. Patient was unable to provide a stool specimen. Patient was discharged with prescription for stool sample laboratory investigations and will follow up with primary care provider for further evaluation. Case discussed with Dr. Amos. - Lab Data Result diagrams: 02/25/20 15:36 02/25/20 15:36 Lab Results 02/25/20 02/25/20 02/25/20 Range/Units 15:36 15:36 15:36 WBC 10.6 (3.8-10.6) k/uL RBC 5.14 (3.80-5.40) m/uL Hgb 16.2 H (11.4-16.0) gm/dL Hct 49.7 H (34.0-46.0) % MCV 96.6 (80.0-100.0) fL MCH 31.5 (25.0-35.0) pg MCHC 32.6 (31.0-37.0) g/dL RDW 12.9 (11.5-15.5) % Plt Count 204 (150-450) k/uL Neutrophils % 67 % Lymphocytes % 24 % Monocytes % 4 % Eosinophils % 3 % Basophils % 1 % Neutrophils # 7.1 (1.3-7.7) k/uL Lymphocytes # 2.5 (1.0-4.8) k/uL Monocytes # 0.5 (0-1.0) k/uL Eosinophils # 0.3 (0-0.7) k/uL Basophils # 0.1 (0-0.2) k/uL Sodium 137 (137-145) mmol/L Potassium 4.2 (3.5-5.1) mmol/L Chloride 108 H (98-107) mmol/L Carbon Dioxide 22 (22-30) mmol/L Anion Gap 7 mmol/L BUN 12 (7-17) mg/dL Creatinine 0.68 (0.52-1.04) mg/dL Est GFR (CKD-EPI)AfAm >90 (>60 ml/min/1.73 sqM) Est GFR (CKD-EPI)NonAf >90 (>60 ml/min/1.73 sqM) Glucose 143 H (74-99) mg/dL Plasma Lactic Acid Miguel 1.6 (0.7-2.0) mmol/L Calcium 10.1 (8.4-10.2) mg/dL Total Bilirubin 0.9 (0.2-1.3) mg/dL AST 58 H (14-36) U/L ALT 48 H (4-34) U/L Alkaline Phosphatase 77 (38-126) U/L Total Protein 6.9 (6.3-8.2) g/dL Albumin 4.4 (3.5-5.0) g/dL Lipase 120 (23-300) U/L Urine Color Urine Appearance (Clear) Urine pH (5.0-8.0) Ur Specific [place] (1.001-1.035) Urine Protein (Negative) Urine Glucose (UA) (Negative) Urine Ketones (Negative) Urine Blood (Negative) Urine Nitrite (Negative) Urine Bilirubin (Negative) Urine Urobilinogen (<2.0) mg/dL Ur Leukocyte Esterase (Negative) Urine RBC (0-5) /hpf Urine WBC (0-5) /hpf Ur Squamous Epith Cells (0-4) /hpf Urine Bacteria (None) /hpf Urine Mucus (None) /hpf 02/25/20 Range/Units 15:55 WBC (3.8-10.6) k/uL RBC (3.80-5.40) m/uL Hgb (11.4-16.0) gm/dL Hct (34.0-46.0) % MCV (80.0-100.0) fL MCH (25.0-35.0) pg MCHC (31.0-37.0) g/dL RDW (11.5-15.5) % Plt Count (150-450) k/uL Neutrophils % % Lymphocytes % % Monocytes % % Eosinophils % % Basophils % % Neutrophils # (1.3-7.7) k/uL Lymphocytes # (1.0-4.8) k/uL Monocytes # (0-1.0) k/uL Eosinophils # (0-0.7) k/uL Basophils # (0-0.2) k/uL Sodium (137-145) mmol/L Potassium (3.5-5.1) mmol/L Chloride (98-107) mmol/L Carbon Dioxide (22-30) mmol/L Anion Gap mmol/L BUN (7-17) mg/dL Creatinine (0.52-1.04) mg/dL Est GFR (CKD-EPI)AfAm (>60 ml/min/1.73 sqM) Est GFR (CKD-EPI)NonAf (>60 ml/min/1.73 sqM) Glucose (74-99) mg/dL Plasma Lactic Acid Miguel (0.7-2.0) mmol/L Calcium (8.4-10.2) mg/dL Total Bilirubin (0.2-1.3) mg/dL AST (14-36) U/L ALT (4-34) U/L Alkaline Phosphatase (38-126) U/L Total Protein (6.3-8.2) g/dL Albumin (3.5-5.0) g/dL Lipase (23-300) U/L Urine Color Yellow Urine Appearance Cloudy H (Clear) Urine pH 5.5 (5.0-8.0) Ur Specific [place] 1.026 (1.001-1.035) Urine Protein Trace H (Negative) Urine Glucose (UA) Negative (Negative) Urine Ketones Trace H (Negative) Urine Blood Negative (Negative) Urine Nitrite Negative (Negative) Urine Bilirubin Negative (Negative) Urine Urobilinogen 3.0 (<2.0) mg/dL Ur Leukocyte Esterase Negative (Negative) Urine RBC 1 (0-5) /hpf Urine WBC 2 (0-5) /hpf Ur Squamous Epith Cells 6 H (0-4) /hpf Urine Bacteria Rare H (None) /hpf Urine Mucus Occasional H (None) /hpf - EKG Data -: EKG Interpreted by Me (and Dr. Amos ) EKG Comments: Ventricular rate 94, NV interval 116, QRS 72, QT/QTC 348/435. Normal sensation, normal EKG. No concern for acute ischemia or arrhythmia at this time. Disposition Clinical Impression: Abdominal pain, Diarrhea, COPD (chronic obstructive pulmonary disease) Disposition: HOME SELF-CARE Condition: Stable Instructions (If sedation given, give patient instructions): Abdominal Pain (ED), Acute Diarrhea (ED), Nutrition Tips for Relief of Diarrhea (ED) Additional Instructions: Follow-up with primary care provider tomorrow. Collect stool sample and bring to lab for evaluation. Return to ER if condition worsens. Is patient prescribed a controlled substance at d/c from ED?: No Referrals: Sarah Mendez MD [Primary Care Provider] - 1-2 days
[2020-02-25 15:51] LABS: Basophils # (A) 0.1 k/uL (0-0.2); Basophils % (A) 1 %; Eosinophils # (A) 0.3 k/uL (0-0.7); Eosinophils % (A) 3 %; HCT 49.7 % (34.0-46.0); HGB 16.2 gm/dL (11.4-16.0); Lymphocytes # (A) 2.5 k/uL (1.0-4.8); Lymphocytes % (A) 24 %; MCH 31.5 pg (25.0-35.0); MCHC 32.6 g/dL (31.0-37.0); MCV 96.6 fL (80.0-100.0); Monocytes # (A) 0.5 k/uL (0-1.0); Monocytes % (A) 4 %; Neutrophils # (A) 7.1 k/uL (1.3-7.7); Neutrophils % (A) 67 %; Platelet Count 204 k/uL (150-450); RBC 5.14 m/uL (3.80-5.40); RDW 12.9 % (11.5-15.5); WBC 10.6 k/uL (3.8-10.6)
[2020-02-25 16:04] LABS: ALT 48 U/L (4-34); AST 58 U/L (14-36); African American GFR (CKD) >90 (>60 ml/min/1.73 sqM); Albumin 4.4 g/dL (3.5-5.0); Alkaline Phosphatase 77 U/L (38-126); Anion Gap 7 mmol/L; Blood Urea Nitrogen 12 mg/dL (7-17); Calcium 10.1 mg/dL (8.4-10.2); Carbon Dioxide 22 mmol/L (22-30); Chloride 108 mmol/L (98-107); Glucose 143 mg/dL (74-99); Non-African American GFR(CKD) >90 (>60 ml/min/1.73 sqM); Potassium 4.2 mmol/L (3.5-5.1); Sodium 137 mmol/L (137-145); Total Bilirubin 0.9 mg/dL (0.2-1.3); Total Protein 6.9 g/dL (6.3-8.2)
[2020-02-25 16:11] LABS: Appearance,Urine Cloudy (Clear); Bacteria,Urine Rare /hpf; Bilirubin,Urine Negative (Negative); Blood,Urine Negative (Negative); Color,Urine Yellow; Glucose,Urine (UA) Negative (Negative); Ketones,Urine Trace (Negative); Leukocyte Esterase,Urine Negative (Negative); Mucus,Urine Occasional /hpf; Nitrite,Urine Negative (Negative); PH, Urine 5.5 (5.0-8.0); Protein,Urine Trace (Negative); RBC,Urine 1 /hpf (0-5); Specific Gravity,Urine 1.026 (1.001-1.035); Squamous Epithelial Cell,Urine 6 /hpf (0-4); WBC,Urine 2 /hpf (0-5)
--- NOTE | 2020-02-25 16:40 | CT ---
EXAMINATION TYPE: CT abdomen pelvis w con DATE OF EXAM: 02/25/2020 COMPARISON: 11/29/2018 HISTORY: LLQ abdominal pain. CT DLP: 1403 mGycm CONTRAST: CT scan of the abdomen and pelvis is performed without Oral Contrast and with IV Contrast, patient in jected with 100 mL of Isovue 300. FINDINGS: LUNG BASES-: No visible nodule. No infiltrate. LIVER/GB: No calcified gallstones. No space occupying hepatic lesion. Biliary tree is of normal ca liber. Fatty liver. Enlargement right hepatic lobe. PANCREAS: No inflammation. No distinct mass. SPLEEN: No splenic enlargement. No lesion seen. ADRENALS: No nodule. No thickening. KIDNEYS/BLADDER: No hydronephrosis. No nephrolithiasis. No distinct renal mass. Urinary bladder g rossly unremarkable. BOWEL: Normal appendix. Mild distention of small bowel with wall thickening may reflect enteritis. No inflammation. GENITAL ORGANS: No gross abnormality. LYMPH NODES: No greater than 1cm abdominal or pelvic lymph nodes are appreciated. AORTA: No significant abnormality. OSSEOUS STRUCTURES: No significant abnormality is seen. OTHER: Low midline anterior abdominal wall hernia contains fat and several segments of small bowel. N o evidence for incarceration or strangulation. IMPRESSION: 1. Correlate for mild small bowel enteritis.
[2020-02-25] MEDS ORDERED: IPRATROPIUM-ALBUTEROL 3 ML NEB INHALATION STA (17:04)
[2020-02-25 19:00] VITALS: BP 148/92; PULSE 96; RESP 18; TEMP 98.4
== END 2020-02-25 18:59 | disposition home or self-care (01) ==
LOC: EC 14:43
DX: J44.9 Chronic obstructive pulmonary disease, unspecified (principal); R10.32 Left lower quadrant pain; R19.7 Diarrhea, unspecified; R11.0 Nausea; R74.0 Nonspecific elevation of levels of transaminase and lactic acid dehydrogenase [LDH]; K59.8 Other specified functional intestinal disorders; E11.9 Type 2 diabetes mellitus without complications; I10 Essential (primary) hypertension; E78.5 Hyperlipidemia, unspecified; F41.9 Anxiety disorder, unspecified; F32.9 Major depressive disorder, single episode, unspecified; K21.9 Gastro-esophageal reflux disease without esophagitis; H40.9 Unspecified glaucoma; F17.200 Nicotine dependence, unspecified, uncomplicated; Z98.890 Other specified postprocedural states; Z79.51 Long term (current) use of inhaled steroids; Z79.899 Other long term (current) drug therapy; Z90.49 Acquired absence of other specified parts of digestive tract; Z87.19 Personal history of other diseases of the digestive system
CPT/HCPCS: 36415; 94640; 93005; 80053; 83605; 83690; 85025; 81001; 74177; 99285; 96374; 96361; J2405; Q9967

== ENCOUNTER 2020-06-01 06:42 | Day surgery (SDC) | payer OTHER ==
[2020-05-30 15:58] VITALS: BMI 30.7
[~2020-06-01 06:42] MED LIST changes: -BUPIVACAIN-EPI 0.25%-1:200,000 30 ML VIAL SQ ONE; -DEXAMETHASONE SOD PHOSPHATE 10 MG/ML 1 ML VIAL IV ONE; -GLYCOPYRROLATE 0.2 MG/ML 2 ML VIAL ONE; -HEPARIN SODIUM,PORCINE 5,000 UNIT/ML 1 ML VIAL SQ ONE; -KETOROLAC 30 MG/ML 1 ML VIAL IVP ONE; +LIDOCAINE 1% (10MG/ML) FOR IV START INTRADERMA PRN; -LIDOCAINE 1% 20 ML VIAL (10MG/ML) FOR IV START INTRADERMA PRN; -LIDOCAINE 1% INJ 10MG/ML (20 ML MDV) ONE; -METOPROLOL TARTRATE 5 MG/5 ML VIAL IVP ONE; -MIDAZOLAM 2 MG/2 ML VIAL IV PRN; -MIDAZOLAM 2 MG/2 ML VIAL ONE; -NEOSTIGMINE 1 MG/ML 10 ML VIAL ONE; -PROPOFOL 10 MG/ML 20 ML VIAL IV ONE; -ROCURONIUM BROMIDE 10 MG/ML 10 ML VIAL IV ONE; -SUCCINYLCHOLINE CHLORIDE 100 MG/5 ML SYR IV ONE; -ceFAZolin IN SWFI 2 GM/20 ML SYRINGE IVP ONE; -fentaNYL (PF) 50 MCG/ML 2 ML AMP ONE; -hydrALAZINE HCL 20 MG/ML 1 ML VIAL ONE
[2020-06-01] MEDS ORDERED: LIDOCAINE 1% (10MG/ML) FOR IV START INTRADERMA ONE (07:20)
[2020-06-01 07:35] LABS: Glucose,Whole Blood 189 mg/dL (75-99)
[2020-06-01 07:36] VITALS: TEMP 98.9
[2020-06-01] MEDS ORDERED: fentaNYL (PF) 50 MCG/ML 2 ML AMP ONE (07:58)
[2020-06-01] MEDS ORDERED: PROPOFOL 10 MG/ML 20 ML VIAL IV ONE (07:58)
[2020-06-01] MEDS ORDERED: LIDOCAINE 1% INJ 10MG/ML (20 ML MDV) ONE (07:58)
[2020-06-01] MEDS ORDERED: MIDAZOLAM 2 MG/2 ML VIAL ONE (07:58)
--- NOTE | 2020-06-01 08:00 | P.GSHP ---
History of Present Illness H&P Date: 06/01/20 Chief Complaint: GERD, screening colonoscopy This a 59-year-old female who presents today for EGD and screening colonoscopy. Patient's had issues with GERD. She also has previous history of diverticulitis. She's had previous sigmoid resection. Past Medical History Past Medical History: COPD, Diabetes Mellitus, Eye Disorder, GERD/Reflux, Hyperlipidemia, Hypertension, Liver Disease Additional Past Medical History / Comment(s): Bilateral glaucoma, enlarged liver, ruptured diverticuli w/colostomy January 2018. Colostomy reversal May 2018. Chronic back pain. Hx Shingles,steroids April 2020 History of Any Multi-Drug Resistant Organisms: None Reported Past Surgical History: Bowel Resection, Tonsillectomy Additional Past Surgical History / Comment(s): Benign biopsy left breast, laser liz eye surgery for glaucoma, hemorrhoidectomy. Reversal of colostomy. Past Anesthesia/Blood Transfusion Reactions: No Reported Reaction Additional Past Anesthesia/Blood Transfusion Reaction / Comment(s): no hx blood transfusion Smoking Status: Current every day smoker - Past Family History Father Family Medical History: Coronary Artery Disease (CAD), Diabetes Mellitus Additional Family Medical History / Comment(s): Father in his 60s from diabetic complications. Mother Family Medical History: Coronary Artery Disease (CAD), Diabetes Mellitus, Myocar dial Infarction ([place]) Additional Family Medical History / Comment(s): Mother from a [place] at the age of 62 yrs. Medications and Allergies Home Medications Medication Instructions Recorded Confirmed Type Albuterol Inhaler (Mhu) [Ventolin 1 - 2 puff INHALATION RT-Q4H PRN 02/03/18 06/01/20 History Hfa Inhaler (Mhu)] Fluticasone Nasal [place] [Flonase 2 spray EA NOSTRIL DAILY 02/03/18 06/01/20 History Nasal [place]] Folic Acid 1 mg PO DAILY #30 tablet 02/11/18 06/01/20 Rx Thiamine [Vitamin B-1] 100 mg PO DAILY #30 tablet 02/11/18 06/01/20 Rx Escitalopram [Lexapro] 20 mg PO QAM 05/26/18 06/01/20 History methocarbamoL [Robaxin] 500 mg PO HS PRN 05/26/18 06/01/20 History Metoprolol Succinate (ER) [Toprol 25 mg PO QAM 02/15/19 06/01/20 History XL] Salmeterol Xinafoate [Serevent 50 mcg IH BID 02/15/19 06/01/20 History Diskus] busPIRone HCL [Buspar] 7.5 mg PO HS PRN 02/15/19 06/01/20 History Beclomethasone Dip 80 Mcg/Puff 2 puff INHALATION BID 05/30/20 06/01/20 History [Qvar] Cholecalciferol [Vitamin D3 (25 5,000 unit PO DAILY 05/30/20 06/01/20 History Mcg = 1000 Iu)] L.acidoph,Paracasei, B.lactis 1 each PO DAILY 05/30/20 06/01/20 History [Probiotic] Pantoprazole Sodium [Protonix] 20 mg PO BID 05/30/20 06/01/20 History glipiZIDE [Glucotrol] 10 mg PO AC-[id number] 05/30/20 06/01/20 History Allergies Allergy/AdvReac Type Severity Reaction Status Date / Time No Known Allergies Allergy Verified 06/01/20 07:10 Surgical - Exam Vital Signs Temp Pulse Resp BP Pulse Ox 98.9 F 92 16 161/83 95 06/01/20 07:20 06/01/20 07:20 06/01/20 07:20 06/01/20 07:20 06/01/20 07:20 - General well developed, well nourished, no distress - Eyes PERRL - ENT normal pinna - Neck no masses - Respiratory normal expansion - Cardiovascular Rhythm: regular - Abdomen Abdomen: soft, non tender Results - Labs Abnormal Lab Results - Last 24 Hours (Table) 06/01/20 Range/Units 07:30 POC Glucose (mg/dL) 189 H (75-99) mg/dL Assessment and Plan Assessment: GERD. We'll perform EGD. We'll perform screening colonoscopy.
--- NOTE | 2020-06-01 08:18 | P.OP ---
Date of Procedure: 06/01/20 Preoperative Diagnosis: GERD Screening colonoscopy Postoperative Diagnosis: Antral gastritis Hiatal hernia Esophagitis Left colon polyp Procedure(s) Performed: EGD Colonoscopy Anesthesia: MAC Surgeon: Heath Goldsmith Pathology: other (Antrum, esophagus, left colon polyp) Condition: stable Disposition: PACU Description of Procedure: The patient's placed on the endoscopy table in the lateral position. She received IV sedation. Digital rectal exam was performed which revealed no rebound. The flexible colonoscope was then placed patient anus passed throughout the entire colon. The ileocecal valve was visualized. The patient. Sigmoid colitis. Scope was withdrawn. The remainder of the ascending colon appeared normal. The transverse colon appeared normal. In the descending colon there was a polyp seen was removed with a cold forcep. Scope was then brought back into the rectum and this appeared normal. Scope withdrawn for patient.
[2020-06-01] MEDS ORDERED: IPRATROPIUM-ALBUTEROL 3 ML NEB INHALATION STA (08:33)
[2020-06-01 08:59] VITALS: BP 150/79
[2020-06-01 09:17] VITALS: RESP 16
[2020-06-01 09:21] VITALS: PULSE 80
== END 2020-06-01 09:16 | disposition home or self-care (01) ==
LOC: ORWHC2ENDO 06:42
PROVIDERS: ATTEND Surgery
DX: Z12.11 Encounter for screening for malignant neoplasm of colon (principal); D12.4 Benign neoplasm of descending colon; K44.9 Diaphragmatic hernia without obstruction or gangrene; K29.50 Unspecified chronic gastritis without bleeding; K21.0 Gastro-esophageal reflux disease with esophagitis; I10 Essential (primary) hypertension; J44.9 Chronic obstructive pulmonary disease, unspecified; E11.9 Type 2 diabetes mellitus without complications; E78.5 Hyperlipidemia, unspecified; R16.0 Hepatomegaly, not elsewhere classified; F17.200 Nicotine dependence, unspecified, uncomplicated; K21.9 Gastro-esophageal reflux disease without esophagitis; Z93.3 Colostomy status; Z86.19 Personal history of other infectious and parasitic diseases; Z90.49 Acquired absence of other specified parts of digestive tract; Z90.89 Acquired absence of other organs; Z83.3 Family history of diabetes mellitus; Z82.49 Family history of ischemic heart disease and other diseases of the circulatory system; Z82.3 Family history of stroke; Z79.51 Long term (current) use of inhaled steroids; Z79.84 Long term (current) use of oral hypoglycemic drugs; Z79.899 Other long term (current) drug therapy
CPT/HCPCS: 94640; 88305; 45380; 43239; J2250; J2001; J3010; J2704

== ENCOUNTER → 2020-08-10 | Outpatient (CLI) | payer OTHER ==
--- NOTE | 2020-08-10 14:24 | XR ---
EXAMINATION TYPE: XR chest 2V DATE OF EXAM: 08/10/2020 COMPARISON: 06/03/2019 HISTORY: 59-year-old female presurgical testing. R73.9, E78.00, E55.9, R73.01, R19.7, E11.9 TECHNIQUE: Frontal and lateral views FINDINGS: Heart normal size. Aorta and pulmonary vasculature within normal limits. Biapical pleural-parenchymal scarring. Mild interstitial prominence and mild hyperinflation. No consolidation or pleural effusion . IMPRESSION: COPD with biapical pleural-parenchymal scarring. No acute process seen.
[2020-08-10 20:45] LABS: African American GFR (CKD) 92.2 (60.0-200.0); Albumin 4.3 g/dL (3.80-4.90); Albumin/Globulin Ratio 2.15 (1.60-3.17); Anion Gap 9.5 mmol/L (4.00-12.00); BUN/Creat Ratio 8.75 Ratio (12.00-20.00); Calcium 9.9 mg/dL (8.7-10.3); Carbon Dioxide 27.5 mmol/L (21.6-31.8); Non-African American GFR(CKD) 79.6 (60.0-200.0); Potassium 4.4 mmol/L (3.5-5.5); Total Bilirubin 1.1 mg/dL (0.3-1.2); Total Protein 6.3 g/dL (6.2-8.2)
[2020-08-10 22:15] LABS: Hemoglobin A1C 6.5 % (4.0-6.0)
== END | disposition home or self-care (01) ==
LOC: LABWHC1 12:57
PROVIDERS: ATTEND Nurse Practitioner
DX: R91.8 Other nonspecific abnormal finding of lung field (principal); R19.7 Diarrhea, unspecified; E11.9 Type 2 diabetes mellitus without complications; E55.9 Vitamin D deficiency, unspecified; E78.00 Pure hypercholesterolemia, unspecified; J44.9 Chronic obstructive pulmonary disease, unspecified
CPT/HCPCS: 36415; 71046; 80053; 82306; 83036; 84443

== ENCOUNTER 2020-08-14 06:37 | Inpatient (IN) | payer MEDICARE, OTHER ==
[2020-08-10 14:42] VITALS: BMI 31.8
[~2020-08-14 06:37] MED LIST changes: +ACETAMINOPHEN TAB 500 MG TAB PO PRN; +DEXAMETHASONE SOD PHOSPHATE 4 MG/ML 1 ML VIAL IV ONE; +HEPARIN SODIUM,PORCINE 5,000 UNIT/ML 1 ML VIAL SQ PRN; +HYDROmorphone 0.5 MG/0.5 ML SYRINGE IVP PRN; -LACTATED RINGERS 1,000 ML IV SCH; +MIDAZOLAM 2 MG/2 ML VIAL IV PRN; +ONDANSETRON 4 MG/2 ML VIAL IVP ONE
[2020-08-14 07:33] LABS: Glucose,Whole Blood 174 mg/dL (75-99)
[2020-08-14] MEDS ORDERED: LACTATED RINGERS 1,000 ML IV ONE ×4 (07:42→11:08)
[2020-08-14 07:47] LABS: Basophils # (A) 0.1 k/uL (0-0.2); Basophils % (A) 1 %; Eosinophils # (A) 0.3 k/uL (0-0.7); Eosinophils % (A) 4 %; HCT 48.7 % (34.0-46.0); HGB 16.4 gm/dL (11.4-16.0); Lymphocytes # (A) 1.9 k/uL (1.0-4.8); Lymphocytes % (A) 25 %; MCH 32.4 pg (25.0-35.0); MCHC 33.6 g/dL (31.0-37.0); MCV 96.4 fL (80.0-100.0); Mean Platelet Volume 7.7; Monocytes # (A) 0.4 k/uL (0-1.0); Monocytes % (A) 6 %; Neutrophils # (A) 4.4 k/uL (1.3-7.7); Neutrophils % (A) 61 %; Platelet Count 222 k/uL (150-450); RBC 5.06 m/uL (3.80-5.40); RDW 12.8 % (11.5-15.5); WBC 7.3 k/uL (3.8-10.6)
[2020-08-14 08:18] LABS: Potassium 4.9 mmol/L (3.5-5.1)
--- NOTE | 2020-08-14 08:35 | P.GSHP ---
History of Present Illness H&P Date: 08/14/20 Chief Complaint: Incisional hernia This a 59-year-old female who has developed a incisional hernia. Patient's previous history of diverticulitis with perforation and subsequent sigmoid colectomy with colostomy and reversal colostomy. Patient developed a large incisional hernia. Past Medical History Past Medical History: COPD, Diabetes Mellitus, Eye Disorder, GERD/Reflux, Hyperlipidemia, Hypertension, Liver Disease Additional Past Medical History / Comment(s): Bilateral glaucoma, enlarged liver, ruptured diverticuli w/colostomy January 2018. Colostomy reversal May 2018. Chronic back pain. Hx Shingles,steroids April 2020, chronic diarrhea History of Any Multi-Drug Resistant Organisms: None Reported Past Surgical History: Appendectomy, Bowel Resection, Breast Surgery, Cholecystectomy, Hernia Repair, Tonsillectomy Additional Past Surgical History / Comment(s): Benign biopsy left breast, laser liz eye surgery for glaucoma, hemorrhoidectomy. Reversal of colostomy.removed lt ovary, Past Anesthesia/Blood Transfusion Reactions: No Reported Reaction Additional Past Anesthesia/Blood Transfusion Reaction / Comment(s): no hx blood transfusion Smoking Status: Current every day smoker - Past Family History Father Family Medical History: Coronary Artery Disease (CAD), Diabetes Mellitus Additional Family Medical History / Comment(s): Father in his 60s from diabetic complications. Mother Family Medical History: Coronary Artery Disease (CAD), Diabetes Mellitus, Myocardial Infarction ([place]) Additional Family Medical History / Comment(s): Mother from a [place] at the age of 62 yrs. Medications and Allergies Home Medications Medication Instructions Recorded Confirmed Type Albuterol Inhaler (Mhu) [Ventolin 1 - 2 puff INHALATION RT-Q4H PRN 02/03/18 08/10/20 History Hfa Inhaler (Mhu)] Fluticasone Nasal [place] [Flonase 2 spray EA NOSTRIL DAILY 02/03/18 08/10/20 History Nasal [place]] Folic Acid 1 mg PO DAILY #30 tablet 02/11/18 08/10/20 Rx Escitalopram [Lexapro] 20 mg PO QAM 05/26/18 08/10/20 History methocarbamoL [Robaxin] 500 mg PO HS PRN 05/26/18 08/10/20 History Metoprolol Succinate (ER) [Toprol 25 mg PO QAM 02/15/19 08/10/20 History XL] busPIRone HCL [Buspar] 7.5 mg PO HS PRN 02/15/19 08/10/20 History L.acidoph,Paracasei, B.lactis 1 each PO DAILY 05/30/20 08/10/20 History [Probiotic] Pantoprazole Sodium [Protonix] 20 mg PO BID 05/30/20 08/10/20 History glipiZIDE [Glucotrol] 10 mg PO AC-BRKFST 05/30/20 08/10/20 History Budesonide/Formoterol Fumarate 2 puff INHALATION BID 08/10/20 08/10/20 History [Symbicort 160-4.5 Mcg Inhaler] Allergies Allergy/AdvReac Type Severity Reaction Status Date / Time No Known Allergies Allergy Verified 08/10/20 14:28 Surgical - Exam Vital Signs Temp Pulse Resp BP Pulse Ox 97.3 F L 77 18 161/85 91 L 08/14/20 07:25 08/14/20 07:25 08/14/20 07:25 08/14/20 07:25 08/14/20 07:25 - General well developed, well nourished, no distress - Eyes PERRL - ENT normal pinna - Neck no masses - Respiratory normal expansion - Cardiovascular Rhythm: regular - Abdomen Abdomen: soft, non tender Results - Labs 08/14/20 07:35 08/14/20 07:35 Abnormal Lab Results - Last 24 Hours (Table) 08/14/20 08/14/20 08/14/20 Range/Units 07:31 07:35 07:35 Hgb 16.4 H (11.4-16.0) gm/dL Hct 48.7 H (34.0-46.0) % Carbon Dioxide 31 H (22-30) mmol/L POC Glucose (mg/dL) 174 H (75-99) mg/dL Diabetes panel 08/14/20 Range/Units 07:35 Sodium 139 (137-145) mmol/L Potassium 4.9 (3.5-5.1) mmol/L Chloride 105 (98-107) mmol/L Carbon Dioxide 31 H (22-30) mmol/L Pituitary panel 08/14/20 Range/Units 07:35 Sodium 139 (137-145) mmol/L Potassium 4.9 (3.5-5.1) mmol/L Chloride 105 (98-107) mmol/L Carbon Dioxide 31 H (22-30) mmol/L Adrenal panel 08/14/20 Range/Units 07:35 Sodium 139 (137-145) mmol/L Potassium 4.9 (3.5-5.1) mmol/L Chloride 105 (98-107) mmol/L Carbon Dioxide 31 H (22-30) mmol/L Assessment and Plan Assessment: Incisional hernia. We'll perform open repair.
[2020-08-14] MEDS ORDERED: PROPOFOL 10 MG/ML 20 ML VIAL IV ONE (08:54)
[2020-08-14] MEDS ORDERED: MIDAZOLAM 2 MG/2 ML VIAL ONE (08:54)
[2020-08-14] MEDS ORDERED: HYDROmorphone (PF) 1 MG/ML ONE (08:54)
[2020-08-14] MEDS ORDERED: NEOSTIGMINE 1 MG/ML 10 ML VIAL ONE (08:54)
[2020-08-14] MEDS ORDERED: fentaNYL (PF) 50 MCG/ML 2 ML AMP ONE (08:54)
[2020-08-14] MEDS ORDERED: GLYCOPYRROLATE 0.2 MG/ML 2 ML VIAL ONE (08:54)
[2020-08-14] MEDS ORDERED: ROCURONIUM 10 MG/ML (10 ML VIAL) IV ONE (08:54)
[2020-08-14] MEDS ORDERED: SUCCINYLCHOLINE CHLORIDE 100 MG/5 ML SYR IV ONE (08:54)
[2020-08-14] MEDS ORDERED: LIDOCAINE 1% INJ 10MG/ML (20 ML MDV) ONE (08:54)
[2020-08-14] MEDS ORDERED: NALOXONE 0.4 MG/ML 1 ML VIAL IV PRN (10:24)
[2020-08-14] MEDS ORDERED: METOCLOPRAMIDE 5 MG/ML 2 ML VIAL IVP PRN (10:24)
[2020-08-14] MEDS ORDERED: ONDANSETRON 4 MG/2 ML VIAL IVP PRN (10:24)
--- NOTE | 2020-08-14 10:24 | P.OP ---
Date of Procedure: 08/14/20 Preoperative Diagnosis: Incisional hernia Postoperative Diagnosis: Incisional hernia Adhesions Procedure(s) Performed: Lysis of adhesions Small bowel resection Repair of incisional hernia Anesthesia: RAYA Surgeon: Heath Goldsmith Estimated Blood Loss (ml): 5 Pathology: other (Jejunum) Condition: stable Disposition: PACU Description of Procedure: The patient's placed on the operative table in the supine position. He received general anesthesia. Parameters prepped and draped usual fashion. The abdomen was entered through midline incision. The incisional hernia was located. The hernia sac was opened. There were extensive adhesions within the hernia sac. During the adhesion lysis there was a portion of small bowel which was extremely scarred and stuck to the hernia. It was decided to perform a small bowel resection. The small bowel was transected proximally distally with a GI stapler and then using a pencil device the mesentery the bowel was divided and the specimens of pathology. A [id number] functional end-to-end staple anastomosis was created. Using the NIKOLAS and TA stapler. The fascia was then repaired using looped #1 PDS suture. Skin was closed irina. Patient top she will was sent to recovery room stable condition
[2020-08-14 10:55] LABS: Glucose,Whole Blood 193 mg/dL (75-99)
[2020-08-14] MEDS: KETOROLAC 15 MG/ML 1 ML VIAL IVP SCH ×3 (11:52→23:28)
[2020-08-14] MEDS: LACTATED RINGERS 1,000 ML IV SCH (14:00)
[2020-08-14] MEDS ORDERED: ALBUTEROL NEBULIZED 2.5 MG/3 ML INHALATION PRN (16:32)
[2020-08-14] MEDS ORDERED: methocarbamoL 500 MG TAB PO PRN (16:32)
[2020-08-14] MEDS: HYDROmorphone 0.5 MG/0.5 ML SYRINGE IVP PRN (21:24)
[2020-08-14 21:35] LABS: Glucose,Whole Blood 136 mg/dL (75-99)
[2020-08-14] MEDS: INSULIN ASPART (NovoLOG) 100 UNIT/ML VIAL SQ SCH (21:53)
[2020-08-15] MEDS: SYMBICORT 160-4.5 MCG INHALER INHALATION SCH ×3 (02:36→19:09)
[2020-08-15] MEDS: LACTATED RINGERS 1,000 ML IV SCH (04:13)
[2020-08-15] MEDS: KETOROLAC 15 MG/ML 1 ML VIAL IVP SCH ×4 (05:24→23:18)
[2020-08-15] MEDS: busPIRone HCl 5 MG TAB PO PRN (05:34)
[2020-08-15] MEDS ORDERED: ALBUTEROL NEBULIZED 2.5 MG/3 ML INHALATION PRN (05:46)
[2020-08-15 06:41] LABS: Basophils # (A) 0.1 k/uL (0-0.2); Basophils % (A) 1 %; Eosinophils # (A) 0.2 k/uL (0-0.7); Eosinophils % (A) 2 %; HCT 47.1 % (34.0-46.0); HGB 14.8 gm/dL (11.4-16.0); Lymphocytes # (A) 2.4 k/uL (1.0-4.8); Lymphocytes % (A) 26 %; MCH 31.6 pg (25.0-35.0); MCHC 31.4 g/dL (31.0-37.0); MCV 100.5 fL (80.0-100.0); Mean Platelet Volume 8.1; Monocytes # (A) 0.4 k/uL (0-1.0); Monocytes % (A) 5 %; Neutrophils # (A) 5.9 k/uL (1.3-7.7); Neutrophils % (A) 65 %; Platelet Count 192 k/uL (150-450); RBC 4.69 m/uL (3.80-5.40); RDW 13.1 % (11.5-15.5); WBC 9.1 k/uL (3.8-10.6)
[2020-08-15 07:28] LABS: Glucose,Whole Blood 156 mg/dL (75-99)
[2020-08-15] MEDS: ALBUTEROL NEBULIZED 2.5 MG/3 ML INHALATION SCH ×4 (07:37→19:09)
[2020-08-15] MEDS: PANTOPRAZOLE 40 MG TABLET PO SCH (08:46)
[2020-08-15] MEDS: INSULIN ASPART (NovoLOG) 100 UNIT/ML VIAL SQ SCH ×4 (08:46→20:58)
[2020-08-15] MEDS: ESCITALOPRAM 20 MG TAB PO SCH (08:47)
[2020-08-15] MEDS: ENOXAPARIN 40 MG/0.4 ML SYRINGE SQ SCH (08:47)
[2020-08-15] MEDS: METOPROLOL SUCCINATE (ER) 25 MG TAB.ER.24H PO SCH (08:48)
[2020-08-15] MEDS: FOLIC ACID 1 MG TAB PO SCH (08:48)
[2020-08-15] MEDS: FLUTICASONE 50MCG/SPRAY NASAL 16GM EA NOSTRIL SCH (08:48)
[2020-08-15] MEDS: LACTOBACILLUS ACIDOPH & BULGAR 1 EACH PACKET PO SCH (08:50)
[2020-08-15 09:46] LABS: Albumin/Globulin Ratio 2.22 (1.60-3.17); Anion Gap 8.6 mmol/L (4.00-12.00); BUN/Creat Ratio 17.78 Ratio (12.00-20.00); Calcium 9.3 mg/dL (8.7-10.3); Carbon Dioxide 28.4 mmol/L (21.6-31.8); Globulin 1.8 g/dL (1.6-3.3); Potassium 4.4 mmol/L (3.5-5.5); Total Protein 5.8 g/dL (6.2-8.2)
--- NOTE | 2020-08-15 10:36 | P.PN ---
Subjective Progress Note Date: 08/15/20 CHIEF COMPLAINT: Incisional hernia and adhesions HISTORY OF PRESENT ILLNESS: Patient is postop day #1 status post lysis of adhesions, small bowel resection, repair of incisional hernia. Patient does report abdominal pain. She denies any nausea or vomiting. She denies any flatus. Afebrile. WBC 9.1 currently nothing by mouth PHYSICAL EXAM: VITAL SIGNS: Reviewed. GENERAL: Well-developed in no acute distress. HEENT: No sclera icterus. Extraocular movements grossly intact. Moist buccal mucosa. Head is atraumatic, normocephalic. ABDOMEN: Soft. Mildly distended. Abdominal binder in place NEUROLOGIC: Alert and oriented. Cranial nerves II through XII grossly intact. ASSESSMENT: 1. Incisional hernia and adhesions status post lysis of adhesions, small bowel resection and repair of incisional hernia. Postop day #1 2. Diabetes mellitus type 2 PLAN: -Keep patient nothing by mouth with small sips of clears -Continue pain medication as needed -Continue IV fluids -Medicine on consult -Continue GI Protonix and DVT prophylaxis Lovenox Physician Manager Content note has been reviewed by physician. Signing provider agrees with the documented findings, assessment, and plan of care. Objective - Vital Signs Vital signs: Vital Signs Temp 97.8 F 08/15/20 07:51 Pulse 70 08/15/20 07:51 Resp 20 08/15/20 07:51 BP 123/72 08/15/20 07:51 Pulse Ox 91 L 08/15/20 07:51 Intake & Output 08/14/20 08/15/20 08/15/20 18:59 06:59 18:59 Intake Total 1350 Output Total 15 Balance 1335 Weight 85.6 kg Intake: IV 1350 Output: Estimated Blood Loss 15 Other: Voiding Method Toilet # Voids 1 3 # Bowel Movements 0 - Labs CBC & Chem 7: 08/15/20 06:20 08/15/20 06:20 Labs: Abnormal Lab Results - Last 24 Hours (Table) 08/14/20 08/14/20 08/15/20 Range/Units 10:52 21:34 06:20 Hct 47.1 H (34.0-46.0) % MCV 100.5 H (80.0-100.0) fL Glucose (70-110) mg/dL POC Glucose (mg/dL) 193 H 136 H (75-99) mg/dL AST (13-35) U/L Total Protein (6.2-8.2) g/dL 08/15/20 08/15/20 Range/Units 06:20 07:26 Hct (34.0-46.0) % MCV (80.0-100.0) fL Glucose 147 H (70-110) mg/dL POC Glucose (mg/dL) 156 H (75-99) mg/dL AST 54 H (13-35) U/L Total Protein 5.8 L (6.2-8.2) g/dL
[2020-08-15] MEDS: HYDROmorphone 0.5 MG/0.5 ML SYRINGE IVP PRN (11:21)
[2020-08-15 12:03] LABS: Glucose,Whole Blood 176 mg/dL (75-99)
[2020-08-15 17:12] LABS: Glucose,Whole Blood 122 mg/dL (75-99)
--- NOTE | 2020-08-15 18:13 | P.CONS ---
History of Present Illness - Reason for Consult Consult date: 08/14/20 - History of Present Illness Roxana Velasquez, is a 59-year-old female patient of Dr. Mendez who was admitted to [facility] by Dr. Goldsmith, and underwent incisional hernia repair small bowel resection and lysis of adhesions patient was admitted to surgical floor postoperatively medical consultation was requested for management while hospitalized. Patient has a known history of asthma, history of depression, history of diabetes mellitus, history of hypertension, and history of gastroesophageal reflux disease. On review of systems patient is alert and oriented 3 in no apparent distress she is complaining of some pain and distention and discomfort in the abdomen otherwise she denies any complaints there is no fever or chills no headache or dizziness no chest pain no shortness of breath no cough no nausea or vomiting no diarrhea no blood in the stools no burning with urination no frequency or urg ency and no hematuria. Past Medical History Past Medical History: COPD, Diabetes Mellitus, Eye Disorder, GERD/Reflux, Hyperlipidemia, Hypertension, Liver Disease Additional Past Medical History / Comment(s): Bilateral glaucoma, enlarged liver, ruptured diverticuli w/colostomy January 2018. Colostomy reversal May 2018. Chronic back pain. Hx Shingles,steroids April 2020, chronic diarrhea History of Any Multi-Drug Resistant Organisms: None Reported Past Surgical History: Appendectomy, Bowel Resection, Breast Surgery, Cholecystectomy, Hernia Repair, Tonsillectomy Additional Past Surgical History / Comment(s): Benign biopsy left breast, laser liz eye surgery for glaucoma, hemorrhoidectomy. Reversal of colostomy.removed lt ovary, Past Anesthesia/Blood Transfusion Reactions: No Reported Reaction Additional Past Anesthesia/Blood Transfusion Reaction / Comm: no hx blood transfusion Past Psychological History: Anxiety, Depression Additional Psychological History / Comment(s): She resides with her spouse who is bedridden. Her spouse has a caregiver and spouse also is his caregiver. Smoking Status: Current every day smoker Past Alcohol Use History: Daily Additional Past Alcohol Use History / Comment(s): Pt started smoking in 1972 2-3 PPD, currently down to 1- 1 1/2 PPD. Drinks a glass of vodka and gatorade nightly. Past Drug Use History: Marijuana Additional Drug Use History / Comment(s): Pt states she smokes marijuana on occasion. - Past Family History Father Family Medical History: Coronary Artery Disease (CAD), Diabetes Mellitus Additional Family Medical History / Comment(s): Father in his 60s from diabetic complications. Mother Family Medical History: Coronary Artery Disease (CAD), Diabetes Mellitus, Myocardial Infarction ([place]) Additional Family Medical History / Comment(s): Mother from a [place] at the age of 62 yrs. Medications and Allergies Home Medications Medication Instructions Recorded Confirmed Type RX: Albuterol Inhaler (Mhu) 1 - 2 puff INHALATION RT-Q4H PRN 02/03/18 08/10/20 History [Ventolin Hfa Inhaler (Mhu)] RX: Fluticasone Nasal [place] 2 spray EA NOSTRIL DAILY 02/03/18 08/10/20 History [Flonase Nasal [place]] RX: Folic Acid 1 mg PO DAILY #30 tablet 02/11/18 08/10/20 Rx RX: Escitalopram [Lexapro] 20 mg PO QAM 05/26/18 08/10/20 History RX: methocarbamoL [Robaxin] 500 mg PO HS PRN 05/26/18 08/10/20 History RX: Metoprolol Succinate (ER) 25 mg PO QAM 02/15/19 08/10/20 History [Toprol XL] busPIRone HCL [Buspar] 7.5 mg PO HS PRN 02/15/19 08/10/20 History L.acidoph,Paracasei, B.lactis 1 each PO DAILY 05/30/20 08/10/20 History [Probiotic] Pantoprazole Sodium [Protonix] 20 mg PO BID 05/30/20 08/10/20 History glipiZIDE [Glucotrol] 10 mg PO AC-BRKFST 05/30/20 08/10/20 History Budesonide/Formoterol Fumarate 2 puff INHALATION BID 08/10/20 08/10/20 History [Symbicort 160-4.5 Mcg Inhaler] Allergies Allergy/AdvReac Type Severity Reaction Status Date / Time No Known Allergies Allergy Verified 08/10/20 14:28 Physical Exam Vitals: Vital Signs Temp Pulse Pulse Resp BP BP Pulse Ox 08/14/20 14:00 16 08/14/20 13:26 98.1 F 72 16 116/68 92 L 08/14/20 13:00 68 16 108/58 96 12/07/20 12:30 69 16 114/67 100 08/14/20 12:00 68 16 125/69 100 08/14/20 11:30 68 16 122/77 97 08/14/20 11:00 70 16 125/69 98 08/14/20 10:45 69 14 129/64 92 L 08/14/20 10:30 72 18 120/64 96 08/14/20 10:15 71 16 137/65 96 08/14/20 10:00 96.8 F L 72 18 130/88 93 L 08/14/20 07:25 97.3 F L 77 18 161/85 91 L Intake and Output 08/14/20 08/14/20 08/14/20 06:59 14:59 22:59 Intake Total 1350 Output Total 15 Balance 1335 Intake: IV 1350 Output: Estimated Blood Loss 15 Other: Weight 85.6 kg In general patient is alert and oriented 3 in no apparent distress HEENT head normocephalic and atraumatic Neck is supple no JVD no goiter no lymphadenopathy Chest exam reveals a few scattered crackles no wheezing Cardiac exam reveals regular heart sounds S1 and S2 no gallops no murmurs Abdomen is soft with mild diffuse tenderness no organomegaly no palpable masses with normal bowel sounds Extremity exam reveals no edema no cyanosis or clubbing Results CBC & Chem 7: 08/15/20 06:20 08/15/20 06:20 Labs: Abnormal Lab Results - Last 24 Hours (Table) 08/14/20 08/14/20 08/14/20 Range/Units 07:31 07:35 07:35 Hgb 16.4 H (11.4-16.0) gm/dL Hct 48.7 H (34.0-46.0) % Carbon Dioxide 31 H (22-30) mmol/L POC Glucose (mg/dL) 174 H (75-99) mg/dL 08/14/20 Range/Units 10:52 Hgb (11.4-16.0) gm/dL Hct (34.0-46.0) % Carbon Dioxide (22-30) mmol/L POC Glucose (mg/dL) 193 H (75-99) mg/dL Assessment and Plan Plan: 1. Postoperative day #1 status post lysis of adhesions, small bowel resection and repair of incisional hernia. 2. Diabetes mellitus type , patient is nothing by mouth will hold glipizide at this time will cover with sliding scale 3. Asthma stable at this time no shortness of breath or wheezing continue with home inhalers 4. Gastroesophageal reflux disease maintained on Protonix Medication and labs were reviewed will follow during this hospitalization
[2020-08-15 20:52] LABS: Glucose,Whole Blood 158 mg/dL (75-99)
[2020-08-16] MEDS: LACTATED RINGERS 1,000 ML IV SCH (05:42)
[2020-08-16] MEDS: KETOROLAC 15 MG/ML 1 ML VIAL IVP SCH (05:59)
[2020-08-16 06:57] LABS: Glucose,Whole Blood 141 mg/dL (75-99)
[2020-08-16] MEDS: ALBUTEROL NEBULIZED 2.5 MG/3 ML INHALATION SCH ×4 (07:42→19:09)
[2020-08-16] MEDS: SYMBICORT 160-4.5 MCG INHALER INHALATION SCH ×2 (07:43→19:08)
[2020-08-16] MEDS: PANTOPRAZOLE 40 MG TABLET PO SCH (08:18)
[2020-08-16] MEDS: INSULIN ASPART (NovoLOG) 100 UNIT/ML VIAL SQ SCH ×4 (08:18→20:58)
[2020-08-16] MEDS: ESCITALOPRAM 20 MG TAB PO SCH (08:19)
[2020-08-16] MEDS: FOLIC ACID 1 MG TAB PO SCH (08:19)
[2020-08-16] MEDS: LACTOBACILLUS ACIDOPH & BULGAR 1 EACH PACKET PO SCH (08:20)
[2020-08-16] MEDS: ENOXAPARIN 40 MG/0.4 ML SYRINGE SQ SCH (08:20)
[2020-08-16] MEDS: FLUTICASONE 50MCG/SPRAY NASAL 16GM EA NOSTRIL SCH (08:20)
[2020-08-16] MEDS: METOPROLOL SUCCINATE (ER) 25 MG TAB.ER.24H PO SCH (08:20)
--- NOTE | 2020-08-16 10:23 | P.PN ---
Subjective Progress Note Date: 08/15/20 Roxana Velasquez, is a 59-year-old female patient of Dr. Mendez who was admitted to [facility] by Dr. Goldsmith, and underwent incisional hernia repair small bowel resection and lysis of adhesions patient was admitted to surgical floor postoperatively medical consultation was requested for management while hospitalized. Patient has a known history of asthma, history of depression, history of diabetes mellitus, history of hypertension, and history of gastroesophageal reflux disease. On review of systems patient is alert and oriented 3 in no apparent distress she is complaining of some pain and distention and discomfort in the abdomen otherwise she denies any complaints there is no fever or chills no headache or dizziness no chest pain no shortness of breath no cough no nausea or vomiting no diarrhea no blood in the stools no burning with urination no frequency or urgency and no hematuria. On 08/15/2020 patient was seen and examined on the medical floor she is alert and oriented 3 in no distress there is no fever or chills no headache or dizziness no chest pain no shortness of breath no cough no nausea or vomiting she still has some abdominal discomfort no diarrhea no blood in the stools no burning with urination no frequency or urgency and no hematuria Objective - Vital Signs Vital signs: Vital Signs Temp 98.8 F 08/15/20 13:40 Pulse 76 08/15/20 14:56 Resp 14 08/15/20 13:40 BP 112/70 08/15/20 13:40 Pulse Ox 96 08/15/20 13:40 Intake & Output 08/14/20 08/15/20 08/15/20 18:59 06:59 18:59 Intake Total 1350 Output Total 15 Balance 1335 Weight 85.6 kg Intake: IV 1350 Output: Estimated Blood Loss 15 Other: Voiding Method Toilet Toilet # Voids 1 3 # Bowel Movements 0 - Exam In general patient is alert and oriented 3 in no apparent distress HEENT head normocephalic and atraumatic Neck is supple no JVD no goiter no lymphadenopathy Chest exam reveals a few scattered crackles no wheezing Cardiac exam reveals regular heart sounds S1 and S2 no gallops no murmurs Abdomen is soft with mild diffuse tenderness no organomegaly no palpable masses with normal bowel sounds Extremity exam reveals no edema no cyanosis or clubbing - Labs CBC & Chem 7: 08/15/20 06:20 08/15/20 06:20 Labs: Abnormal Lab Results - Last 24 Hours (Table) 08/14/20 08/15/20 08/15/20 Range/Units 21:34 06:20 06:20 Hct 47.1 H (34.0-46.0) % MCV 100.5 H (80.0-100.0) fL Glucose 147 H (70-110) mg/dL POC Glucose (mg/dL) 136 H (75-99) mg/dL AST 54 H (13-35) U/L Total Protein 5.8 L (6.2-8.2) g/dL 08/15/20 08/15/20 08/15/20 Range/Units 07:26 11:46 17:11 Hct (34.0-46.0) % MCV (80.0-100.0) fL Glucose (70-110) mg/dL POC Glucose (mg/dL) 156 H 176 H 122 H (75-99) mg/dL AST (13-35) U/L Total Protein (6.2-8.2) g/dL Assessment and Plan Plan: 1. Postoperative day #1 status post lysis of adhesions, small bowel resection and repair of incisional hernia. 2. Diabetes mellitus type , patient is nothing by mouth will hold glipizide at this time will cover with sliding scale 3. Asthma stable at this time no shortness of breath or wheezing continue with home inhalers 4. Gastroesophageal reflux disease maintained on Protonix Medication and labs were reviewed will follow during this hospitalization
[2020-08-16 11:22] LABS: African American GFR (CKD) 108.4 (60.0-200.0); Albumin 3.6 g/dL (3.80-4.90); Albumin/Globulin Ratio 1.89 (1.60-3.17); Anion Gap 8.9 mmol/L (4.00-12.00); BUN/Creat Ratio 21.43 Ratio (12.00-20.00); Calcium 9.1 mg/dL (8.7-10.3); Carbon Dioxide 27.1 mmol/L (21.6-31.8); Globulin 1.9 g/dL (1.6-3.3); Non-African American GFR(CKD) 93.5 (60.0-200.0); Total Bilirubin 1.1 mg/dL (0.2-1.2); Total Protein 5.5 g/dL (6.2-8.2)
--- NOTE | 2020-08-16 11:28 | P.PN ---
Subjective Progress Note Date: 08/16/20 CHIEF COMPLAINT: Incisional hernia and adhesions HISTORY OF PRESENT ILLNESS: Patient is postop day #2 status post lysis of adhesions, small bowel resection, repair of incisional hernia. Patient reports less abdominal pain today. She denies any nausea or vomiting. She is passing gas. No bowel movement yet. She is asking to be started on diet. Afebrile. Creatinine 0.7 glucose 141 PHYSICAL EXAM: VITAL SIGNS: Reviewed. GENERAL: Well-developed in no acute distress. HEENT: No sclera icterus. Extraocular movements grossly intact. Moist buccal mucosa. Head is atraumatic, normocephalic. ABDOMEN: Soft. Mildly distended. Abdominal binder in place NEUROLOGIC: Alert and oriented. Cranial nerves II through XII grossly intact. ASSESSMENT: 1. Incisional hernia and adhesions status post lysis of adhesions, small bowel resection and repair of incisional hernia. Postop day #2 2. Diabetes mellitus type 2 PLAN: -Start clear liquid diet -Continue pain medication as needed -Encourage patient to ambulate and use incentive spirometer -Continue GI Protonix and DVT prophylaxis Lovenox Physician Financial Services Professional note has been reviewed by physician. Signing provider agrees with the documented findings, assessment, and plan of care. Objective - Vital Signs Vital signs: Vital Signs Temp 98.0 F 08/16/20 07:09 Pulse 76 08/16/20 07:54 Resp 18 08/16/20 07:09 BP 156/84 08/16/20 07:09 Pulse Ox 95 08/16/20 07:09 Intake & Output 08/15/20 08/16/20 08/16/20 18:59 06:59 18:59 Other: Voiding Method Toilet Toilet # Voids 2 2 1 # Bowel Movements 0 - Labs CBC & Chem 7: 08/15/20 06:20 08/16/20 04:53 Labs: Abnormal Lab Results - Last 24 Hours (Table) 08/15/20 08/15/20 08/15/20 Range/Units 11:46 17:11 20:51 BUN/Creatinine Ratio (12.00-20.00) Ratio Glucose (70-110) mg/dL POC Glucose (mg/dL) 176 H 122 H 158 H (75-99) mg/dL AST (13-35) U/L Total Protein (6.2-8.2) g/dL Albumin (3.80-4.90) g/dL 08/16/20 08/16/20 Range/Units 04:53 06:56 BUN/Creatinine Ratio 21.43 H (12.00-20.00) Ratio Glucose 136 H (70-110) mg/dL POC Glucose (mg/dL) 141 H (75-99) mg/dL AST 48 H (13-35) U/L Total Protein 5.5 L (6.2-8.2) g/dL Albumin 3.60 L (3.80-4.90) g/dL
[2020-08-16 11:35] LABS: Glucose,Whole Blood 152 mg/dL (75-99)
[2020-08-16] MEDS: HYDROcodone/APAP 5-325MG 1 EACH TAB PO PRN ×2 (12:47→18:45)
[2020-08-16 17:06] LABS: Glucose,Whole Blood 145 mg/dL (75-99)
--- NOTE | 2020-08-16 18:09 | P.PN ---
Subjective Progress Note Date: 08/16/20 Roxana Velasquez, is a 59-year-old female patient of Dr. Mendez who was admitted to [facility] by Dr. Goldsmith, and underwent incisional hernia repair small bowel resection and lysis of adhesions patient was admitted to surgical floor postoperatively medical consultation was requested for management while hospitalized. Patient has a known history of asthma, history of depression, history of diabetes mellitus, history of hypertension, and history of gastroesophageal reflux disease. On review of systems patient is alert and oriented 3 in no apparent distress she is complaining of some pain and distention and discomfort in the abdomen otherwise she denies any complaints there is no fever or chills no headache or dizziness no chest pain no shortness of breath no cough no nausea or vomiting no diarrhea no blood in the stools no burning with urination no frequency or urgency and no hematuria. On 08/15/2020 patient was seen and examined on the medical floor she is alert and oriented 3 in no distress there is no fever or chills no headache or dizziness no chest pain no shortness of breath no cough no nausea or vomiting she still has some abdominal discomfort no diarrhea no blood in the stools no burning with urination no frequency or urgency and no hematuria. On 08/16/2020 patient was seen and examined on the medical floor she is alert and oriented 3 in no distress, patient is maintained on full liquid diet she has not had any bowel movement since surgery otherwise she denies any complaints there is no fever or chills no headache or dizziness no chest pain no shortness of breath no cough no nausea or vomiting no abdominal pain no diarrhea no blood in the stools no burning was urination no frequency or urgency and no hematuria Objective - Vital Signs Vital signs: Vital Signs Temp 98.2 F 08/16/20 12:19 Pulse 78 08/16/20 12:19 Resp 18 08/16/20 12:19 BP 105/59 08/16/20 12:19 Pulse Ox 93 L 08/16/20 12:19 Intake & Output 08/15/20 08/16/20 08/16/20 18:59 06:59 18:59 Other: Voiding Method Toilet Toilet Toilet # Voids 2 2 1 # Bowel Movements 0 - Exam In general patient is alert and oriented 3 in no apparent distress HEENT head normocephalic and atraumatic Neck is supple no JVD no goiter no lymphadenopathy Chest exam reveals a few scattered crackles no wheezing Cardiac exam reveals regular heart sounds S1 and S2 no gallops no murmurs Abdomen is soft with mild diffuse tenderness no organomegaly no palpable masses with normal bowel sounds Extremity exam reveals no edema no cyanosis or clubbing - Labs CBC & Chem 7: 08/15/20 06:20 08/16/20 04:53 Labs: Abnormal Lab Results - Last 24 Hours (Table) 08/15/20 08/16/20 08/16/20 Range/Units 20:51 04:53 06:56 BUN/Creatinine Ratio 21.43 H (12.00-20.00) Ratio Glucose 136 H (70-110) mg/dL POC Glucose (mg/dL) 158 H 141 H (75-99) mg/dL AST 48 H (13-35) U/L Total Protein 5.5 L (6.2-8.2) g/dL Albumin 3.60 L (3.80-4.90) g/dL 08/16/20 08/16/20 Range/Units 11:07 17:01 BUN/Creatinine Ratio (12.00-20.00) Ratio Glucose (70-110) mg/dL POC Glucose (mg/dL) 152 H 145 H (75-99) mg/dL AST (13-35) U/L Total Protein (6.2-8.2) g/dL Albumin (3.80-4.90) g/dL Assessment and Plan Plan: 1. Postoperative day #1 status post lysis of adhesions, small bowel resection and repair of incisional hernia. 2. Diabetes mellitus type , patient is nothing by mouth will hold glipizide at this time will cover with sliding scale 3. Asthma stable at this time no shortness of breath or wheezing continue with home inhalers 4. Gastroesophageal reflux disease maintained on Protonix Medication and labs were reviewed will follow during this hospitalization
[2020-08-16 20:29] LABS: Glucose,Whole Blood 148 mg/dL (75-99)
[2020-08-16] MEDS: diphenhydrAMINE 25 MG CAP PO PRN (23:28)
[2020-08-16] MEDS: HYDROmorphone 0.5 MG/0.5 ML SYRINGE IVP PRN (23:30)
[2020-08-17] MEDS: LACTATED RINGERS 1,000 ML IV SCH (05:31)
[2020-08-17 06:49] LABS: Basophils # (A) 0.1 k/uL (0-0.2); Basophils % (A) 1 %; Eosinophils # (A) 0.4 k/uL (0-0.7); Eosinophils % (A) 5 %; HCT 42.4 % (34.0-46.0); HGB 14.4 gm/dL (11.4-16.0); Lymphocytes # (A) 1.3 k/uL (1.0-4.8); Lymphocytes % (A) 14 %; MCH 33.3 pg (25.0-35.0); Mean Platelet Volume 8.3; Monocytes # (A) 0.5 k/uL (0-1.0); Monocytes % (A) 5 %; Neutrophils % (A) 74 %; Platelet Count 199 k/uL (150-450); RBC 4.32 m/uL (3.80-5.40); RDW 12.6 % (11.5-15.5); WBC 9.5 k/uL (3.8-10.6)
[2020-08-17 07:20] LABS: Glucose,Whole Blood 155 mg/dL (75-99)
[2020-08-17] MEDS: HYDROmorphone 0.5 MG/0.5 ML SYRINGE IVP PRN (08:51)
[2020-08-17 09:41] LABS: Albumin 3.7 g/dL (3.80-4.90); Albumin/Globulin Ratio 1.95 (1.60-3.17); Anion Gap 6.6 mmol/L (4.00-12.00); Calcium 9.1 mg/dL (8.7-10.3); Carbon Dioxide 26.4 mmol/L (21.6-31.8); Globulin 1.9 g/dL (1.6-3.3); Non-African American GFR(CKD) 98.4 (60.0-200.0); Total Bilirubin 1.9 mg/dL (0.2-1.2); Total Protein 5.6 g/dL (6.2-8.2)
[2020-08-17] MEDS: METOPROLOL SUCCINATE (ER) 25 MG TAB.ER.24H PO SCH (09:46)
[2020-08-17] MEDS: ESCITALOPRAM 20 MG TAB PO SCH (09:47)
[2020-08-17] MEDS: PANTOPRAZOLE 40 MG TABLET PO SCH (09:47)
[2020-08-17] MEDS: FOLIC ACID 1 MG TAB PO SCH (09:48)
[2020-08-17] MEDS: FLUTICASONE 50MCG/SPRAY NASAL 16GM EA NOSTRIL SCH (09:48)
[2020-08-17] MEDS: INSULIN ASPART (NovoLOG) 100 UNIT/ML VIAL SQ SCH ×4 (09:50→21:54)
[2020-08-17] MEDS: ENOXAPARIN 40 MG/0.4 ML SYRINGE SQ SCH (09:50)
[2020-08-17] MEDS: LACTOBACILLUS ACIDOPH & BULGAR 1 EACH PACKET PO SCH (09:52)
[2020-08-17 11:42] LABS: Glucose,Whole Blood 125 mg/dL (75-99)
[2020-08-17] MEDS: ALBUTEROL NEBULIZED 2.5 MG/3 ML INHALATION SCH ×4 (12:29→21:31)
[2020-08-17] MEDS: SYMBICORT 160-4.5 MCG INHALER INHALATION SCH ×2 (12:29→21:31)
--- NOTE | 2020-08-17 12:30 | P.PN ---
Subjective Progress Note Date: 08/17/20 CHIEF COMPLAINT: Incisional hernia and adhesions HISTORY OF PRESENT ILLNESS: Patient is postop day #3 status post lysis of adhesions, small bowel resection, repair of incisional hernia. Patient reports increase in her abdominal pain today. She was unable to take the [place] because it was causing her to feel very itchy. She is complaining of feeling bloated and gas-like pains. She does report passing gas but not as much as yesterday. This afternoon she was able to have a bowel movement. Afebrile. WBC 9.5 total bili 1.9 AST 88 ALT 53 PHYSICAL EXAM: VITAL SIGNS: Reviewed. GENERAL: Well-developed in no acute distress. HEENT: No sclera icterus. Extraocular movements grossly intact. Moist buccal mucosa. Head is atraumatic, normocephalic. ABDOMEN: Soft. Mildly distended. Incision site clean dry and intact NEUROLOGIC: Alert and oriented. Cranial nerves II through XII grossly intact. ASSESSMENT: 1. Incisional hernia and adhesions status post lysis of adhesions, small bowel resection and repair of incisional hernia. 2. Diabetes mellitus type 2 PLAN: -Advanced to full liquid diet -Add Toradol for pain control -Add Mylicon drops for gas pains -Discontinue the [place] due to causing patient to itch -Lac-Hydrin lotion added for dry skin -Encourage patient to ambulate and use incentive spirometer -Continue GI Protonix and DVT prophylaxis Lovenox Physician Guard Sergeant note has been reviewed by physician. Signing provider agrees with the documented findings, assessment, and plan of care. Objective - Vital Signs Vital signs: Vital Signs Temp 98.6 F 08/17/20 10:27 Pulse 74 08/17/20 10:27 Resp 18 08/17/20 10:27 BP 145/77 08/17/20 10:27 Pulse Ox 97 08/17/20 02:07 Intake & Output 08/16/20 08/17/20 08/17/20 18:59 06:59 18:59 Other: Voiding Method Toilet Toilet # Voids 1 1 1 # Bowel Movements 1 - Labs CBC & Chem 7: 08/17/20 06:14 08/17/20 06:14 Labs: Abnormal Lab Results - Last 24 Hours (Table) 08/16/20 08/16/20 08/17/20 Range/Units 17:01 20:27 06:14 Glucose 138 H (70-110) mg/dL POC Glucose (mg/dL) 145 H 148 H (75-99) mg/dL Total Bilirubin 1.9 H (0.2-1.2) mg/dL AST 88 H (13-35) U/L ALT 53 H (8-44) U/L Total Protein 5.6 L (6.2-8.2) g/dL Albumin 3.70 L (3.80-4.90) g/dL 08/17/20 08/17/20 Range/Units 07:18 11:41 Glucose (70-110) mg/dL POC Glucose (mg/dL) 155 H 125 H (75-99) mg/dL Total Bilirubin (0.2-1.2) mg/dL AST (13-35) U/L ALT (8-44) U/L Total Protein (6.2-8.2) g/dL Albumin (3.80-4.90) g/dL
[2020-08-17] MEDS ORDERED: traMADol 50 MG TAB PO PRN (13:02)
[2020-08-17] MEDS: KETOROLAC 15 MG/ML 1 ML VIAL IVP SCH ×3 (13:36→21:55)
[2020-08-17] MEDS: SIMETHICONE 40 MG/0.6 ML DROPS 2,000 MG/30 ML BOTTLE PO SCH ×3 (13:37→21:55)
[2020-08-17] MEDS: AMMONIUM LACTATE 12% LOTION 225 GM BTL TOPICAL SCH ×2 (13:39→21:55)
[2020-08-17 16:42] LABS: Glucose,Whole Blood 152 mg/dL (75-99)
--- NOTE | 2020-08-17 19:42 | P.PN ---
Subjective Progress Note Date: 08/17/20 Roxana Velasquez, is a 59-year-old female patient of Dr. Mendez who was admitted to [facility] by Dr. Goldsmith, and underwent incisional hernia repair small bowel resection and lysis of adhesions patient was admitted to surgical floor postoperatively medical consultation was requested for management while hospitalized. Patient has a known history of asthma, history of depression, history of diabetes mellitus, history of hypertension, and history of gastroesophageal reflux disease. On review of systems patient is alert and oriented 3 in no apparent distress she is complaining of some pain and distention and discomfort in the abdomen otherwise she denies any complaints there is no fever or chills no headache or dizziness no chest pain no shortness of breath no cough no nausea or vomiting no diarrhea no blood in the stools no burning with urination no frequency or urgency and no hematuria. On 08/15/2020 patient was seen and examined on the medical floor she is alert and oriented 3 in no distress there is no fever or chills no headache or dizziness no chest pain no shortness of breath no cough no nausea or vomiting she still has some abdominal discomfort no diarrhea no blood in the stools no burning with urination no frequency or urgency and no hematuria. On 08/16/2020 patient was seen and examined on the medical floor she is alert and oriented 3 in no distress, patient is maintained on full liquid diet she has not had any bowel movement since surgery otherwise she denies any complaints there is no fever or chills no headache or dizziness no chest pain no shortness of breath no cough no nausea or vomiting no abdominal pain no diarrhea no blood in the stools no burning was urination no frequency or urgency and no hematuria On 08/17/2020 patient was seen and examined on the medical floor she is alert and oriented 3 in no distress there is no fever or chills no headache or dizziness no chest pain she is still feeling bloated she is passing gas but no bowel movement yet she is afebrile blood pressure is 144/77 white blood count is 9.5 hemoglobin 14.2 she has some elevation in liver enzymes with bilirubin 1.9 AST 88 a LT 53 normal alkaline phosphatase of 103 Objective - Vital Signs Vital signs: Vital Signs Temp 97.8 F 08/17/20 14:00 Pulse 80 08/17/20 17:13 Resp 16 08/17/20 14:00 BP 170/83 08/17/20 14:00 Pulse Ox 100 08/17/20 16:59 Intake & Output 08/17/20 08/17/20 08/18/20 06:59 18:59 06:59 Intake Total 354 Balance 354 Intake: Oral 354 Other: Voiding Method Toilet # Voids 1 1 # Bowel Movements 1 - Exam In general patient is alert and oriented 3 in no apparent distress HEENT head normocephalic and atraumatic Neck is supple no JVD no goiter no lymphadenopathy Chest exam reveals a few scattered crackles no wheezing Cardiac exam reveals regular heart sounds S1 and S2 no gallops no murmurs Abdomen is soft with mild diffuse tenderness no organomegaly no palpable masses with normal bowel sounds Extremity exam reveals no edema no cyanosis or clubbing - Labs CBC & Chem 7: 08/17/20 06:14 08/17/20 06:14 Labs: Abnormal Lab Results - Last 24 Hours (Table) 08/16/20 08/17/20 08/17/20 Range/Units 20:27 06:14 07:18 Glucose 138 H (70-110) mg/dL POC Glucose (mg/dL) 148 H 155 H (75-99) mg/dL Total Bilirubin 1.9 H (0.2-1.2) mg/dL AST 88 H (13-35) U/L ALT 53 H (8-44) U/L Total Protein 5.6 L (6.2-8.2) g/dL Albumin 3.70 L (3.80-4.90) g/dL 08/17/20 08/17/20 Range/Units 11:41 16:40 Glucose (70-110) mg/dL POC Glucose (mg/dL) 125 H 152 H (75-99) mg/dL Total Bilirubin (0.2-1.2) mg/dL AST (13-35) U/L ALT (8-44) U/L Total Protein (6.2-8.2) g/dL Albumin (3.80-4.90) g/dL Assessment and Plan Plan: 1. Postoperative day # 3 status post lysis of adhesions, small bowel resection and repair of incisional hernia. 2. Diabetes mellitus type , patient is nothing by mouth will hold glipizide at this time will cover with sliding scale 3. Asthma stable at this time no shortness of breath or wheezing continue with home inhalers 4. Gastroesophageal reflux disease maintained on Protonix Medication and labs were reviewed will follow during this hospitalization
[2020-08-17] MEDS ORDERED: PANTOPRAZOLE 40 MG TABLET PO ONE (21:00)
[2020-08-17 21:12] LABS: Glucose,Whole Blood 137 mg/dL (75-99)
[2020-08-17] MEDS: diphenhydrAMINE 25 MG CAP PO PRN (21:54)
[2020-08-18] MEDS: LACTATED RINGERS 1,000 ML IV SCH ×2 (03:06→03:07)
[2020-08-18 07:08] LABS: Glucose,Whole Blood 151 mg/dL (75-99)
[2020-08-18] MEDS: PANTOPRAZOLE 40 MG TABLET PO SCH (07:28)
[2020-08-18 07:36] LABS: Basophils % (A) 1 %; Eosinophils # (A) 0.4 k/uL (0-0.7); Eosinophils % (A) 5 %; HCT 42.2 % (34.0-46.0); HGB 14.2 gm/dL (11.4-16.0); Lymphocytes # (A) 1.3 k/uL (1.0-4.8); Lymphocytes % (A) 16 %; MCH 32.7 pg (25.0-35.0); MCHC 33.6 g/dL (31.0-37.0); MCV 97.2 fL (80.0-100.0); Mean Platelet Volume 8.1; Monocytes # (A) 0.5 k/uL (0-1.0); Monocytes % (A) 6 %; Neutrophils # (A) 6.2 k/uL (1.3-7.7); Neutrophils % (A) 72 %; Platelet Count 244 k/uL (150-450); RBC 4.34 m/uL (3.80-5.40); RDW 12.6 % (11.5-15.5); WBC 8.7 k/uL (3.8-10.6)
[2020-08-18] MEDS: KETOROLAC 15 MG/ML 1 ML VIAL IVP SCH ×3 (07:49→17:54)
[2020-08-18] MEDS: INSULIN ASPART (NovoLOG) 100 UNIT/ML VIAL SQ SCH ×4 (07:49→21:06)
[2020-08-18] MEDS: FLUTICASONE 50MCG/SPRAY NASAL 16GM EA NOSTRIL SCH (09:06)
[2020-08-18] MEDS: ESCITALOPRAM 20 MG TAB PO SCH (09:06)
[2020-08-18] MEDS: AMMONIUM LACTATE 12% LOTION 225 GM BTL TOPICAL SCH ×2 (09:06→19:55)
[2020-08-18] MEDS: ENOXAPARIN 40 MG/0.4 ML SYRINGE SQ SCH (09:06)
[2020-08-18] MEDS: METOPROLOL SUCCINATE (ER) 25 MG TAB.ER.24H PO SCH (09:07)
[2020-08-18] MEDS: SIMETHICONE 40 MG/0.6 ML DROPS 2,000 MG/30 ML BOTTLE PO SCH ×4 (09:07→19:56)
[2020-08-18] MEDS: FOLIC ACID 1 MG TAB PO SCH (09:07)
[2020-08-18] MEDS: LACTOBACILLUS ACIDOPH & BULGAR 1 EACH PACKET PO SCH (09:07)
[2020-08-18] MEDS: ALBUTEROL NEBULIZED 2.5 MG/3 ML INHALATION SCH ×4 (09:35→20:33)
[2020-08-18] MEDS: SYMBICORT 160-4.5 MCG INHALER INHALATION SCH ×2 (09:35→20:31)
[2020-08-18] MEDS ORDERED: PIPERACILLIN-TAZOBACTAM 3.375 GM in SODIUM CHLORIDE 0.9% 100 ML IVPB SCH (10:45)
[2020-08-18 11:17] LABS: Albumin 3.6 g/dL (3.80-4.90); Albumin/Globulin Ratio 1.8 (1.60-3.17); Calcium 9.2 mg/dL (8.7-10.3); Non-African American GFR(CKD) 98.4 (60.0-200.0); Potassium 3.8 mmol/L (3.5-5.5); Total Bilirubin 1.2 mg/dL (0.2-1.2); Total Protein 5.6 g/dL (6.2-8.2)
[2020-08-18 12:04] LABS: Glucose,Whole Blood 156 mg/dL (75-99)
--- NOTE | 2020-08-18 12:48 | P.PN ---
Subjective Progress Note Date: 08/18/20 CHIEF COMPLAINT: Incisional hernia and adhesions HISTORY OF PRESENT ILLNESS: Patient is postop day #4 status post lysis of adhesions, small bowel resection, repair of incisional hernia. Patient reports improvement in her abdominal pain with the Toradol. She did have a bowel movement and is passing gas. She still occasionally has some nausea. She did have a low-grade temp of 99 last night. Incision examined this morning she has puslike drainage around the umbilicus and distal part of the incision. Cultures obtained. Patient started on IV Zosyn. WBC 8.7 CMP pending PHYSICAL EXAM: VITAL SIGNS: Reviewed. GENERAL: Well-developed in no acute distress. HEENT: No sclera icterus. Extraocular movements grossly intact. Moist buccal mucosa. Head is atraumatic, normocephalic. ABDOMEN: Soft. Mildly distended. Incision has 2 areas of puslike drainage. Drainage is noted at the umbilicus and distal aspect of the incision NEUROLOGIC: Alert and oriented. Cranial nerves II through XII grossly intact. ASSESSMENT: 1. Incisional hernia and adhesions status post lysis of adhesions, small bowel resection and repair of incisional hernia. Postoperative day #4 2. Infection at incision site. Staple removed from the distal aspect of the incision 3. Diabetes mellitus type 2 4. Elevated LFTs likely related to fatty liver PLAN: -Culture drainage from incision -Add IV Zosyn -Continue full liquid diet -Continue Toradol for pain control -Encourage patient to use Ultram for pain as needed -Continue Mylicon drops for gas pains -Lac-Hydrin lotion added for dry skin -Encourage patient to ambulate and use incentive spirometer -Continue GI Protonix and DVT prophylaxis Lovenox Physician Homemaking Rehabilitation Consultant note has been reviewed by physician. Signing provider agrees with the documented findings, assessment, and plan of care. Objective - Vital Signs Vital signs: Vital Signs Temp 99.0 F 08/18/20 02:00 Pulse 84 08/18/20 09:45 Resp 20 08/18/20 02:00 BP 147/80 08/18/20 02:00 Pulse Ox 93 L 08/18/20 02:00 Intake & Output 08/17/20 08/18/20 08/18/20 18:59 06:59 18:59 Intake Total 354 118 Balance 354 118 Intake: Oral 354 118 Other: Voiding Method Toilet # Voids 1 2 # Bowel Movements 1 1 1 - Labs CBC & Chem 7: 08/18/20 06:53 08/18/20 06:53 Labs: Abnormal Lab Results - Last 24 Hours (Table) 08/17/20 08/17/20 08/17/20 Range/Units 11:41 16:40 21:11 POC Glucose (mg/dL) 125 H 152 H 137 H (75-99) mg/dL 08/18/20 Range/Units 07:06 POC Glucose (mg/dL) 151 H (75-99) mg/dL
--- NOTE | 2020-08-18 14:12 | P.PN ---
Subjective Progress Note Date: 08/18/20 Roxana Velasquez, is a 59-year-old female patient of Dr. Mendez who was admitted to [facility] by Dr. Goldsmith, and underwent incisional hernia repair small bowel resection and lysis of adhesions patient was admitted to surgical floor postoperatively medical consultation was requested for management while hospitalized. Patient has a known history of asthma, history of depression, history of diabetes mellitus, history of hypertension, and history of gastroesophageal reflux disease. On review of systems patient is alert and oriented 3 in no apparent distress she is complaining of some pain and distention and discomfort in the abdomen otherwise she denies any complaints there is no fever or chills no headache or dizziness no chest pain no shortness of breath no cough no nausea or vomiting no diarrhea no blood in the stools no burning with urination no frequency or urgency and no hematuria. On 08/15/2020 patient was seen and examined on the medical floor she is alert and oriented 3 in no distress there is no fever or chills no headache or dizziness no chest pain no shortness of breath no cough no nausea or vomiting she still has some abdominal discomfort no diarrhea no blood in the stools no burning with urination no frequency or urgency and no hematuria. On 08/16/2020 patient was seen and examined on the medical floor she is alert and oriented 3 in no distress, patient is maintained on full liquid diet she has not had any bowel movement since surgery otherwise she denies any complaints there is no fever or chills no headache or dizziness no chest pain no shortness of breath no cough no nausea or vomiting no abdominal pain no diarrhea no blood in the stools no burning was urination no frequency or urgency and no hematuria On 08/17/2020 patient was seen and examined on the medical floor she is alert and oriented 3 in no distress there is no fever or chills no headache or dizziness no chest pain she is still feeling bloated she is passing gas but no bowel movement yet she is afebrile blood pressure is 144/77 white blood count is 9.5 hemoglobin 14.2 she has some elevation in liver enzymes with bilirubin 1.9 AST 88 a LT 53 normal alkaline phosphatase of 103 On 08/18/2020 patient was seen and examined on the medical floor she is alert and oriented 3 in no apparent distress she is postoperative day #4 after incisional hernia repair and adhesion lysis and partial small bowel resection, today patient was having purulent drainage from the lower part of her incision, she was having low-grade fever of 99.9 last night, at this time culture of the drainage was sent to lab, she was started on IV antibiotic and infectious disease consultation was requested, otherwise she denies any complaints there is no headache or dizziness no chest pain no shortness of breath no cough no nausea or vomiting no abdominal pain no diarrhea no blood in the stools no burning with urination no frequency or urgency and no hematuria Objective - Vital Signs Vital signs: Vital Signs Temp 98 F 08/18/20 14:00 Pulse 84 08/18/20 14:00 Resp 16 08/18/20 14:00 BP 167/83 08/18/20 14:00 Pulse Ox 93 L 08/18/20 14:00 Intake & Output 08/17/20 08/18/20 08/18/20 18:59 06:59 18:59 Intake Total 354 236 Balance 354 236 Intake: Oral 354 236 Other: Voiding Method Toilet # Voids 1 2 # Bowel Movements 1 1 1 - Exam In general patient is alert and oriented 3 in no apparent distress HEENT head normocephalic and atraumatic Neck is supple no JVD no goiter no lymphadenopathy Chest exam reveals a few scattered crackles no wheezing Cardiac exam reveals regular heart sounds S1 and S2 no gallops no murmurs Abdomen is soft with mild diffuse tenderness no organomegaly no palpable masses with normal bowel sounds Extremity exam reveals no edema no cyanosis or clubbing - Labs CBC & Chem 7: 08/18/20 06:53 08/18/20 06:53 Labs: Abnormal Lab Results - Last 24 Hours (Table) 08/17/20 08/17/20 08/18/20 Range/Units 16:40 21:11 06:53 Glucose 145 H (70-110) mg/dL POC Glucose (mg/dL) 152 H 137 H (75-99) mg/dL AST 43 H (13-35) U/L ALT 45 H (8-44) U/L Total Protein 5.6 L (6.2-8.2) g/dL Albumin 3.60 L (3.80-4.90) g/dL 08/18/20 08/18/20 Range/Units 07:06 12:03 Glucose (70-110) mg/dL POC Glucose (mg/dL) 151 H 156 H (75-99) mg/dL AST (13-35) U/L ALT (8-44) U/L Total Protein (6.2-8.2) g/dL Albumin (3.80-4.90) g/dL Assessment and Plan Plan: 1. Postoperative day # 3 status post lysis of adhesions, small bowel resection and repair of incisional hernia. 2. Diabetes mellitus type , patient is nothing by mouth will hold glipizide at this time will cover with sliding scale 3. Asthma stable at this time no shortness of breath or wheezing continue with home inhalers 4. Gastroesophageal reflux disease maintained on Protonix Medication and labs were reviewed will follow during this hospitalization
[2020-08-18 16:54] LABS: Glucose,Whole Blood 172 mg/dL (75-99)
[2020-08-18] MEDS: PIPERACILLIN-TAZOBACTAM 3.375 GM in SODIUM CHLORIDE 0.9% 100 ML IVPB SCH (19:41)
[2020-08-18] MEDS: diphenhydrAMINE 25 MG CAP PO PRN (20:07)
[2020-08-18] MEDS: busPIRone HCl 5 MG TAB PO PRN (20:07)
[2020-08-18 20:54] LABS: Glucose,Whole Blood 158 mg/dL (75-99)
[2020-08-19] MEDS: KETOROLAC 15 MG/ML 1 ML VIAL IVP SCH ×3 (00:28→12:49)
--- NOTE | 2020-08-19 01:30 | CONS ---
CONSULTATION DATE OF SERVICE: 08/18/2020. REASON FOR CONSULTATION: Surgical site infection. HISTORY OF PRESENT ILLNESS: The patient is a 59-year-old female with past medical history significant for a periumbilical incisional hernia with previous history of diverticulitis with perforation colectomy and reversal with large incisional hernia. The patient was electively admitted to hospital on 08/14/2020 for repair of the incisional hernia, which was completed. Subsequently, the patient had been admitted in the hospital for management of underlying medical condition. The patient seemed to have been doing well and recovering. However, the patient complaining of more pain around the incision especially lower end and on the last day or 2 becoming to more of a throbbing, dull aching 5-6 out of 10, no radiation. She was noted to have some drainage today. Cultures were obtained. The patient was started on Zosyn. Infectious Disease was consulted for further management and antibiotic therapy. The patient currently denies any fever or chills. No nausea, no vomiting. No diarrhea. REVIEW OF SYSTEMS: Positive points have been mentioned in HPI. Rest of systems negative. PAST MEDICAL HISTORY: COPD, diabetes mellitus, gastroesophageal reflux disease, hyperlipidemia, hypertension. PAST SURGICAL HISTORY: Appendectomy, bowel resection, breast surgery, cholecystectomy, hernia repair, tonsillectomy. SOCIAL HISTORY: Current everyday smoker. No drinking or drug use. FAMILY HISTORY: Father history of diabetes, coronary disease. Mother history of coronary disease as well and diabetes. ALLERGIES: No known drug allergies. MEDICATIONS: The patient is currently on Tylenol, Ventolin, Symbicort, BuSpar, Benadryl, Lovenox, Lexapro, Folic acid, Glucotrol, Toradol, and started on Zosyn today. PHYSICAL EXAMINATION: Blood pressure 154/77 with a pulse of 74, temperature 98.2. She is 96% on room air. General description is a middle-aged female lying in bed in no distress. HEENT: Examination shows no pallor or scleral icterus. Oral mucous membranes dry. No pharyngeal erythema or thrush. Neck: Trachea central. No thyromegaly. Lungs unlabored breathing. Clear to auscultation with no wheeze or crackles. Heart S1, S2. Regular rate and rhythm. ABDOMEN: Soft. Midline incision at the mid point lower abdomen with minimal erythema and slight drainage on the dressing. No foul smelling. EXTREMITIES: No edema of the feet. Skin examination: No rash or mass palpable. Neurological: Patient is awake, alert, oriented times three. Mood and affect normal. LABS: Hemoglobin is 14.8, white count 8.7, BUN of 9, creatinine 0.6. Electrolytes have been normal. Liver enzymes mildly elevated. Cultures obtained and currently pending. DIAGNOSTIC IMPRESSION AND PLAN: Patient with recent extensive surgery for an incisional hernia repair in this patient now developing drainage from the lower incision with concern for possible seroma. Clinically not behaving as an abscess or cellulitis in this patient with no fever or elevated white count though underlying cellulitis not entirely excluded. PLAN: 1. We will keep the patient on Zosyn 3.75 g q.12 hours while waiting for the culture to finalize. 2. We will follow on clinical condition and culture to further adjust medication if needed. Thank you for this consultation. Will follow this patient along with you. MMODL / IJN: [id number] /
[2020-08-19] MEDS: PIPERACILLIN-TAZOBACTAM 3.375 GM in SODIUM CHLORIDE 0.9% 100 ML IVPB SCH ×2 (03:39→12:49)
[2020-08-19] MEDS: ALBUTEROL NEBULIZED 2.5 MG/3 ML INHALATION SCH ×2 (07:17→11:18)
[2020-08-19] MEDS: SYMBICORT 160-4.5 MCG INHALER INHALATION SCH (07:18)
[2020-08-19 07:25] LABS: Glucose,Whole Blood 137 mg/dL (75-99)
[2020-08-19] MEDS: ESCITALOPRAM 20 MG TAB PO SCH (07:30)
[2020-08-19] MEDS ORDERED: glipiZIDE 10 MG TAB PO SCH (07:30)
[2020-08-19] MEDS: METOPROLOL SUCCINATE (ER) 25 MG TAB.ER.24H PO SCH (07:30)
[2020-08-19] MEDS: LACTOBACILLUS ACIDOPH & BULGAR 1 EACH PACKET PO SCH (07:30)
[2020-08-19] MEDS: FOLIC ACID 1 MG TAB PO SCH (07:31)
[2020-08-19] MEDS: PANTOPRAZOLE 40 MG TABLET PO SCH (07:31)
[2020-08-19] MEDS: INSULIN ASPART (NovoLOG) 100 UNIT/ML VIAL SQ SCH ×2 (07:32→12:31)
[2020-08-19] MEDS: ENOXAPARIN 40 MG/0.4 ML SYRINGE SQ SCH (07:32)
[2020-08-19] MEDS: ACETAMINOPHEN TAB 325 MG TAB PO PRN ×2 (07:36→13:41)
[2020-08-19] MEDS: AMMONIUM LACTATE 12% LOTION 225 GM BTL TOPICAL SCH (07:38)
[2020-08-19] MEDS: FLUTICASONE 50MCG/SPRAY NASAL 16GM EA NOSTRIL SCH (07:39)
[2020-08-19] MEDS: SIMETHICONE 40 MG/0.6 ML DROPS 2,000 MG/30 ML BOTTLE PO SCH ×2 (07:39→12:49)
[2020-08-19 07:56] LABS: Basophils % (A) 0 %; Eosinophils # (A) 0.5 k/uL (0-0.7); Eosinophils % (A) 6 %; HCT 43.7 % (34.0-46.0); HGB 14.1 gm/dL (11.4-16.0); Lymphocytes # (A) 1.5 k/uL (1.0-4.8); Lymphocytes % (A) 18 %; MCH 31.9 pg (25.0-35.0); MCHC 32.3 g/dL (31.0-37.0); MCV 98.7 fL (80.0-100.0); Mean Platelet Volume 8.2; Monocytes # (A) 0.5 k/uL (0-1.0); Monocytes % (A) 6 %; Neutrophils # (A) 5.4 k/uL (1.3-7.7); Neutrophils % (A) 68 %; Platelet Count 249 k/uL (150-450); RBC 4.42 m/uL (3.80-5.40); WBC 7.9 k/uL (3.8-10.6)
[2020-08-19 09:30] VITALS: BP 144/73; RESP 17; TEMP 98
[2020-08-19 11:28] VITALS: PULSE 72
[2020-08-19 11:31] LABS: Glucose,Whole Blood 133 mg/dL (75-99)
[2020-08-19 12:30] LABS: African American GFR (CKD) 108.4 (60.0-200.0); Anion Gap 11.5 mmol/L (4.00-12.00); BUN/Creat Ratio 11.43 Ratio (12.00-20.00); Calcium 9.2 mg/dL (8.7-10.3); Carbon Dioxide 28.5 mmol/L (21.6-31.8); Non-African American GFR(CKD) 93.5 (60.0-200.0); Potassium 3.7 mmol/L (3.5-5.5)
--- NOTE | 2020-08-19 12:41 | P.DS ---
Providers Date of admission: 08/14/20 10:24 Expected date of discharge: 08/19/20 Attending physician: Heath Goldsmith Consults: 08/14/20 10:24 Consult Physician Routine Consulting Provider: Alicia Painter Consult Reason/Comments: medical manage Do you want consulting provider notified?: Yes 08/18/20 13:42 Consult Physician Routine Consulting Provider: Michelle Kruger Consult Reason/Comments: fever Do you want consulting provider notified?: Yes Primary care physician: Sarah [facility] Course: 59-year-old female who underwent open repair of a large incarcerated incisional hernia with small bowel resection. Patient did well postop. Patient developed a small superficial wound infection requiring stable removal and packing. Please see chart for details. Procedures: (Incisional hernia with small bowel resection Patient Condition at Discharge: Poor Plan - Discharge Summary Discharge Rx Participant: Yes New Discharge Prescriptions: New Sulfamethox-Tmp 800-160Mg [Bactrim DS 800-160 mg] 1 tab PO Q12HR #14 tab traMADol HCL [Ultram] 100 mg PO TID PRN 3 Days #21 tab PRN Reason: Pain Docusate [Colace] 100 mg PO BID #20 capsule oxyCODONE HCL [OxyIR] 5 mg PO Q4H PRN 3 Days #18 tab PRN Reason: Pain No Action Fluticasone Nasal [place] [Flonase Nasal [place]] 2 spray EA NOSTRIL DAILY Albuterol Inhaler (Mhu) [Ventolin Hfa Inhaler (Mhu)] 1 - 2 puff INHALATION RT-Q4H PRN PRN Reason: Cough Folic Acid 1 mg PO DAILY #30 tablet Escitalopram [Lexapro] 20 mg PO QAM methocarbamoL [Robaxin] 500 mg PO HS PRN PRN Reason: Pain Metoprolol Succinate (ER) [Toprol XL] 25 mg PO QAM busPIRone HCL [Buspar] 7.5 mg PO HS PRN PRN Reason: Anxiety glipiZIDE [Glucotrol] 10 mg PO AC-BRKFST L.acidoph,Paracasei, B.lactis [Probiotic] 1 each PO DAILY Pantoprazole Sodium [Protonix] 20 mg PO BID Budesonide/Formoterol Fumarate [Symbicort 160-4.5 Mcg Inhaler] 2 puff INHALATION BID Discharge Medication List Albuterol Inhaler (Mhu) [Ventolin Hfa Inhaler (Mhu)] 1 - 2 puff INHALATION RT- Q4H PRN 02/03/18 [History] Fluticasone Nasal [place] [Flonase Nasal [place]] 2 spray EA NOSTRIL DAILY 02/03/18 [History] Folic Acid 1 mg PO DAILY #30 tablet 02/11/18 [Rx] Escitalopram [Lexapro] 20 mg PO QAM 05/26/18 [History] methocarbamoL [Robaxin] 500 mg PO HS PRN 05/26/18 [History] Metoprolol Succinate (ER) [Toprol XL] 25 mg PO QAM 02/15/19 [History] busPIRone HCL [Buspar] 7.5 mg PO HS PRN 02/15/19 [History] L.acidoph,Paracasei, B.lactis [Probiotic] 1 each PO DAILY 05/30/20 [History] Pantoprazole Sodium [Protonix] 20 mg PO BID 05/30/20 [History] glipiZIDE [Glucotrol] 10 mg PO AC-BRKFST 05/30/20 [History] Budesonide/Formoterol Fumarate [Symbicort 160-4.5 Mcg Inhaler] 2 puff INHALATION BID 08/10/20 [History] Sulfamethox-Tmp 800-160Mg [Bactrim DS 800-160 mg] 1 tab PO Q12HR #14 tab 08/18/20 [Rx] traMADol HCL [Ultram] 100 mg PO TID PRN 3 Days #21 tab 08/18/20 [Rx] Docusate [Colace] 100 mg PO BID #20 capsule 08/19/20 [Rx] oxyCODONE HCL [OxyIR] 5 mg PO Q4H PRN 3 Days #18 tab 08/19/20 [Rx] Follow up Appointment(s)/Referral(s): [facility], [NON-STAFF] - Heath Goldsmith MD [STAFF PHYSICIAN] - 08/22/20 2:00 pm Discharge Disposition: HOME SELF-CARE
== END 2020-08-19 14:15 | disposition home health service (06) | DRG 330 ==
LOC: OR 06:37 → 4SSUR 10:24 → 5NMEDONC 13:06
PROVIDERS: ADMIT Surgery; ATTEND Surgery
PROC: 0WQF0ZZ Repair Abdominal Wall, Open Approach (ICD-10-PCS; principal; 2020-08-14 08:25)
PROC: 0DB80ZZ Excision of Small Intestine, Open Approach (ICD-10-PCS; principal; 2020-08-14 08:25)
PROC: 0DNW0ZZ Release Peritoneum, Open Approach (ICD-10-PCS; principal; 2020-08-14 08:25)
DX: K43.0 Incisional hernia with obstruction, without gangrene (principal); T81.41XA Infection following a procedure, superficial incisional surgical site, initial encounter; K76.0 Fatty (change of) liver, not elsewhere classified; J44.9 Chronic obstructive pulmonary disease, unspecified; E11.9 Type 2 diabetes mellitus without complications; K66.0 Peritoneal adhesions (postprocedural) (postinfection); E78.5 Hyperlipidemia, unspecified; F17.200 Nicotine dependence, unspecified, uncomplicated; I10 Essential (primary) hypertension; F32.9 Major depressive disorder, single episode, unspecified; F41.9 Anxiety disorder, unspecified; G89.29 Other chronic pain; H40.9 Unspecified glaucoma; K21.9 Gastro-esophageal reflux disease without esophagitis; M54.9 Dorsalgia, unspecified; R79.89 Other specified abnormal findings of blood chemistry; K57.90 Diverticulosis of intestine, part unspecified, without perforation or abscess without bleeding; Z79.51 Long term (current) use of inhaled steroids; Z79.84 Long term (current) use of oral hypoglycemic drugs; Z79.899 Other long term (current) drug therapy; Z90.49 Acquired absence of other specified parts of digestive tract; Z98.890 Other specified postprocedural states; Z87.19 Personal history of other diseases of the digestive system; Z87.898 Personal history of other specified conditions; Z90.89 Acquired absence of other organs; Z90.721 Acquired absence of ovaries, unilateral; Z82.49 Family history of ischemic heart disease and other diseases of the circulatory system; Z83.3 Family history of diabetes mellitus
CPT/HCPCS: 80048; 80051; 80053; 85025; 87070; 87075; 87077; 87186; 87205; 88307; 94640

== ENCOUNTER 2020-09-25 20:18 | Emergency (ER) | payer MEDICARE, OTHER ==
[2020-09-25 20:27] VITALS: BP 129/71; PULSE 80; RESP 18; TEMP 98.4
[2020-09-25] MEDS ORDERED: diphenhydrAMINE 50 MG/ML 1 ML VIAL IM STA (20:46)
[2020-09-25] MEDS ORDERED: CEPHALEXIN 500MG STARTER PACK 4 CAP BTL PO STA (20:47)
[2020-09-25] MEDS ORDERED: FAMOTIDINE 20 MG TAB PO STA (20:54)
--- NOTE | 2020-09-25 21:05 | ED ---
General Adult HPI - General Chief complaint: Skin/Abscess/Foreign Body Stated complaint: Rash, post op infection Time Seen by Provider: 09/25/20 20:30 Source: patient, RN notes reviewed Mode of arrival: wheelchair Limitations: no limitations - History of Present Illness Initial comments: 60-year-old female with a past medical history of NIDDM, COPD, liver disease, hyperlipidemia, hypertension, GERD presents to the emergency room for a chief complaint of rash. Patient states she has had a rash generalized as well as itching for the past several days. States it started a few days after she was released from the hospital. Patient states it is on her abdomen back buttock and legs. States her doctor started her on 10 mg of Atarax 3 times a day but it does not seem to be helping. Patient also states that there is some drainage from her incision site. Thinks there could be an infection because it is draining. Denies any increased pain since her surgery. Denies fevers or chills.patient denies starting any new medications. She denies any swelling of the lips tongue or throat. Patient has no other complaints at this time including shortness of breath, chest pain, abdominal pain, nausea or vomiting, headache, or visual changes. - Related Data Home Medications Medication Instructions Recorded Confirmed Fluticasone Nasal [place] [Flonase 2 spray EA NOSTRIL DAILY 02/03/18 09/25/20 Nasal [place]] Escitalopram [Lexapro] 20 mg PO QAM 05/26/18 09/25/20 Metoprolol Succinate (ER) [Toprol 25 mg PO QAM 02/15/19 09/25/20 XL] busPIRone HCL [Buspar] 7.5 mg PO HS PRN 02/15/19 08/10/20 L.acidoph,Paracasei, B.lactis 1 tab PO DAILY 05/30/20 09/25/20 [Probiotic] Pantoprazole Sodium [Protonix] 20 mg PO BID 05/30/20 09/25/20 Acetaminophen Tab [Tylenol Tab] 500 mg PO Q6H PRN 09/25/20 09/25/20 Albuterol Sulfate [Ventolin HFA] 2 puff INHALATION RT-QID PRN 09/25/20 09/25/20 Fluticasone Propion/Salmeterol 1 puff INHALATION RT-BID 09/25/20 09/25/20 [[place]ixela 500-50 Inhub] diphenhydrAMINE [Benadryl] 25 mg PO DAILY PRN 09/25/20 09/25/20 glipiZIDE XL [Glucotrol Xl] 10 mg PO DAILY 09/25/20 09/25/20 hydrOXYzine HCL 10 mg PO TID PRN 09/25/20 09/25/20 Previous Rx's Medication Instructions Recorded Folic Acid 1 mg PO DAILY #30 tablet 02/11/18 Cephalexin [Keflex] 500 mg PO Q6HR 7 Days #42 cap 09/25/20 Famotidine [Pepcid] 20 mg PO BID #30 tablet 09/25/20 hydrOXYzine HCL [Atarax] 25 mg PO QID #30 tab 09/25/20 Allergies Allergy/AdvReac Type Severity Reaction Status Date / Time tramadol Allergy Intermediate Itching Verified 09/25/20 20:50 Review of Systems ROS Statement: Those systems with pertinent positive or pertinent negative responses have been documented in the HPI. ROS Other: All systems not noted in ROS Statement are negative. Past Medical History Past Medical History: COPD, Diabetes Mellitus, Eye Disorder, GERD/Reflux, Hyperlipidemia, Hypertension, Liver Disease Additional Past Medical History / Comment(s): Bilateral glaucoma, enlarged liver, ruptured diverticuli w/colostomy January 2018. Colostomy reversal May 2018. Chronic back pain. Hx Shingles,steroids April 2020, chronic diarrhea History of Any Multi-Drug Resistant Organisms: None Reported Past Surgical History: Appendectomy, Bowel Resection, Breast Surgery, Cholecystectomy, Hernia Repair, Tonsillectomy Additional Past Surgical History / Comment(s): Benign biopsy left breast, laser liz eye surgery for glaucoma, hemorrhoidectomy. Reversal of colostomy.removed lt ovary, Past Anesthesia/Blood Transfusion Reactions: No Reported Reaction Additional Past Anesthesia/Blood Transfusion Reaction / Comment(s): no hx blood transfusion Past Psychological History: Anxiety, Depression Smoking Status: Current every day smoker Past Alcohol Use History: Daily Past Drug Use History: Marijuana - Past Family History Father Family Medical History: Coronary Artery Disease (CAD), Diabetes Mellitus Additional Family Medical History / Comment(s): Father in his 60s from diabetic complications. Mother Family Medical History: Coronary Artery Disease (CAD), Diabetes Mellitus, Myocardial Infarction ([place]) Additional Family Medical History / Comment(s): Mother from a [place] at the age of 62 yrs. General Exam Limitations: no limitations General appearance: alert, in no apparent distress Head exam: Present: atraumatic Eye exam: Present: normal appearance, PERRL, EOMI ENT exam: Present: normal exam, mucous membranes moist Neck exam: Present: normal inspection, full ROM. Absent: tenderness Respiratory exam: Present: normal lung sounds bilaterally. Absent: respiratory distress Cardiovascular Exam: Present: regular rate, normal rhythm, normal heart sounds GI/Abdominal exam: Present: soft, tenderness (Minimal generalized abdominal tenderness to be expected with postop pain, no significant point tenderness. ), normal bowel sounds, other (Patient has a small 1 cm area of dehiscence on the inferior area of scar. Serous drainage from the area. No abscess palpated. ). Absent: distended, guarding, rebound, rigid Neurological exam: Present: alert Skin exam: Present: warm, dry, intact, normal color, rash (patient has slightly raised erythematous rash on the abdomen chest and back as well as the upper thighs) Course Vital Signs 09/25/20 20:21 Temperature 98.4 F Pulse Rate 80 Respiratory 18 Rate Blood Pressure 129/71 O2 Sat by Pulse 93 L Oximetry Medical Decision Making - Medical Decision Making Vitals are stable, patient is well-appearing. Patient's or friction of Atarax was increased and she was started on Pepcid as well. Patient was not started on steroids given risk of decreased wound healing and recent surgery. I did evaluate the dehiscence and I do not see any evidence of infection. No abscess. No purulent material expelled. No significant tenderness of the abdomen. However patient was started on Keflex out of precaution. She will be seeing her surgeon tomorrow at her scheduled follow-up appointment. She will return here for any worsening symptoms. Disposition Clinical Impression: Wound dehiscence, Rash Disposition: HOME SELF-CARE Condition: Fair Instructions (If sedation given, give patient instructions): Acute Rash (ED), Wound Dehiscence (ED) Additional Instructions: Please take medications as directed. Follow-up with your doctor tomorrow at your scheduled appointment. Return to the emergency room for any worsening symptoms such as fevers or worsening pain Prescriptions: hydrOXYzine HCL [Atarax] 25 mg PO QID #30 tab Cephalexin [Keflex] 500 mg PO Q6HR 7 Days #42 cap Famotidine [Pepcid] 20 mg PO BID #30 tablet Is patient prescribed a controlled substance at d/c from ED?: No Referrals: Sarah Mendez MD [Primary Care Provider] - 1-2 days Time of Disposition: 21:02
== END 2020-09-25 21:20 | disposition home or self-care (01) ==
LOC: EC 20:18
DX: T81.30XA Disruption of wound, unspecified, initial encounter (principal); R21 Rash and other nonspecific skin eruption; J44.9 Chronic obstructive pulmonary disease, unspecified; E11.9 Type 2 diabetes mellitus without complications; K21.9 Gastro-esophageal reflux disease without esophagitis; I10 Essential (primary) hypertension; E78.5 Hyperlipidemia, unspecified; E11.39 Type 2 diabetes mellitus with other diabetic ophthalmic complication; H42 Glaucoma in diseases classified elsewhere; F41.9 Anxiety disorder, unspecified; F32.9 Major depressive disorder, single episode, unspecified; F17.200 Nicotine dependence, unspecified, uncomplicated; Z79.899 Other long term (current) drug therapy; Z79.51 Long term (current) use of inhaled steroids; Z79.84 Long term (current) use of oral hypoglycemic drugs; Z88.5 Allergy status to narcotic agent
CPT/HCPCS: 99282 ×2; 96372 ×2; J1200

== ENCOUNTER 2020-10-31 13:11 | Inpatient (IN) | payer MEDICARE, OTHER ==
[2020-10-31 15:02] LABS: Basophils % (A) 1 %; Eosinophils # (A) 0.5 k/uL (0-0.7); Eosinophils % (A) 7 %; HCT 43.9 % (34.0-46.0); Lymphocytes % (A) 28 %; MCH 31.9 pg (25.0-35.0); MCHC 34.3 g/dL (31.0-37.0); Mean Platelet Volume 7.7; Monocytes # (A) 0.4 k/uL (0-1.0); Monocytes % (A) 6 %; Neutrophils % (A) 57 %; Platelet Count 224 k/uL (150-450); RBC 4.72 m/uL (3.80-5.40); RDW 14.1 % (11.5-15.5)
[2020-10-31 15:14] LABS: ALT 33 U/L (4-34); AST 42 U/L (14-36); African American GFR (CKD) >90 (>60 ml/min/1.73 sqM); Albumin 4.1 g/dL (3.5-5.0); Alkaline Phosphatase 78 U/L (38-126); Anion Gap 7 mmol/L; Blood Urea Nitrogen 10 mg/dL (7-17); Calcium 9.8 mg/dL (8.4-10.2); Carbon Dioxide 27 mmol/L (22-30); Chloride 104 mmol/L (98-107); Glucose 150 mg/dL (74-99); Non-African American GFR(CKD) >90 (>60 ml/min/1.73 sqM); Potassium 4.4 mmol/L (3.5-5.1); Sodium 138 mmol/L (137-145); Total Bilirubin 0.8 mg/dL (0.2-1.3); Total Protein 6.8 g/dL (6.3-8.2)
--- NOTE | 2020-10-31 15:42 | ED ---
Recheck HPI - General Chief Complaint: Recheck/Abnormal Lab/Rx Stated Complaint: post op infection Time Seen by Provider: 10/31/20 14:22 Source: patient Mode of arrival: wheelchair Limitations: no limitations - History of Present Illness Initial Comments: 60-year-old female with multiple abdominal surgeries presents to the emergency department with a chief complaint of discharge at the incision site. States the most recent abdominal surgery was on August 2020. States following the procedure, she was completely symptomatically but has not developed some discharge near the incision site inferior to the umbilicus. Patient reports today she opened up her abdominal binder and noticed there was some white/pink discharge. Patient reports she also noticed some surrounding erythema near the incision site. Reports tenderness to the touch. Denies any nausea vomiting diarrhea fevers or chills. Denies any urinary or vaginal symptoms. States that that region was repaired multiple times after the initial bowel resection. - Related Data Home Medications Medication Instructions Recorded Confirmed Fluticasone Nasal [place] [Flonase 2 spray EA NOSTRIL DAILY 02/03/18 09/25/20 Nasal [place]] Escitalopram [Lexapro] 20 mg PO QAM 05/26/18 09/25/20 Metoprolol Succinate (ER) [Toprol 25 mg PO QAM 02/15/19 09/25/20 XL] busPIRone HCL [Buspar] 7.5 mg PO TID PRN 02/15/19 09/25/20 L.acidoph,Paracasei, B.lactis 1 tab PO DAILY 05/30/20 09/25/20 [Probiotic] Pantoprazole Sodium [Protonix] 20 mg PO BID 05/30/20 09/25/20 Acetaminophen Tab [Tylenol Tab] 500 mg PO Q6H PRN 09/25/20 09/25/20 Albuterol Sulfate [Ventolin HFA] 2 puff INHALATION RT-QID PRN 09/25/20 09/25/20 Fluticasone Propion/Salmeterol 1 puff INHALATION RT-BID 09/25/20 09/25/20 [[place]ela 500-50 Inhub] diphenhydrAMINE [Benadryl] 25 mg PO DAILY PRN 09/25/20 09/25/20 glipiZIDE XL [Glucotrol Xl] 10 mg PO DAILY 09/25/20 09/25/20 hydrOXYzine HCL 10 mg PO TID PRN 09/25/20 09/25/20 Previous Rx's Medication Instructions Recorded Folic Acid 1 mg PO DAILY #30 tablet 02/11/18 Cephalexin [Keflex] 500 mg PO Q6HR 7 Days #42 cap 09/25/20 Famotidine [Pepcid] 20 mg PO BID #30 tablet 09/25/20 hydrOXYzine HCL [Atarax] 25 mg PO QID #30 tab 09/25/20 Allergies Allergy/AdvReac Type Severity Reaction Status Date / Time tramadol Allergy Intermediate Itching Verified 10/31/20 13:43 Review of Systems ROS Statement: Those systems with pertinent positive or pertinent negative responses have been documented in the HPI. ROS Other: All systems not noted in ROS Statement are negative. Past Medical History Past Medical History: COPD, Diabetes Mellitus, Eye Disorder, GERD/Reflux, Hyperlipidemia, Hypertension, Liver Disease Additional Past Medical History / Comment(s): Bilateral glaucoma, enlarged liver, ruptured diverticuli w/colostomy January 2018. Colostomy reversal May 2018. Chronic back pain. Hx Shingles,steroids April 2020, chronic diarrhea History of Any Multi-Drug Resistant Organisms: None Reported Past Surgical History: Appendectomy, Bowel Resection, Breast Surgery, Cholecystectomy, Hernia Repair, Tonsillectomy Additional Past Surgical History / Comment(s): Benign biopsy left breast, laser liz eye surgery for glaucoma, hemorrhoidectomy. Reversal of colostomy.removed lt ovary, Past Anesthesia/Blood Transfusion Reactions: No Reported Reaction Additional Past Anesthesia/Blood Transfusion Reaction / Comment(s): no hx blood transfusion Past Psychological History: Anxiety, Depression Smoking Status: Current every day smoker Past Alcohol Use History: Daily Past Drug Use History: Marijuana - Past Family History Father Family Medical History: Coronary Artery Disease (CAD), Diabetes Mellitus Additional Family Medical History / Comment(s): Father in his 60s from diabetic complications. Mother Family Medical History: Coronary Artery Disease (CAD), Diabetes Mellitus, Myoc ardial Infarction ([place]) Additional Family Medical History / Comment(s): Mother from a [place] at the age of 62 yrs. General Exam Limitations: no limitations General appearance: alert, in no apparent distress, obese Head exam: Present: atraumatic, normocephalic, normal inspection Eye exam: Present: normal appearance, PERRL, EOMI Pupils: Present: normal accommodation ENT exam: Present: normal exam, normal oropharynx, mucous membranes moist, TM's normal bilaterally, normal external ear exam Neck exam: Present: normal inspection, full ROM. Absent: tenderness Respiratory exam: Present: normal lung sounds bilaterally. Absent: respiratory distress Cardiovascular Exam: Present: regular rate, normal rhythm, normal heart sounds GI/Abdominal exam: Present: soft, tenderness (Tenderness near the incision sites inferior to the umbilicus. There is mild bloody discharge. Erythematous changes near the incision site), normal bowel sounds. Absent: distended, guarding, rebound, rigid Extremities exam: Present: normal inspection, full ROM, normal capillary refill. Absent: tenderness, pedal edema, joint swelling Back exam: Present: normal inspection, full ROM. Absent: tenderness, CVA tenderness (R), CVA tenderness (L) Neurological exam: Present: alert, oriented X3 Psychiatric exam: Present: normal affect, normal mood Skin exam: Present: warm, dry, intact, normal color Course Vital Signs 10/31/20 10/31/20 13:43 14:14 Temperature 98.9 F 99.2 F Pulse Rate 69 Respiratory 16 Rate Blood Pressure 178/99 O2 Sat by Pulse 92 L Oximetry Medical Decision Making - Medical Decision Making 58-year-old female presents to the emergency department with a chief complaint of discharge from the incision site. On physical examination, there is light red discharge at this is site with surrounding cellulitic skin changes. CBC CMP unremarkable. CT of abdomen and pelvis reveals a superficial phlegmon. There is also an abdominal wall abscess at this is site. Patient will be started on vancomycin. Case discussed with Dr. Martinez. Admitting physician is Dr. Painter General surgery consult - Lab Data Result diagrams: 10/31/20 14:47 10/31/20 14:47 Lab Results 10/31/20 10/31/20 Range/Units 14:47 14:47 WBC 7.0 (3.8-10.6) k/uL RBC 4.72 (3.80-5.40) m/uL Hgb 15.0 (11.4-16.0) gm/dL Hct 43.9 (34.0-46.0) % MCV 93.0 (80.0-100.0) fL MCH 31.9 (25.0-35.0) pg MCHC 34.3 (31.0-37.0) g/dL RDW 14.1 (11.5-15.5) % Plt Count 224 (150-450) k/uL MPV 7.7 Neutrophils % 57 % Lymphocytes % 28 % Monocytes % 6 % Eosinophils % 7 % Basophils % 1 % Neutrophils # 4.0 (1.3-7.7) k/uL Lymphocytes # 2.0 (1.0-4.8) k/uL Monocytes # 0.4 (0-1.0) k/uL Eosinophils # 0.5 (0-0.7) k/uL Basophils # 0.0 (0-0.2) k/uL Sodium 138 (137-145) mmol/L Potassium 4.4 (3.5-5.1) mmol/L Chloride 104 (98-107) mmol/L Carbon Dioxide 27 (22-30) mmol/L Anion Gap 7 mmol/L BUN 10 (7-17) mg/dL Creatinine 0.60 (0.52-1.04) mg/dL Est GFR (CKD-EPI)AfAm >90 (>60 ml/min/1.73 sqM) Est GFR (CKD-EPI)NonAf >90 (>60 ml/min/1.73 sqM) Glucose 150 H (74-99) mg/dL Calcium 9.8 (8.4-10.2) mg/dL Total Bilirubin 0.8 (0.2-1.3) mg/dL AST 42 H (14-36) U/L ALT 33 (4-34) U/L Alkaline Phosphatase 78 (38-126) U/L Total Protein 6.8 (6.3-8.2) g/dL Albumin 4.1 (3.5-5.0) g/dL Disposition Clinical Impression: Abdominal wall abscess at site of surgical wound, Phlegmon Disposition: ADMITTED IP TO THIS HOSP Condition: Good Instructions (If sedation given, give patient instructions): Abscess (ED) Is patient prescribed a controlled substance at d/c from ED?: No Referrals: Sarah Mendez MD [Primary Care Provider] - 1-2 days Time of Disposition: 17:05
--- NOTE | 2020-10-31 16:10 | CT ---
EXAMINATION TYPE: CT abdomen pelvis w con DATE OF EXAM: 10/31/2020 COMPARISON: CT 02/25/2020 HISTORY: Ventral hernia incision site discharge. CT DLP: 1268.2 mGycm Automated exposure control for dose reduction was used. TECHNIQUE: Helical acquisition of images from the lung bases through the pelvis have been completed. CONTRAST: Performed without Oral Contrast and with IV Contrast, patient injected with 100 mL of Isovue M300. FINDINGS: Posterior diaphragmatic hernia noted on the right containing fat. Within the subcutaneous f at in the midline and superficial to the rectus abdominous muscle on the left with possible involveme nt of the superficial aspect of the muscle there is a focal area of inflammatory change, there is ashley e lucency present, area is adherent to the anterior abdominal wall and measures approximately 2.7 cm in transverse dimension and shows some air lucency which extends towards the skin surface near the le song the umbilicus. LUNG BASES: No significant abnormality is appreciated. AORTA: No significant abnormality is appreciated. LIVER/GB: Liver is enlarged and shows low-attenuation likely due to hepatic steatosis, gallbladder is absent PANCREAS: No significant abnormality is seen. SPLEEN: No significant abnormality is seen. ADRENALS: Left adrenal nodule is stable and measures 13 mm KIDNEYS: No significant abnormality is seen. REPRODUCTIVE ORGANS: No significant abnormality is seen BOWEL: Postop changes noted to the bowel in the left lower quadrant and pelvis. FREE AIR: No Free Air visible. ASCITES: None visible. PELVIC ADENOPATHY: None visualized. RETROPERITONEAL ADENOPATHY: No Retroperitoneal Adenopathy visible. URINARY BLADDER: No significant abnormality is seen. OSSEOUS STRUCTURES: Degenerative disc disease and facet arthropathy noted in the visualized spine, a nterior aspect of L3 shows a wedge deformity as does the T12 vertebral body, suspect a transitional v ertebral body at L5 IMPRESSION: SUPERFICIAL PHLEGMON, ABDOMINAL WALL ABSCESS AT THE LEVEL OF THE ANTERIOR ASPECT OF THE ANTERIOR ABDO MIGUE WALL DESCRIBED. HEPATOMEGALY AND HEPATIC STEATOSIS. INDETERMINATE LEFT ADRENAL NODULE IS STA BLE POSTOP CHANGES.
[2020-10-31] MEDS ORDERED: NALOXONE 0.4 MG/ML 1 ML VIAL IV PRN (16:48)
[2020-10-31] MEDS ORDERED: VANCOMYCIN IV PER PHARMACY 1 EACH MISC MISCELLANE PRN (16:50)
[2020-10-31] MEDS ORDERED: IBUPROFEN 400 MG TAB PO PRN (16:55)
[2020-10-31] MEDS ORDERED: traMADol 50 MG TAB PO PRN (16:55)
[2020-10-31] MEDS ORDERED: ACETAMINOPHEN TAB 325 MG TAB PO PRN (16:55)
[2020-10-31] MEDS ORDERED: MORPHINE SULFATE 4 MG/ML SYRINGE IV PRN (16:55)
[2020-10-31] MEDS ORDERED: NICOTINE 21MG/24HR PATCH TRANSDERM STA (17:14)
[2020-10-31] MEDS ORDERED: VANCOMYCIN 1,750 MG in SODIUM CHLORIDE 0.9% 500 ML 500 ML IVPB ONE (17:30)
[2020-10-31] MEDS ORDERED: LORazepam 2 MG/ML INJ IV STA (17:36)
[2020-10-31] MEDS: SODIUM CHLORIDE 0.9% 1,000 ML IV SCH (17:52)
[2020-10-31] MEDS ORDERED: hydrOXYzine HCL 10 MG TAB PO PRN (18:46)
[2020-10-31] MEDS ORDERED: ACETAMINOPHEN TAB 500 MG TAB PO PRN (18:46)
[2020-10-31] MEDS ORDERED: hydrOXYzine HCL 25 MG TAB PO PRN (18:46)
[2020-10-31] MEDS: diphenhydrAMINE 25 MG CAP PO PRN (20:14)
[2020-10-31] MEDS: PIPERACILLIN-TAZOBACTAM 3.375 GM in SODIUM CHLORIDE 0.9% 100 ML IVPB SCH (20:15)
[2020-10-31] MEDS: HYDROcodone/APAP 5-325MG 1 EACH TAB PO PRN (22:05)
[2020-10-31] MEDS: METOPROLOL TARTRATE 50 MG TAB PO SCH (22:06)
[2020-10-31] MEDS: PANTOPRAZOLE 40 MG TABLET PO SCH (22:06)
[2020-10-31 22:14] LABS: Glucose,Whole Blood 115 mg/dL (75-99)
[2020-10-31] MEDS: busPIRone HCl 5 MG TAB PO PRN (22:31)
[2020-10-31] MEDS: glipiZIDE 5 MG TAB PO SCH (22:32)
[2020-11-01] MEDS: SYMBICORT 160-4.5 MCG INHALER INHALATION SCH ×3 (04:31→21:12)
[2020-11-01] MEDS: PIPERACILLIN-TAZOBACTAM 3.375 GM in SODIUM CHLORIDE 0.9% 100 ML IVPB SCH ×3 (05:00→20:32)
[2020-11-01] MEDS: VANCOMYCIN 1,500 MG in SODIUM CHLORIDE 0.9% 250 ML IVPB SCH ×2 (05:01→13:44)
[2020-11-01 07:18] LABS: Glucose,Whole Blood 131 mg/dL (75-99)
[2020-11-01] MEDS: SODIUM CHLORIDE 0.9% 1,000 ML IV SCH ×2 (07:34→20:32)
[2020-11-01] MEDS: METOPROLOL TARTRATE 50 MG TAB PO SCH ×2 (07:38→20:32)
[2020-11-01] MEDS: ESCITALOPRAM 20 MG TAB PO SCH (07:38)
[2020-11-01] MEDS: lisinopriL 10 MG TAB PO SCH (07:38)
[2020-11-01 09:20] LABS: Basophils # (A) 0.04 X 10*3/uL (0.00-0.10); Basophils % (A) 0.8 %; Eosinophils # (A) 0.37 X 10*3/uL (0.04-0.35); Eosinophils % (A) 7.3 %; HCT 39.9 % (37.2-46.3); HGB 12.9 g/dL (12.0-15.0); Lymphocytes # (A) 1.53 X 10*3/uL (0.90-5.00); MCH 30.9 pg (27.0-32.0); MCHC 32.3 g/dL (32.0-37.0); MCV 95.5 fL (80.0-97.0); Mean Platelet Volume 10.9 fL (9.5-12.2); Monocytes % (A) 9.8 %; Neutrophils # (A) 2.64 X 10*3/uL (1.80-7.70); Neutrophils % (A) 51.7 %; Platelet Count 208 X 10*3/uL (140-440); RBC 4.18 X 10*6/uL (4.10-5.20); RDW 14.6 % (11.5-14.5)
[2020-11-01 10:33] LABS: African American GFR (CKD) 107.6 (60.0-200.0); Albumin 3.7 g/dL (3.80-4.90); Albumin/Globulin Ratio 2.18 (1.60-3.17); BUN/Creat Ratio 14.29 Ratio (12.00-20.00); Calcium 8.8 mg/dL (8.7-10.3); Globulin 1.7 g/dL (1.6-3.3); Non-African American GFR(CKD) 92.9 (60.0-200.0); Potassium 3.7 mmol/L (3.5-5.5); Total Bilirubin 0.7 mg/dL (0.2-1.2); Total Protein 5.4 g/dL (6.2-8.2)
[2020-11-01 11:44] LABS: Glucose,Whole Blood 164 mg/dL (75-99)
[2020-11-01] MEDS: ENOXAPARIN 40 MG/0.4 ML SYRINGE SQ SCH (11:44)
[2020-11-01] MEDS: FLUTICASONE 50MCG/SPRAY NASAL 16GM EA NOSTRIL SCH (11:50)
[2020-11-01] MEDS: glipiZIDE 5 MG TAB PO SCH ×2 (11:50→20:35)
[2020-11-01] MEDS: PANTOPRAZOLE 40 MG TABLET PO SCH (11:51)
[2020-11-01] MEDS: LACTOBACILLUS ACIDOPH & BULGAR 1 EACH PACKET PO SCH (11:51)
[2020-11-01] MEDS: FOLIC ACID 1 MG TAB PO SCH (11:51)
--- NOTE | 2020-11-01 14:22 | P.GSCN ---
History of Present Illness Consult date: 11/01/20 History of present illness: CHIEF COMPLAINT: Infection at incision site HISTORY OF PRESENT ILLNESS: This is a 60-year-old female with a known past medical history of diabetes and COPD. She had an incisional hernia repair with small bowel resection and lysis of adhesions on 08/14/[address] Goldsmith. She's also had prior history of perforated diverticulitis requiring colostomy and had colostomy reversed in 2018. Patient presented to the emergency room with complaints of drainage from her incision site from her incisional hernia repair on 08/14/2020. She noticed some erythema around the incision site and that is becoming tender to touch. She denies any fever, chills or sweats. Denies any nausea or vomiting. She had a computed tomography scan of the ab domen and pelvis that shows superficial phlegmon, abdominal wall abscess the level of the anterior aspect of the anterior abdominal wall measuring about 2.7 cm. Surgical consult placed regarding abdominal wall abscess. PAST MEDICAL HISTORY: See list. PAST SURGICAL HISTORY: See list. MEDICATIONS: See list. ALLERGIES: See list. SOCIAL HISTORY: No illicit drug use. REVIEW OF SYSTEMS: CONSTITUTIONAL: Denies fever or chills. HEENT: Denies blurred vision, vision changes, or eye pain. Denies hemoptysis CARDIOVASCULAR: Denies chest pain or pressure. RESPIRATORY: No shortness of breath. GASTROINTESTINAL: See HPI for pertinent findings HEMATOLOGIC: Denies bleeding disorders. GENITOURINARY: Denies any blood in urine or increased urinary frequency. SKIN: Denies pruitis. Denies rash. PHYSICAL EXAM: VITAL SIGNS: Reviewed GENERAL: Well-developed in no acute distress. HEENT: No sclera icterus. Extraocular movements grossly intact. Moist buccal mucosa. Head is atraumatic, normocephalic. No nasal drainage. ABDOMEN: Soft. Nondistended. Incision site tenderness. Mild erythema and fluctuance noted. Minimal drainage. NEUROLOGIC: Alert and oriented. Cranial nerves II through XII grossly intact. LABORATORY DATA: WBC 5.10 hemoglobin 12.9 Glucose 164 creatinine 0.7 IMAGING: computed tomography scan of the abdomen and pelvis that shows superficial phlegmon, abdominal wall abscess the level of the anterior aspect of the anterior abdominal wall measuring about 2.7 cm. ASSESSMENT: 1. Abdominal wall abscess located at patient's surgical incision. Patient is status post bedside incision and drainage by Dr. Goldsmith. Patient had very minimal drainage to be cultured 2. Patient is status post incisional hernia repair with small bowel resection and lysis of adhesions on 08/14/2020 3. Diabetes mellitus, Type 2 PLAN: -Continue antibiotics -Follow up on culture results -Recommend wet-to-dry dressing changes daily -Consult infectious disease -Start carbohydrate consistent diet Thank you for this consultation Physician Blackjack Pit Boss note has been reviewed by physician. Signing provider agrees with the documented findings, assessment, and plan of care. Past Medical History Past Medical History: COPD, Diabetes Mellitus, Eye Disorder, GERD/Reflux, Hyperlipidemia, Hypertension, Liver Disease Additional Past Medical History / Comment(s): Bilateral glaucoma, enlarged live r, ruptured diverticuli w/colostomy January 2018. Colostomy reversal May 2018. Chronic back pain. Hx Shingles,steroids April 2020, chronic diarrhea History of Any Multi-Drug Resistant Organisms: None Reported Past Surgical History: Appendectomy, Bowel Resection, Breast Surgery, Cholecystectomy, Hernia Repair, Tonsillectomy Additional Past Surgical History / Comment(s): Benign biopsy left breast, laser liz eye surgery for glaucoma, hemorrhoidectomy. Reversal of colostomy.removed lt ovary, Past Anesthesia/Blood Transfusion Reactions: No Reported Reaction Additional Past Anesthesia/Blood Transfusion Reaction / Comm: no hx blood transfusion Past Psychological History: Anxiety, Depression Additional Psychological History / Comment(s): She resides with her spouse who is bedridden. Her spouse has a caregiver and spouse also is his caregiver. Smoking Status: Current every day smoker Past Alcohol Use History: Daily Additional Past Alcohol Use History / Comment(s): Pt started smoking in 1972 2-3 PPD, currently down to 1- 1/2 PPD. Drinks a glass of vodka and gatorade nightly. Past Drug Use History: Marijuana Additional Drug Use History / Comment(s): Pt states she smokes marijuana on occasion. - Past Family History Father Family Medical History: Coronary Artery Disease (CAD), Diabetes Mellitus Additional Family Medical History / Comment(s): Father in his 60s from diabetic complications. Mother Family Medical History: Coronary Artery Disease (CAD), Diabetes Mellitus, M yocardial Infarction ([place]) Additional Family Medical History / Comment(s): Mother from a HI at the age of 62 yrs. Medications and Allergies Home Medications Medication Instructions Recorded Confirmed Type Fluticasone Nasal [place] [Flonase 2 spray EA NOSTRIL DAILY 02/03/18 10/31/20 History Nasal [place]] Folic Acid 1 mg PO DAILY #30 tablet 02/11/18 10/31/20 Rx Escitalopram [Lexapro] 20 mg PO QAM 05/26/18 10/31/20 History L.acidoph,Paracasei, B.lactis 1 tab PO DAILY 05/30/20 10/31/20 History [Probiotic] Pantoprazole Sodium [Protonix] 20 mg PO BID 05/30/20 10/31/20 History Acetaminophen Tab [Tylenol Tab] 500 mg PO Q6H PRN 09/25/20 10/31/20 History Albuterol Sulfate [Ventolin HFA] 2 puff INHALATION RT-QID PRN 09/25/20 10/31/20 History Fluticasone Propion/Salmeterol 1 puff INHALATION RT-BID 09/25/20 10/31/20 History [Wixela 500-50 Inhub] diphenhydrAMINE [Benadryl] 25 mg PO DAILY PRN 09/25/20 10/31/20 History hydrOXYzine HCL 10 mg PO TID PRN 09/25/20 10/31/20 History Lisinopril [Zestril] 10 mg PO DAILY 10/31/20 10/31/20 History Metoprolol Tartrate [Lopressor] 50 mg PO BID 10/31/20 10/31/20 History busPIRone HCL 15 mg PO BID PRN 10/31/20 10/31/20 History glipiZIDE [Glucotrol] 5 mg PO BID 10/31/20 10/31/20 History hydrOXYzine HCL [Atarax] 25 mg PO QID PRN 10/31/20 10/31/20 History Allergies Allergy/AdvReac Type Severity Reaction Status Date / Time tramadol Allergy Intermediate Itching Verified 10/31/20 17:19 Surgical - Exam Vital Signs Temp Pulse Resp BP Pulse Ox 98.9 F 69 16 178/99 92 L 10/31/20 13:43 10/31/20 13:43 10/31/20 13:43 10/31/20 13:43 10/31/20 13:43 Results - Labs 11/01/20 04:35 11/01/20 04:35 Abnormal Lab Results - Last 24 Hours (Table) 10/31/20 10/31/20 11/01/20 Range/Units 14:47 22:09 04:35 RDW (11.5-14.5) % Eosinophils # (0.04-0.35) X 10*3/uL Glucose 150 H 123 H (74-99) mg/dL POC Glucose (mg/dL) 115 H (75-99) mg/dL AST 42 H (14-36) U/L Total Protein 5.4 L (6.2-8.2) g/dL Albumin 3.70 L (3.80-4.90) g/dL 11/01/20 11/01/20 11/01/20 Range/Units 04:35 07:17 11:42 RDW 14.6 H (11.5-14.5) % Eosinophils # 0.37 H (0.04-0.35) X 10*3/uL Glucose (74-99) mg/dL POC Glucose (mg/dL) 131 H 164 H (75-99) mg/dL AST (14-36) U/L Total Protein (6.2-8.2) g/dL Albumin (3.80-4.90) g/dL Diabetes panel 10/31/20 11/01/20 Range/Units 14:47 04:35 Sodium 138 142 (137-145) mmol/L Potassium 4.4 3.7 (3.5-5.1) mmol/L Chloride 104 107 (98-107) mmol/L Carbon Dioxide 27 27.0 (22-30) mmol/L BUN 10 10.0 (7-17) mg/dL Creatinine 0.60 0.7 (0.52-1.04) mg/dL Glucose 150 H 123 H (74-99) mg/dL Calcium 9.8 8.8 (8.4-10.2) mg/dL AST 42 H 34 (14-36) U/L ALT 33 27 (4-34) U/L Alkaline Phosphatase 78 69 (38-126) U/L Total Protein 6.8 5.4 L (6.3-8.2) g/dL Albumin 4.1 3.70 L (3.5-5.0) g/dL Calcium panel 10/31/20 11/01/20 Range/Units 14:47 04:35 Calcium 9.8 8.8 (8.4-10.2) mg/dL Albumin 4.1 3.70 L (3.5-5.0) g/dL Pituitary panel 10/31/20 11/01/20 Range/Units 14:47 04:35 Sodium 138 142 (137-145) mmol/L Potassium 4.4 3.7 (3.5-5.1) mmol/L Chloride 104 107 (98-107) mmol/L Carbon Dioxide 27 27.0 (22-30) mmol/L BUN 10 10.0 (7-17) mg/dL Creatinine 0.60 0.7 (0.52-1.04) mg/dL Glucose 150 H 123 H (74-99) mg/dL Calcium 9.8 8.8 (8.4-10.2) mg/dL Adrenal panel 10/31/20 11/01/20 Range/Units 14:47 04:35 Sodium 138 142 (137-145) mmol/L Potassium 4.4 3.7 (3.5-5.1) mmol/L Chloride 104 107 (98-107) mmol/L Carbon Dioxide 27 27.0 (22-30) mmol/L BUN 10 10.0 (7-17) mg/dL Creatinine 0.60 0.7 (0.52-1.04) mg/dL Glucose 150 H 123 H (74-99) mg/dL Calcium 9.8 8.8 (8.4-10.2) mg/dL Total Bilirubin 0.8 0.7 (0.2-1.3) mg/dL AST 42 H 34 (14-36) U/L ALT 33 27 (4-34) U/L Alkaline Phosphatase 78 69 (38-126) U/L Total Protein 6.8 5.4 L (6.3-8.2) g/dL Albumin 4.1 3.70 L (3.5-5.0) g/dL
--- NOTE | 2020-11-01 14:48 | P.OP ---
Date of Procedure: 11/01/20 Preoperative Diagnosis: Subcutaneous abscess Postoperative Diagnosis: Subcutaneous abscess Procedure(s) Performed: Incision and drainage of subcutaneous abscess Anesthesia: local Surgeon: Heath Goldsmith Pathology: none sent Condition: stable Disposition: PACU Description of Procedure: The patient's placed on her bed in supine position. Her skin was prepped and draped usual sterile fashion. The skin was anesthetized 1% local Xylocaine. Using 11 blade the skin over the abscess was incised. There is a small amount of purulent fluid. The abscess cavity measured prostate 1 x 2 cm. The wound was packed with a dry dressing.
[2020-11-01 15:29] LABS: Hemoglobin A1C 7.3 % (4.0-6.0)
[2020-11-01] MEDS: HYDROmorphone 0.5 MG/0.5 ML SYRINGE IVP PRN ×2 (16:13→19:28)
--- NOTE | 2020-11-01 16:56 | P.HPIM ---
History of Present Illness H&P Date: 11/01/20 Roxana Velasquez, 60-year-old female who presented to [facility] emergency room with a chief complaint of discharge from the abdominal wall incision site, patient had multiple abdominal surgeries the most recent one was on August where patient had repair of incisional hernia small bowel resection and lysis of adhesions by Dr. Goldsmith, she was discharged home on 08/19/2020. Patient was evaluated in the emergency room, her vital examination on presentation revealed a temperature of 98.9 pulse 69 respiration 16 blood pressure 178/99 pulse ox 92% on room air, laboratory data revealed a white blood count of 7.0 hemoglobin 15.0 platelet count 224 glucose 150, BUN 10 creatinine 0.6 coronary of iris PCR testing was negative. Patient underwent a computed tomography scan of the abdomen and pelvis with contrast in the emergency room that revealed evidence of a superficial phlegmon and anterior abdominal wall abscess, patient was started on IV antibiotic vancomycin and Zosyn and was admitted to medical floor. Past medical history is significant for history of ruptured diverticuli with colostomy in January 2018, colostomy reversal in May 2018, history of hypertension, history of hyperlipidemia, history of diabetes mellitus, history of COPD, history of depression with anxiety, Past Medical History Past Medical History: COPD, Diabetes Mellitus, Eye Disorder, GERD/Reflux, Hyperlipidemia, Hypertension, Liver Disease Additional Past Medical History / Comment(s): Bilateral glaucoma, enlarged liver, ruptured diverticuli w/colostomy January 2018. Colostomy reversal May 2018. Chronic back pain. Hx Shingles,steroids April 2020, chronic diarrhea History of Any Multi-Drug Resistant Organisms: None Reported Past Surgical History: Appendectomy, Bowel Resection, Breast Surgery, Cholecystectomy, Hernia Repair, Tonsillectomy Additional Past Surgical History / Comment(s): Benign biopsy left breast, laser liz eye surgery for glaucoma, hemorrhoidectomy. Reversal of colostomy.removed lt ovary, Past Anesthesia/Blood Transfusion Reactions: No Reported Reaction Additional Past Anesthesia/Blood Transfusion Reaction / Comment(s): no hx blood transfusion Past Psychological History: Anxiety, Depression Additional Psychological History / Comment(s): She resides with her spouse who is bedridden. Her spouse has a caregiver and spouse also is his caregiver. Smoking Status: Current every day smoker Past Alcohol Use History: Daily Additional Past Alcohol Use History / Comment(s): Pt started smoking in 1972 2-3 PPD, currently down to 1- 1 1/2 PPD. Drinks a glass of vodka and gatorade nightly. Past Drug Use History: Marijuana Additional Drug Use History / Comment(s): Pt states she smokes marijuana on oc casion. - Past Family History Father Family Medical History: Coronary Artery Disease (CAD), Diabetes Mellitus Additional Family Medical History / Comment(s): Father in his 60s from diabetic complications. Mother Family Medical History: Coronary Artery Disease (CAD), Diabetes Mellitus, Myocardial Infarction ([place]) Additional Family Medical History / Comment(s): Mother from a [place] at the age of 62 yrs. Medications and Allergies Home Medications Medication Instructions Recorded Confirmed Type Fluticasone Nasal [place] [Flonase 2 spray EA NOSTRIL DAILY 02/03/18 10/31/20 History Nasal [place]] Folic Acid 1 mg PO DAILY #30 tablet 02/11/18 10/31/20 Rx Escitalopram [Lexapro] 20 mg PO QAM 05/26/18 10/31/20 History L.acidoph,Paracasei, B.lactis 1 tab PO DAILY 05/30/20 10/31/20 History [Probiotic] Pantoprazole Sodium [Protonix] 20 mg PO BID 05/30/20 10/31/20 History Acetaminophen Tab [Tylenol Tab] 500 mg PO Q6H PRN 09/25/20 10/31/20 History Albuterol Sulfate [Ventolin HFA] 2 puff INHALATION RT-QID PRN 09/25/20 10/31/20 History Fluticasone Propion/Salmeterol 1 puff INHALATION RT-BID 09/25/20 10/31/20 History [[place]ela 500-50 Inhub] diphenhydrAMINE [Benadryl] 25 mg PO DAILY PRN 09/25/20 10/31/20 History hydrOXYzine HCL 10 mg PO TID PRN 09/25/20 10/31/20 History Lisinopril [Zestril] 10 mg PO DAILY 10/31/20 10/31/20 History Metoprolol Tartrate [Lopressor] 50 mg PO BID 10/31/20 10/31/20 History busPIRone HCL 15 mg PO BID PRN 10/31/20 10/31/20 History glipiZIDE [Glucotrol] 5 mg PO BID 10/31/20 10/31/20 History hydrOXYzine HCL [Atarax] 25 mg PO QID PRN 10/31/20 10/31/20 History Allergies Allergy/AdvReac Type Severity Reaction Status Date / Time tramadol Allergy Intermediate Itching Verified 10/31/20 17:19 Physical Exam Vitals: Vital Signs Temp Pulse Pulse Pulse Resp BP BP 11/01/20 07:30 97.6 F 67 20 189/74 11/01/20 05:03 98.7 F 66 18 154/78 10/31/20 20:39 98.0 F 82 18 158/70 10/31/20 20:00 97.6 F 71 22 185/83 10/31/20 17:09 98.1 F 62 16 156/77 10/31/20 14:14 99.2 F 10/31/20 13:43 98.9 F 69 16 178/99 Pulse Ox 11/01/20 07:30 93 L 11/01/20 05:03 93 L 10/31/20 20:39 97 10/31/20 20:00 93 L 10/31/20 17:09 96 10/31/20 14:14 10/31/20 13:43 92 L Intake and Output 10/31/20 11/01/20 11/01/20 22:59 06:59 14:59 Other: Voiding Method Toilet Weight 86.183 kg In general patient is alert and oriented 3 in no apparent distress HEENT head normocephalic and atraumatic Neck is supple no JVD no goiter no lymphadenopathy Chest exam reveals crackles in both lung nice mostly on the right no wheezing Cardiac exam reveals regular heart sounds S1 and S2 no gallops no murmurs Abdomen is soft nontender no organomegaly with normal bowel sounds, abdominal wound is almost totally closed there is induration towards the lower third of the abdominal wound with erythema and a small area of oozing purulent material Extremity exam reveals no edema no cyanosis or clubbing Neurological examination reveals no gross focal deficit Results CBC & Chem 7: 11/01/20 04:35 11/01/20 04:35 Labs: Abnormal Lab Results - Last 24 Hours (Table) 10/31/20 10/31/20 11/01/20 Range/Units 14:47 22:09 07:17 Glucose 150 H (74-99) mg/dL POC Glucose (mg/dL) 115 H 131 H (75-99) mg/dL AST 42 H (14-36) U/L Thrombosis Risk Factor Assmnt - Choose All That Apply Each Factor Represents 1 point: Obesity (BMI >25) Each Risk Factor Represents 2 Points: Age 61-74 years Thrombosis Risk Factor Assessment Total Risk Factor Score: 3 Thrombosis Risk Factor Assessment Level: Moderate Risk Assessment and Plan Plan: 1. Anterior abdominal wall phlegmon with abscess, started on IV antibiotic vancomycin and Zosyn, surgical consultation requested for possible drainage. 2. Underlying history of diabetes mellitus, home medications reviewed and reordered, will check hemoglobin A1c, will cover with insulin to sliding scale 3. Underlying history of hypertension 4. Underlying history of hyperlipidemia 5. Underlying history of gastroesophageal reflux disease 6. Underlying history of asthma stable at this time. 7. Underlying history of depression with anxiety disorder. At this time home medications reviewed and reordered Continue with current IV antibiotics until culture results not available Cover was insulin to sliding scale as needed For DVT prophylaxis subcu Lovenox For GI prophylaxis patient is on Protonix Will recheck labs and follow closely in a.m.
[2020-11-01 17:01] LABS: Glucose,Whole Blood 206 mg/dL (75-99)
[2020-11-01 20:00] LABS: Glucose,Whole Blood 144 mg/dL (75-99)
[2020-11-01] MEDS: diphenhydrAMINE 25 MG CAP PO PRN (20:44)
--- NOTE | 2020-11-01 23:50 | CONS ---
CONSULTATION DATE OF SERVICE: 11/01/2020 REASON FOR CONSULTATION: Abdominal wall abscess. HISTORY OF PRESENT ILLNESS: The patient is a 60-year-old female with a past medical history significant for perforated diverticulitis requiring colostomy subsequently reversal. The patient subsequently developed large incisional hernia and the patient did have elective repair of that hernia on August 14, 2020. Postoperatively, the patient did have some swelling and redness with concern for possible seroma. The patient subsequently was discharged home. The patient is now presenting back to the [facility] ER yesterday afternoon for evaluation of increasing drainage from the incision site. The patient described the drainage to be more of a pink to whitish in color. The patient also with some surrounding erythema around the incision site and tenderness to touch. The pain is mostly dull aching, 3 to 4 out of 10 and no radiation. Denies high-grade fever or chills. With these symptoms, the patient was evaluated by the ER physician. On arrival to the ER, the patient was afebrile. The patient did have a normal white count. A CT of abdomen and pelvis was completed which shows superficial abdominal wall abscess at the level of anterior aspect off the abdominal wall. The patient has been evaluated by General surgery and the patient did have a drainage of the subcutaneous abscess at the bedside. Culture has been obtained. The patient was started on vancomycin and Zosyn. Infectious Disease was consulted for further management of antibiotic therapy. REVIEW OF SYSTEMS: Positive points have been mentioned in HPI. Rest of the systems are negative. PAST MEDICAL HISTORY: COPD, diabetes mellitus, gastroesophageal reflux disease, hyperlipidemia, hypertension, perforated diverticulitis. PAST SURGICAL HISTORY: Appendectomy, bowel resection, breast surgery, cholecystectomy and hernia repair. SOCIAL HISTORY: Current everyday smoker. Rarely drinks. Did admit to marijuana use. FAMILY HISTORY: Father history of coronary artery disease. Mother also history of coronary artery disease and diabetes. ALLERGIES: TRAMADOL. MEDICATIONS: The patient is currently on Tylenol, [place], Ventolin, Symbicort, , Benadryl, Lovenox, Lexapro, Folic acid, Glucotrol, Dilaudid, Atarax, Motrin, Lactinex, Zestril, Lopressor, vancomycin pharmacy to dose, and Zosyn. PHYSICAL EXAMINATION: Blood pressure is 164/76, pulse of 72, temperature 97.8. She is 92% on room air. General description: The patient is a middle-aged female lying in bed in no distress. No tachypnea or accessory muscles of respiration use. HEENT: Examination shows no pallor or scleral icterus. Oral mucous membranes dry. NECK: Trachea central. No thyromegaly. LUNGS: Unlabored breathing, decreased intensity in breath sounds. No wheeze. HEART: S1, S2. Regular rate and rhythm. ABDOMEN: Soft, no guarding, no rigidity. Did have a periumbilical wound that has been packed, some blood-streaked drainage. No purulence was noticed. EXTREMITIES: No edema of the feet. NEUROLOGICAL: Patient is awake, alert, oriented x3. [place] and affect normal. LABS: Hemoglobin is 12.2, white count 4.1, BUN of 10, creatinine 0.7. Abdominal cultures currently pending. DIAGNOSTIC IMPRESSION/PLAN: The patient with abdominal wall abscess status post drainage in this patient who did have recent incisional hernia repair complicated by some postop seroma, likely from a gram-positive skin jimbo. Clinically doubt a Gram-negative infection. PLAN: 1. Vancomycin, pharmacy to dose, target of 15 while watching his kidney function closely. 2. Discontinue Zosyn. 3. We will follow on clinical condition and culture to further adjust medication if needed. Thank you for this consultation. Will follow this patient along with you. MMODL / IJN: [id number] /
[2020-11-02] MEDS: VANCOMYCIN 1,500 MG in SODIUM CHLORIDE 0.9% 250 ML IVPB SCH (01:49)
[2020-11-02 07:04] LABS: Glucose,Whole Blood 164 mg/dL (75-99)
[2020-11-02] MEDS: ENOXAPARIN 40 MG/0.4 ML SYRINGE SQ SCH (08:05)
[2020-11-02] MEDS: FLUTICASONE 50MCG/SPRAY NASAL 16GM EA NOSTRIL SCH (08:05)
[2020-11-02] MEDS: PANTOPRAZOLE 40 MG TABLET PO SCH (08:05)
[2020-11-02] MEDS: LACTOBACILLUS ACIDOPH & BULGAR 1 EACH PACKET PO SCH (08:06)
[2020-11-02] MEDS: ESCITALOPRAM 20 MG TAB PO SCH (08:06)
[2020-11-02] MEDS: glipiZIDE 5 MG TAB PO SCH ×2 (08:06→21:21)
[2020-11-02] MEDS: FOLIC ACID 1 MG TAB PO SCH (08:06)
[2020-11-02] MEDS: lisinopriL 10 MG TAB PO SCH (08:06)
[2020-11-02] MEDS: METOPROLOL TARTRATE 50 MG TAB PO SCH ×2 (08:06→21:21)
[2020-11-02] MEDS: ONDANSETRON 4 MG/2 ML VIAL IVP PRN ×2 (08:12→17:27)
[2020-11-02 08:46] LABS: Basophils % (A) 0 %; Eosinophils # (A) 0.4 k/uL (0-0.7); Eosinophils % (A) 5 %; HCT 42.6 % (34.0-46.0); HGB 14.6 gm/dL (11.4-16.0); Lymphocytes # (A) 1.2 k/uL (1.0-4.8); Lymphocytes % (A) 17 %; MCH 32.4 pg (25.0-35.0); MCHC 34.3 g/dL (31.0-37.0); MCV 94.6 fL (80.0-100.0); Mean Platelet Volume 8.2; Monocytes # (A) 0.6 k/uL (0-1.0); Monocytes % (A) 8 %; Neutrophils # (A) 4.8 k/uL (1.3-7.7); Neutrophils % (A) 68 %; Platelet Count 179 k/uL (150-450); RDW 14.4 % (11.5-15.5); WBC 7.1 k/uL (3.8-10.6)
[2020-11-02 08:52] LABS: Chloride 109 mmol/L (98-107)
[2020-11-02 08:54] LABS: ALT 34 U/L (4-34); African American GFR (CKD) 45 (>60 ml/min/1.73 sqM); Albumin/Globulin Ratio 1.4; Anion Gap 9 mmol/L; Blood Urea Nitrogen 11 mg/dL (7-17); Calcium 9.4 mg/dL (8.4-10.2); Carbon Dioxide 21 mmol/L (22-30); Globulin 2.7 g/dL; Glucose 166 mg/dL (74-99); Non-African American GFR(CKD) 39 (>60 ml/min/1.73 sqM); Sodium 139 mmol/L (137-145); Total Bilirubin 1.1 mg/dL (0.2-1.3)
[2020-11-02 08:56] LABS: AST 54 U/L (14-36); Albumin 3.9 g/dL (3.5-5.0); Alkaline Phosphatase 61 U/L (38-126); Potassium 4.6 mmol/L (3.5-5.1); Total Protein 6.6 g/dL (6.3-8.2)
[2020-11-02] MEDS ORDERED: VANCOMYCIN TROUGH DUE 1 EACH MISC MISCELLANE ONE (09:00)
[2020-11-02] MEDS ORDERED: VANCOMYCIN IV PER PHARMACY 1 EACH MISC MISCELLANE PRN (09:10)
[2020-11-02] MEDS: SYMBICORT 160-4.5 MCG INHALER INHALATION SCH ×2 (09:11→19:09)
[2020-11-02] MEDS: ALBUTEROL NEBULIZED 2.5 MG/3 ML INHALATION PRN ×2 (09:11→19:09)
[2020-11-02] MEDS: SODIUM CHLORIDE 0.9% 1,000 ML IV SCH ×2 (09:58→22:21)
[2020-11-02] MEDS ORDERED: lisinopriL 20 MG TAB PO SCH (10:45)
[2020-11-02 10:58] LABS: Glucose,Whole Blood 191 mg/dL (75-99)
[2020-11-02] MEDS ORDERED: lisinopriL 10 MG TAB PO ONE (11:15)
--- NOTE | 2020-11-02 13:36 | P.PN ---
Subjective Progress Note Date: 11/02/20 CHIEF COMPLAINT: Subcutaneous abscess of the abdominal wall HISTORY OF PRESENT ILLNESS: Patient seen and examined with Dr. Goldsmith. Patient is status post bedside incision and drainage of subcutaneous abscess of abdominal wall at patient's incision site. She does complain of some pain this morning and nausea. She reports passing gas. She is on regular diet. She is only able to eat a few bites of food. Afebrile. WBC 5.10. She's followed by infectious disease and she is currently on vancomycin. PHYSICAL EXAM: VITAL SIGNS: Reviewed. GENERAL: Well-developed in no acute distress. HEENT: No sclera icterus. Extraocular movements grossly intact. Moist buccal mucosa. Head is atraumatic, normocephalic. ABDOMEN: Soft. Nondistended. Skin around the wound has no erythema. Dressing had minimal blood saturation. NEUROLOGIC: Alert and oriented. Cranial nerves II through XII grossly intact. ASSESSMENT: 1. Subcutaneous abscess of abdominal wall at incision site status post incision and drainage at bedside by Dr. Goldsmith 2. History of incisional hernia repair with small bowel resection and lysis of adhesions on 08/14/2020 3. Diabetes mellitus, Type 2 PLAN: -Continue local wound care with wet-to-dry dressing changes -Continue antibiotics per ID -Follow up on culture results -Case discussed with infectious disease will order midline in anticipation for outpatient IV antibiotics Physician Pig Handler note has been reviewed by physician. Signing provider agrees with the documented findings, assessment, and plan of care. Objective - Vital Signs Vital signs: Vital Signs Temp 97.6 F 11/02/20 13:15 Pulse 82 11/02/20 13:15 Resp 16 11/02/20 13:15 BP 159/75 11/02/20 13:15 Pulse Ox 90 L 11/02/20 13:15 Intake & Output 11/01/20 11/02/20 11/02/20 18:59 06:59 18:59 Intake Total 2540 Balance 2540 Intake: Intake, IV Titration 1100 Amount Piperacillin-Tazobactam 3 100 .375 gm In Sodium Chloride 0.9% 100 ml @ 25 mls/hr IVPB Q8H [facility] Rx#: [id number] Sodium Chloride 0.9% 1, 750 000 ml @ 75 mls/hr IV . [id number] [facility] Rx#:[id number] Vancomycin 1,500 mg In 250 Sodium Chloride 0.9% 250 ml @ 125 mls/hr IVPB Q10H [facility] Rx#:[id number] Oral 1440 Other: Voiding Method Toilet # Voids 2 4 1 # Bowel Movements 1 1 - Labs CBC & Chem 7: 11/02/20 08:24 11/02/20 08:24 Labs: Abnormal Lab Results - Last 24 Hours (Table) 11/01/20 11/01/20 11/01/20 Range/Units 04:35 16:57 19:59 Chloride (98-107) mmol/L Carbon Dioxide (22-30) mmol/L Creatinine (0.52-1.04) mg/dL Glucose (74-99) mg/dL POC Glucose (mg/dL) 206 H 144 H (75-99) mg/dL Hemoglobin A1c 7.3 H (4.0-6.0) % AST (14-36) U/L Vancomycin Trough ug/mL 11/02/20 11/02/20 11/02/20 Range/Units 06:57 08:24 08:24 Chloride 109 H (98-107) mmol/L Carbon Dioxide 21 L (22-30) mmol/L Creatinine 1.43 H (0.52-1.04) mg/dL Glucose 166 H (74-99) mg/dL POC Glucose (mg/dL) 164 H (75-99) mg/dL Hemoglobin A1c (4.0-6.0) % AST 54 H (14-36) U/L Vancomycin Trough 30.5 H* ug/mL 11/02/20 Range/Units 10:54 Chloride (98-107) mmol/L Carbon Dioxide (22-30) mmol/L Creatinine (0.52-1.04) mg/dL Glucose (74-99) mg/dL POC Glucose (mg/dL) 191 H (75-99) mg/dL Hemoglobin A1c (4.0-6.0) % AST (14-36) U/L Vancomycin Trough ug/mL Microbiology - Last 24 Hours (Table) 11/01/20 14:30 Gram Stain - Preliminary Abdomen Wound Culture - Preliminary 11/01/20 13:00 Gram Stain - Preliminary Abdomen Wound Culture - Preliminary 11/01/20 13:00 Anaerobic Culture - Preliminary Abdomen 11/01/20 14:30 Anaerobic Culture - Preliminary Abdomen 10/31/20 17:04 Blood Culture - Preliminary Blood No Growth after 24 hours
--- NOTE | 2020-11-02 16:48 | P.PN ---
Subjective Progress Note Date: 11/02/20 Roxana Velasquez, 60-year-old female who presented to [facility] emergency room with a chief complaint of discharge from the abdominal wall incision site, patient had multiple abdominal surgeries the most recent one was on August where patient had repair of incisional hernia small bowel resection and lysis of adhesions by Dr. Goldsmith, she was discharged home on 08/19/2020. Patient was evaluated in the emergency room, her vital examination on presentation revealed a temperature of 98.9 pulse 69 respiration 16 blood pressure 178/99 pulse ox 92% on room air, laboratory data revealed a white blood count of 7.0 hemoglobin 15.0 platelet count 224 glucose 150, BUN 10 creatinine 0.6 coronary of iris PCR testing was negative. Patient underwent a computed tomography scan of the abdomen and pelvis with contrast in the emergency room that revealed evidence of a superficial phlegmon and anterior abdominal wall abscess, patient was started on IV antibiotic vancomycin and Zosyn and was admitted to medical floor. Past medical history is significant for history of ruptured diverticuli with colostomy in January 2018, colostomy reversal in May 2018, history of hypertension, history of hyperlipidemia, history of diabetes mellitus, history of COPD, history of depression with anxiety. On 11/02/2020 patient was seen and examined on the medical floor she is alert and oriented 3 in no apparent distress she is complaining of mild pain in the abdominal wall, she is also complaining of nausea today otherwise she denies any complaints there is no fever or chills no headache or dizziness no chest pain no shortness of breath no cough no palpitation she has some nausea no vomiting no diarrhea no blood in the stools and no urinary symptoms Objective - Vital Signs Vital signs: Vital Signs Temp 98.7 F 11/02/20 05:00 Pulse 76 11/02/20 09:24 Resp 16 11/02/20 05:00 BP 155/79 11/02/20 05:00 Pulse Ox 90 L 11/02/20 05:00 Intake & Output 11/01/20 11/02/20 11/02/20 18:59 06:59 18:59 Intake Total 2540 Balance 2540 Intake: Intake, IV Titration 1100 Amount Piperacillin-Tazobactam 3 100 .375 gm In Sodium Chloride 0.9% 100 ml @ 25 mls/hr IVPB Q8H [facility] Rx#: [id number] Sodium Chloride 0.9% 1, 750 000 ml @ 75 mls/hr IV . [id number] [facility] Rx#:[id number] Vancomycin 1,500 mg In 250 Sodium Chloride 0.9% 250 ml @ 125 mls/hr IVPB Q10H [facility] Rx#:[id number] Oral 1440 Other: Voiding Method Toilet # Voids 2 4 2 # Bowel Movements 1 1 - Exam In general patient is alert and oriented 3 in no apparent distress HEENT head normocephalic and atraumatic Neck is supple no JVD no goiter no lymphadenopathy Chest exam reveals crackles in both lung nice mostly on the right no wheezing Cardiac exam reveals regular heart sounds S1 and S2 no gallops no murmurs Abdomen is soft nontender no organomegaly with normal bowel sounds, patient underwent incision and drainage of abdominal wall abscess by Dr. Hawthorne Extremity exam reveals no edema no cyanosis or clubbing Neurological examination reveals no gross focal deficit - Labs CBC & Chem 7: 11/02/20 08:24 11/02/20 08:24 Labs: Abnormal Lab Results - Last 24 Hours (Table) 11/01/20 11/01/20 11/01/20 Range/Units 04:35 11:42 16:57 Chloride (98-107) mmol/L Carbon Dioxide (22-30) mmol/L Creatinine (0.52-1.04) mg/dL Glucose (74-99) mg/dL POC Glucose (mg/dL) 164 H 206 H (75-99) mg/dL Hemoglobin A1c 7.3 H (4.0-6.0) % AST (14-36) U/L Vancomycin Trough ug/mL 11/01/20 11/02/20 11/02/20 Range/Units 19:59 06:57 08:24 Chloride 109 H (98-107) mmol/L Carbon Dioxide 21 L (22-30) mmol/L Creatinine 1.43 H (0.52-1.04) mg/dL Glucose 166 H (74-99) mg/dL POC Glucose (mg/dL) 144 H 164 H (75-99) mg/dL Hemoglobin A1c (4.0-6.0) % AST 54 H (14-36) U/L Vancomycin Trough ug/mL 11/02/20 Range/Units 08:24 Chloride (98-107) mmol/L Carbon Dioxide (22-30) mmol/L Creatinine (0.52-1.04) mg/dL Glucose (74-99) mg/dL POC Glucose (mg/dL) (75-99) mg/dL Hemoglobin A1c (4.0-6.0) % AST (14-36) U/L Vancomycin Trough 30.5 H* ug/mL Microbiology - Last 24 Hours (Table) 11/01/20 14:30 Gram Stain - Preliminary Abdomen Wound Culture - Preliminary 11/01/20 13:00 Gram Stain - Preliminary Abdomen Wound Culture - Preliminary 11/01/20 13:00 Anaerobic Culture - Preliminary Abdomen 11/01/20 14:30 Anaerobic Culture - Preliminary Abdomen 10/31/20 17:04 Blood Culture - Preliminary Blood No Growth after 24 hours Assessment and Plan Plan: 1. Anterior abdominal wall phlegmon with abscess, started on IV antibiotic vancomycin and Zosyn, surgical consultation requested for possible drainage. 2. Underlying history of diabetes mellitus, home medications reviewed and reordered, will check hemoglobin A1c, will cover with insulin to sliding scale 3. Underlying history of hypertension 4. Underlying history of hyperlipidemia 5. Underlying history of gastroesophageal reflux disease 6. Underlying history of asthma stable at this time. 7. Underlying history of depression with anxiety disorder. At this time home medications reviewed and reordered Continue with current IV antibiotics until culture results not available Cover was insulin to sliding scale as needed For DVT prophylaxis subcu Lovenox For GI prophylaxis patient is on Protonix Will recheck labs and follow closely in a.m.
[2020-11-02] MEDS: HYDROcodone/APAP 5-325MG 1 EACH TAB PO PRN (16:56)
[2020-11-02 17:03] LABS: Glucose,Whole Blood 195 mg/dL (75-99)
[2020-11-02 20:28] LABS: Glucose,Whole Blood 221 mg/dL (75-99)
[2020-11-02] MEDS: HYDROmorphone 0.5 MG/0.5 ML SYRINGE IVP PRN (21:22)
[2020-11-02] MEDS: NICOTINE 21MG/24HR PATCH TRANSDERM SCH (22:20)
[2020-11-02] MEDS: diphenhydrAMINE 25 MG CAP PO PRN (22:23)
--- NOTE | 2020-11-02 23:22 | PN ---
PROGRESS NOTE DATE OF SERVICE: 11/02/2020 REASON FOR FOLLOWUP: Abdominal wall abscess. INTERVAL HISTORY: The patient is currently afebrile. The patient is breathing comfortably. Denies having any chest pain, shortness of breath or cough. Her abdominal pain is currently controlled. No nausea, no vomiting or diarrhea. PHYSICAL EXAMINATION: Blood pressure 165/88 with a pulse of 70, temperature 98.3. She is 93% on room air. General description is a middle-aged female lying in bed in no distress. RESPIRATORY SYSTEM: Unlabored breathing. Clear to auscultation anteriorly. HEART: S1, S2. Regular rate and rhythm. ABDOMEN: Soft. No tenderness. LABS: Hemoglobin 14.6, white count 7.1. BUN of 11, creatinine 1.43. Vancomycin trough was elevated. Abdominal cultures with coagulase-negative Staph. DIAGNOSTIC IMPRESSION AND PLAN: Patient with an abdominal wall abscess, status post incision and drainage. Culture showing coagulase-negative Staph. Patient is covered with vancomycin. The vancomycin level was elevated. Dose needs to be cut back to keep the trough around 15. Discussed with the pharmacy. Monitor her kidney function closely. MMODL / IJN: [id number] /
[2020-11-03] MEDS: SODIUM CHLORIDE 0.9% 1,000 ML IV SCH ×2 (00:10→15:29)
[2020-11-03] MEDS: HYDROcodone/APAP 5-325MG 1 EACH TAB PO PRN ×4 (03:37→23:58)
[2020-11-03] MEDS: ONDANSETRON 4 MG/2 ML VIAL IVP PRN ×2 (03:40→17:38)
[2020-11-03] MEDS: busPIRone HCl 5 MG TAB PO PRN ×2 (06:08→17:37)
[2020-11-03 06:41] LABS: ALT 31 U/L (4-34); AST 45 U/L (14-36); African American GFR (CKD) 32 (>60 ml/min/1.73 sqM); Albumin 3.4 g/dL (3.5-5.0); Albumin/Globulin Ratio 1.4; Alkaline Phosphatase 63 U/L (38-126); Anion Gap 6 mmol/L; Blood Urea Nitrogen 12 mg/dL (7-17); Calcium 9.4 mg/dL (8.4-10.2); Carbon Dioxide 24 mmol/L (22-30); Chloride 106 mmol/L (98-107); Globulin 2.5 g/dL; Glucose 178 mg/dL (74-99); Non-African American GFR(CKD) 28 (>60 ml/min/1.73 sqM); Potassium 4.2 mmol/L (3.5-5.1); Sodium 136 mmol/L (137-145); Total Bilirubin 0.6 mg/dL (0.2-1.3); Total Protein 5.9 g/dL (6.3-8.2)
[2020-11-03 06:46] LABS: Vancomycin,Random 15.1 ug/mL
[2020-11-03 07:09] LABS: Glucose,Whole Blood 191 mg/dL (75-99)
[2020-11-03] MEDS: PANTOPRAZOLE 40 MG TABLET PO SCH (08:02)
[2020-11-03] MEDS: FOLIC ACID 1 MG TAB PO SCH (08:02)
[2020-11-03] MEDS: glipiZIDE 5 MG TAB PO SCH ×2 (08:02→22:29)
[2020-11-03] MEDS: ESCITALOPRAM 20 MG TAB PO SCH (08:02)
[2020-11-03] MEDS: METOPROLOL TARTRATE 50 MG TAB PO SCH ×2 (08:03→22:29)
[2020-11-03] MEDS: ENOXAPARIN 40 MG/0.4 ML SYRINGE SQ SCH (08:04)
[2020-11-03] MEDS: NICOTINE 21MG/24HR PATCH TRANSDERM SCH (08:05)
[2020-11-03] MEDS: LACTOBACILLUS ACIDOPH & BULGAR 1 EACH PACKET PO SCH (08:05)
[2020-11-03] MEDS ORDERED: VANCOMYCIN 1,500 MG in SODIUM CHLORIDE 0.9% 250 ML IVPB ONE (09:00)
[2020-11-03] MEDS ORDERED: lisinopriL 20 MG TAB PO SCH (09:00)
[2020-11-03] MEDS: ALBUTEROL NEBULIZED 2.5 MG/3 ML INHALATION PRN ×2 (09:11→21:36)
[2020-11-03] MEDS: SYMBICORT 160-4.5 MCG INHALER INHALATION SCH ×2 (09:11→21:36)
[2020-11-03 09:32] LABS: Basophils # (A) 0.03 X 10*3/uL (0.00-0.10); Basophils % (A) 0.4 %; Eosinophils # (A) 0.29 X 10*3/uL (0.04-0.35); Eosinophils % (A) 3.7 %; HCT 38.5 % (37.2-46.3); HGB 12.2 g/dL (12.0-15.0); Lymphocytes # (A) 1.39 X 10*3/uL (0.90-5.00); MCH 31.3 pg (27.0-32.0); MCHC 31.7 g/dL (32.0-37.0); MCV 98.7 fL (80.0-97.0); Mean Platelet Volume 10.8 fL (9.5-12.2); Monocytes # (A) 0.65 X 10*3/uL (0.20-1.00); Monocytes % (A) 8.4 %; Neutrophils # (A) 5.35 X 10*3/uL (1.80-7.70); Neutrophils % (A) 69.1 %; Platelet Count 186 X 10*3/uL (140-440); RDW 15.1 % (11.5-14.5); WBC 7.74 X 10*3/uL (4.50-10.00)
[2020-11-03] MEDS: FLUTICASONE 50MCG/SPRAY NASAL 16GM EA NOSTRIL SCH (09:45)
[2020-11-03 09:50] LABS: African American GFR (CKD) 30.2 (60.0-200.0); Non-African American GFR(CKD) 26.1 (60.0-200.0)
--- NOTE | 2020-11-03 10:43 | P.PN ---
Subjective Progress Note Date: 11/03/20 Roxana Velasquez, 60-year-old female who presented to [facility] emergency room with a chief complaint of discharge from the abdominal wall incision site, patient had multiple abdominal surgeries the most recent one was on August where patient had repair of incisional hernia small bowel resection and lysis of adhesions by Dr. Goldsmith, she was discharged home on 08/19/2020. Patient was evaluated in the emergency room, her vital examination on presentation revealed a temperature of 98.9 pulse 69 respiration 16 blood pressure 178/99 pulse ox 92% on room air, laboratory data revealed a white blood count of 7.0 hemoglobin 15.0 platelet count 224 glucose 150, BUN 10 creatinine 0.6 coronary of iris PCR testing was negative. Patient underwent a computed tomography scan of the abdomen and pelvis with contrast in the emergency room that revealed evidence of a superficial phlegmon and anterior abdominal wall abscess, patient was started on IV antibiotic vancomycin and Zosyn and was admitted to medical floor. Past medical history is significant for history of ruptured diverticuli with colostomy in January 2018, colostomy reversal in May 2018, history of hypertension, history of hyperlipidemia, history of diabetes mellitus, history of COPD, history of depression with anxiety. On 11/02/2020 patient was seen and examined on the medical floor she is alert and oriented 3 in no apparent distress she is complaining of mild pain in the abdominal wall, she is also complaining of nausea today otherwise she denies any complaints there is no fever or chills no headache or dizziness no chest pain no shortness of breath no cough no palpitation she has some nausea no vomiting no diarrhea no blood in the stools and no urinary symptoms On 11/03/2020 patient is alert and oriented 3. Creatinine increasing to 1.89. Lisinopril and ibuprofen DC'd. Also will discuss with infectious disease about switching IV antibiotic. Nephrology services will be consulted. Will also order chest x-ray due to pulse ox 90 and some shortness of breath with ambulation. Patient denies any chest pain. Patient denies nausea vomiting or diarrhea. Patient denies any urinary burning or frequency Objective - Vital Signs Vital signs: Vital Signs Temp 98.5 F 11/03/20 04:04 Pulse 72 11/03/20 09:25 Resp 16 11/03/20 08:23 BP 151/82 11/03/20 04:04 Pulse Ox 90 L 11/03/20 04:04 Intake & Output 11/02/20 11/03/20 11/03/20 18:59 06:59 18:59 Intake Total 900 1500 Balance 900 1500 Intake: Intake, IV Titration 900 900 Amount Sodium Chloride 0.9% 1, 900 900 000 ml @ 75 mls/hr IV . [id number] [facility] Rx#:[id number] Oral 600 Other: Voiding Method Toilet # Voids 2 1 # Bowel Movements 2 2 - Exam In general patient is alert and oriented 3 in no apparent distress HEENT head normocephalic and atraumatic Neck is supple no JVD no goiter no lymphadenopathy Chest exam reveals crackles in both lung nice mostly on the right no wheezing Cardiac exam reveals regular heart sounds S1 and S2 no gallops no murmurs Abdomen is soft nontender no organomegaly with normal bowel sounds, patient underwent incision and drainage of abdominal wall abscess by Dr. Hawthorne Extremity exam reveals no edema no cyanosis or clubbing Neurological examination reveals no gross focal deficit - Labs CBC & Chem 7: 11/03/20 05:50 11/03/20 05:50 Labs: Abnormal Lab Results - Last 24 Hours (Table) 11/02/20 11/02/20 11/02/20 Range/Units 10:54 17:00 20:26 RBC (4.10-5.20) X 10*6/uL MCV (80.0-97.0) fL MCHC (32.0-37.0) g/dL RDW (11.5-14.5) % Sodium (137-145) mmol/L Creatinine (0.6-1.5) mg/dL Est GFR (CKD-EPI)AfAm (60.0-200.0) Est GFR (CKD-EPI)NonAf (60.0-200.0) Glucose (74-99) mg/dL POC Glucose (mg/dL) 191 H 195 H 221 H (75-99) mg/dL AST (14-36) U/L Total Protein (6.3-8.2) g/dL Albumin (3.5-5.0) g/dL 11/03/20 11/03/20 11/03/20 Range/Units 05:50 05:50 05:50 RBC 3.90 L (4.10-5.20) X 10*6/uL MCV 98.7 H (80.0-97.0) fL MCHC 31.7 L (32.0-37.0) g/dL RDW 15.1 H (11.5-14.5) % Sodium 136 L (137-145) mmol/L Creatinine 2.0 H 1.89 H (0.6-1.5) mg/dL Est GFR (CKD-EPI)AfAm 30.2 L (60.0-200.0) Est GFR (CKD-EPI)NonAf 26.1 L (60.0-200.0) Glucose 178 H (74-99) mg/dL POC Glucose (mg/dL) (75-99) mg/dL AST 45 H (14-36) U/L Total Protein 5.9 L (6.3-8.2) g/dL Albumin 3.4 L (3.5-5.0) g/dL 11/03/20 Range/Units 07:08 RBC (4.10-5.20) X 10*6/uL MCV (80.0-97.0) fL MCHC (32.0-37.0) g/dL RDW (11.5-14.5) % Sodium (137-145) mmol/L Creatinine (0.6-1.5) mg/dL Est GFR (CKD-EPI)AfAm (60.0-200.0) Est GFR (CKD-EPI)NonAf (60.0-200.0) Glucose (74-99) mg/dL POC Glucose (mg/dL) 191 H (75-99) mg/dL AST (14-36) U/L Total Protein (6.3-8.2) g/dL Albumin (3.5-5.0) g/dL Microbiology - Last 24 Hours (Table) 10/31/20 17:04 Blood Culture - Preliminary Blood No Growth after 48 hours 11/01/20 13:00 Gram Stain - Preliminary Abdomen Wound Culture - Preliminary Coagulase Negative Staph 11/01/20 14:30 Gram Stain - Preliminary Abdomen Wound Culture - Preliminary Assessment and Plan Plan: 1. Anterior abdominal wall phlegmon with abscess, started on IV antibiotic vancomycin and Zosyn, surgical consultation requested for possible drainage. 2. Underlying history of diabetes mellitus, home medications reviewed and reordered, will check hemoglobin A1c, will cover with insulin to sliding scale 3. Underlying history of hypertension 4. Underlying history of hyperlipidemia 5. Underlying history of gastroesophageal reflux disease 6. Underlying history of asthma stable at this time. 7. Underlying history of depression with anxiety disorder. 8. Acute kidney injury. Creatinine 1.89. Lisinopril and ibuprofen DC'd. Will discuss with infectious disease about antibiotic. Nephrology services consulted 9. Shortness of breath. Will order chest x-ray. At this time home medications reviewed and reordered Continue with current IV antibiotics until culture results not available Cover was insulin to sliding scale as needed For DVT prophylaxis subcu Lovenox For GI prophylaxis patient is on Protonix Will recheck labs and follow closely in a.m. Infectious disease, surgical services and nephrology service is consulted
[2020-11-03 11:45] LABS: Glucose,Whole Blood 132 mg/dL (75-99)
--- NOTE | 2020-11-03 12:31 | XR ---
EXAMINATION TYPE: XR chest 1V portable DATE OF EXAM: 11/03/2020 COMPARISON: 08/10/2020 INDICATION: Short of breath TECHNIQUE: Single frontal view of the chest is obtained. FINDINGS: The heart size is normal. The pulmonary vasculature is prominent. Mild diffuse increased lung markings at the lung bases and right lower lobe. IMPRESSION: 1. Clinical correlation for mild bibasilar infiltrates. Atypical pneumonia and atelectasis could be c onsidered. 2. Mild cardiomegaly
--- NOTE | 2020-11-03 13:01 | P.PN ---
Subjective Progress Note Date: 11/03/20 CHIEF COMPLAINT: Subcutaneous abscess of the abdominal wall HISTORY OF PRESENT ILLNESS: Patient seen and examined with Dr. Goldsmith. Patient is status post bedside incision and drainage of subcutaneous abscess of abdominal wall at patient's incision site on 11/01/20. Patient is complaining of nausea and diarrhea. She reports 4 bouts of loose stools. She is still complaining of some nausea. Patient is status post PICC line placement. Afebrile. WBC 7.74 creatinine is up to 1.89. Medications have been adjusted by medicine service and nephrology. Nephrology has discontinue vancomycin. Patient is also followed by infectious disease. PHYSICAL EXAM: VITAL SIGNS: Reviewed. GENERAL: Well-developed in no acute distress. HEENT: No sclera icterus. Extraocular movements grossly intact. Moist buccal mucosa. Head is atraumatic, normocephalic. ABDOMEN: Soft. Nondistended. Dressing clean dry and intact NEUROLOGIC: Alert and oriented. Cranial nerves II through XII grossly intact. ASSESSMENT: 1. Subcutaneous abscess of abdominal wall at incision site status post incision and drainage at bedside by Dr. Goldsmith 2. History of incisional hernia repair with small bowel resection and lysis of adhesions on 08/14/2020 3. Diabetes mellitus, Type 2 PLAN: -Continue local wound care with wet-to-dry dressing changes -Continue antibiotics per ID -Follow up on culture results -Patient stable from surgical standpoint for discharge when cleared by medicine service and other consulting physicians [employer] note has been reviewed by physician. Signing provider agrees with the documented findings, assessment, and plan of care. Objective - Vital Signs Vital signs: Vital Signs Temp 98.5 F 11/03/20 04:04 Pulse 72 11/03/20 09:25 Resp 16 11/03/20 08:23 BP 151/82 11/03/20 04:04 Pulse Ox 90 L 11/03/20 04:04 Intake & Output 11/02/20 11/03/20 11/03/20 18:59 06:59 18:59 Intake Total 900 1500 Output Total 150 Balance 900 1500 -150 Intake: Intake, IV Titration 900 900 Amount Sodium Chloride 0.9% 1, 900 900 000 ml @ 75 mls/hr IV . [id number] [facility] Rx#:[id number] Oral 600 Output: Urine 150 Other: Voiding Method Toilet # Voids 2 1 # Bowel Movements 2 2 - Labs CBC & Chem 7: 11/03/20 05:50 11/03/20 05:50 Labs: Abnormal Lab Results - Last 24 Hours (Table) 11/02/20 11/02/20 11/03/20 Range/Units 17:00 20:26 05:50 RBC (4.10-5.20) X 10*6/uL MCV (80.0-97.0) fL MCHC (32.0-37.0) g/dL RDW (11.5-14.5) % Sodium (137-145) mmol/L Creatinine 2.0 H (0.6-1.5) mg/dL Est GFR (CKD-EPI)AfAm 30.2 L (60.0-200.0) Est GFR (CKD-EPI)NonAf 26.1 L (60.0-200.0) Glucose (74-99) mg/dL POC Glucose (mg/dL) 195 H 221 H (75-99) mg/dL AST (14-36) U/L Total Protein (6.3-8.2) g/dL Albumin (3.5-5.0) g/dL 11/03/20 11/03/20 11/03/20 Range/Units 05:50 05:50 07:08 RBC 3.90 L (4.10-5.20) X 10*6/uL MCV 98.7 H (80.0-97.0) fL MCHC 31.7 L (32.0-37.0) g/dL RDW 15.1 H (11.5-14.5) % Sodium 136 L (137-145) mmol/L Creatinine 1.89 H (0.6-1.5) mg/dL Est GFR (CKD-EPI)AfAm (60.0-200.0) Est GFR (CKD-EPI)NonAf (60.0-200.0) Glucose 178 H (74-99) mg/dL POC Glucose (mg/dL) 191 H (75-99) mg/dL AST 45 H (14-36) U/L Total Protein 5.9 L (6.3-8.2) g/dL Albumin 3.4 L (3.5-5.0) g/dL 11/03/20 Range/Units 11:42 RBC (4.10-5.20) X 10*6/uL MCV (80.0-97.0) fL MCHC (32.0-37.0) g/dL RDW (11.5-14.5) % Sodium (137-145) mmol/L Creatinine (0.6-1.5) mg/dL Est GFR (CKD-EPI)AfAm (60.0-200.0) Est GFR (CKD-EPI)NonAf (60.0-200.0) Glucose (74-99) mg/dL POC Glucose (mg/dL) 132 H (75-99) mg/dL AST (14-36) U/L Total Protein (6.3-8.2) g/dL Albumin (3.5-5.0) g/dL Microbiology - Last 24 Hours (Table) 10/31/20 17:04 Blood Culture - Preliminary Blood No Growth after 48 hours 11/01/20 13:00 Gram Stain - Preliminary Abdomen Wound Culture - Preliminary Coagulase Negative Staph 11/01/20 14:30 Gram Stain - Preliminary Abdomen Wound Culture - Preliminary
--- NOTE | 2020-11-03 13:10 | IR ---
EXAMINATION TYPE: IR cvc insert >=5 years DATE OF EXAM: 11/03/2020 COMPARISON: NONE CLINICAL HISTORY: infection, Needs long-term intravenous access for antibiotics PROCEDURE: Hand hygiene obtained with soap and water and alcohol-based hand rub. After informed consent, the skin overlying the basilic vein was localized with ultrasound and noted t o be compressible and patent. An ultrasound image was obtained and submitted on the patient's chart. The overlying skin was prepped and draped and Lidocaine was used for local anesthesia. A skin hayden was made with a scalpel. Access was gained to the vein under ultrasound guidance with a 21 gauge ne edle and a 0.018 inch wire was advanced. Access site was dilated with Peel-Away sheath and catheter tailored to the appropriate length and advanced such that the distal tip is at the cavoatrial junctio n. Spot image was obtained verifying placement. Catheter was fixed to the skin and a sterile dressi ng was placed following hemostasis. Catheter was aspirated and flushed with saline. Patient was dis charged in stable condition without complication. Maximal barrier technique is utilized. Ultrasound image is documented on the chart. Ultrasound used with sterile technique. Fluoro time and fluoroscopic images submitted to document procedure:0.3 mins fluoro time, 22 intraope rative images IMPRESSION: STATUS POST ULTRASOUND AND FLUOROSCOPIC GUIDED PICC LINE PLACEMENT, READY FOR USE. THIS PROCEDURE WAS PERFORMED BY THE UNDERSIGNED.
--- NOTE | 2020-11-03 16:17 | PN ---
PROGRESS NOTE DATE OF SERVICE: 11/03/2020 REASON FOR FOLLOWUP: Abdominal wall abscess. INTERVAL HISTORY: The patient is currently afebrile. The patient is breathing comfortably. The patient denies having any chest pain or shortness of breath or cough. Abdominal pain is currently decreased. No vomiting. No diarrhea. PHYSICAL EXAMINATION: Blood pressure 167/86, pulse of 72, temperature 97.4. She is 92% on room air. General description is a middle-aged female lying in bed in no distress. RESPIRATORY SYSTEM: Unlabored breathing, clear to auscultation anteriorly. HEART: S1, S2. Regular rate and rhythm. ABDOMEN: Soft. No tenderness. LABS: Hemoglobin is 12.2, white count 7.74. Creatinine improved down to 1.89. DIAGNOSTIC IMPRESSION AND PLAN: Patient with abdominal wall abscess. Culture now showing coag-negative staph. ID sensitivities pending. Patient did have worsening of the kidney function for which vancomycin discontinued and the patient started on daptomycin and will monitor clinical course closely. MMODL / IJN: [id number] /
[2020-11-03 17:00] LABS: Glucose,Whole Blood 165 mg/dL (75-99)
[2020-11-03] MEDS ORDERED: ACETAMINOPHEN TAB 325 MG TAB PO PRN (17:44)
--- NOTE | 2020-11-03 22:22 | CONS ---
CONSULTATION REASON FOR CONSULT: Renal failure. HISTORY OF PRESENT ILLNESS: Patient is a 60-year-old female who was admitted to the hospital on 10/31/2020 with complaints of pain and discharge from her recent abdominal surgery incision site. The patient recently had incisional hernia repair on 08/14/2020 with bowel resection and lysis of adhesions. She is currently being treated for wound infection. The patient was on vancomycin. Her serum creatinine is 1.89 mg/dL today. It was 0.6 and 0.7 mg/dL on initial admission. Vancomycin level was noted to be 30.5. Patient's wound culture grew coagulase-negative Staph. Blood pressure has not been low, but patient did receive IV contrast for CT scan on 10/31/2020. She was maintained on WILFREDO inhibitors, which are now discontinued. I also see ibuprofen on her med list in the hospital, which is now discontinued. PAST MEDICAL HISTORY: Significant for type 2 diabetes, COPD, gastroesophageal reflux disease, hyperlipidemia, hypertension, shingles, history of diverticulitis with ruptured bowel, status post colostomy with colostomy reversal down the road, cholecystectomy, hernia repair, tonsillectomy, appendectomy, breast biopsy, hemorrhoidectomy, eye surgery for glaucoma. SOCIAL HISTORY: Positive for smoking as well as use of marijuana. There is significant alcohol intake as well. MEDICATIONS: Medications prior to admission included folic acid, Lexapro, Protonix, Zestril, hydroxyzine, Benadryl, Lopressor, Glucotrol, Atarax. ALLERGIES: ALLERGIES include TRAMADOL, which causes itching. REVIEW OF SYSTEMS: As per HPI. Other systems negative. PHYSICAL EXAMINATION: Patient is comfortable, awake, not in any acute distress. Alert, oriented x3. Blood pressure was 167/86 later on, but earlier it was 151/82, heart rate 70 per minute. She is afebrile. EXAMINATION OF THE HEART: S1 and S2. EXAMINATION OF LUNGS: Bilateral breath sounds are heard. ABDOMEN: Soft, non-tender. The abdominal incision is currently dressed. Incision site is non-tender. Examination of lower extremities shows no evidence of edema. [employer] exam grossly intact. LABS: Sodium 136, potassium 4.2, chloride 106, BUN 12, serum creatinine 1.89, calcium 9.4, hemoglobin 12.2 g/dL. WBC count 7.7. UA not available. Vancomycin trough level 30.5 yesterday. ASSESSMENT: 1. Acute kidney injury, multifactorial, secondary to IV contrast that patient received for CT scan as well as vancomycin toxicity. The patient also received NSAIDs during her hospitalization. Luckily, her blood pressure has not been low. She is currently nonoliguric. We will discontinue the vancomycin. Continue off of NSAIDs and WILFREDO inhibitors. Avoid hypotension and check UA. No evidence of obstruction on the CT scan of the abdomen. 2. Abdominal wound infection. Wound culture grew Staph epi. 3. Recent incisional hernia repair with lysis of adhesions and bowel resection. 4. Type 2 diabetes. 5. Hypertension. Blood pressure currently on the higher side. PLAN: Discontinue vancomycin. Check urinalysis. Continue off of WILFREDO inhibitors. Avoid NSAIDs. Repeat labs in a.m. Check accurate I's and O's. Thank you for this consultation. Will continue to follow the patient with you during her hospitalization. MMODL / IJN: [id number] /
[2020-11-04 00:04] LABS: Appearance,Urine Clear (Clear); Bilirubin,Urine Negative (Negative); Blood,Urine Negative (Negative); Color,Urine Yellow; Glucose,Urine (UA) Negative (Negative); Ketones,Urine Negative (Negative); Leukocyte Esterase,Urine Negative (Negative); Nitrite,Urine Negative (Negative); Protein,Urine Trace (Negative); Urobilinogen,Urine <2.0 mg/dL (<2.0)
[2020-11-04] MEDS: HYDROcodone/APAP 5-325MG 1 EACH TAB PO PRN ×2 (03:25→23:51)
[2020-11-04 03:46] LABS: Glucose,Whole Blood 153 mg/dL (75-99)
[2020-11-04 07:10] LABS: Glucose,Whole Blood 152 mg/dL (75-99)
[2020-11-04] MEDS: SYMBICORT 160-4.5 MCG INHALER INHALATION SCH ×2 (07:36→20:22)
[2020-11-04] MEDS: ALBUTEROL NEBULIZED 2.5 MG/3 ML INHALATION PRN ×4 (07:36→20:22)
[2020-11-04 08:51] LABS: Basophils # (A) 0.02 X 10*3/uL (0.00-0.10); Basophils % (A) 0.3 %; Eosinophils # (A) 0.27 X 10*3/uL (0.04-0.35); Eosinophils % (A) 3.7 %; HCT 36.7 % (37.2-46.3); HGB 11.7 g/dL (12.0-15.0); Lymphocytes # (A) 1.04 X 10*3/uL (0.90-5.00); Lymphocytes % (A) 14.3 %; MCH 31.1 pg (27.0-32.0); MCHC 31.9 g/dL (32.0-37.0); MCV 97.6 fL (80.0-97.0); Monocytes # (A) 0.77 X 10*3/uL (0.20-1.00); Monocytes % (A) 10.6 %; Neutrophils # (A) 5.17 X 10*3/uL (1.80-7.70); Neutrophils % (A) 70.8 %; Platelet Count 175 X 10*3/uL (140-440); RBC 3.76 X 10*6/uL (4.10-5.20); RDW 14.9 % (11.5-14.5); WBC 7.29 X 10*3/uL (4.50-10.00)
[2020-11-04] MEDS: NICOTINE 21MG/24HR PATCH TRANSDERM SCH (08:58)
[2020-11-04] MEDS: ACETAMINOPHEN TAB 325 MG TAB PO PRN (08:58)
[2020-11-04] MEDS: glipiZIDE 5 MG TAB PO SCH ×2 (08:58→21:57)
[2020-11-04] MEDS: LACTOBACILLUS ACIDOPH & BULGAR 1 EACH PACKET PO SCH (08:59)
[2020-11-04] MEDS: DAPTOmycin 350 MG in SODIUM CHLORIDE 0.9% 50 ML IVPB SCH (09:00)
[2020-11-04] MEDS: FOLIC ACID 1 MG TAB PO SCH (09:00)
[2020-11-04] MEDS: ENOXAPARIN 40 MG/0.4 ML SYRINGE SQ SCH (09:00)
[2020-11-04] MEDS: METOPROLOL TARTRATE 50 MG TAB PO SCH ×2 (09:00→22:01)
[2020-11-04] MEDS: PANTOPRAZOLE 40 MG TABLET PO SCH (09:00)
[2020-11-04] MEDS: ESCITALOPRAM 20 MG TAB PO SCH (09:00)
[2020-11-04] MEDS: FLUTICASONE 50MCG/SPRAY NASAL 16GM EA NOSTRIL SCH (09:07)
[2020-11-04 09:40] LABS: African American GFR (CKD) 28.5 (60.0-200.0); Albumin 3.4 g/dL (3.80-4.90); Albumin/Globulin Ratio 1.36 (1.60-3.17); Anion Gap 8.6 mmol/L (4.00-12.00); BUN/Creat Ratio 5.71 Ratio (12.00-20.00); Calcium 9.6 mg/dL (8.7-10.3); Carbon Dioxide 22.4 mmol/L (21.6-31.8); Globulin 2.5 g/dL (1.6-3.3); Non-African American GFR(CKD) 24.6 (60.0-200.0); Potassium 4.3 mmol/L (3.5-5.5); Total Bilirubin 0.6 mg/dL (0.3-1.2); Total Protein 5.9 g/dL (6.2-8.2)
--- NOTE | 2020-11-04 10:16 | P.PN ---
Subjective Patient is seen in follow for acute kidney injury. Renal function little worse today. Creatinine 2.1. Good urine output. Oral intake fair. No vomiting or diarrhea. Still having cough with yellow phlegm. Vital signs are stable. General: The patient appeared well nourished and normally developed. HEENT: Head exam is unremarkable. Neck is without jugular venous distension. LUNGS: Breath sounds decreased. HEART: Rate and Rhythm are regular. ABDOMEN: Soft, nontender. EXTREMITITES: No edema. Objective - Vital Signs Vital signs: Vital Signs Temp 98.5 F 11/04/20 05:00 Pulse 74 11/04/20 07:45 Resp 16 11/04/20 05:00 BP 157/80 11/04/20 05:00 Pulse Ox 93 L 11/04/20 05:00 Intake & Output 11/03/20 11/04/20 11/04/20 18:59 06:59 18:59 Intake Total 590 Output Total 150 650 300 Balance -150 -60 -300 Intake: Oral 590 Output: Urine 150 650 300 Other: Voiding Method Toilet Toilet # Voids 100 1 1 # Bowel Movements 1 1 - Labs CBC & Chem 7: 11/04/20 04:48 11/04/20 04:48 Labs: Abnormal Lab Results - Last 24 Hours (Table) 11/03/20 11/03/20 11/03/20 Range/Units 11:42 16:59 23:13 RBC (4.10-5.20) X 10*6/uL Hgb (12.0-15.0) g/dL Hct (37.2-46.3) % MCV (80.0-97.0) fL MCHC (32.0-37.0) g/dL RDW (11.5-14.5) % Chloride (96-109) mmol/L Creatinine (0.6-1.5) mg/dL Est GFR (CKD-EPI)AfAm (60.0-200.0) Est GFR (CKD-EPI)NonAf (60.0-200.0) BUN/Creatinine Ratio (12.00-20.00) Ratio Glucose (70-110) mg/dL POC Glucose (mg/dL) 132 H 165 H (75-99) mg/dL Total Protein (6.2-8.2) g/dL Albumin (3.80-4.90) g/dL Albumin/Globulin Ratio (1.60-3.17) g/dL Urine Protein Trace H (Negative) 11/04/20 11/04/20 11/04/20 Range/Units 03:44 04:48 04:48 RBC 3.76 L (4.10-5.20) X 10*6/uL Hgb 11.7 L (12.0-15.0) g/dL Hct 36.7 L (37.2-46.3) % MCV 97.6 H (80.0-97.0) fL MCHC 31.9 L (32.0-37.0) g/dL RDW 14.9 H (11.5-14.5) % Chloride 111 H (96-109) mmol/L Creatinine 2.1 H (0.6-1.5) mg/dL Est GFR (CKD-EPI)AfAm 28.5 L (60.0-200.0) Est GFR (CKD-EPI)NonAf 24.6 L (60.0-200.0) BUN/Creatinine Ratio 5.71 L (12.00-20.00) Ratio Glucose 151 H (70-110) mg/dL POC Glucose (mg/dL) 153 H (75-99) mg/dL Total Protein 5.9 L (6.2-8.2) g/dL Albumin 3.40 L (3.80-4.90) g/dL Albumin/Globulin Ratio 1.36 L (1.60-3.17) g/dL Urine Protein (Negative) 11/04/20 Range/Units 07:07 RBC (4.10-5.20) X 10*6/uL Hgb (12.0-15.0) g/dL Hct (37.2-46.3) % MCV (80.0-97.0) fL MCHC (32.0-37.0) g/dL RDW (11.5-14.5) % Chloride (96-109) mmol/L Creatinine (0.6-1.5) mg/dL Est GFR (CKD-EPI)AfAm (60.0-200.0) Est GFR (CKD-EPI)NonAf (60.0-200.0) BUN/Creatinine Ratio (12.00-20.00) Ratio Glucose (70-110) mg/dL POC Glucose (mg/dL) 152 H (75-99) mg/dL Total Protein (6.2-8.2) g/dL Albumin (3.80-4.90) g/dL Albumin/Globulin Ratio (1.60-3.17) g/dL Urine Protein (Negative) Microbiology - Last 24 Hours (Table) 11/01/20 14:30 Gram Stain - Final Abdomen Wound Culture - Final Enterococcus avium 11/01/20 14:30 Anaerobic Culture - Preliminary Abdomen 11/01/20 13:00 Anaerobic Culture - Preliminary Abdomen 10/31/20 17:04 Blood Culture - Preliminary Blood No Growth after 72 hours Assessment and Plan Plan: Assessment: 1. Acute kidney injury secondary to ATN secondary to vancomycin toxicity and further worsened with the use of WILFREDO inhibitor and Motrin. Also component of contrast-induced acute kidney injury. She received IV contrast for CAT scan on October 31. Baseline creatinine near 1 and is 2.1 today. UA fairly benign. No hydronephrosis noted on computed tomography scan this admission. 2. Abdominal abscess status post incision and drainage maintained on antibiotics per infectious disease. Vancomycin discontinued. Wound culture positive for enterococcus. 3. Diabetes mellitus. 4. Benign hypertension. Plan: Maintain normal saline. Avoid nephrotoxins. Continue to monitor renal function and urine output.
[2020-11-04 12:10] LABS: Glucose,Whole Blood 167 mg/dL (75-99)
--- NOTE | 2020-11-04 12:47 | P.PN ---
Subjective Progress Note Date: 11/04/20 Roxana Velasquez, 60-year-old female who presented to [facility] emergency room with a chief complaint of discharge from the abdominal wall incision site, patient had multiple abdominal surgeries the most recent one was on August where patient had repair of incisional hernia small bowel resection and lysis of adhesions by Dr. Goldsmith, she was discharged home on 08/19/2020. Patient was evaluated in the emergency room, her vital examination on presentation revealed a temperature of 98.9 pulse 69 respiration 16 blood pressure 178/99 pulse ox 92% on room air, laboratory data revealed a white blood count of 7.0 hemoglobin 15.0 platelet count 224 glucose 150, BUN 10 creatinine 0.6 coronary of iris PCR testing was negative. Patient underwent a computed tomography scan of the abdomen and pelvis with contrast in the emergency room that revealed evidence of a superficial phlegmon and anterior abdominal wall abscess, patient was started on IV antibiotic vancomycin and Zosyn and was admitted to medical floor. Past medical history is significant for history of ruptured diverticuli with colostomy in January 2018, colostomy reversal in May 2018, history of hypertension, history of hyperlipidemia, history of diabetes mellitus, history of COPD, history of depression with anxiety. On 11/02/2020 patient was seen and examined on the medical floor she is alert and oriented 3 in no apparent distress she is complaining of mild pain in the abdominal wall, she is also complaining of nausea today otherwise she denies any complaints there is no fever or chills no headache or dizziness no chest pain no shortness of breath no cough no palpitation she has some nausea no vomiting no diarrhea no blood in the stools and no urinary symptoms On 11/03/2020 patient is alert and oriented 3. Creatinine increasing to 1.89. Lisinopril and ibuprofen DC'd. Also will discuss with infectious disease about switching IV antibiotic. Nephrology services will be consulted. Will also order chest x-ray due to pulse ox 90 and some shortness of breath with ambulation. Patient denies any chest pain. Patient denies nausea vomiting or diarrhea. Patient denies any urinary burning or frequency. On 11/04/2020 patient was seen and examined on the medical floor she is alert and oriented 3 in no apparent distress there is no fever or chills no headache or dizziness no chest pain no shortness of breath no cough no nausea or vomiting no abdominal pain no diarrhea no blood in the stools no burning with urination no frequency or urgency and no hematuria. Patient stated that she had an anxiety attack earlier this morning otherwise she denies any complaints kidney function is slightly worse today Will continue to monitor Objective - Vital Signs Vital signs: Vital Signs Temp 98.5 F 11/04/20 05:00 Pulse 74 11/04/20 07:45 Resp 16 11/04/20 05:00 BP 157/80 11/04/20 05:00 Pulse Ox 93 L 11/04/20 05:00 Intake & Output 11/03/20 11/04/20 11/04/20 18:59 06:59 18:59 Intake Total 590 Output Total 150 650 300 Balance -150 -60 -300 Intake: Oral 590 Output: Urine 150 650 300 Other: Voiding Method Toilet Toilet # Voids 100 1 1 # Bowel Movements 1 1 - Exam In general patient is alert and oriented 3 in no apparent distress HEENT head normocephalic and atraumatic Neck is supple no JVD no goiter no lymphadenopathy Chest exam reveals crackles in both lung nice mostly on the right no wheezing Cardiac exam reveals regular heart sounds S1 and S2 no gallops no murmurs Abdomen is soft nontender no organomegaly with normal bowel sounds, patient underwent incision and drainage of abdominal wall abscess by Dr. Hawthorne Extremity exam reveals no edema no cyanosis or clubbing Neurological examination reveals no gross focal deficit - Labs CBC & Chem 7: 11/04/20 04:48 11/04/20 04:48 Labs: Abnormal Lab Results - Last 24 Hours (Table) 11/03/20 11/03/20 11/03/20 Range/Units 11:42 16:59 23:13 RBC (4.10-5.20) X 10*6/uL Hgb (12.0-15.0) g/dL Hct (37.2-46.3) % MCV (80.0-97.0) fL MCHC (32.0-37.0) g/dL RDW (11.5-14.5) % Chloride (96-109) mmol/L Creatinine (0.6-1.5) mg/dL Est GFR (CKD-EPI)AfAm (60.0-200.0) Est GFR (CKD-EPI)NonAf (60.0-200.0) BUN/Creatinine Ratio (12.00-20.00) Ratio Glucose (70-110) mg/dL POC Glucose (mg/dL) 132 H 165 H (75-99) mg/dL Total Protein (6.2-8.2) g/dL Albumin (3.80-4.90) g/dL Albumin/Globulin Ratio (1.60-3.17) g/dL Urine Protein Trace H (Negative) 11/04/20 11/04/20 11/04/20 Range/Units 03:44 04:48 04:48 RBC 3.76 L (4.10-5.20) X 10*6/uL Hgb 11.7 L (12.0-15.0) g/dL Hct 36.7 L (37.2-46.3) % MCV 97.6 H (80.0-97.0) fL MCHC 31.9 L (32.0-37.0) g/dL RDW 14.9 H (11.5-14.5) % Chloride 111 H (96-109) mmol/L Creatinine 2.1 H (0.6-1.5) mg/dL Est GFR (CKD-EPI)AfAm 28.5 L (60.0-200.0) Est GFR (CKD-EPI)NonAf 24.6 L (60.0-200.0) BUN/Creatinine Ratio 5.71 L (12.00-20.00) Ratio Glucose 151 H (70-110) mg/dL POC Glucose (mg/dL) 153 H (75-99) mg/dL Total Protein 5.9 L (6.2-8.2) g/dL Albumin 3.40 L (3.80-4.90) g/dL Albumin/Globulin Ratio 1.36 L (1.60-3.17) g/dL Urine Protein (Negative) 11/04/20 Range/Units 07:07 RBC (4.10-5.20) X 10*6/uL Hgb (12.0-15.0) g/dL Hct (37.2-46.3) % MCV (80.0-97.0) fL MCHC (32.0-37.0) g/dL RDW (11.5-14.5) % Chloride (96-109) mmol/L Creatinine (0.6-1.5) mg/dL Est GFR (CKD-EPI)AfAm (60.0-200.0) Est GFR (CKD-EPI)NonAf (60.0-200.0) BUN/Creatinine Ratio (12.00-20.00) Ratio Glucose (70-110) mg/dL POC Glucose (mg/dL) 152 H (75-99) mg/dL Total Protein (6.2-8.2) g/dL Albumin (3.80-4.90) g/dL Albumin/Globulin Ratio (1.60-3.17) g/dL Urine Protein (Negative) Microbiology - Last 24 Hours (Table) 11/01/20 14:30 Gram Stain - Final Abdomen Wound Culture - Final Enterococcus avium 11/01/20 14:30 Anaerobic Culture - Preliminary Abdomen 11/01/20 13:00 Anaerobic Culture - Preliminary Abdomen 10/31/20 17:04 Blood Culture - Preliminary Blood No Growth after 72 hours Assessment and Plan Plan: 1. Anterior abdominal wall phlegmon with abscess, started on IV antibiotic vancomycin however patient had significant elevation in her creatinine vancomycin was discontinued and patient was switched to IV daptomycin infectious disease following 2. Underlying history of diabetes mellitus, home medications reviewed and reordered, will check hemoglobin A1c, will cover with insulin to sliding scale 3. Underlying history of hypertension 4. Underlying history of hyperlipidemia 5. Underlying history of gastroesophageal reflux disease 6. Underlying history of asthma stable at this time. 7. Underlying history of depression with anxiety disorder. 8. Acute kidney injury. Creatinine 1.89. Lisinopril and ibuprofen DC'd. Will discuss with infectious disease about antibiotic. Nephrology services consulted 9. Shortness of breath. Will order chest x-ray. At this time home medications reviewed and reordered Continue with current IV antibiotics until culture results not available Cover was insulin to sliding scale as needed For DVT prophylaxis subcu Lovenox For GI prophylaxis patient is on Protonix Will recheck labs and follow closely in a.m. Infectious disease, surgical services and nephrology service is consulted
--- NOTE | 2020-11-04 13:22 | PN ---
PROGRESS NOTE DATE OF SERVICE: 11/04/2020 REASON FOR FOLLOWUP: Abdominal wall abscess, cellulitis. INTERVAL HISTORY: The patient is currently afebrile. She was complaining of shortness of breath this morning and seemed to have some improvement. The patient denies having any cough or sputum production. Abdominal pain is currently controlled. No diarrhea. PHYSICAL EXAMINATION: Blood pressure 157/80 with a pulse of 64, temperature 98.5, she is 93% on 2 L nasal cannula. General description is a middle-aged female lying in bed in no distress. Respiratory system: Unlabored breathing, clear to auscultation anteriorly. Heart S1, S2. Regular rate and rhythm. Abdomen is soft, mildly distended. No guarding or rigidity. LABS: Abdominal culture, Enterococcus Avium. White count 7.9. Creatinine is 2.1. DIAGNOSTIC IMPRESSION AND PLAN: Patient with abdominal wall abscess status post drainage. Culture, Enterococcus Avium. Sputum cultures pending. Patient on daptomycin because of her kidney function. She will continue on daptomycin for at least 2 weeks on discharge and local wound care as ordered. Continue supportive care. MMODL / IJN: [id number] /
[2020-11-04] MEDS: ONDANSETRON 4 MG/2 ML VIAL IVP PRN (15:14)
[2020-11-04] MEDS: SODIUM CHLORIDE 0.9% 1,000 ML IV SCH ×2 (16:35→17:20)
[2020-11-04 17:22] LABS: Glucose,Whole Blood 122 mg/dL (75-99)
--- NOTE | 2020-11-04 18:28 | P.PN ---
Subjective Progress Note Date: 11/04/20 Patient reports severe abdominal distention from gas. Unable to tolerate PO. Wound without erythema with packing. Likely ileus. Adjust medcations. Reports nausea, no flatus. Objective - Vital Signs Vital signs: Vital Signs Temp 97.8 F 11/04/20 12:06 Pulse 82 11/04/20 16:19 Resp 18 11/04/20 12:06 BP 165/85 11/04/20 12:06 Pulse Ox 93 L 11/04/20 12:06 Intake & Output 11/03/20 11/04/20 11/04/20 18:59 06:59 18:59 Intake Total 590 940 Output Total 600 477 1133 Balance -150 -60 -360 Intake: Intake, IV Titration 700 Amount DAPTOmycin 350 mg In 100 Sodium Chloride 0.9% 50 ml @ 100 mls/hr IVPB Q48H [facility] Rx#:[id number] Sodium Chloride 0.9% 1, 600 000 ml @ 75 mls/hr IV . [id number] [facility] Rx#:[id number] Oral 590 240 Output: Urine 883 568 7867 Other: Voiding Method Toilet Toilet Toilet # Voids 100 1 1 # Bowel Movements 1 1 - Labs CBC & Chem 7: 11/04/20 04:48 11/04/20 04:48 Labs: Abnormal Lab Results - Last 24 Hours (Table) 11/03/20 11/04/20 11/04/20 Range/Units 23:13 03:44 04:48 RBC (4.10-5.20) X 10*6/uL Hgb (12.0-15.0) g/dL Hct (37.2-46.3) % MCV (80.0-97.0) fL MCHC (32.0-37.0) g/dL RDW (11.5-14.5) % Chloride 111 H (96-109) mmol/L Creatinine 2.1 H (0.6-1.5) mg/dL Est GFR (CKD-EPI)AfAm 28.5 L (60.0-200.0) Est GFR (CKD-EPI)NonAf 24.6 L (60.0-200.0) BUN/Creatinine Ratio 5.71 L (12.00-20.00) Ratio Glucose 151 H (70-110) mg/dL POC Glucose (mg/dL) 153 H (75-99) mg/dL Total Protein 5.9 L (6.2-8.2) g/dL Albumin 3.40 L (3.80-4.90) g/dL Albumin/Globulin Ratio 1.36 L (1.60-3.17) g/dL Urine Protein Trace H (Negative) 11/04/20 11/04/20 11/04/20 Range/Units 04:48 07:07 12:07 RBC 3.76 L (4.10-5.20) X 10*6/uL Hgb 11.7 L (12.0-15.0) g/dL Hct 36.7 L (37.2-46.3) % MCV 97.6 H (80.0-97.0) fL MCHC 31.9 L (32.0-37.0) g/dL RDW 14.9 H (11.5-14.5) % Chloride (96-109) mmol/L Creatinine (0.6-1.5) mg/dL Est GFR (CKD-EPI)AfAm (60.0-200.0) Est GFR (CKD-EPI)NonAf (60.0-200.0) BUN/Creatinine Ratio (12.00-20.00) Ratio Glucose (70-110) mg/dL POC Glucose (mg/dL) 152 H 167 H (75-99) mg/dL Total Protein (6.2-8.2) g/dL Albumin (3.80-4.90) g/dL Albumin/Globulin Ratio (1.60-3.17) g/dL Urine Protein (Negative) 11/04/20 Range/Units 17:21 RBC (4.10-5.20) X 10*6/uL Hgb (12.0-15.0) g/dL Hct (37.2-46.3) % MCV (80.0-97.0) fL MCHC (32.0-37.0) g/dL RDW (11.5-14.5) % Chloride (96-109) mmol/L Creatinine (0.6-1.5) mg/dL Est GFR (CKD-EPI)AfAm (60.0-200.0) Est GFR (CKD-EPI)NonAf (60.0-200.0) BUN/Creatinine Ratio (12.00-20.00) Ratio Glucose (70-110) mg/dL POC Glucose (mg/dL) 122 H (75-99) mg/dL Total Protein (6.2-8.2) g/dL Albumin (3.80-4.90) g/dL Albumin/Globulin Ratio (1.60-3.17) g/dL Urine Protein (Negative) Microbiology - Last 24 Hours (Table) 11/01/20 13:00 Gram Stain - Final Abdomen Wound Culture - Final Staphylococcus epidermidis 11/01/20 14:30 Gram Stain - Final Abdomen Wound Culture - Final Enterococcus avium 11/01/20 14:30 Anaerobic Culture - Preliminary Abdomen 11/01/20 13:00 Anaerobic Culture - Preliminary Abdomen 10/31/20 17:04 Blood Culture - Preliminary Blood No Growth after 72 hours
--- NOTE | 2020-11-04 19:44 | XR ---
EXAMINATION TYPE: XR abdomen 2V DATE OF EXAM: 11/04/2020 COMPARISON: February 07, 2018 HISTORY: Ileus. Abdominal pain TECHNIQUE: Supine and upright views FINDINGS: 3 views were obtained and show some blunting of the costophrenic angles. There is no sign o f intestinal obstruction or pneumoperitoneum. There is no evidence of a mass. There are phlebolith in the pelvis. Sacroiliac joints are intact. IMPRESSION: Pleural fluid and reaction at the lung bases. There is new pulmonary interstitial edema i n the lower lobes compared to old exam. This could be congestive heart failure. Pleural fluid is incr eased compared to chest x-ray yesterday.
[2020-11-04 20:56] LABS: Glucose,Whole Blood 129 mg/dL (75-99)
[2020-11-04] MEDS ORDERED: ALVIMOPAN 12 MG CAPSULE PO SCH (21:30)
[2020-11-04] MEDS: SIMETHICONE 80 MG CHEWABLE PO SCH ×2 (21:58→23:01)
[2020-11-04] MEDS: MELATONIN 3 MG TABLET PO PRN (23:51)
[2020-11-05] MEDS: SODIUM CHLORIDE 0.9% 1,000 ML IV SCH (06:09)
[2020-11-05] MEDS: SYMBICORT 160-4.5 MCG INHALER INHALATION SCH ×2 (07:11→20:44)
[2020-11-05 07:45] LABS: Glucose,Whole Blood 100 mg/dL (75-99)
[2020-11-05 09:46] LABS: Basophils # (A) 0.03 X 10*3/uL (0.00-0.10); Basophils % (A) 0.4 %; Eosinophils # (A) 0.34 X 10*3/uL (0.04-0.35); Eosinophils % (A) 4.9 %; HCT 34.6 % (37.2-46.3); Lymphocytes # (A) 1.12 X 10*3/uL (0.90-5.00); Lymphocytes % (A) 16.2 %; MCH 31.1 pg (27.0-32.0); MCHC 31.8 g/dL (32.0-37.0); MCV 97.7 fL (80.0-97.0); Monocytes # (A) 0.89 X 10*3/uL (0.20-1.00); Monocytes % (A) 12.9 %; Neutrophils # (A) 4.48 X 10*3/uL (1.80-7.70); Platelet Count 194 X 10*3/uL (140-440); RBC 3.54 X 10*6/uL (4.10-5.20); RDW 15.2 % (11.5-14.5)
[2020-11-05 09:57] LABS: African American GFR (CKD) 30.2 (60.0-200.0); Albumin 3.5 g/dL (3.80-4.90); Albumin/Globulin Ratio 1.4 (1.60-3.17); Anion Gap 7.4 mmol/L (4.00-12.00); BUN/Creat Ratio 6.5 Ratio (12.00-20.00); Calcium 9.2 mg/dL (8.7-10.3); Carbon Dioxide 22.6 mmol/L (21.6-31.8); Globulin 2.5 g/dL (1.6-3.3); Non-African American GFR(CKD) 26.1 (60.0-200.0); Potassium 3.9 mmol/L (3.5-5.5); Total Bilirubin 0.8 mg/dL (0.3-1.2)
[2020-11-05] MEDS ORDERED: FUROSEMIDE 10 MG/ML 2 ML VIAL IV ONE (09:59)
[2020-11-05] MEDS: glipiZIDE 5 MG TAB PO SCH ×2 (11:02→21:31)
[2020-11-05] MEDS: ESCITALOPRAM 20 MG TAB PO SCH (11:02)
[2020-11-05] MEDS: SIMETHICONE 80 MG CHEWABLE PO SCH ×3 (11:02→21:31)
[2020-11-05] MEDS: METOPROLOL TARTRATE 50 MG TAB PO SCH ×2 (11:02→21:31)
[2020-11-05] MEDS: FOLIC ACID 1 MG TAB PO SCH (11:03)
[2020-11-05] MEDS: ENOXAPARIN 30 MG/0.3 ML SYRINGE SQ SCH (11:03)
[2020-11-05] MEDS: LACTOBACILLUS ACIDOPH & BULGAR 1 EACH PACKET PO SCH (11:03)
[2020-11-05] MEDS: PANTOPRAZOLE 40 MG TABLET PO SCH (11:03)
--- NOTE | 2020-11-05 11:03 | P.PN ---
Subjective Patient is seen in follow for acute kidney injury. Renal function stable. Good urine output. Oral intake fair. No vomiting or diarrhea. More wheezing today. Currently on 2 L nasal cannula. Vital signs are stable. General: The patient appeared well nourished and normally developed. HEENT: Head exam is unremarkable. Neck is without jugular venous distension. LUNGS: Breath sounds decreased. Scattered wheezing HEART: Rate and Rhythm are regular. ABDOMEN: Soft, nontender. EXTREMITITES: No edema. Objective - Vital Signs Vital signs: Vital Signs Temp 97.7 F 11/05/20 04:48 Pulse 72 11/05/20 04:48 Resp 20 11/05/20 04:48 BP 153/80 11/05/20 04:48 Pulse Ox 95 11/05/20 04:48 Intake & Output 11/04/20 11/05/20 11/05/20 18:59 06:59 18:59 Intake Total 940 Output Total 1300 650 Balance -360 -650 Intake: Intake, IV Titration 700 Amount DAPTOmycin 350 mg In 100 Sodium Chloride 0.9% 50 ml @ 100 mls/hr IVPB Q48H [facility] Rx#:[id number] Sodium Chloride 0.9% 1, 600 000 ml @ 75 mls/hr IV . [id number] [facility] Rx#:[id number] Oral 240 Output: Urine 1300 650 Other: Voiding Method Toilet Toilet # Voids 1 3 # Bowel Movements 1 1 - Labs CBC & Chem 7: 11/05/20 06:32 11/05/20 06:32 Labs: Abnormal Lab Results - Last 24 Hours (Table) 11/04/20 11/04/20 11/04/20 Range/Units 12:07 17:21 20:54 RBC (4.10-5.20) X 10*6/uL Hgb (12.0-15.0) g/dL Hct (37.2-46.3) % MCV (80.0-97.0) fL MCHC (32.0-37.0) g/dL RDW (11.5-14.5) % Chloride (96-109) mmol/L Creatinine (0.6-1.5) mg/dL Est GFR (CKD-EPI)AfAm (60.0-200.0) Est GFR (CKD-EPI)NonAf (60.0-200.0) BUN/Creatinine Ratio (12.00-20.00) Ratio POC Glucose (mg/dL) 167 H 122 H 129 H (75-99) mg/dL AST (13-35) U/L ALT (8-44) U/L Total Protein (6.2-8.2) g/dL Albumin (3.80-4.90) g/dL Albumin/Globulin Ratio (1.60-3.17) g/dL 11/05/20 11/05/20 11/05/20 Range/Units 06:32 06:32 07:37 RBC 3.54 L (4.10-5.20) X 10*6/uL Hgb 11.0 L (12.0-15.0) g/dL Hct 34.6 L (37.2-46.3) % MCV 97.7 H (80.0-97.0) fL MCHC 31.8 L (32.0-37.0) g/dL RDW 15.2 H (11.5-14.5) % Chloride 113 H (96-109) mmol/L Creatinine 2.0 H (0.6-1.5) mg/dL Est GFR (CKD-EPI)AfAm 30.2 L (60.0-200.0) Est GFR (CKD-EPI)NonAf 26.1 L (60.0-200.0) BUN/Creatinine Ratio 6.50 L (12.00-20.00) Ratio POC Glucose (mg/dL) 100 H (75-99) mg/dL AST 49 H (13-35) U/L ALT 49 H (8-44) U/L Total Protein 6.0 L (6.2-8.2) g/dL Albumin 3.50 L (3.80-4.90) g/dL Albumin/Globulin Ratio 1.40 L (1.60-3.17) g/dL Microbiology - Last 24 Hours (Table) 10/31/20 17:04 Blood Culture - Preliminary Blood No Growth after 96 hours 11/01/20 13:00 Gram Stain - Final Abdomen Wound Culture - Final Staphylococcus epidermidis Assessment and Plan Plan: Assessment: 1. Acute kidney injury secondary to ATN secondary to vancomycin toxicity and further worsened with the use of WILFREDO inhibitor and Motrin. Also component of contrast-induced acute kidney injury. She received IV contrast for CAT scan on October 31. Baseline creatinine near 1 and is stable at 2.0 today. UA fairly benign. No hydronephrosis noted on computed tomography scan this admission. 2. Abdominal abscess status post incision and drainage maintained on antibiotics per infectious disease. Vancomycin discontinued. Wound culture positive for enterococcus. 3. Diabetes mellitus. 4. Benign hypertension. Stable. Plan: Hep-Lock IV fluids. Encourage oral intake. Avoid nephrotoxins. Continue to monitor renal function and urine output.
[2020-11-05] MEDS: FLUTICASONE 50MCG/SPRAY NASAL 16GM EA NOSTRIL SCH (11:12)
[2020-11-05] MEDS: NICOTINE 21MG/24HR PATCH TRANSDERM SCH (11:15)
[2020-11-05] MEDS: ALBUTEROL NEBULIZED 2.5 MG/3 ML INHALATION PRN ×3 (11:51→20:44)
--- NOTE | 2020-11-05 12:33 | P.PN ---
Subjective Progress Note Date: 11/05/20 Roxana Velasquez, 60-year-old female who presented to [facility] emergency room with a chief complaint of discharge from the abdominal wall incision site, patient had multiple abdominal surgeries the most recent one was on August where patient had repair of incisional hernia small bowel resection and lysis of adhesions by Dr. Goldsmith, she was discharged home on 08/19/2020. Patient was evaluated in the emergency room, her vital examination on presentation revealed a temperature of 98.9 pulse 69 respiration 16 blood pressure 178/99 pulse ox 92% on room air, laboratory data revealed a white blood count of 7.0 hemoglobin 15.0 platelet count 224 glucose 150, BUN 10 creatinine 0.6 coronary of iris PCR testing was negative. Patient underwent a computed tomography scan of the abdomen and pelvis with contrast in the emergency room that revealed evidence of a superficial phlegmon and anterior abdominal wall abscess, patient was started on IV antibiotic vancomycin and Zosyn and was admitted to medical floor. Past medical history is significant for history of ruptured diverticuli with colostomy in January 2018, colostomy reversal in May 2018, history of hypertension, history of hyperlipidemia, history of diabetes mellitus, history of COPD, history of depression with anxiety. On 11/02/2020 patient was seen and examined on the medical floor she is alert and oriented 3 in no apparent distress she is complaining of mild pain in the abdominal wall, she is also complaining of nausea today otherwise she denies any complaints there is no fever or chills no headache or dizziness no chest pain no shortness of breath no cough no palpitation she has some nausea no vomiting no diarrhea no blood in the stools and no urinary symptoms On 11/03/2020 patient is alert and oriented 3. Creatinine increasing to 1.89. Lisinopril and ibuprofen DC'd. Also will discuss with infectious disease about switching IV antibiotic. Nephrology services will be consulted. Will also order chest x-ray due to pulse ox 90 and some shortness of breath with ambulation. Patient denies any chest pain. Patient denies nausea vomiting or diarrhea. Patient denies any urinary burning or frequency. On 11/04/2020 patient was seen and examined on the medical floor she is alert and oriented 3 in no apparent distress there is no fever or chills no headache or dizziness no chest pain no shortness of breath no cough no nausea or vomiting no abdominal pain no diarrhea no blood in the stools no burning with urination no frequency or urgency and no hematuria. Patient stated that she had an anxiety attack earlier this morning otherwise she denies any complaints kidney function is slightly worse today Will continue to monitor On 11/05/2020 patient is alert and oriented 3. Having increased wheezing today. Fluids have been ordered for hep-locked per nephrology services kidney slightly improved. Will order 1 dose of Lasix. Primary services have been consulted. Incentive spirometer will be ordered. Patient denies chest pain. Patient denies nausea vomiting or diarrhea. Patient denies any urinary burning or frequency Objective - Vital Signs Vital signs: Vital Signs Temp 97.7 F 11/05/20 04:48 Pulse 86 11/05/20 12:03 Resp 20 11/05/20 04:48 BP 153/80 11/05/20 04:48 Pulse Ox 95 11/05/20 04:48 Intake & Output 11/04/20 11/05/20 11/05/20 18:59 06:59 18:59 Intake Total 940 Output Total 1300 650 Balance -360 -650 Intake: Intake, IV Titration 700 Amount DAPTOmycin 350 mg In 100 Sodium Chloride 0.9% 50 ml @ 100 mls/hr IVPB Q48H TOMER Rx#:[id number] Sodium Chloride 0.9% 1, 600 000 ml @ 75 mls/hr IV . [id number] TOMER Rx#:[id number] Oral 240 Output: Urine 1300 650 Other: Voiding Method Toilet Toilet # Voids 1 3 # Bowel Movements 1 1 - Exam In general patient is alert and oriented 3 in no apparent distress HEENT head normocephalic and atraumatic Neck is supple no JVD no goiter no lymphadenopathy Chest exam reveals crackles in both lung nice mostly on the right no wheezing Cardiac exam reveals regular heart sounds S1 and S2 no gallops no murmurs Abdomen is soft nontender no organomegaly with normal bowel sounds, patient underwent incision and drainage of abdominal wall abscess by Dr. Hawthorne Extremity exam reveals no edema no cyanosis or clubbing Neurological examination reveals no gross focal deficit - Labs CBC & Chem 7: 11/05/20 06:32 11/05/20 06:32 Labs: Abnormal Lab Results - Last 24 Hours (Table) 11/04/20 11/04/20 11/05/20 Range/Units 17:21 20:54 06:32 RBC (4.10-5.20) X 10*6/uL Hgb (12.0-15.0) g/dL Hct (37.2-46.3) % MCV (80.0-97.0) fL MCHC (32.0-37.0) g/dL RDW (11.5-14.5) % Chloride 113 H (96-109) mmol/L Creatinine 2.0 H (0.6-1.5) mg/dL Est GFR (CKD-EPI)AfAm 30.2 L (60.0-200.0) Est GFR (CKD-EPI)NonAf 26.1 L (60.0-200.0) BUN/Creatinine Ratio 6.50 L (12.00-20.00) Ratio POC Glucose (mg/dL) 122 H 129 H (75-99) mg/dL AST 49 H (13-35) U/L ALT 49 H (8-44) U/L Total Protein 6.0 L (6.2-8.2) g/dL Albumin 3.50 L (3.80-4.90) g/dL Albumin/Globulin Ratio 1.40 L (1.60-3.17) g/dL 11/05/20 11/05/20 Range/Units 06:32 07:37 RBC 3.54 L (4.10-5.20) X 10*6/uL Hgb 11.0 L (12.0-15.0) g/dL Hct 34.6 L (37.2-46.3) % MCV 97.7 H (80.0-97.0) fL MCHC 31.8 L (32.0-37.0) g/dL RDW 15.2 H (11.5-14.5) % Chloride (96-109) mmol/L Creatinine (0.6-1.5) mg/dL Est GFR (CKD-EPI)AfAm (60.0-200.0) Est GFR (CKD-EPI)NonAf (60.0-200.0) BUN/Creatinine Ratio (12.00-20.00) Ratio POC Glucose (mg/dL) 100 H (75-99) mg/dL AST (13-35) U/L ALT (8-44) U/L Total Protein (6.2-8.2) g/dL Albumin (3.80-4.90) g/dL Albumin/Globulin Ratio (1.60-3.17) g/dL Microbiology - Last 24 Hours (Table) 10/31/20 17:04 Blood Culture - Preliminary Blood No Growth after 96 hours 11/01/20 13:00 Gram Stain - Final Abdomen Wound Culture - Final Staphylococcus epidermidis Assessment and Plan Plan: 1. Anterior abdominal wall phlegmon with abscess, started on IV antibiotic vancomycin however patient had significant elevation in her creatinine vancomyci n was discontinued and patient was switched to IV daptomycin infectious disease following 2. Underlying history of diabetes mellitus, home medications reviewed and reordered, will check hemoglobin A1c, will cover with insulin to sliding scale 3. Underlying history of hypertension 4. Underlying history of hyperlipidemia 5. Underlying history of gastroesophageal reflux disease 6. Underlying history of asthma stable at this time. 7. Underlying history of depression with anxiety disorder. 8. Acute kidney injury. Creatinine 1.89. Lisinopril and ibuprofen DC'd. Will discuss with infectious disease about antibiotic. Nephrology services consulted 9. Shortness of breath. Lasix has been ordered. Pulmonary service is consulted. Incentive spirometry ordered. Continue DuoNeb breathing treatments At this time home medications reviewed and reordered Continue with current IV antibiotics until culture results not available Cover was insulin to sliding scale as needed For DVT prophylaxis subcu Lovenox For GI prophylaxis patient is on Protonix Will recheck labs and follow closely in a.m. Infectious disease, surgical services and nephrology service is consulted
[2020-11-05 12:42] LABS: Glucose,Whole Blood 147 mg/dL (75-99)
[2020-11-05] MEDS ORDERED: ALPRAZolam 0.25 MG TAB PO PRN (13:23)
--- NOTE | 2020-11-05 14:54 | P.PN ---
Subjective Progress Note Date: 11/05/20 She feels better today. Abdominal distention improved with simthicone. AXR reviewed without acute obstruction. She reports breathing better. Continue simethicone. Objective - Vital Signs Vital signs: Vital Signs Temp 98.0 F 11/05/20 12:33 Pulse 74 11/05/20 12:33 Resp 20 11/05/20 12:33 BP 172/79 11/05/20 12:33 Pulse Ox 92 L 11/05/20 12:33 Intake & Output 11/04/20 11/05/20 11/05/20 18:59 06:59 18:59 Intake Total 940 Output Total 1300 650 900 Balance -360 -650 -900 Intake: Intake, IV Titration 700 Amount DAPTOmycin 350 mg In 100 Sodium Chloride 0.9% 50 ml @ 100 mls/hr IVPB Q48H TOMER Rx#:[id number] Sodium Chloride 0.9% 1, 600 000 ml @ 75 mls/hr IV . [id number] TOMER Rx#:[id number] Oral 240 Output: Urine 1300 650 900 Other: Voiding Method Toilet Toilet Toilet # Voids 1 3 # Bowel Movements 1 1 - Labs CBC & Chem 7: 11/05/20 06:32 11/05/20 06:32 Labs: Abnormal Lab Results - Last 24 Hours (Table) 11/04/20 11/04/20 11/05/20 Range/Units 17:21 20:54 06:32 RBC (4.10-5.20) X 10*6/uL Hgb (12.0-15.0) g/dL Hct (37.2-46.3) % MCV (80.0-97.0) fL MCHC (32.0-37.0) g/dL RDW (11.5-14.5) % Chloride 113 H (96-109) mmol/L Creatinine 2.0 H (0.6-1.5) mg/dL Est GFR (CKD-EPI)AfAm 30.2 L (60.0-200.0) Est GFR (CKD-EPI)NonAf 26.1 L (60.0-200.0) BUN/Creatinine Ratio 6.50 L (12.00-20.00) Ratio POC Glucose (mg/dL) 122 H 129 H (75-99) mg/dL AST 49 H (13-35) U/L ALT 49 H (8-44) U/L Total Protein 6.0 L (6.2-8.2) g/dL Albumin 3.50 L (3.80-4.90) g/dL Albumin/Globulin Ratio 1.40 L (1.60-3.17) g/dL 11/05/20 11/05/20 11/05/20 Range/Units 06:32 07:37 12:30 RBC 3.54 L (4.10-5.20) X 10*6/uL Hgb 11.0 L (12.0-15.0) g/dL Hct 34.6 L (37.2-46.3) % MCV 97.7 H (80.0-97.0) fL MCHC 31.8 L (32.0-37.0) g/dL RDW 15.2 H (11.5-14.5) % Chloride (96-109) mmol/L Creatinine (0.6-1.5) mg/dL Est GFR (CKD-EPI)AfAm (60.0-200.0) Est GFR (CKD-EPI)NonAf (60.0-200.0) BUN/Creatinine Ratio (12.00-20.00) Ratio POC Glucose (mg/dL) 100 H 147 H (75-99) mg/dL AST (13-35) U/L ALT (8-44) U/L Total Protein (6.2-8.2) g/dL Albumin (3.80-4.90) g/dL Albumin/Globulin Ratio (1.60-3.17) g/dL Microbiology - Last 24 Hours (Table) 10/31/20 17:04 Blood Culture - Preliminary Blood No Growth after 96 hours 11/01/20 13:00 Gram Stain - Final Abdomen Wound Culture - Final Staphylococcus epidermidis
[2020-11-05] MEDS: HYDROcodone/APAP 5-325MG 1 EACH TAB PO PRN ×2 (16:23→21:36)
[2020-11-05 17:45] LABS: Glucose,Whole Blood 134 mg/dL (75-99)
[2020-11-05 20:20] LABS: Glucose,Whole Blood 137 mg/dL (75-99)
[2020-11-05] MEDS: MELATONIN 3 MG TABLET PO PRN (21:31)
[2020-11-06 06:37] LABS: African American GFR (CKD) 31 (>60 ml/min/1.73 sqM); Anion Gap 7 mmol/L; Blood Urea Nitrogen 16 mg/dL (7-17); Calcium 9.3 mg/dL (8.4-10.2); Carbon Dioxide 26 mmol/L (22-30); Chloride 105 mmol/L (98-107); Glucose 169 mg/dL (74-99); Magnesium 1.4 mg/dL (1.6-2.3); Non-African American GFR(CKD) 27 (>60 ml/min/1.73 sqM); Potassium 3.5 mmol/L (3.5-5.1); Sodium 138 mmol/L (137-145)
--- NOTE | 2020-11-06 06:55 | PN ---
PROGRESS NOTE DATE OF SERVICE: 11/05/2020 REASON FOR FOLLOWUP: Abdominal wall abscess. INTERVAL HISTORY: Patient is currently afebrile. Patient is breathing comfortably. The patient denies having any chest pain. No shortness of breath or cough. Abdominal pain has improved. No diarrhea. PHYSICAL EXAMINATION: Blood pressure 173/78 with a pulse of 94, temperature 98.5, she is 96% on room air. General description is a middle-aged female up in the room in no distress. Respiratory system: Unlabored breathing, decreased intensity of breath sounds. No wheeze. HEART: S1, S2. Regular rate and rhythm. ABDOMEN: Soft, no tenderness. LABS: Hemoglobin 11, white count 6.90, BUN of 13, creatinine is 2.0. DIAGNOSTIC IMPRESSION AND PLAN: Patient with abdominal wall abscess. Culture positive staphylococus covered with daptomycin because of her renal function. Has previous cultures also positive for Staphylococcus epi, oxacillin-resistant. She has a Medline and continue with IV antibiotic for 2 weeks and close outpatient followup. MMODL / IJN: [id number] / STU
[2020-11-06 07:08] LABS: Glucose,Whole Blood 155 mg/dL (75-99)
[2020-11-06] MEDS: DAPTOmycin 350 MG in SODIUM CHLORIDE 0.9% 50 ML IVPB SCH (08:09)
[2020-11-06] MEDS: PANTOPRAZOLE 40 MG TABLET PO SCH (08:10)
[2020-11-06] MEDS: METOPROLOL TARTRATE 50 MG TAB PO SCH (08:10)
[2020-11-06] MEDS: NICOTINE 21MG/24HR PATCH TRANSDERM SCH (08:10)
[2020-11-06] MEDS: FOLIC ACID 1 MG TAB PO SCH (08:10)
[2020-11-06] MEDS: SIMETHICONE 80 MG CHEWABLE PO SCH (08:11)
[2020-11-06] MEDS: ENOXAPARIN 30 MG/0.3 ML SYRINGE SQ SCH (08:11)
[2020-11-06] MEDS: LACTOBACILLUS ACIDOPH & BULGAR 1 EACH PACKET PO SCH (08:12)
[2020-11-06] MEDS: glipiZIDE 5 MG TAB PO SCH (08:12)
[2020-11-06] MEDS: ESCITALOPRAM 20 MG TAB PO SCH (08:12)
[2020-11-06] MEDS: FLUTICASONE 50MCG/SPRAY NASAL 16GM EA NOSTRIL SCH (08:12)
[2020-11-06] MEDS: ACETAMINOPHEN TAB 325 MG TAB PO PRN (08:30)
[2020-11-06] MEDS: SYMBICORT 160-4.5 MCG INHALER INHALATION SCH (08:34)
[2020-11-06 09:13] LABS: Basophils # (A) 0.04 X 10*3/uL (0.00-0.10); Basophils % (A) 0.6 %; Eosinophils # (A) 0.41 X 10*3/uL (0.04-0.35); Eosinophils % (A) 6.4 %; HCT 32.9 % (37.2-46.3); HGB 10.7 g/dL (12.0-15.0); Lymphocytes % (A) 17.1 %; MCH 30.9 pg (27.0-32.0); MCHC 32.5 g/dL (32.0-37.0); MCV 95.1 fL (80.0-97.0); Mean Platelet Volume 10.9 fL (9.5-12.2); Monocytes # (A) 0.96 X 10*3/uL (0.20-1.00); Monocytes % (A) 14.9 %; Neutrophils % (A) 60.7 %; Platelet Count 235 X 10*3/uL (140-440); RBC 3.46 X 10*6/uL (4.10-5.20); RDW 15.1 % (11.5-14.5); WBC 6.43 X 10*3/uL (4.50-10.00)
[2020-11-06] MEDS ORDERED: DOCUSATE 100 MG CAP PO SCH (09:30)
[2020-11-06] MEDS ORDERED: Magnesium Replacement Protocol 1 EACH MISC MISCELLANE PRN (11:18)
[2020-11-06 11:20] LABS: Glucose,Whole Blood 139 mg/dL (75-99)
[2020-11-06] MEDS: ALBUTEROL NEBULIZED 2.5 MG/3 ML INHALATION PRN (11:29)
[2020-11-06] MEDS: MAGNESIUM SULFATE-D5W PMX 1 GM in DEXTROSE/WATER 1 100ML.BAG IVPB SCH ×3 (11:45→13:48)
[2020-11-06 11:53] VITALS: BP 158/76; PULSE 67; RESP 17; TEMP 98.1
--- NOTE | 2020-11-06 11:56 | P.PN ---
Subjective Patient is seen in follow for acute kidney injury. Renal function stable. Good urine output. She received a dose of IV Lasix yesterday and urine output was over 5 L in the last 24 hours. Currently on room air. Oral intake fair. No vomiting or diarrhea. Vital signs are stable. General: The patient appeared well nourished and normally developed. HEENT: Head exam is unremarkable. Neck is without jugular venous distension. LUNGS: Breath sounds decreased. Scattered wheezing HEART: Rate and Rhythm are regular. ABDOMEN: Soft, nontender. EXTREMITITES: No edema. Objective - Vital Signs Vital signs: Vital Signs Temp 98.1 F 11/06/20 11:52 Pulse 67 11/06/20 11:52 Resp 17 11/06/20 11:52 BP 158/76 11/06/20 11:52 Pulse Ox 93 L 11/06/20 11:52 Intake & Output 11/05/20 11/06/20 11/06/20 18:59 06:59 18:59 Intake Total 480 Output Total 4700 400 Balance -4220 -400 Intake: Oral 480 Output: Urine 4700 400 Other: Voiding Method Toilet Toilet Toilet # Voids 1 - Labs CBC & Chem 7: 11/06/20 05:47 11/06/20 05:47 Labs: Abnormal Lab Results - Last 24 Hours (Table) 11/05/20 11/05/20 11/05/20 Range/Units 12:30 17:44 20:19 RBC (4.10-5.20) X 10*6/uL Hgb (12.0-15.0) g/dL Hct (37.2-46.3) % RDW (11.5-14.5) % Eosinophils # (0.04-0.35) X 10*3/uL Creatinine (0.52-1.04) mg/dL Glucose (74-99) mg/dL POC Glucose (mg/dL) 147 H 134 H 137 H (75-99) mg/dL Magnesium (1.6-2.3) mg/dL 11/06/20 11/06/20 11/06/20 Range/Units 05:47 05:47 07:07 RBC 3.46 L (4.10-5.20) X 10*6/uL Hgb 10.7 L (12.0-15.0) g/dL Hct 32.9 L (37.2-46.3) % RDW 15.1 H (11.5-14.5) % Eosinophils # 0.41 H (0.04-0.35) X 10*3/uL Creatinine 1.95 H (0.52-1.04) mg/dL Glucose 169 H (74-99) mg/dL POC Glucose (mg/dL) 155 H (75-99) mg/dL Magnesium 1.4 L (1.6-2.3) mg/dL 11/06/20 Range/Units 11:19 RBC (4.10-5.20) X 10*6/uL Hgb (12.0-15.0) g/dL Hct (37.2-46.3) % RDW (11.5-14.5) % Eosinophils # (0.04-0.35) X 10*3/uL Creatinine (0.52-1.04) mg/dL Glucose (74-99) mg/dL POC Glucose (mg/dL) 139 H (75-99) mg/dL Magnesium (1.6-2.3) mg/dL Microbiology - Last 24 Hours (Table) 10/31/20 17:04 Blood Culture - Preliminary Blood No Growth after 120 hours 11/01/20 14:30 Anaerobic Culture - Final Abdomen 11/01/20 13:00 Anaerobic Culture - Final Abdomen Assessment and Plan Plan: Assessment: 1. Acute kidney injury secondary to ATN secondary to vancomycin toxicity and further worsened with the use of WILFREDO inhibitor and Motrin. Also component of contrast-induced acute kidney injury. She received IV contrast for CAT scan on October 31. Baseline creatinine near 1 and is stable at 1.95 today. UA fairly benign. No hydronephrosis noted on computed tomography scan this admission. 2. Abdominal abscess status post incision and drainage maintained on antibiotics per infectious disease. Vancomycin discontinued. Wound culture positive for enterococcus. 3. Diabetes mellitus. 4. Benign hypertension. Stable. 5. Hypomagnesemia from poor intake and diuresis. 6. Volume overload. Improved with diuresis. Plan: Hep-Lock IV fluids. Status post IV Lasix yesterday. Add oral Lasix 20 mg once daily. Encourage oral intake. Avoid nephrotoxins. Continue to monitor renal function and urine output. Magnesium being replaced.
[2020-11-06] MEDS ORDERED: FUROSEMIDE 20 MG TAB PO SCH (12:00)
--- NOTE | 2020-11-06 13:09 | P.PN ---
Subjective Progress Note Date: 11/06/20 CHIEF COMPLAINT: Subcutaneous abscess of the abdominal wall HISTORY OF PRESENT ILLNESS: Patient seen and examined with Dr. Goldsmith. Patient is status post bedside incision and drainage of subcutaneous abscess of abdominal wall at patient's incision site on 11/01/20. Patient reports that she is feeling better today. She has been passing gas and did have bowel movement. She denies any nausea or vomiting. She did receive a dose of IV Lasix yesterday for fluid overload. Afebrile. She is on regular diet. WBC 6.43 Hgb 10.7 CR 1.95 magnesium 1.4 pulmonary on consult for shortness of breath. Patient reports she is feeling better and wants to be discharged. The simethicone has helped with her gas pains. PHYSICAL EXAM: VITAL SIGNS: Reviewed. GENERAL: Well-developed in no acute distress. HEENT: No sclera icterus. Extraocular movements grossly intact. Moist buccal mucosa. Head is atraumatic, normocephalic. ABDOMEN: Soft. Nondistended. Dressing clean dry and intact NEUROLOGIC: Alert and oriented. Cranial nerves II through XII grossly intact. ASSESSMENT: 1. Subcutaneous abscess of abdominal wall at incision site status post incision and drainage at bedside by Dr. Goldsmith 2. History of incisional hernia repair with small bowel resection and lysis of adhesions on 08/14/2020 3. Diabetes mellitus, Type 2 PLAN: -Continue local wound care with wet-to-dry dressing changes -Continue antibiotics per ID -Continue simethicone for gas pains -Patient stable from surgical standpoint for discharge when cleared by medicine service and other consulting physicians Physician [employer] Lecturer note has been reviewed by physician. Signing provider agrees with the documented findings, assessment, and plan of care. Objective - Vital Signs Vital signs: Vital Signs Temp 98.1 F 11/06/20 11:52 Pulse 67 11/06/20 11:52 Resp 17 11/06/20 11:52 BP 158/76 11/06/20 11:52 Pulse Ox 93 L 11/06/20 11:52 Intake & Output 11/05/20 11/06/20 11/06/20 18:59 06:59 18:59 Intake Total 480 Output Total 4700 400 Balance -4220 -400 Intake: Oral 480 Output: Urine 4700 400 Other: Voiding Method Toilet Toilet Toilet # Voids 1 - Labs CBC & Chem 7: 11/06/20 05:47 11/06/20 05:47 Labs: Abnormal Lab Results - Last 24 Hours (Table) 11/05/20 11/05/20 11/06/20 Range/Units 17:44 20:19 05:47 RBC (4.10-5.20) X 10*6/uL Hgb (12.0-15.0) g/dL Hct (37.2-46.3) % RDW (11.5-14.5) % Eosinophils # (0.04-0.35) X 10*3/uL Creatinine 1.95 H (0.52-1.04) mg/dL Glucose 169 H (74-99) mg/dL POC Glucose (mg/dL) 134 H 137 H (75-99) mg/dL Magnesium 1.4 L (1.6-2.3) mg/dL 11/06/20 11/06/20 11/06/20 Range/Units 05:47 07:07 11:19 RBC 3.46 L (4.10-5.20) X 10*6/uL Hgb 10.7 L (12.0-15.0) g/dL Hct 32.9 L (37.2-46.3) % RDW 15.1 H (11.5-14.5) % Eosinophils # 0.41 H (0.04-0.35) X 10*3/uL Creatinine (0.52-1.04) mg/dL Glucose (74-99) mg/dL POC Glucose (mg/dL) 155 H 139 H (75-99) mg/dL Magnesium (1.6-2.3) mg/dL Microbiology - Last 24 Hours (Table) 10/31/20 17:04 Blood Culture - Preliminary Blood No Growth after 120 hours 11/01/20 14:30 Anaerobic Culture - Final Abdomen 11/01/20 13:00 Anaerobic Culture - Final Abdomen
--- NOTE | 2020-11-06 14:51 | P.CNPUL ---
History of Present Illness Consult date: 11/06/20 Requesting physician: Alicia Painter Reason for consult: dyspnea, cough Chief complaint: Dyspnea, cough History of present illness: This is a 60-year-old female patient of Dr. Painter with past medical history of COPD, diabetes mellitus, surgical history positive for perforated diverticulitis with colostomy and subsequent reversal in 2018. Patient follows with Dr. Buchanan in the pulmonary clinic. Patient had a recent surgery on 08/14/2020 for repair of an incisional hernia with small bowel resection and lysis of adhesions by Dr. Goldsmith. Patient had noticed some redness and drainage at the distal end of her mid abdominal incision, and felt some tenderness to touch. She denied any fever or chills, denied abdominal pain, nausea or vomiting, CT of the abdomen and pelvis showed superficial phlegmon, abdominal wall abscess at the level anterior abdominal wall measuring about 2.7 cm was drained at the bedside by Dr. Goldsmith. Wound cultures were positive for the flu coccus epidermidis, and enterococcus avium susceptible to daptomycin. Patient did have some worsening shortness of breath and cough on 11/03/2020 and 11/04/2020. Chest x-ray showed mild bibasilar infiltrates and cardiomegaly. White blood cell count remained within normal limits, actually lites were fairly unremar kable, renal profile was noted to rise to 2.14 creatinine values, and nephrology was consulted. She was given a couple doses of diuretics, and she has diuresed, she is feeling much better today, lung sounds are clear, she states she occasionally has a cough which is her norm, phlegm was initially yellowish a few days ago, and is clear today. No wheezing no rhonchi, no fever chills. No chest pain. Patient is on nebulized bronchodilators, has diuresed extensively, she is feeling much better today. She is hoping to be able to go home today. She is on daptomycin for the abdominal wound infection. Review of Systems All systems: negative Constitutional: Denies chills, Denies fever Eyes: denies blurred vision, denies pain Ears, nose, mouth and throat: Denies headache, Denies sore throat Cardiovascular: Denies chest pain, Denies shortness of breath Respiratory: Reports cough, Reports dyspnea Gastrointestinal: Denies abdominal pain, Denies diarrhea, Denies nausea, Denies vomiting Genitourinary: Denies dysuria, Denies hematuria Musculoskeletal: Denies myalgias Integumentary: Denies pruritus, Denies rash Neurological: Denies numbness, Denies weakness Psychiatric: Denies anxiety, Denies depression Endocrine: Denies fatigue, Denies weight change Past Medical History Past Medical History: COPD, Diabetes Mellitus, Eye Disorder, GERD/Reflux, Hyperlipidemia, Hypertension, Liver Disease Additional Past Medical History / Comment(s): Bilateral glaucoma, enlarged liver, ruptured diverticuli w/colostomy January 2018. Colostomy reversal May 2018. Chronic back pain. Hx Shingles,steroids April 2020, chronic diarrhea History of Any Multi-Drug Resistant Organisms: None Reported Past Surgical History: Appendectomy, Bowel Resection, Breast Surgery, Cholecystectomy, Hernia Repair, Tonsillectomy Additional Past Surgical History / Comment(s): Benign biopsy left breast, laser liz eye surgery for glaucoma, hemorrhoidectomy. Reversal of colostomy.removed lt ovary, Past Anesthesia/Blood Transfusion Reactions: No Reported Reaction Additional Past Anesthesia/Blood Transfusion Reaction / Comment(s): no hx blood transfusion Past Psychological History: Anxiety, Depression Additional Psychological History / Comment(s): She resides with her spouse who is bedridden. Her spouse has a caregiver and spouse also is his caregiver. Smoking Status: Current every day smoker Past Alcohol Use History: Daily Additional Past Alcohol Use History / Comment(s): Pt started smoking in 1972 2-3 PPD, currently down to 1- 1 1/2 PPD. Drinks a glass of vodka and gatorade nightly. Past Drug Use History: Marijuana Additional Drug Use History / Comment(s): Pt states she smokes marijuana on occasion. - Past Family History Father Family Medical History: Coronary Artery Disease (CAD), Diabetes Mellitus Additional Family Medical History / Comment(s): Father in his 60s from diabetic complications. Mother Family Medical History: Coronary Artery Disease (CAD), Diabetes Mellitus, Myocardial Infarction (CA) Additional Family Medical History / Comment(s): Mother from a CA at the age of 62 yrs. Medications and Allergies Home Medications Medication Instructions Recorded Confirmed Type Fluticasone Nasal Line [place] [Flonase 2 spray EA NOSTRIL DAILY 02/03/18 10/31/20 History Nasal Line [place]] Folic Acid 1 mg PO DAILY #30 tablet 02/11/18 10/31/20 Rx Escitalopram [Lexapro] 20 mg PO QAM 05/26/18 10/31/20 History L.acidoph,Paracasei, B.lactis 1 tab PO DAILY 05/30/20 10/31/20 History [Probiotic] Pantoprazole Sodium [Protonix] 20 mg PO BID 05/30/20 10/31/20 History Acetaminophen Tab [Tylenol Tab] 500 mg PO Q6H PRN 09/25/20 10/31/20 History Albuterol Sulfate [Ventolin HFA] 2 puff INHALATION RT-QID PRN 09/25/20 10/31/20 History Fluticasone Propion/Salmeterol 1 puff INHALATION RT-BID 09/25/20 10/31/20 History [Wixela 500-50 Inhub] diphenhydrAMINE [Benadryl] 25 mg PO DAILY PRN 09/25/20 10/31/20 History hydrOXYzine HCL 10 mg PO TID PRN 09/25/20 10/31/20 History Lisinopril [Zestril] 10 mg PO DAILY 10/31/20 10/31/20 History Metoprolol Tartrate [Lopressor] 50 mg PO BID 10/31/20 10/31/20 History busPIRone HCL 15 mg PO BID PRN 10/31/20 10/31/20 History glipiZIDE [Glucotrol] 5 mg PO BID 10/31/20 10/31/20 History hydrOXYzine HCL [Atarax] 25 mg PO QID PRN 10/31/20 10/31/20 History Allergies Allergy/AdvReac Type Severity Reaction Status Date / Time tramadol Allergy Intermediate Itching Verified 10/31/20 17:19 Physical Exam Vitals: Vital Signs Temp Pulse Pulse Resp BP Pulse Ox 11/06/20 11:52 98.1 F 67 17 158/76 93 L 11/06/20 11:41 80 16 11/06/20 11:29 82 16 11/06/20 08:34 90 L 11/06/20 04:52 97.8 F 81 16 147/66 90 L 11/05/20 20:58 78 11/05/20 20:46 76 11/05/20 20:22 98.5 F 94 18 173/78 96 11/05/20 20:00 94 18 11/05/20 16:10 80 11/05/20 15:59 78 Intake and Output 11/05/20 11/06/20 11/06/20 22:59 06:59 14:59 Intake Total 480 Output Total 3800 400 Balance -3320 -400 Intake: Oral 480 Output: Urine 3800 400 Other: Voiding Method Toilet Toilet # Voids 1 GENERAL EXAM: Alert, very pleasant, 60-year-old white female, on room air, comfortable in no apparent distress. HEAD: Normocephalic/atraumatic. EYES: Normal reaction of pupils, equal size. Conjunctiva pink, sclera white. NOSE: Clear with pink turbinates. THROAT: No erythema or exudates. NECK: No masses, no JVD, no thyroid enlargement, no adenopathy. CHEST: No chest wall deformity. Symmetrical expansion. LUNGS: Equal air entry with no crackles, wheeze, rhonchi or dullness. CVS: Regular rate and rhythm, normal S1 and S2, no gallops, no murmurs, no rubs ABDOMEN: Soft, nontender. No hepatosplenomegaly, normal bowel sounds, no guarding or rigidity. Distal portion of mid abdominal incision has a dressing applied to it, there is a 2 inch distal portion incision opening which is packed, and covered with a protective dressing EXTREMITIES: No clubbing, no edema, no cyanosis, 2+ pulses and upper and lower extremities. MUSCULOSKELETAL: Muscle strength and tone normal. SPINE: No scoliosis or deformity SKIN: No rashes CENTRAL NERVOUS SYSTEM: Alert and oriented -3. No focal deficits, tone is normal in all 4 extremities. PSYCHIATRIC: Alert and oriented -3. Appropriate affect. Intact judgment and insight. Results - Laboratory Findings CBC and BMP: 11/06/20 05:47 11/06/20 05:47 Abnormal lab findings: Abnormal Labs 10/31/20 10/31/20 11/01/20 14:47 22:09 04:35 RBC Hgb Hct MCV MCHC RDW Eosinophils # Sodium Chloride Carbon Dioxide Creatinine Est GFR (CKD-EPI)AfAm Est GFR (CKD-EPI)NonAf BUN/Creatinine Ratio Glucose 150 H 123 H POC Glucose (mg/dL) 115 H Hemoglobin A1c Magnesium AST 42 H ALT Total Protein 5.4 L Albumin 3.70 L Albumin/Globulin Ratio Urine Protein Vancomycin Trough 11/01/20 11/01/20 11/01/20 04:35 04:35 07:17 RBC Hgb Hct MCV MCHC RDW 14.6 H Eosinophils # 0.37 H Sodium Chloride Carbon Dioxide Creatinine Est GFR (CKD-EPI)AfAm Est GFR (CKD-EPI)NonAf BUN/Creatinine Ratio Glucose POC Glucose (mg/dL) 131 H Hemoglobin A1c 7.3 H Magnesium AST ALT Total Protein Albumin Albumin/Globulin Ratio Urine Protein Vancomycin Trough 11/01/20 11/01/20 11/01/20 11:42 16:57 19:59 RBC Hgb Hct MCV MCHC RDW Eosinophils # Sodium Chloride Carbon Dioxide Creatinine Est GFR (CKD-EPI)AfAm Est GFR (CKD-EPI)NonAf BUN/Creatinine Ratio Glucose POC Glucose (mg/dL) 164 H 206 H 144 H Hemoglobin A1c Magnesium AST ALT Total Protein Albumin Albumin/Globulin Ratio Urine Protein Vancomycin Trough 11/02/20 11/02/20 11/02/20 06:57 08:24 08:24 RBC Hgb Hct MCV MCHC RDW Eosinophils # Sodium Chloride 109 H Carbon Dioxide 21 L Creatinine 1.43 H Est GFR (CKD-EPI)AfAm Est GFR (CKD-EPI)NonAf BUN/Creatinine Ratio Glucose 166 H POC Glucose (mg/dL) 164 H Hemoglobin A1c Magnesium AST 54 H ALT Total Protein Albumin Albumin/Globulin Ratio Urine Protein Vancomycin Trough 30.5 H* 11/02/20 11/02/20 11/02/20 10:54 17:00 20:26 RBC Hgb Hct MCV MCHC RDW Eosinophils # Sodium Chloride Carbon Dioxide Creatinine Est GFR (CKD-EPI)AfAm Est GFR (CKD-EPI)NonAf BUN/Creatinine Ratio Glucose POC Glucose (mg/dL) 191 H 195 H 221 H Hemoglobin A1c Magnesium AST ALT Total Protein Albumin Albumin/Globulin Ratio Urine Protein Vancomycin Trough 11/03/20 11/03/20 11/03/20 05:50 05:50 05:50 RBC 3.90 L Hgb Hct MCV 98.7 H MCHC 31.7 L RDW 15.1 H Eosinophils # Sodium 136 L Chloride Carbon Dioxide Creatinine 2.0 H 1.89 H Est GFR (CKD-EPI)AfAm 30.2 L Est GFR (CKD-EPI)NonAf 26.1 L BUN/Creatinine Ratio Glucose 178 H POC Glucose (mg/dL) Hemoglobin A1c Magnesium AST 45 H ALT Total Protein 5.9 L Albumin 3.4 L Albumin/Globulin Ratio Urine Protein Vancomycin Trough 11/03/20 11/03/20 11/03/20 07:08 11:42 16:59 RBC Hgb Hct MCV MCHC RDW Eosinophils # Sodium Chloride Carbon Dioxide Creatinine Est GFR (CKD-EPI)AfAm Est GFR (CKD-EPI)NonAf BUN/Creatinine Ratio Glucose POC Glucose (mg/dL) 191 H 132 H 165 H Hemoglobin A1c Magnesium AST ALT Total Protein Albumin Albumin/Globulin Ratio Urine Protein Vancomycin Trough 11/03/20 11/04/20 11/04/20 23:13 03:44 04:48 RBC Hgb Hct MCV MCHC RDW Eosinophils # Sodium Chloride 111 H Carbon Dioxide Creatinine 2.1 H Est GFR (CKD-EPI)AfAm 28.5 L Est GFR (CKD-EPI)NonAf 24.6 L BUN/Creatinine Ratio 5.71 L Glucose 151 H POC Glucose (mg/dL) 153 H Hemoglobin A1c Magnesium AST ALT Total Protein 5.9 L Albumin 3.40 L Albumin/Globulin Ratio 1.36 L Urine Protein Trace H Vancomycin Trough 11/04/20 11/04/20 11/04/20 04:48 07:07 12:07 RBC 3.76 L Hgb 11.7 L Hct 36.7 L MCV 97.6 H MCHC 31.9 L RDW 14.9 H Eosinophils # Sodium Chloride Carbon Dioxide Creatinine Est GFR (CKD-EPI)AfAm Est GFR (CKD-EPI)NonAf BUN/Creatinine Ratio Glucose POC Glucose (mg/dL) 152 H 167 H Hemoglobin A1c Magnesium AST ALT Total Protein Albumin Albumin/Globulin Ratio Urine Protein Vancomycin Trough 11/04/20 11/04/20 11/05/20 17:21 20:54 06:32 RBC Hgb Hct MCV MCHC RDW Eosinophils # Sodium Chloride 113 H Carbon Dioxide Creatinine 2.0 H Est GFR (CKD-EPI)AfAm 30.2 L Est GFR (CKD-EPI)NonAf 26.1 L BUN/Creatinine Ratio 6.50 L Glucose POC Glucose (mg/dL) 122 H 129 H Hemoglobin A1c Magnesium AST 49 H ALT 49 H Total Protein 6.0 L Albumin 3.50 L Albumin/Globulin Ratio 1.40 L Urine Protein Vancomycin Trough 11/05/20 11/05/20 11/05/20 06:32 07:37 12:30 RBC 3.54 L Hgb 11.0 L Hct 34.6 L MCV 97.7 H MCHC 31.8 L RDW 15.2 H Eosinophils # Sodium Chloride Carbon Dioxide Creatinine Est GFR (CKD-EPI)AfAm Est GFR (CKD-EPI)NonAf BUN/Creatinine Ratio Glucose POC Glucose (mg/dL) 100 H 147 H Hemoglobin A1c Magnesium AST ALT Total Protein Albumin Albumin/Globulin Ratio Urine Protein Vancomycin Trough 11/05/20 11/05/20 11/06/20 17:44 20:19 05:47 RBC Hgb Hct MCV MCHC RDW Eosinophils # Sodium Chloride Carbon Dioxide Creatinine 1.95 H Est GFR (CKD-EPI)AfAm Est GFR (CKD-EPI)NonAf BUN/Creatinine Ratio Glucose 169 H POC Glucose (mg/dL) 134 H 137 H Hemoglobin A1c Magnesium 1.4 L AST ALT Total Protein Albumin Albumin/Globulin Ratio Urine Protein Vancomycin Trough 11/06/20 11/06/20 11/06/20 05:47 07:07 11:19 RBC 3.46 L Hgb 10.7 L Hct 32.9 L MCV MCHC RDW 15.1 H Eosinophils # 0.41 H Sodium Chloride Carbon Dioxide Creatinine Est GFR (CKD-EPI)AfAm Est GFR (CKD-EPI)NonAf BUN/Creatinine Ratio Glucose POC Glucose (mg/dL) 155 H 139 H Hemoglobin A1c Magnesium AST ALT Total Protein Albumin Albumin/Globulin Ratio Urine Protein Vancomycin Trough - Diagnostic Findings Chest x-ray: report reviewed, image reviewed Additional studies: CT of the abdomen and pelvis reviewed Assessment and Plan Plan: Assessment: #1. Abdominal incisional abscess status post incision and drainage at the bedside, and cultures were positive for staph epi and enterococcus avium, patient will be going home on daptomycin #2. Mild fluid overload improved with diuresis #3. Recent history of incisional hernia repair on 08/14/2020 #4. History of perforated diverticulitis requiring colostomy and subsequent reversal #5. History of COPD #6. Diabetes mellitus type 2 #7. Potentially #8. Hyperlipidemia #9. GERD/reflux #10. Exact depression #11. Chronic and ongoing history of smoking Plan: Patient has been diuresed, she is feeling much better, she is on room air, vital signs have been stable, she has had no fever or chills, she states she is at her baseline, her COPD is stable. From pulmonary perspective she can be considered for discharge home today if she has been cleared by surgery and sees Dr. Buchanan on outpatient basis in follow-up. She can continue her maintenance inhalers including Lexxel and albuterol. Smoking cessation is encouraged I performed a history & physical examination of the patient and discussed their management with my nurse practitioner, Amalia Hernadez. I reviewed the nurse practitioner's note and agree with the documented findings and plan of care. Lung sounds are positive for diminished breath sounds nice. The findings and the impression was discussed with the patient. I attest to the documentation by the nurse practitioner. Time with Patient: Greater than 30
--- NOTE | 2020-11-06 15:29 | P.DS ---
Providers Date of admission: 10/31/20 16:48 Expected date of discharge: 11/06/20 Attending physician: Alicia Painter Consults: 10/31/20 16:49 Consult Physician Urgent Consulting Provider: Heath Goldsmith Consult Reason/Comments: surgical site infection Do you want consulting provider notified?: Yes 11/01/20 14:44 Consult Physician Routine Consulting Provider: Michelle Kruger Consult Reason/Comments: abdominal wall abscess at surgical incision Do you want consulting provider notified?: Yes 11/02/20 14:20 Consult Physician Routine Consulting Provider: Kristal Singh Consult Reason/Comments: GFR 39, PICC line planned for 11/03/20-need to know which arm to use Do you want consulting provider notified?: Yes 11/03/20 09:54 Consult Physician Routine Consulting Provider: Kristal Singh Consult Reason/Comments: Acute kidney injury Do you want consulting provider notified?: Yes 11/05/20 10:01 Consult Physician Routine Consulting Provider: Lei Davis Consult Reason/Comments: SOB increase coughing Do you want consulting provider notified?: Yes Primary care physician: Sarah Mendez Hospital Course: Diagnoses on discharge: 1. Anterior abdominal wall phlegmon with abscess, started on IV antibiotic vancomycin however patient had significant elevation in her creatinine vancomycin was discontinued and patient was switched to IV daptomycin infectious disease following 2. Underlying history of diabetes mellitus, home medications reviewed and reordered, will check hemoglobin A1c, will cover with insulin to sliding scale 3. Underlying history of hypertension 4. Underlying history of hyperlipidemia 5. Underlying history of gastroesophageal reflux disease 6. Underlying history of asthma stable at this time. 7. Underlying history of depression with anxiety disorder. 8. Acute kidney injury. Creatinine 1.89. Lisinopril and ibuprofen DC'd. Will discuss with infectious disease about antibiotic. Nephrology services consulted 9. Shortness of breath. Lasix has been ordered. Pulmonary service is consulted. Incentive spirometry ordered. Continue DuoNeb breathing treatments Hospital course: Roxana Velasquez, 60-year-old female who presented to [facility] emergency room with a chief complaint of discharge from the abdominal wall incision site, patient had multiple abdominal surgeries the most recent one was on August where patient had repair of incisional hernia small bowel resection and lysis of adhesions by Dr. Goldsmith, she was discharged home on 08/19/2020. Patient was evaluated in the emergency room, her vital examination on presentation revealed a temperature of 98.9 pulse 69 respiration 16 blood pressure 178/99 pulse ox 92% on room air, laboratory data revealed a white blood count of 7.0 hemoglobin 15.0 platelet count 224 glucose 150, BUN 10 creatinine 0.6 coronary of iris PCR testing was negative. Patient underwent a computed tomography scan of the abdomen and pelvis with contrast in the emergency room that revealed evidence of a superficial phlegmon and anterior abdominal wall abscess, patient was started on IV antibiotic vancomycin and Zosyn and was admitted to medical floor. Past medical history is significant for history of ruptured diverticuli with colostomy in January 2018, colostomy reversal in May 2018, history of hypertension, history of hyperlipidemia, history of diabetes mellitus, history of COPD, history of depression with anxiety. On 11/02/2020 patient was seen and examined on the medical floor she is alert and oriented 3 in no apparent distress she is complaining of mild pain in the abdominal wall, she is also complaining of nausea today otherwise she denies any complaints there is no fever or chills no headache or dizziness no chest pain no shortness of breath no cough no palpitation she has some nausea no vomiting no diarrhea no blood in the stools and no urinary symptoms On 11/03/2020 patient is alert and oriented 3. Creatinine increasing to 1.89. Lisinopril and ibuprofen DC'd. Also will discuss with infectious disease about switching IV antibiotic. Nephrology services will be consulted. Will also order chest x-ray due to pulse ox 90 and some shortness of breath with ambulation. Patient denies any chest pain. Patient denies nausea vomiting or diarrhea. Patient denies any urinary burning or frequency. On 11/04/2020 patient was seen and examined on the medical floor she is alert and oriented 3 in no apparent distress there is no fever or chills no headache or dizziness no chest pain no shortness of breath no cough no nausea or vomiting no abdominal pain no diarrhea no blood in the stools no burning with urination no frequency or urgency and no hematuria. Patient stated that she had an anxiety attack earlier this morning otherwise she denies any complaints kidney function is slightly worse today Will continue to monitor On 11/05/2020 patient is alert and oriented 3. Having increased wheezing today. Fluids have been ordered for hep-locked per nephrology services kidney slightly improved. Will order 1 dose of Lasix. Primary services have been con sulted. Incentive spirometer will be ordered. Patient denies chest pain. Patient denies nausea vomiting or diarrhea. Patient denies any urinary burning or on 11/06/2020 patient was seen and examined on the medical floor, she is alert and oriented 3 in no distress, she denies any symptoms at this time, she was evaluated by pulmonary, infectious disease, surgery, and was cleared for discharge, patient will receive IV daptomycin at home for 2 more weeks per infectious disease, kidney function is improving slowly Will check CMP twice weekly for the next 2 weeks patient should follow up with surgery, infectious disease, and nephrology as outpatient in the next 2 weeks , Patient Condition at Discharge: Good Plan - Discharge Summary Discharge Rx Participant: Yes New Discharge Prescriptions: New DAPTOmycin [Cubicin] 350 mg IVPB Q48H vial Nicotine 21Mg/24Hr Patch [Habitrol] 1 patch TRANSDERM DAILY patch Furosemide [Lasix] 20 mg PO DAILY tab Continue Fluticasone Nasal [place] [Flonase Nasal [place]] 2 spray EA NOSTRIL DAILY Folic Acid 1 mg PO DAILY #30 tablet Escitalopram [Lexapro] 20 mg PO QAM L.acidoph,Paracasei, B.lactis [Probiotic] 1 tab PO DAILY Pantoprazole Sodium [Protonix] 20 mg PO BID diphenhydrAMINE [Benadryl] 25 mg PO DAILY PRN PRN Reason: Itching Albuterol Sulfate [Ventolin HFA] 2 puff INHALATION RT-QID PRN PRN Reason: Shortness Of Breath Acetaminophen Tab [Tylenol] 500 mg PO Q6H PRN PRN Reason: Pain hydrOXYzine HCL 10 mg PO TID PRN PRN Reason: Itching Fluticasone Propion/Salmeterol [[place]ixela 500-50 Inhub] 1 puff INHALATION RT-BID Metoprolol Tartrate [Lopressor] 50 mg PO BID hydrOXYzine HCL [Atarax] 25 mg PO QID PRN PRN Reason: Itching glipiZIDE [Glucotrol] 5 mg PO BID busPIRone HCL 15 mg PO BID PRN PRN Reason: Anxiety Discontinued Lisinopril [Zestril] 10 mg PO DAILY Discharge Medication List Fluticasone Nasal [place] [Flonase Nasal [place]] 2 spray EA NOSTRIL DAILY 02/03/18 [History] Folic Acid 1 mg PO DAILY #30 tablet 02/11/18 [Rx] Escitalopram [Lexapro] 20 mg PO QAM 05/26/18 [History] L.acidoph,Paracasei, B.lactis [Probiotic] 1 tab PO DAILY 05/30/20 [History] Pantoprazole Sodium [Protonix] 20 mg PO BID 05/30/20 [History] Acetaminophen Tab [Tylenol] 500 mg PO Q6H PRN 09/25/20 [History] Albuterol Sulfate [Ventolin HFA] 2 puff INHALATION RT-QID PRN 09/25/20 [History] Fluticasone Propion/Salmeterol [Wixela 500-50 Inhub] 1 puff INHALATION RT-BID 09/25/20 [History] diphenhydrAMINE [Benadryl] 25 mg PO DAILY PRN 09/25/20 [History] hydrOXYzine HCL 10 mg PO TID PRN 09/25/20 [History] Metoprolol Tartrate [Lopressor] 50 mg PO BID 10/31/20 [History] busPIRone HCL 15 mg PO BID PRN 10/31/20 [History] glipiZIDE [Glucotrol] 5 mg PO BID 10/31/20 [History] hydrOXYzine HCL [Atarax] 25 mg PO QID PRN 10/31/20 [History] DAPTOmycin [Cubicin] 350 mg IVPB Q48H vial 11/06/20 [Rx] Furosemide [Lasix] 20 mg PO DAILY tab 11/06/20 [Rx] Nicotine 21Mg/24Hr Patch [Habitrol] 1 patch TRANSDERM DAILY patch 11/06/20 [Rx] Follow up Appointment(s)/Referral(s): Sarah Mendez MD [Primary Care Provider] - 1-2 days (November 09 at 11:30, patient is to come in to the office for this visit) [facility], [REFERRING] - 1 Week Kianna Buchanan MD [STAFF PHYSICIAN] - 1 Week Heath Goldsmith MD [STAFF PHYSICIAN] - 1 Week Patient Instructions/Handouts: Abscess (ED) Activity/Diet/Wound Care/Special Instructions: pt will be going home with [facility] - pt is aware and has her nurses number in her phone.
--- NOTE | 2020-11-06 21:27 | P.PN ---
Progress Note - Text Progress Note Date: 11/06/20 REASON FOR FOLLOWUP: Abdominal wall abscess. INTERVAL HISTORY: Patient is afebrile. Patient is breathing comfortably. The patient denies chest pain. No shortness of breath or cough. Abdominal pain has improved. No diarrhea. PHYSICAL EXAMINATION: Blood pressure 170/70 with a pulse of 90, temperature 98.5, she is 96% on room air. General description is a middle-aged female up in the room in no distress. Respiratory system: Unlabored breathing, decreased intensity of breath sounds. No wheeze. HEART: S1, S2. Regular rate and rhythm. ABDOMEN: Soft, no tenderness. LABS: reviewed DIAGNOSTIC IMPRESSION AND PLAN: Patient with abdominal wall abscess. Culture positive Enterococus covered with daptomycin because of her renal function, initial cultures positive for Staphylococcus epi, oxacillin-resistant. She has a [employer] and continue with IV antibiotic for 2 weeks and close outpatient followup in wound care
== END 2020-11-06 17:21 | disposition home health service (06) | DRG 862 ==
LOC: EC 13:11 → 5NMEDONC 16:48
PROVIDERS: ADMIT Internal Medicine; ATTEND Internal Medicine
PROC: 0J983ZZ Drainage of Abdomen Subcutaneous Tissue and Fascia, Percutaneous Approach (ICD-10-PCS; principal; 2020-11-01)
PROC: 02HV33Z Insertion of Infusion Device into Superior Vena Cava, Percutaneous Approach (ICD-10-PCS; 2020-11-03)
DX: T81.41XA Infection following a procedure, superficial incisional surgical site, initial encounter (principal); N17.0 Acute kidney failure with tubular necrosis; L02.211 Cutaneous abscess of abdominal wall; L03.311 Cellulitis of abdominal wall; K56.7 Ileus, unspecified; I11.9 Hypertensive heart disease without heart failure; E11.9 Type 2 diabetes mellitus without complications; J44.9 Chronic obstructive pulmonary disease, unspecified; Z20.822 Contact with and (suspected) exposure to COVID-19; E78.5 Hyperlipidemia, unspecified; K21.9 Gastro-esophageal reflux disease without esophagitis; H40.9 Unspecified glaucoma; B02.9 Zoster without complications; G89.29 Other chronic pain; M54.9 Dorsalgia, unspecified; F32.9 Major depressive disorder, single episode, unspecified; F41.1 Generalized anxiety disorder; F17.210 Nicotine dependence, cigarettes, uncomplicated; K76.9 Liver disease, unspecified; B95.2 Enterococcus as the cause of diseases classified elsewhere; B95.7 Other staphylococcus as the cause of diseases classified elsewhere; E87.70 Fluid overload, unspecified; E66.9 Obesity, unspecified; E83.42 Hypomagnesemia; K52.9 Noninfective gastroenteritis and colitis, unspecified; T36.8X5A Adverse effect of other systemic antibiotics, initial encounter; T50.8X5A Adverse effect of diagnostic agents, initial encounter; Z68.31 Body mass index [BMI] 31.0-31.9, adult; Z79.899 Other long term (current) drug therapy; Z79.84 Long term (current) use of oral hypoglycemic drugs; Z90.49 Acquired absence of other specified parts of digestive tract; Z98.890 Other specified postprocedural states; Z87.19 Personal history of other diseases of the digestive system; Z71.6 Tobacco abuse counseling; Z88.8 Allergy status to other drugs, medicaments and biological substances; Z82.49 Family history of ischemic heart disease and other diseases of the circulatory system; Z83.3 Family history of diabetes mellitus
CPT/HCPCS: 36415; 36573; 71045; 74019; 74177; 80048; 80053; 80202; 81003; 82565; 83036; 83735; 85025; 87040; 87070; 87075; 87077; 87186; 87205; 87324; 87635; 94640; 94760; 96374; 96375; 99285

== ENCOUNTER → 2021-04-04 | Outpatient (CLI) | payer MEDICARE, OTHER ==
[2021-04-04 12:22] LABS: African American GFR (CKD) >90 (>60 ml/min/1.73 sqM); Blood Urea Nitrogen 9 mg/dL (7-17); Non-African American GFR(CKD) >90 (>60 ml/min/1.73 sqM)
--- NOTE | 2021-04-04 13:54 | CT ---
EXAMINATION TYPE: CT abdomen pelvis w con DATE OF EXAM: 04/04/2021 COMPARISON: 10/31/2020 HISTORY: Left sided abdominal pain with diarrhea and nausea. CT DLP: 1104.7 mGycm CONTRAST: CT scan of the abdomen and pelvis is performed with Oral Contrast and with IV Contrast, patient injec bronwyn with 100 mL of Isovue M300. FINDINGS: LUNG BASES-: No visible nodule. No infiltrate. LIVER/GB: Mild hepatic steatosis identified. The gallbladder surgically absent. No space occupying hepatic lesion. Biliary tree is of normal caliber. PANCREAS: No inflammation. No distinct mass. SPLEEN: No splenic enlargement. No lesion seen. ADRENALS: No nodule. No thickening. KIDNEYS/BLADDER: No hydronephrosis. No nephrolithiasis. No distinct renal mass. Urinary bladder g rossly unremarkable. BOWEL: Normal appendix. Normal bowel caliber. No inflammation. Sigmoid anastomotic changes noted. N o evidence for inflammatory process. No free air or abscess. GENITAL ORGANS: No gross abnormality. LYMPH NODES: No greater than 1cm abdominal or pelvic lymph nodes are appreciated. AORTA: No significant abnormality. OSSEOUS STRUCTURES: Degenerative changes lumbar spine. Mild loss of height appears to be chronic in n ature involving L1 and L3. OTHER: No significant additional abnormality is seen. IMPRESSION: 1. No acute intra-abdominal process to account for the patient's symptoms.
== END | disposition home or self-care (01) ==
LOC: RADCTMAIN 11:47
PROVIDERS: ATTEND Nurse Practitioner Family
DX: R19.7 Diarrhea, unspecified (principal)
CPT/HCPCS: 82565; 84520; 74177; 36415; Q9967 ×2

== ENCOUNTER → 2021-07-09 | Outpatient (CLI) | payer MEDICARE, OTHER ==
--- NOTE | 2021-07-09 15:57 | NM ---
EXAMINATION TYPE: NM bone scan whole body DATE OF EXAM: 07/09/2021 COMPARISON: Plain films from outside institution dated 06/25/2021 HISTORY: Radiculopathy lumbar region Delayed whole-body scanning was performed following the injection of 23.3 mCi Tc 99m MDP. Images acq uired 3 hours post injection. FINDINGS: Limited scanning performed of the lumbar region as well as whole-body scanning There is a spinal curvature is noted on plain film. Mild uptake within the thoracic lumbar spine is l ikely due to degenerative disc changes, facet arthropathy. Uptake within the shoulders, wrists, hands , knees, feet, and sternoclavicular joints is likely degenerative. Soft tissue uptake is normal. IMPRESSION: Degenerative disc disease and osteoarthritic changes.
== END | disposition home or self-care (01) ==
LOC: RADNMMAIN 09:56
PROVIDERS: ATTEND Physical Medicine & Rehabilitation
DX: M51.16 Intervertebral disc disorders with radiculopathy, lumbar region (principal); M47.26 Other spondylosis with radiculopathy, lumbar region
CPT/HCPCS: 78306; A9503

== ENCOUNTER → 2023-05-27 | Outpatient (CLI) | payer MEDICARE, OTHER ==
--- NOTE | 2023-05-28 18:06 | MM ---
Reason for Exam: Screening (asymptomatic). Last mammogram was performed 9 year(s) and 3 month(s) ago. Patient History: Menarche at age 10. First Full-Term at age 15. Postmenopausal. 02/25/2000, Benign Excisional Biopsy on the left side. Risk Values: Aissatou 5 year model risk: 1.4%. NCI Lifetime model risk: 5.6%. Prior Study Comparison: 02/09/2014 Bilateral Screening Mammogram, [facility]. 02/16/2014 Right Diagnostic Mammogram, [facility]. 10/31/2014 Right Diagnostic Mammogram, [facility]. Tissue Density: The breast tissue is heterogeneously dense. This may lower the sensitivity of mammography. Findings: Analyzed By CAD. Pattern appears symmetrical and stable. Focal asymmetry is in the upper 12:00 posterior position right breast. Scattered benign-appearing calcifications are present bilaterally. Core marker is within the right breast. No suspicious groups of microcalcifications, spiculated or lobular masses, architectural distortion or other secondary signs of malignancy are mammographically apparent. Overall Assessment: Benign, BI-RAD 2 Management: Screening Mammogram of both breasts in 1 year. A negative mammogram report should not preclude additional follow up of suspicious palpable abnormalities. Patient should continue monthly self breast exam. A clinical breast exam by your physician is recommended on an annual basis and results should be correlated with mammographic findings. Electronically signed and approved by: Rory Ayala D.O. Radiologis
== END | disposition home or self-care (01) ==
LOC: RADMAMWWP 06:55
PROVIDERS: ATTEND Family Medicine
DX: Z12.31 Encounter for screening mammogram for malignant neoplasm of breast (principal); Z78.0 Asymptomatic menopausal state
CPT/HCPCS: 77067

== ENCOUNTER → 2023-10-27 | Outpatient (CLI) | payer MEDICARE, OTHER ==
--- NOTE | 2023-10-27 13:33 | CTL ---
EXAMINATION TYPE: CT Low Dose Lung DATE OF EXAM ORDERED: 10/27/2023 HISTORY: Lung cancer screening CT DLP: [address] CTDI: 1.72 mGy Automated exposure control for dose reduction was used. COMPARISON: None TECHNIQUE: Low dose computed tomography scan was performed through the chest at 1 mm thick sections a nd reconstructed images in multiple planes at 1 mm and 5 mm thick sections. FINDINGS: There is mild pleural-parenchymal scarring in the apices. There is no suspicious lung mass or nodule The lungs are clear and there is no abnormal consolidation or interstitial density. There is no mediastinal, hilar or axillary adenopathy. There is no pleural effusion, pleural thickening or pneumothorax. No focal osseous lesions are seen. Limited scans the upper abdomen reveals no gross adenopathy. IMPRESSION: 1. BI-RADS Category 1 negative. Continue routine screening at yearly intervals. 2. No acute cardiopulmonary disease.
== END | disposition home or self-care (01) ==
LOC: RADCTMAIN 12:11
PROVIDERS: ATTEND Family Medicine
DX: Z12.2 Encounter for screening for malignant neoplasm of respiratory organs (principal); F17.210 Nicotine dependence, cigarettes, uncomplicated
CPT/HCPCS: 71271

== ENCOUNTER 2024-12-22 14:21 | Observation (INO) | payer MEDICARE, OTHER ==
--- NOTE | 2024-12-22 14:49 | ED ---
General Adult HPI - General Chief complaint: Nausea/Vomiting/Diarrhea Stated complaint: NVD, GI issue Time Seen by Provider: 12/22/24 14:28 Source: patient, RN notes reviewed Mode of arrival: wheelchair Limitations: no limitations - History of Present Illness Initial comments: 64-year-old female presents to the emergency department for evaluation of left- sided abdominal pain. Patient reports that she has had symptoms intermittent for around a month. She does endorse nausea, vomiting, diarrhea. She states that the symptoms are worse when she eats. She has not eaten anything today and attempt to avoid the symptoms. She does report a prior perforated diverticula and had a partial colectomy. She follows with Dr. Goldsmith for this. - Related Data Home Medications Medication Instructions Recorded Confirmed Fluticasone Nasal [place] [Flonase 2 spray EA NOSTRIL DAILY 02/03/18 12/22/24 Nasal [place]] Escitalopram [Lexapro] 20 mg PO DAILY 05/26/18 12/22/24 Pantoprazole Sodium [Protonix] 20 mg PO BID 05/30/20 12/22/24 Albuterol Sulfate [Ventolin HFA] 2 puff INHALATION RT-Q6H PRN 09/25/20 12/22/24 Ergocalciferol [Vitamin D2 (1250 1,250 mcg PO Q14D 06/05/23 12/22/24 Mcg = 49567 Iu)] Fluticasone/Umeclidin/Vilanter 1 puff INHALATION RT-DAILY 06/05/23 12/22/24 [Trelegy Ellipta 100-62.5-25] Folic Acid 1 mg PO DAILY 06/05/23 12/22/24 Lisinopril-Hctz 10-12.5 mg 1 tab PO DAILY 06/05/23 12/22/24 [Zestoretic 10-12.5] Metoprolol Succinate [Toprol XL] 100 mg PO DAILY 06/05/23 12/22/24 Montelukast [Singulair] 10 mg PO DAILY 06/05/23 12/22/24 Rosuvastatin Calcium 5 mg PO DAILY 06/05/23 12/22/24 Tirzepatide [Mounjaro] 7.5 mg SQ FR 06/05/23 12/22/24 Acetaminophen with Codeine 1 tab PO Q6H PRN 12/22/24 12/22/24 [Tylenol #4 Tablet] Empagliflozin [Jardiance] 10 mg PO DAILY 12/22/24 12/22/24 Loratadine 10 mg PO DAILY PRN 12/22/24 12/22/24 Nabumetone 750 mg PO BID PRN 12/22/24 12/22/24 Allergies Allergy/AdvReac Type Severity Reaction Status Date / Time tramadol Allergy Intermediate Itching Verified 12/22/24 17:51 Review of Systems ROS Statement: Those systems with pertinent positive or pertinent negative responses have been documented in the HPI. ROS Other: All systems not noted in ROS Statement are negative. Past Medical History Past Medical History: COPD, Diabetes Mellitus, Eye Disorder, GERD/Reflux, Hyperlipidemia, Hypertension, Liver Disease Additional Past Medical History / Comment(s): Bilateral glaucoma, enlarged liver, ruptured diverticuli w/colostomy January 2018. Colostomy reversal May 2018. Chronic back pain. Hx Shingles,steroids April 2020, chronic diarrhea History of Any Multi-Drug Resistant Organisms: None Reported Past Surgical History: Appendectomy, Bowel Resection, Breast Surgery, Cholecystectomy, Hernia Repair, Tonsillectomy Additional Past Surgical History / Comment(s): Benign biopsy left breast, laser liz eye surgery for glaucoma, hemorrhoidectomy. Reversal of colostomy.removed lt ovary, Past Anesthesia/Blood Transfusion Reactions: No Reported Reaction Additional Past Anesthesia/Blood Transfusion Reaction / Comment(s): no hx blood transfusion Past Psychological History: Anxiety, Depression Smoking Status: Current every day smoker Past Alcohol Use History: None Reported Past Drug Use History: None Reported - Past Family History Father Family Medical History: Coronary Artery Disease (CAD), Diabetes Mellitus Additional Family Medical History / Comment(s): Father in his 60s from diabetic complications. Mother Family Medical History: Coronary Artery Disease (CAD), Diabetes Mellitus, Myocardial Infarction ([place]) Additional Family Medical History / Comment(s): Mother from a [place] at the age of 62 yrs. General Exam Limitations: no limitations General appearance: alert, in no apparent distress Head exam: Present: atraumatic, normocephalic, normal inspection Eye exam: Present: normal appearance, PERRL, EOMI. Absent: scleral icterus, conjunctival injection, periorbital swelling ENT exam: Present: normal exam, mucous membranes moist Neck exam: Present: normal inspection. Absent: tenderness, meningismus, lymphadenopathy Respiratory exam: Present: normal lung sounds bilaterally. Absent: respiratory distress, wheezes, rales, rhonchi, stridor Cardiovascular Exam: Present: regular rate, normal rhythm, normal heart sounds. Absent: systolic murmur, diastolic murmur, rubs, gallop, clicks GI/Abdominal exam: Present: soft, tenderness (Left lower quadrant), normal bowel sounds. Absent: distended, guarding, rebound, rigid Extremities exam: Present: normal inspection, full ROM, normal capillary refill. Absent: tenderness, pedal edema, joint swelling, calf tenderness Back exam: Present: normal inspection Neurological exam: Present: alert, oriented X3 Psychiatric exam: Present: normal affect, normal mood Skin exam: Present: warm, dry, intact, normal color. Absent: rash Course Vital Signs 12/22/24 12/22/24 12/22/24 14:23 16:19 17:00 Temperature 97.9 F Pulse Rate 89 84 83 Respiratory 18 16 18 Rate Blood Pressure 122/81 111/71 129/76 O2 Sat by Pulse 98 96 94 L Oximetry 12/22/24 18:21 Temperature Pulse Rate 92 Respiratory 18 Rate Blood Pressure 114/74 O2 Sat by Pulse 94 L Oximetry Medical Decision Making - Medical Decision Making Was pt. sent in by a medical professional or institution (Dr. PA, CENTER MANAGER, urgent care, hospital, or [facility]...) When possible be specific @ -No Did you speak to anyone other than the patient for history (EMS, parent, family, police, friend...)? What history was obtained from this source @ -No Did you review nursing and triage notes (agree or disagree)? Why? @ -I reviewed and agree with nursing and triage notes Were old charts reviewed (outside hosp., previous admission, EMS record, old EKG, old radiological studies, urgent care reports/EKG's, [facility] records)? Report findings @ -No old charts were reviewed Differential Diagnosis (chest pain, altered mental status, abdominal pain women, abdominal pain men, vaginal bleeding, weakness, fever, dyspnea, syncope, headache, dizziness, GI bleed, back pain, seizure, CVA, palpatations, mental health, musculoskeletal)? @ -Differential Abdominal Pain Women: Appendicitis, Cholecystitis, diverticulosis, ischemic bowel, pancreatitis, hepatitis, UTI, gastroenteritis, AAA, incarcerated hernia, bowel obstruction, constipation, inflammatory bowel, hepatitis, peptic ulcer disease, splenic infarction, perforated viscus, vulvitis, ovarian torsion, PID, kidney stone, placenta abruption, this is not meant to be an all-inclusive list EKG interpreted by me (3pts min.). @ -None X-rays interpreted by me (1pt min.). @ -None done CT interpreted by me (1pt min.). @ -CT abdomen pelvis showsPostsurgical changes of the bowel with focal bowel dilatation at the bowel anastomosis with air-fluid level raising concern for possible developing small bowel obstruction versus ileus at that anastomotic site, additional focal region of the proximal duodenal dilatation without focal transition point, long segment of circumferential wall thickening of the ascendi ng colon without surrounding inflammatory change may represent colitis from infectious versus inflammatory process U/S interpreted by me (1pt. min.). @ -None done What testing was considered but not performed or refused? (CT, X-rays, U/S, labs)? Why? @ -None What meds were considered but not given or refused? Why? @ -None Did you discuss the management of the patient with other professionals (professionals i.e. , PA, CENTER MANAGER, lab, RT, psych nurse, transition social worker, door hanger, teacher, marketing officer, ed case manager)? Give summary @ -Discussed with Dr. Painter who is accepting of the admission Was smoking cessation discussed for >3mins.? @ -No Was critical care preformed (if so, how long)? @ -No Were there social determinants of health that impacted care today? How? (Homelessness, low income, unemployed, alcoholism, drug addiction, transportation, low edu. Level, literacy, decrease access to med. care, skilled nursing, rehab)? @ -No Was there de-escalation of care discussed even if they declined (Discuss DNR or withdrawal of care, Hospice)? DNR status @ -No What co-morbidities impacted this encounter? (DM, HTN, Smoking, COPD, CAD, Cancer, CVA, ARF, Chemo, Hep., AIDS, mental health diagnosis, sleep apnea, morbid obesity)? @ -history of multiple abdominal surgeries Was patient admitted / discharged? Hospital course, mention meds given and route, prescriptions, significant lab abnormalities, going to OR and other pertinent info. @ -Admitted. patient presented emergency department for evaluation of abdominal pain, diarrhea, nausea and vomiting. Laboratory studies obtained revealing very mild leukocytosis at 11.6, hemoglobin 15.5; mild hyponatremia 133, potassium 4.4, otherwise nonactionable, UA shows 4+ glucose, no evidence of infectious process. CT of the abdomen pelvis revealing postsurgical changes of the bowel with focal bowel dilatation at the anastomosis with air-fluid level raising concern for possible developing small bowel obstruction versus ileus and an additional focal region of dilatation of the proximal duodenum without focal point transition. The patient will be admitted with surgical consultation. Case discussed with Dr. Painter who is accepting of the admission. Case discussed with Dr. Wadsworth Undiagnosed new problem with uncertain prognosis? @ -No Drug Therapy requiring intensive monitoring for toxicity (Heparin, Nitro, I nsulin, Cardizem)? @ -No Were any procedures done? @ -No Diagnosis/symptom? @ -Ileus Acute, or Chronic, or Acute on Chronic? @ -Acute Uncomplicated (without systemic symptoms) or Complicated (systemic symptoms)? @ -Uncomplicated Side effects of treatment? @ -No Exacerbation, Progression, or Severe Exacerbation? @ -No Poses a threat to life or bodily function? How? (Chest pain, [place], [place], pneumonia, PE, COPD, DKA, ARF, appy, cholecystitis, CVA, Diverticulitis, Homicidal, Suicidal, threat to staff... and all critical care pts) @ -No - Lab Data Result diagrams: 12/24/24 03:35 12/24/24 03:35 Lab Results 12/22/24 12/22/24 12/22/24 Range/Units 14:54 14:54 15:23 WBC 11.66 H (4.50-10.00) 10*3/uL RBC 5.20 (4.10-5.20) 10*6/uL Hgb 15.5 H (12.0-15.0) g/dL Hct 44.2 (37.2-46.3) % MCV 85.0 (80.0-97.0) fL MCH 29.8 (27.0-32.0) pg MCHC 35.1 (32.0-37.0) g/dL Plt Count 338 (140-440) 10*3/uL MPV 10.6 (9.5-12.2) fL Immature Gran % (Auto) 0.3 % Neutrophils % 62.8 % Lymphocytes % 27.1 % Monocytes % 8.1 % Eosinophils % 1.0 % Basophils % 0.7 % Immature Gran # 0.04 (0.00-0.04) 10*3/uL Neutrophils # 7.32 (1.80-7.70) 10*3/uL Lymphocytes # 3.16 (0.90-5.00) 10*3/uL Monocytes # 0.94 (0.20-1.00) 10*3/uL Eosinophils # 0.12 (0.04-0.35) 10*3/uL Basophils # 0.08 (0.00-0.10) 10*3/uL Sodium 133 L (137-145) mmol/L Potassium 4.4 (3.5-5.1) mmol/L Chloride 103 (98-107) mmol/L Carbon Dioxide 16 L (22-30) mmol/L Anion Gap 14 mmol/L BUN 19 H (7-17) mg/dL Creatinine 0.69 (0.52-1.04) mg/dL Est GFR (CKD-EPI)AfAm >90 (>60 ml/min/1.73 sqM) Est GFR (CKD-EPI)NonAf >90 (>60 ml/min/1.73 sqM) Glucose 108 H (74-99) mg/dL Calcium 10.5 H (8.4-10.2) mg/dL Total Bilirubin 0.9 (0.2-1.3) mg/dL AST 24 (14-36) U/L ALT 15 (4-34) U/L Alkaline Phosphatase 61 (38-126) U/L Total Protein 7.3 (6.3-8.2) g/dL Albumin 4.6 (3.5-5.0) g/dL Amylase 68 (30-110) U/L Lipase 107 (23-300) U/L Urine Color Yellow Urine Appearance Cloudy H (Clear) Urine pH 5.0 (5.0-8.0) Ur Specific [place] 1.028 (1.001-1.035) Urine Protein Negative (Negative) Urine Glucose (UA) 4+ H (Negative) Urine Ketones Negative (Negative) Urine Blood Negative (Negative) Urine Nitrite Negative (Negative) Urine Bilirubin Negative (Negative) Urine Urobilinogen <2.0 (<2.0) mg/dL Ur Leukocyte Esterase Negative (Negative) Urine RBC <1 (0-5) /hpf Urine WBC 4 (0-5) /hpf Ur Squamous Epith Cells 7 H (0-4) /hpf Urine Bacteria Moderate H (None) /hpf Urine Mucus Rare H (None) /hpf Disposition Clinical Impression: Ileus Disposition: ADMITTED IP TO THIS HOSP Condition: Stable Is patient prescribed a controlled substance at d/c from ED?: No
[2024-12-22] MEDS: LACTATED RINGERS 1,000 ML IV ONE (14:57)
[2024-12-22] MEDS: ONDANSETRON 4 MG/2 ML VIAL IVP STA (14:57)
[2024-12-22 15:00] LABS: Basophils # (A) 0.08 10*3/uL (0.00-0.10); Basophils % (A) 0.7 %; Eosinophils # (A) 0.12 10*3/uL (0.04-0.35); HCT 44.2 % (37.2-46.3); HGB 15.5 g/dL (12.0-15.0); Lymphocytes # (A) 3.16 10*3/uL (0.90-5.00); Lymphocytes % (A) 27.1 %; MCH 29.8 pg (27.0-32.0); MCHC 35.1 g/dL (32.0-37.0); Mean Platelet Volume 10.6 fL (9.5-12.2); Monocytes # (A) 0.94 10*3/uL (0.20-1.00); Monocytes % (A) 8.1 %; Neutrophils # (A) 7.32 10*3/uL (1.80-7.70); Neutrophils % (A) 62.8 %; Platelet Count 338 10*3/uL (140-440); RDW 13.1 % (11.5-14.5); WBC 11.66 10*3/uL (4.50-10.00)
[2024-12-22 15:17] LABS: ALT 15 U/L (4-34); African American GFR (CKD) >90 (>60 ml/min/1.73 sqM); Albumin 4.6 g/dL (3.5-5.0); Amylase 68 U/L (30-110); Anion Gap 14 mmol/L; Blood Urea Nitrogen 19 mg/dL (7-17); Calcium 10.5 mg/dL (8.4-10.2); Carbon Dioxide 16 mmol/L (22-30); Chloride 103 mmol/L (98-107); Glucose 108 mg/dL (74-99); Lipase 107 U/L (23-300); Non-African American GFR(CKD) >90 (>60 ml/min/1.73 sqM); Sodium 133 mmol/L (137-145); Total Bilirubin 0.9 mg/dL (0.2-1.3); Total Protein 7.3 g/dL (6.3-8.2)
[2024-12-22 15:18] LABS: AST 24 U/L (14-36); Alkaline Phosphatase 61 U/L (38-126); Potassium 4.4 mmol/L (3.5-5.1)
[2024-12-22 16:26] LABS: Appearance,Urine Cloudy (Clear); Bacteria,Urine Moderate /hpf; Bilirubin,Urine Negative (Negative); Blood,Urine Negative (Negative); Color,Urine Yellow; Glucose,Urine (UA) 4+ (Negative); Ketones,Urine Negative (Negative); Leukocyte Esterase,Urine Negative (Negative); Mucus,Urine Rare /hpf; Nitrite,Urine Negative (Negative); Protein,Urine Negative (Negative); RBC,Urine <1 /hpf (0-5); Specific Gravity,Urine 1.028 (1.001-1.035); Squamous Epithelial Cell,Urine 7 /hpf (0-4); Urobilinogen,Urine <2.0 mg/dL (<2.0); WBC,Urine 4 /hpf (0-5)
--- NOTE | 2024-12-22 16:48 | CT ---
EXAMINATION TYPE: CT abdomen pelvis w con CT DLP: 441.8 mGycm, Automated exposure control for dose reduction was used. DATE OF EXAM: 12/22/2024 4:34 PM COMPARISON: CT abdomen pelvis 04/04/2021, 10/31/2020, 02/25/2020 CLINICAL INDICATION:Female, 64 years old with history of abdominal pain; Left lower abdominal pain TECHNIQUE: Standard CT of the abdomen and pelvis following the administration of 100 cc of Isovue 3 00 IV contrast material. Coronal and sagittal reformats were performed. FINDINGS: LOWER CHEST: Minimal subsegmental atelectasis within the right middle lobe. Dense mitral annulus calc ifications. ABDOMEN LIVER: No focal lesion. Probable [place] lobe variant. GALLBLADDER AND BILE DUCTS: Unremarkable. PANCREAS: Unremarkable. SPLEEN: Unremarkable. ADRENAL GLANDS: Adrenal gland is unremarkable. Stable left adrenal gland indeterminate 1.1 cm nodule dating back to at least 2020 and considered benign. Probable adenoma. No follow-up recommended. KIDNEYS AND URETERS: No evidence of hydronephrosis or renal calculus. The kidneys enhance symmetrical ly. PELVIS BLADDER: Incompletely distended but grossly unremarkable. REPRODUCTIVE: Retroverted uterus. ABDOMEN & PELVIS STOMACH AND BOWEL: Small hiatal hernia. Distal duodenum diverticulum measuring up to 3.3 cm. Proximal duodenal dilatation measuring up to 3.9 cm. No abrupt transition point. Long segment circumferential wall thickening of the ascending colon without surrounding inflammatory changes. Anastomosis is iden tified within the anterior mid abdomen. Focal bowel dilatation at the anastomosis measuring up to 5 c m with air-fluid level (series 21, 61). No wall thickening or surrounding inflammatory changes. No pn eumatosis. PERITONEUM: No evidence of pneumoperitoneum or free fluid. VASCULATURE: Moderate atherosclerotic calcifications are present throughout the abdominal aorta and i ts branches. No evidence of aortic aneurysm. Pelvic phleboliths. MUSCULOSKELETAL: No acute osseous abnormalities. Prominent Schmorl's nodes involving the superior end plates of the L1 and L3 vertebral bodies. Multilevel degenerative disc disease. LYMPH NODES: No evidence for lymphadenopathy. SOFT TISSUE/ABDOMINAL WALL: Postsurgical changes of anterior abdominal wall. No organized fluid colle ction. IMPRESSION: 1. Postsurgical changes of the bowel with focal bowel dilatation at the bowel anastomosis with air-f luid level. Raises concern for possible developing small bowel obstruction versus ileus at the anasto motic site possibly due to stricture. Consider further evaluation with small bowel follow-through. Ad ditional focal region of proximal duodenal dilatation without focal transition point. Could represent developing ileus. 2. Long segment of circumferential wall thickening of the ascending colon without surrounding inflamm atory changes. May represent colitis from an infectious/inflammatory process. [facility], , 12/22/2024 4:45 PM
[2024-12-22] MEDS ORDERED: MORPHINE SULFATE 4 MG/ML SYRINGE IV PRN (17:41)
[2024-12-22] MEDS ORDERED: NALOXONE 0.4 MG/ML 1 ML VIAL IV PRN (17:41)
[2024-12-22] MEDS ORDERED: KETOROLAC 15 MG/ML 1 ML VIAL IVP PRN (17:41)
[2024-12-22] MEDS: SODIUM CHLORIDE 0.9% 1,000 ML IV SCH (18:19)
[2024-12-22 20:53] LABS: Glucose,Whole Blood 88 mg/dL (70-110)
[2024-12-22] MEDS ORDERED: MELOXICAM 7.5 MG TAB PO PRN (20:54)
[2024-12-22] MEDS ORDERED: DEXTROSE 50% SYRINGE 50 ML IVP PRN ×2 (20:59)
[2024-12-22] MEDS: INSULIN LISPRO (HumaLOG) 100 UNIT/ML 10 mL VL SQ SCH (21:05)
[2024-12-22] MEDS: Acetaminophen-Codeine 300-30mg TAB PO PRN (21:09)
[2024-12-22] MEDS: NICOTINE 14MG/24HR PATCH TRANSDERM SCH (21:10)
[2024-12-23 05:55] LABS: Glucose,Whole Blood 78 mg/dL (70-110)
[2024-12-23] MEDS: PANTOPRAZOLE 40 MG TABLET PO SCH (06:15)
[2024-12-23] MEDS: ONDANSETRON 4 MG/2 ML VIAL IVP PRN (06:19)
[2024-12-23] MEDS: TIOTROPIUM 2.5 MCG INHALER INHALATION SCH (07:35)
[2024-12-23] MEDS: SYMBICORT 160-4.5 MCG INHALER INHALATION SCH (07:36)
--- NOTE | 2024-12-23 10:57 | P.HPIM ---
History of Present Illness H&P Date: 12/23/24 Roxana Velasquez, is a 64-year-old female who presented to [facility] emergency room with a chief complaint of abdominal pain. Patient reports she has had abdominal pain intermittently over the past month with nausea vomiting and diarrhea patient has a history of perforated diverticula with partial colectomy with Dr. Goldsmith She was evaluated in the emergency room vital examination on presentation revealed temp 97.8, heart rate 86, blood pressure 111/71 with pulse ox 94% on ro om air Laboratory data reveals white blood cell 11.66, hemoglobin 15.5, creatinine 0.69 bun 19, lipase 107 amylase 68 Testing in the emergency room revealed abdomen and pelvis CT completed showing postsurgical changes of the bowel with focal bowel dilation and bowel and anastomosis with air-fluid level. Raises concern for possible developing small bowel obstruction versus ileus at the anastomic site possibly due to stricture. Patient was admitted to medical floor for further evaluation and treatment. Patient made n.p.o. surgical services have been consulted Past medical history is significant for COPD, diabetes mellitus, eye disorder, GERD, hyperlipidemia, hypertension, liver disease, ruptured diverticula with colostomy in January 2018 with colostomy reversal in 2017, chronic back pain and current everyday smoker. On review of systems patient is alert and oriented x 3. Patient reports occasional nausea and abdominal pain but improved. Patient denies chest pain or shortness of breath. Patient denies nausea vomiting or diarrhea. Patient denies any urinary burning or frequency Review of Systems Please refer to HPI otherwise unremarkable Past Medical History Past Medical History: COPD, Diabetes Mellitus, Eye Disorder, GERD/Reflux, Hyperlipidemia, Hypertension, Liver Disease Additional Past Medical History / Comment(s): Bilateral glaucoma, enlarged liver, ruptured diverticuli w/colostomy January 2018. Colostomy reversal May 2018. Chronic back pain. Hx Shingles,steroids April 2020, chronic diarrhea History of Any Multi-Drug Resistant Organisms: None Reported Past Surgical History: Appendectomy, Bowel Resection, Breast Surgery, Chol ecystectomy, Hernia Repair, Tonsillectomy Additional Past Surgical History / Comment(s): Benign biopsy left breast, laser liz eye surgery for glaucoma, hemorrhoidectomy. Reversal of colostomy.removed left ovary, Past Anesthesia/Blood Transfusion Reactions: No Reported Reaction Additional Past Anesthesia/Blood Transfusion Reaction / Comment(s): no hx blood transfusion Smoking Status: Current every day smoker - Past Family History Father Family Medical History: Coronary Artery Disease (CAD), Diabetes Mellitus Additional Family Medical History / Comment(s): Father in his 60s from diabetic complications. Mother Family Medical History: Coronary Artery Disease (CAD), Diabetes Mellitus, Myocardial Infarction ([place]) Additional Family Medical History / Comment(s): Mother from a [place] at the age of 62 yrs. Medications and Allergies Home Medications Medication Instructions Recorded Confirmed Type Fluticasone Nasal [place] [Flonase 2 spray EA NOSTRIL DAILY 02/03/18 12/22/24 History Nasal [place]] Escitalopram [Lexapro] 20 mg PO DAILY 05/26/18 12/22/24 History Pantoprazole Sodium [Protonix] 20 mg PO BID 05/30/20 12/22/24 History Albuterol Sulfate [Ventolin HFA] 2 puff INHALATION RT-Q6H PRN 09/25/20 12/22/24 History Ergocalciferol [Vitamin D2 (1250 1,250 mcg PO Q14D 06/05/23 12/22/24 History Mcg = 28512 Iu)] Fluticasone/Umeclidin/Vilanter 1 puff INHALATION RT-DAILY 06/05/23 12/22/24 History [Trelegy Ellipta 100-62.5-25] Folic Acid 1 mg PO DAILY 06/05/23 12/22/24 History Lisinopril-Hctz 10-12.5 mg 1 tab PO DAILY 06/05/23 12/22/24 History [Zestoretic 10-12.5] Metoprolol Succinate [Toprol XL] 100 mg PO DAILY 06/05/23 12/22/24 History Montelukast [Singulair] 10 mg PO DAILY 06/05/23 12/22/24 History Rosuvastatin Calcium 5 mg PO DAILY 06/05/23 12/22/24 History Tirzepatide [Mounjaro] 7.5 mg SQ FR 06/05/23 12/22/24 History Acetaminophen with Codeine 1 tab PO Q6H PRN 12/22/24 12/22/24 History [Tylenol #4 Tablet] Empagliflozin [Jardiance] 10 mg PO DAILY 12/22/24 12/22/24 History Loratadine 10 mg PO DAILY PRN 12/22/24 12/22/24 History Nabumetone 750 mg PO BID PRN 12/22/24 12/22/24 History Allergies Allergy/AdvReac Type Severity Reaction Status Date / Time tramadol Allergy Intermediate Itching Verified 12/22/24 17:51 Physical Exam Vitals: Vital Signs Temp Pulse Pulse Resp BP BP Pulse Ox 12/23/24 08:33 97.8 F 79 97/59 94 L 12/23/24 02:00 97.8 F 86 111/71 12/22/24 19:56 98.2 F 85 106/60 12/22/24 18:21 92 18 114/74 94 L 12/22/24 17:00 83 18 129/76 94 L 12/22/24 16:19 84 16 111/71 96 12/22/24 14:23 97.9 F 89 18 122/81 98 Intake and Output 12/22/24 12/23/24 12/23/24 22:59 06:59 14:59 Other: Voiding Method Toilet Toilet # Voids 1 1 Weight 65.771 kg In general patient is alert and oriented Ã-3 in no distress HEENT head normocephalic and atraumatic Neck is supple no JVD no goiter no lymphadenopathy no carotid bruit Chest examination is clear to auscultation no crackles no wheezing Cardiac exam reveals regular heart sounds S1 and S2 no gallops no murmurs Abdomen is soft nontender no organomegaly with normal bowel sounds Extremity exam reveals no edema no cyanosis or clubbing Neurological examination reveals no gross focal deficits Results CBC & Chem 7: 12/22/24 14:54 12/22/24 14:54 Labs: Abnormal Lab Results - Last 24 Hours (Table) 12/22/24 12/22/24 12/22/24 Range/Units 14:54 14:54 15:23 WBC 11.66 H (4.50-10.00) 10*3/uL Hgb 15.5 H (12.0-15.0) g/dL Sodium 133 L (137-145) mmol/L Carbon Dioxide 16 L (22-30) mmol/L BUN 19 H (7-17) mg/dL Glucose 108 H (74-99) mg/dL Calcium 10.5 H (8.4-10.2) mg/dL Urine Appearance Cloudy H (Clear) Urine Glucose (UA) 4+ H (Negative) Ur Squamous Epith Cells 7 H (0-4) /hpf Urine Bacteria Moderate H (None) /hpf Urine Mucus Rare H (None) /hpf Thrombosis Risk Factor Assmnt - Choose All That Apply Any of the Below Risk Factors Present?: No Other Risk Factors: Yes Each Risk Factor Represents 2 Points: Age 61-74 years Other congenital or acquired thrombophilia - If yes, enter type in comment: No Thrombosis Risk Factor Assessment Total Risk Factor Score: 2 Thrombosis Risk Factor Assessment Level: Low Risk Assessment and Plan Assessment: 1. Abdominal pain secondary to possible small bowel obstruction. 2. History of previous perforated diverticula 3. History of diabetes mellitus 4. History of COPD 5. History of GERD 6. History of essential hypertension 9. History of anxiety and depression 10. Currently everyday smoker DVT prophylaxis SCDs until surgical services evaluation. GI prophylaxis Protonix Patient made n.p.o. surgical services consulted Repeat labs in a.m. Time with Patient: Greater than 30 (Greater than 60% of the total time spent in counseling and coordination of care)
[2024-12-23 12:02] LABS: Glucose,Whole Blood 96 mg/dL (70-110)
--- NOTE | 2024-12-23 12:18 | P.GSCN ---
History of Present Illness Consult date: 12/23/24 History of present illness: CHIEF COMPLAINT: Abdominal pain HISTORY OF PRESENT ILLNESS: This is a 64-year-old female who presented with left sided intermittent abdominal pain for the last month. She also reports having diarrhea and vomiting. She reports a decreased appetite. She had a loose stool yesterday morning. She continues to have flatus. The abdominal pain has improved. She had felt bloated. She does take Mounjaro at home for her diabetes. She had a CT scan abdomen pelvis completed that reported concerns for possible developing small bowel obstruction versus ileus at the anastomotic site possibly due to stricture. Patient does have a surgical history of perforated diverticulitis with sigmoid colectomy with colostomy and colostomy reversal in , appendectomy and hernia repair. Her last colonoscopy was in June 2023 and was normal. PAST MEDICAL HISTORY: COPD, Diabetes Mellitus, Eye Disorder, GERD/Reflux, Hyperlipidemia, Hypertension, Liver Disease,Bilateral glaucoma, enlarged liver, ruptured diverticuli w/colostomy January 2018. Colostomy reversal May 2018. Chronic back pain. Hx Shingles,steroids April 2020, chronic diarrhea PAST SURGICAL HISTORY: Appendectomy, Bowel Resection, Breast Surgery, Hernia Repair, Tonsillectomy, rem oval of left ovary MEDICATIONS: See below ALLERGIES: See below SOCIAL HISTORY: No illicit drug use. REVIEW OF SYSTEMS: CONSTITUTIONAL: Denies fever or chills. HEENT: Denies blurred vision, vision changes, or eye pain. Denies hemoptysis CARDIOVASCULAR: Denies chest pain or pressure. RESPIRATORY: No shortness of breath. GASTROINTESTINAL: See HPI for pertinent findings HEMATOLOGIC: Denies bleeding disorders. GENITOURINARY: Denies any blood in urine or increased urinary frequency. SKIN: Denies pruitis. Denies rash. PHYSICAL EXAM: VITAL SIGNS: Reviewed GENERAL: Well-developed in no acute distress. HEENT: No sclera icterus. Extraocular movements grossly intact. Moist buccal mucosa. Head is atraumatic, normocephalic. No nasal drainage. ABDOMEN: Soft. Nondistended. Nontender. No rebound or guarding noted. Old midline scar healed NEUROLOGIC: Alert and oriented. Cranial nerves II through XII grossly intact. LABORATORY DATA: WBCs 11.66 Hgb 15.5 platelets 338 Sodium is 133 potassium 4.4 creatinine 0.69 LFTs normal IMAGING: CT scan abdomen and pelvis reports postsurgical changes of the bowel with focal bowel dilatation at the bowel anastomosis with air-fluid level. Raises concern for possible developing small bowel obstruction versus ileus at the anastomotic site possibly due to stricture. Additional focal region of proximal duodenal dilatation without focal transition point. Could represent developing ileus. Long segment of circumstantial wall thickening of the ascending colon without surrounding inflammatory changes may represent colitis from an infecti ous/inflammatory process. ASSESSMENT: 1. Partial small bowel obstruction versus ileus at the anastomotic site possibly due to stricture PLAN: - Advance diet to clear liquids - Encourage patient to ambulate - Continue to monitor Physician Cement Loader note has been reviewed by physician. Signing provider agrees with the documented findings, assessment, and plan of care. Past Medical History Past Medical History: COPD, Diabetes Mellitus, Eye Disorder, GERD/Reflux, Hyperlipidemia, Hypertension, Liver Disease Additional Past Medical History / Comment(s): Bilateral glaucoma, enlarged liver, ruptured diverticuli w/colostomy January 2018. Colostomy reversal May 2018. Chronic back pain. Hx Shingles,steroids April 2020, chronic diarrhea History of Any Multi-Drug Resistant Organisms: None Reported Past Surgical History: Appendectomy, Bowel Resection, Breast Surgery, Cholecystectomy, Hernia Repair, Tonsillectomy Additional Past Surgical History / Comment(s): Benign biopsy left breast, laser liz eye surgery for glaucoma, hemorrhoidectomy. Reversal of colostomy.removed left ovary, Past Anesthesia/Blood Transfusion Reactions: No Reported Reaction Additional Past Anesthesia/Blood Transfusion Reaction / Comm: no hx blood transfusion Smoking Status: Current every day smoker - Past Family History Father Family Medical History: Coronary Artery Disease (CAD), Diabetes Mellitus Additional Family Medical History / Comment(s): Father in his 60s from diabetic complications. Mother Family Medical History: Coronary Artery Disease (CAD), Diabetes Mellitus, Myocardial Infarction ([place]) Additional Family Medical History / Comment(s): Mother from a [place] at the age of 62 yrs. Medications and Allergies Home Medications Medication Instructions Recorded Confirmed Type Fluticasone Nasal [place] [Flonase 2 spray EA NOSTRIL DAILY 02/03/18 12/22/24 History Nasal [place]] Escitalopram [Lexapro] 20 mg PO DAILY 05/26/18 12/22/24 History Pantoprazole Sodium [Protonix] 20 mg PO BID 05/30/20 12/22/24 History Albuterol Sulfate [Ventolin HFA] 2 puff INHALATION RT-Q6H PRN 09/25/20 12/22/24 History Ergocalciferol [Vitamin D2 (1250 1,250 mcg PO Q14D 06/05/23 12/22/24 History Mcg = 90334 Iu)] Fluticasone/Umeclidin/Vilanter 1 puff INHALATION RT-DAILY 06/05/23 12/22/24 History [Trelegy Ellipta 100-62.5-25] Folic Acid 1 mg PO DAILY 06/05/23 12/22/24 History Lisinopril-Hctz 10-12.5 mg 1 tab PO DAILY 06/05/23 12/22/24 History [Zestoretic 10-12.5] Metoprolol Succinate [Toprol XL] 100 mg PO DAILY 06/05/23 12/22/24 History Montelukast [Singulair] 10 mg PO DAILY 06/05/23 12/22/24 History Rosuvastatin Calcium 5 mg PO DAILY 06/05/23 12/22/24 History Tirzepatide [Mounjaro] 7.5 mg SQ FR 06/05/23 12/22/24 History Acetaminophen with Codeine 1 tab PO Q6H PRN 12/22/24 12/22/24 History [Tylenol #4 Tablet] Empagliflozin [Jardiance] 10 mg PO DAILY 12/22/24 12/22/24 History Loratadine 10 mg PO DAILY PRN 12/22/24 12/22/24 History Nabumetone 750 mg PO BID PRN 12/22/24 12/22/24 History Allergies Allergy/AdvReac Type Severity Reaction Status Date / Time tramadol Allergy Intermediate Itching Verified 12/22/24 17:51 Surgical - Exam Vital Signs Temp Pulse Resp BP Pulse Ox 97.9 F 89 18 122/81 98 12/22/24 14:23 12/22/24 14:23 12/22/24 14:23 12/22/24 14:23 12/22/24 14:23 Results - Labs 12/22/24 14:54 12/22/24 14:54 Abnormal Lab Results - Last 24 Hours (Table) 12/22/24 12/22/24 12/22/24 Range/Units 14:54 14:54 15:23 WBC 11.66 H (4.50-10.00) 10*3/uL Hgb 15.5 H (12.0-15.0) g/dL Sodium 133 L (137-145) mmol/L Carbon Dioxide 16 L (22-30) mmol/L BUN 19 H (7-17) mg/dL Glucose 108 H (74-99) mg/dL Calcium 10.5 H (8.4-10.2) mg/dL Urine Appearance Cloudy H (Clear) Urine Glucose (UA) 4+ H (Negative) Ur Squamous Epith Cells 7 H (0-4) /hpf Urine Bacteria Moderate H (None) /hpf Urine Mucus Rare H (None) /hpf Diabetes panel 12/22/24 Range/Units 14:54 Sodium 133 L (137-145) mmol/L Potassium 4.4 (3.5-5.1) mmol/L Chloride 103 (98-107) mmol/L Carbon Dioxide 16 L (22-30) mmol/L BUN 19 H (7-17) mg/dL Creatinine 0.69 (0.52-1.04) mg/dL Glucose 108 H (74-99) mg/dL Calcium 10.5 H (8.4-10.2) mg/dL AST 24 (14-36) U/L ALT 15 (4-34) U/L Alkaline Phosphatase 61 (38-126) U/L Total Protein 7.3 (6.3-8.2) g/dL Albumin 4.6 (3.5-5.0) g/dL Calcium panel 12/22/24 Range/Units 14:54 Calcium 10.5 H (8.4-10.2) mg/dL Albumin 4.6 (3.5-5.0) g/dL Pituitary panel 12/22/24 Range/Units 14:54 Sodium 133 L (137-145) mmol/L Potassium 4.4 (3.5-5.1) mmol/L Chloride 103 (98-107) mmol/L Carbon Dioxide 16 L (22-30) mmol/L BUN 19 H (7-17) mg/dL Creatinine 0.69 (0.52-1.04) mg/dL Glucose 108 H (74-99) mg/dL Calcium 10.5 H (8.4-10.2) mg/dL Adrenal panel 12/22/24 Range/Units 14:54 Sodium 133 L (137-145) mmol/L Potassium 4.4 (3.5-5.1) mmol/L Chloride 103 (98-107) mmol/L Carbon Dioxide 16 L (22-30) mmol/L BUN 19 H (7-17) mg/dL Creatinine 0.69 (0.52-1.04) mg/dL Glucose 108 H (74-99) mg/dL Calcium 10.5 H (8.4-10.2) mg/dL Total Bilirubin 0.9 (0.2-1.3) mg/dL AST 24 (14-36) U/L ALT 15 (4-34) U/L Alkaline Phosphatase 61 (38-126) U/L Total Protein 7.3 (6.3-8.2) g/dL Albumin 4.6 (3.5-5.0) g/dL
[2024-12-23] MEDS: FLUTICASONE NASAL 50MCG/SPRAY 16GM BTL EA NOSTRIL SCH (12:25)
[2024-12-23] MEDS: MONTELUKAST 10 MG TAB PO SCH (12:25)
[2024-12-23] MEDS: ESCITALOPRAM 20 MG TAB PO SCH (12:25)
[2024-12-23] MEDS: LISINOPRIL-HCTZ 10-12.5 MG 1 EACH TAB PO SCH (12:53)
[2024-12-23] MEDS: METOPROLOL SUCCINATE (ER) 100 MG TAB.ER.24H PO SCH (12:53)
[2024-12-23 16:36] LABS: Glucose,Whole Blood 79 mg/dL (70-110)
[2024-12-23 20:33] LABS: Glucose,Whole Blood 111 mg/dL (70-110)
[2024-12-23] MEDS: NICOTINE 14MG/24HR PATCH TRANSDERM SCH (20:38)
[2024-12-23] MEDS: MELATONIN 3 MG TABLET PO SCH (23:35)
[2024-12-24 04:25] LABS: ALT 10 U/L (4-34); AST 17 U/L (14-36); African American GFR (CKD) >90 (>60 ml/min/1.73 sqM); Albumin 3.3 g/dL (3.5-5.0); Alkaline Phosphatase 49 U/L (38-126); Anion Gap 5 mmol/L; Blood Urea Nitrogen 8 mg/dL (7-17); Calcium 9.3 mg/dL (8.4-10.2); Carbon Dioxide 26 mmol/L (22-30); Chloride 107 mmol/L (98-107); Glucose 79 mg/dL (74-99); Non-African American GFR(CKD) >90 (>60 ml/min/1.73 sqM); Sodium 138 mmol/L (137-145); Total Bilirubin 0.5 mg/dL (0.2-1.3); Total Protein 5.4 g/dL (6.3-8.2)
[2024-12-24 04:27] LABS: Basophils # (A) 0.09 10*3/uL (0.00-0.10); Basophils % (A) 1.1 %; Eosinophils # (A) 0.24 10*3/uL (0.04-0.35); Eosinophils % (A) 2.9 %; HCT 38.1 % (37.2-46.3); HGB 12.8 g/dL (12.0-15.0); Lymphocytes # (A) 3.06 10*3/uL (0.90-5.00); Lymphocytes % (A) 37.2 %; MCH 29.7 pg (27.0-32.0); MCHC 33.6 g/dL (32.0-37.0); MCV 88.4 fL (80.0-97.0); Mean Platelet Volume 10.9 fL (9.5-12.2); Monocytes # (A) 0.83 10*3/uL (0.20-1.00); Monocytes % (A) 10.1 %; Neutrophils # (A) 3.98 10*3/uL (1.80-7.70); Neutrophils % (A) 48.3 %; Platelet Count 271 10*3/uL (140-440); RBC 4.31 10*6/uL (4.10-5.20); RDW 13.2 % (11.5-14.5); WBC 8.23 10*3/uL (4.50-10.00)
[2024-12-24 06:13] LABS: Glucose,Whole Blood 87 mg/dL (70-110)
[2024-12-24] MEDS ORDERED: ESCITALOPRAM 20 MG TAB PO SCH (09:00)
[2024-12-24] MEDS ORDERED: METOPROLOL SUCCINATE (ER) 100 MG TAB.ER.24H PO SCH (09:00)
[2024-12-24] MEDS ORDERED: MONTELUKAST 10 MG TAB PO SCH (09:00)
[2024-12-24] MEDS ORDERED: LISINOPRIL-HCTZ 10-12.5 MG 1 EACH TAB PO SCH (09:00)
--- NOTE | 2024-12-24 10:42 | P.PN ---
Subjective Progress Note Date: 12/24/24 Roxana Velasquez, is a 64-year-old female who presented to [facility] emergency room with a chief complaint of abdominal pain. Patient reports she has had abdominal pain intermittently over the past month with nausea vomiting and diarrhea patient has a history of perforated diverticula wi th partial colectomy with Dr. Goldsmith She was evaluated in the emergency room vital examination on presentation revealed temp 97.8, heart rate 86, blood pressure 111/71 with pulse ox 94% on room air Laboratory data reveals white blood cell 11.66, hemoglobin 15.5, creatinine 0.69 bun 19, lipase 107 amylase 68 Testing in the emergency room revealed abdomen and pelvis CT completed showing postsurgical changes of the bowel with focal bowel dilation and bowel and anastomosis with air-fluid level. Raises concern for possible developing small bowel obstruction versus ileus at the anastomic site possibly due to stricture. Patient was admitted to medical floor for further evaluation and treatment. Patient made n.p.o. surgical services have been consulted Past medical history is significant for COPD, diabetes mellitus, eye disorder, GERD, hyperlipidemia, hypertension, liver disease, ruptured diverticula with colostomy in January 2018 with colostomy reversal in 2017, chronic back pain and current everyday smoker. On review of systems patient is alert and oriented x 3. Patient reports occasio nal nausea and abdominal pain but improved. Patient denies chest pain or shortness of breath. Patient denies nausea vomiting or diarrhea. Patient denies any urinary burning or frequency On 12/24/2024 patient is alert and oriented x 3. Patient has been tolerating clear liquid diet. Patient has not had a bowel movement yet. Patient denies any nausea or vomiting. Patient denies any urinary burning or frequency. Current vital signs temp 97.8, heart rate 80, respiratory rate 16, blood pressur e 127/78 with a pulse ox of 97% on room air Objective - Vital Signs Vital signs: Vital Signs Temp 97.7 F 12/24/24 07:00 Pulse 77 12/24/24 07:00 Resp 18 12/24/24 07:00 BP 125/78 12/24/24 07:00 Pulse Ox 96 12/24/24 07:00 FiO2 Intake & Output 12/23/24 12/24/24 12/24/24 18:59 06:59 18:59 Intake Total 1080 720 210 Balance 1080 720 210 Intake: Intake, IV Titration 600 Amount Sodium Chloride 0.9% 1, 600 000 ml @ 75 mls/hr IV . [id number] [facility] Rx#:[id number] Oral 480 720 210 Other: Voiding Method Toilet Toilet Toilet # Voids 2 - Exam In general patient is alert and oriented Ã-3 in no distress HEENT head normocephalic and atraumatic Neck is supple no JVD no goiter no lymphadenopathy no carotid bruit Chest examination is clear to auscultation no crackles no wheezing Cardiac exam reveals regular heart sounds S1 and S2 no gallops no murmurs Abdomen is soft nontender no organomegaly with normal bowel sounds Extremity exam reveals no edema no cyanosis or clubbing Neurological examination reveals no gross focal deficits - Labs CBC & Chem 7: 12/24/24 03:35 12/24/24 03:35 Labs: Abnormal Lab Results - Last 24 Hours (Table) 12/23/24 12/24/24 Range/Units 20:31 03:35 POC Glucose (mg/dL) 111 H (70-110) mg/dL Total Protein 5.4 L (6.3-8.2) g/dL Albumin 3.3 L (3.5-5.0) g/dL Assessment and Plan Assessment: 1. Abdominal pain secondary to possible small bowel obstruction. 2. History of previous perforated diverticula 3. History of diabetes mellitus 4. History of COPD 5. History of GERD 6. History of essential hypertension 9. History of anxiety and depression 10. Currently everyday smoker DVT prophylaxis SCDs until surgical services evaluation. GI prophylaxis Protonix Patient has been started on clear liquid diet Repeat labs in a.m.
[2024-12-24 11:16] LABS: Glucose,Whole Blood 97 mg/dL (70-110)
--- NOTE | 2024-12-24 12:55 | P.PN ---
Subjective Progress Note Date: 12/24/24 Patient states she feels better. She is tolerating liquids. She has had some flatus. Objective - Vital Signs Vital signs: Vital Signs Temp 97.7 F 12/24/24 07:00 Pulse 77 12/24/24 07:00 Resp 18 12/24/24 07:00 BP 125/78 12/24/24 07:00 Pulse Ox 96 12/24/24 07:00 FiO2 Intake & Output 12/23/24 12/24/24 12/24/24 18:59 06:59 18:59 Intake Total 1080 720 290 Balance 1080 720 290 Intake: Intake, IV Titration 600 Amount Sodium Chloride 0.9% 1, 600 000 ml @ 75 mls/hr IV . [id number] [facility] Rx#:[id number] Oral 480 720 290 Other: Voiding Method Toilet Toilet Toilet # Voids 2 - Labs CBC & Chem 7: 12/24/24 03:35 12/24/24 03:35 Labs: Abnormal Lab Results - Last 24 Hours (Table) 12/23/24 12/24/24 Range/Units 20:31 03:35 POC Glucose (mg/dL) 111 H (70-110) mg/dL Total Protein 5.4 L (6.3-8.2) g/dL Albumin 3.3 L (3.5-5.0) g/dL Assessment and Plan Plan: Patient will have her diet advanced to regular diet. It appears that her PSBO has resolved.
[2024-12-24 20:40] LABS: Glucose,Whole Blood 114 mg/dL (70-110)
[2024-12-24] MEDS: ALBUTEROL NEBULIZED 2.5 MG/3 ML INHALATION PRN (21:54)
[2024-12-25 07:33] LABS: Glucose,Whole Blood 106 mg/dL (70-110)
[2024-12-25 07:54] VITALS: BP 127/78; RESP 17; TEMP 97.6
[2024-12-25 08:38] VITALS: PULSE 72
[2024-12-25 10:06] LABS: ALT 11 U/L (8-44); AST 15 U/L (13-35); Albumin 3.7 g/dL (3.8-4.9); Albumin/Globulin Ratio 1.85 Ratio (1.60-3.17); Alkaline Phosphatase 56 U/L (41-126); BUN/Creat Ratio 10.43 Ratio (12.00-20.00); Blood Urea Nitrogen 7.3 mg/dL (9.0-27.0); Calcium 9.3 mg/dL (8.7-10.3); Carbon Dioxide 23.5 mmol/L (21.6-31.8); Chloride 110 mmol/L (96-109); Glucose 92 mg/dL (70-110); Potassium 4.4 mmol/L (3.5-5.5); Sodium 142 mmol/L (135-145); Total Bilirubin 0.2 mg/dL (0.3-1.2); Total Protein 5.7 g/dL (6.2-8.2)
[2024-12-25 10:24] LABS: Basophils # (A) 0.09 X 10*3/uL (0.00-0.10); Eosinophils % (A) 3.2 %; HCT 40.4 % (37.2-46.3); HGB 13.2 g/dL (12.0-15.0); Lymphocytes # (A) 3.26 X 10*3/uL (0.90-5.00); Lymphocytes % (A) 34.5 %; MCH 29.6 pg (27.0-32.0); MCHC 32.7 g/dL (32.0-37.0); MCV 90.6 FL (80.0-97.0); Mean Platelet Volume 11.2 FL (9.5-12.2); Monocytes # (A) 0.81 X 10*3/uL (0.20-1.00); Monocytes % (A) 8.6 %; NRBC Per 100 WBC 0 X 10*3/uL (0.00-0.01); Neutrophils # (A) 4.98 X 10*3/uL (1.80-7.70); Neutrophils % (A) 52.5 %; Platelet Count 261 X 10*3/uL (140-440); RBC 4.46 X 10*6/uL (4.10-5.20); RDW 13.5 % (11.5-14.5); WBC 9.46 X 10*3/uL (4.50-10.00)
--- NOTE | 2024-12-25 11:04 | P.DS ---
Providers Date of admission: 12/22/24 17:12 Expected date of discharge: 12/24/24 Attending physician: Alicia Painter Consults: 12/22/24 17:41 Consult Physician Routine Consulting Provider: Heath Goldsmith Consult Reason/Comments: ?SBO vs ileus Do you want consulting provider notified?: Yes Primary care physician: Sarah Mendez [facility] Course: diagnosis on discharge: 1. Abdominal pain secondary to possible small bowel obstruction. 2. History of previous perforated diverticula 3. History of diabetes mellitus 4. History of COPD 5. History of GERD 6. History of essential hypertension 9. History of anxiety and depression 10. Currently everyday smoker, patient was counseled during this admission in regard to smoking cessation Hospital course: Roxana Velasquez, is a 64-year-old female who presented to [facility] emergency room with a chief complaint of abdominal pain. Patient reports she has had abdominal pain intermittently over the past month with nausea vomiting and diarrhea patient has a history of perforated diverticula with partial colectomy with Dr. Goldsmith She was evaluated in the emergency room vital examination on presentation revealed temp 97.8, heart rate 86, blood pressure 111/71 with pulse ox 94% on room air Laboratory data reveals white blood cell 11.66, hemoglobin 15.5, creatinine 0.69 bun 19, lipase 107 amylase 68 Testing in the emergency room revealed abdomen and pelvis CT completed showing postsurgical changes of the bowel with focal bowel dilation and bowel and anastomosis with air-fluid level. Raises concern for possible developing small bowel obstruction versus ileus at the anastomic site possibly due to stricture. Patient was admitted to medical floor for further evaluation and treatment. Patient made n.p.o. surgical services have been consulted Past medical history is significant for COPD, diabetes mellitus, eye disorder, GERD, hyperlipidemia, hypertension, liver disease, ruptured diverticula with colostomy in January 2018 with colostomy reversal in 2018, chronic back pain and current everyday smoker. On review of systems patient is alert and oriented x 3. Patient reports occasional nausea and abdominal pain but improved. Patient denies chest pain or shortness of breath. Patient denies nausea vomiting or diarrhea. Patient denies any urinary burning or frequency. On 12/24/2024 patient was seen and examined on the medical floor she is alert and oriented x 3 in no apparent distress there is no fever or chills no headache or dizziness no chest pain or shortness of breath no cough no nausea or vomiting no abdominal pain no diarrhea no urinary symptoms patient was evaluated by general surgery and was cleared for discharge she will be discharged to home today Patient Condition at Discharge: Stable Plan - Discharge Summary Discharge Rx Participant: No New Discharge Prescriptions: Continue Fluticasone Nasal [place] [Flonase Nasal [place]] 2 spray EA NOSTRIL DAILY Escitalopram [Lexapro] 20 mg PO DAILY Pantoprazole Sodium [Protonix] 20 mg PO BID Albuterol Sulfate [Ventolin HFA] 2 puff INHALATION RT-Q6H PRN PRN Reason: Shortness Of Breath Fluticasone/Umeclidin/Vilanter [Trelegy Ellipta 100-62.5-25] 1 puff INHALATION RT-DAILY Lisinopril-Hctz 10-12.5 mg [Zestoretic 10-12.5] 1 tab PO DAILY Montelukast [Singulair] 10 mg PO DAILY Rosuvastatin Calcium 5 mg PO DAILY Tirzepatide [Mounjaro] 7.5 mg SQ FR Ergocalciferol [Vitamin D2 (1250 Mcg = 18972 Iu)] 1,250 mcg PO Q14D Empagliflozin [Jardiance] 10 mg PO DAILY Folic Acid 1 mg PO DAILY Metoprolol Succinate [Toprol XL] 100 mg PO DAILY Acetaminophen with Codeine [Tylenol #4 Tablet] 1 tab PO Q6H PRN PRN Reason: Pain Loratadine 10 mg PO DAILY PRN PRN Reason: allergies Nabumetone 750 mg PO BID PRN PRN Reason: Pain Discharge Medication List Fluticasone Nasal [place] [Flonase Nasal [place]] 2 spray EA NOSTRIL DAILY 02/03/18 [History] Escitalopram [Lexapro] 20 mg PO DAILY 05/26/18 [History] Pantoprazole Sodium [Protonix] 20 mg PO BID 05/30/20 [History] Albuterol Sulfate [Ventolin HFA] 2 puff INHALATION RT-Q6H PRN 09/25/20 [History] Ergocalciferol [Vitamin D2 (1250 Mcg = 74268 Iu)] 1,250 mcg PO Q14D 06/05/23 [History] Fluticasone/Umeclidin/Vilanter [Trelegy Ellipta 100-62.5-25] 1 puff INHALATION RT-DAILY 06/05/23 [History] Folic Acid 1 mg PO DAILY 06/05/23 [History] Lisinopril-Hctz 10-12.5 mg [Zestoretic 10-12.5] 1 tab PO DAILY 06/05/23 [History] Metoprolol Succinate [Toprol XL] 100 mg PO DAILY 06/05/23 [History] Montelukast [Singulair] 10 mg PO DAILY 06/05/23 [History] Rosuvastatin Calcium 5 mg PO DAILY 06/05/23 [History] Tirzepatide [Mounjaro] 7.5 mg SQ FR 06/05/23 [History] Acetaminophen with Codeine [Tylenol #4 Tablet] 1 tab PO Q6H PRN 12/22/24 [History] Empagliflozin [Jardiance] 10 mg PO DAILY 12/22/24 [History] Loratadine 10 mg PO DAILY PRN 12/22/24 [History] Nabumetone 750 mg PO BID PRN 12/22/24 [History] Follow up Appointment(s)/Referral(s): Sarah Mendez MD [Primary Care Provider] - 1-2 days
--- NOTE | 2024-12-25 11:06 | P.PN ---
Subjective Progress Note Date: 12/25/24 Roxana Velasquez, is a 64-year-old female who presented to [facility] emergency room with a chief complaint of abdominal pain. Patient reports she has had abdominal pain intermittently over the past month with nausea vomiting and diarrhea patient has a history of perforated diverticula wi th partial colectomy with Dr. Goldsmith She was evaluated in the emergency room vital examination on presentation revealed temp 97.8, heart rate 86, blood pressure 111/71 with pulse ox 94% on room air Laboratory data reveals white blood cell 11.66, hemoglobin 15.5, creatinine 0.69 bun 19, lipase 107 amylase 68 Testing in the emergency room revealed abdomen and pelvis CT completed showing postsurgical changes of the bowel with focal bowel dilation and bowel and anastomosis with air-fluid level. Raises concern for possible developing small bowel obstruction versus ileus at the anastomic site possibly due to stricture. Patient was admitted to medical floor for further evaluation and treatment. Patient made n.p.o. surgical services have been consulted Past medical history is significant for COPD, diabetes mellitus, eye disorder, GERD, hyperlipidemia, hypertension, liver disease, ruptured diverticula with colostomy in January 2018 with colostomy reversal in 2017, chronic back pain and current everyday smoker. On review of systems patient is alert and oriented x 3. Patient reports occasional nausea and abdominal pain but improved. Patient denies chest pain or shortness of breath. Patient denies nausea vomiting or diarrhea. Patient denies any urinary burning or frequency On 12/24/2024 patient is alert and oriented x 3. Patient has been tolerating clear liquid diet. Patient has not had a bowel movement yet. Patient denies any nausea or vomiting. Patient denies any urinary burning or frequency. Current vital signs temp 97.8, heart rate 80, respiratory rate 16, blood pressure 127/78 with a pulse ox of 97% on room air. Yesterday patient was cleared by surgery and was discharged home, however she developed severe diarrhea, discharge was canceled and patient was kept overnight for further monitoring and treatment. On 12/25/2024 patient was seen and examined on the medical floor she is alert and oriented x 3 in no apparent distress there is no fever or chills no headache or dizziness no chest pain no shortness of breath no cough no nausea or vomiting no abdominal pain no diarrhea and no urinary symptoms. Patient is feeling well she will be discharged home today follow-up with Dr. Mendez within 1 week Objective - Vital Signs Vital signs: Vital Signs Temp 97.6 F 12/25/24 07:00 Pulse 72 12/25/24 08:37 Resp 17 12/25/24 07:00 BP 127/78 12/25/24 07:00 Pulse Ox 97 12/25/24 07:00 FiO2 Intake & Output 12/24/24 12/25/24 12/25/24 18:59 06:59 18:59 Intake Total 690 2090 Balance 690 2090 Intake: Intake, IV Titration 900 Amount Sodium Chloride 0.9% 1, 900 000 ml @ 75 mls/hr IV . [id number] [facility] Rx#:[id number] Oral 690 1190 Other: Voiding Method Toilet Toilet # Voids 3 3 # Bowel Movements 3 - Exam In general patient is alert and oriented Ã-3 in no distress HEENT head normocephalic and atraumatic Neck is supple no JVD no goiter no lymphadenopathy no carotid bruit Chest examination is clear to auscultation no crackles no wheezing Cardiac exam reveals regular heart sounds S1 and S2 no gallops no murmurs Abdomen is soft nontender no organomegaly with normal bowel sounds Extremity exam reveals no edema no cyanosis or clubbing Neurological examination reveals no gross focal deficits - Labs CBC & Chem 7: 12/25/24 05:30 12/25/24 05:30 Labs: Abnormal Lab Results - Last 24 Hours (Table) 12/24/24 12/25/24 Range/Units 20:38 05:30 Chloride 110 H (96-109) mmol/L BUN 7.3 L (9.0-27.0) mg/dL BUN/Creatinine Ratio 10.43 L (12.00-20.00) Ratio POC Glucose (mg/dL) 114 H (70-110) mg/dL Total Bilirubin 0.2 L (0.3-1.2) mg/dL Total Protein 5.7 L (6.2-8.2) g/dL Albumin 3.7 L (3.8-4.9) g/dL Assessment and Plan Assessment: 1. Abdominal pain secondary to possible small bowel obstruction. 2. History of previous perforated diverticula 3. History of diabetes mellitus 4. History of COPD 5. History of GERD 6. History of essential hypertension 9. History of anxiety and depression 10. Currently everyday smoker DVT prophylaxis SCDs until surgical services evaluation. GI prophylaxis Protonix Patient has been started on clear liquid diet Repeat labs in a.m.
--- NOTE | 2024-12-25 12:02 | P.PN ---
Subjective Progress Note Date: 12/25/24 The patient had several large bowel movements yesterday afternoon. She states she has not no significant plan. She is tolerating diet. On exam vital signs appear stable. Abdomen is soft. Partial small bowel obstruction resolved. Patient was discharged home today. She will follow-up the office next week. Objective - Vital Signs Vital signs: Vital Signs Temp 97.6 F 12/25/24 07:00 Pulse 72 12/25/24 08:37 Resp 17 12/25/24 07:00 BP 127/78 12/25/24 07:00 Pulse Ox 97 12/25/24 07:00 FiO2 Intake & Output 12/24/24 12/25/24 12/25/24 18:59 06:59 18:59 Intake Total 690 2090 Balance 690 2090 Intake: Intake, IV Titration 900 Amount Sodium Chloride 0.9% 1, 900 000 ml @ 75 mls/hr IV . [id number] [facility] Rx#:[id number] Oral 690 1190 Other: Voiding Method Toilet Toilet # Voids 3 3 # Bowel Movements 3 - Labs CBC & Chem 7: 12/25/24 05:30 12/25/24 05:30 Labs: Abnormal Lab Results - Last 24 Hours (Table) 12/24/24 12/25/24 Range/Units 20:38 05:30 Chloride 110 H (96-109) mmol/L BUN 7.3 L (9.0-27.0) mg/dL BUN/Creatinine Ratio 10.43 L (12.00-20.00) Ratio POC Glucose (mg/dL) 114 H (70-110) mg/dL Total Bilirubin 0.2 L (0.3-1.2) mg/dL Total Protein 5.7 L (6.2-8.2) g/dL Albumin 3.7 L (3.8-4.9) g/dL
[2024-12-28 15:12] LABS: Glucose,Whole Blood 110 mg/dL (70-110)
== END 2024-12-25 11:58 | disposition home or self-care (01) ==
LOC: EC 14:21 → 1SOBS 17:12 → 5NMEDONC 12-24 17:37
PROVIDERS: ADMIT Internal Medicine; ATTEND Internal Medicine
DX: R10.9 Unspecified abdominal pain (principal); E11.9 Type 2 diabetes mellitus without complications; E78.5 Hyperlipidemia, unspecified; F17.200 Nicotine dependence, unspecified, uncomplicated; I10 Essential (primary) hypertension; J44.9 Chronic obstructive pulmonary disease, unspecified; K21.9 Gastro-esophageal reflux disease without esophagitis; F32.A Depression, unspecified; F41.9 Anxiety disorder, unspecified; G89.29 Other chronic pain; Z90.49 Acquired absence of other specified parts of digestive tract; Z88.6 Allergy status to analgesic agent; Z79.84 Long term (current) use of oral hypoglycemic drugs; Z79.899 Other long term (current) drug therapy; Z87.19 Personal history of other diseases of the digestive system
CPT/HCPCS: 96376; 96361; 96374; 99285; 36415; 94640 ×5; 80053 ×3; 82150; 83690; 85025 ×3; 81001; 74177; G0378 ×4; S4990 ×3; J2405 ×2; Q9967